=== PATIENT | female | born 1940 | race Caucasian/White ===

== ENCOUNTER 2022-05-23 18:16 | Inpatient (IN) | payer OTHER ==
--- OUTSIDE RECORDS SUMMARY | 2022-05-23 18:26 | XMS REPORT | Continuity of Care Document ---
:1940 Author Organization [facility] t Address [address] [place] [address] Care Team Providers Name Role Phone Melani Niño MD Primary Care Physician [phone] LUCÍA EARLY Attending Clinician Unavailable PAIGE WALKER Attending Clinician Unavailable Melani Niño MD Attending Clinician Cass Valverde Attending Clinician CASS HUGHES Attending Clinician Unavailable MELANI NIÑO Attending Clinician Unavailable Lucía Early MD Attending Clinician Doctor Unassigned, [place] Attending Clinician Unavailable Arielle Mosley MD Attending Clinician Pob, Adc Lab Main Attending Clinician Unavailable Vaccine, Ang Db Cbc Fam Attending Clinician Unavailable Yara Paez MD Attending Clinician Nurse, Santiago Vences Attending Clinician Unavailable Lab, Ang - Db Attending Clinician Unavailable YARA PAEZ Attending Clinician Unavailable Bahman Luna MD Attending Clinician BAHMAN LUNA Attending Clinician Unavailable BAHMAN LUNA Attending Clinician Unavailable Jorgito Banks DO Attending Clinician Mayra Lubin Attending Clinician Paige Walker MD Attending Clinician Only, Adc Test Attending Clinician Unavailable LUCÍA EARLY Admitting Clinician Unavailable PAIGE WALKER Admitting Clinician Unavailable Lucía Early MD Admitting Clinician ARIELLE MOSLEY Admitting Clinician Unavailable Paige Walker MD Admitting Clinician Payers Payer Name Policy Type Policy Number Effective Date Expiration Date Dana haney [facility] [id number] 2021 [facility] [facility] [place] 00:00:00 PPO BCBS [facility] [id number] 2018 00:00:00 [place] [id number] 2020 MEDICARE ADV 00:00:00 MEDICARE PART A \T\ [id number] B 00:00:00 Problems Condition Condition Condition Status Onset Resolution Last Treating Co mments Source Name Details Category Date Date Treatment Clinician Date No known No known Disease Unive rs active active ity of problems problems [facility] Allergies, Adverse Reactions, Alerts Allergy Allergy Status Severity Reaction(s) Onset Inactive Treating Comm ents Source Name Type Date Date Clinician PENICILL DRUG Active Rash 2017-0 Univers IN INGREDI 9-30 ity of 00:00: [place] [address] [place] [address] Penicill Propensi Active Rash 2016-0 Univer s in ty to 9-30 ity of adverse 00:00: [place] reaction [address] [place] [address] Social History Social Habit Start Date Stop Date Quantity Comments Source Exposure to 2022-05-01 2022-05-11 Not sure [facility] SARS-CoV-2 00:00:00 12:57:00 [facility] (event) [place] Alcohol intake 2022-05-11 2022-05-11 Ex-drinker [facility] 00:00:00 00:00:00 (finding) [facility] Tobacco use and 2022-01-13 2022-01-13 Smokeless tobacco Un iversity of exposure 00:00:00 00:00:00 non-user [facility] History of 2010-09-17 Cigarette Smoker Universi ty of tobacco use 00:00:00 [facility] Sex [birth year] Universit y of 00:00:00 00:00:00 [facility] Smoking Status Start Date Stop Date Source Ex-smoker 2022-01-13 00:00:00 2022-01-13 00:00:00 [facility] Medications Ordered Filled Start Stop Current Ordering Indication Dosage Frequency Signature Comments Components Source Medication Medication Date Date Medication? Clinician (SIG) Name Name gabapentin 2022-0 Yes [id number] TAKE 1 Univers 100 mg 1-17 [id number] CAPSULE BY ity o f capsule 00:00: MOUTH [place] [address] EVERY DAY Medical EVERY Branch NIGHT AT BEDTIME lisinopriL 2022-0 Yes [id number] 20mg Take 1 U nivers 20 mg 1-02 tablet by ity of tablet 00:00: mouth in [place] the morning. Branch lisinopriL 2022-0 Yes [id number] 20mg Take 1 U nivers 20 mg 1-02 tablet by ity of tablet 00:00: mouth in [place] the morning. Branch lisinopriL 2022-0 Yes [id number] 20mg Take 1 U nivers 20 mg 1-02 tablet by ity of tablet 00:00: mouth in [place] the morning. Branch lisinopriL 2022-0 Yes [id number] 20mg Take 1 U nivers 20 mg 1-02 tablet by ity of tablet 00:00: mouth in [place] the morning. Branch cefUROXime 2021-05 Yes [id number] 500mg Take 1 Univers 500 mg 2-21 tablet by ity of tablet 00:00: mouth in [place] the morning Branch and 1 tablet in the evening. cefUROXime 2021- Yes [id number] 500mg Take 1 Univers 500 mg 2-21 tablet by ity of tablet 00:00: mouth in [place] the morning Branch and 1 tablet in the evening. cefUROXime 2021- Yes [id number] 500mg Take 1 Univers 500 mg 2-21 tablet by ity of tablet 00:00: mouth in [place] the morning Branch and 1 tablet in the evening. cefUROXime 2021- Yes [id number] 500mg Take 1 Univers 500 mg 2-21 tablet by ity of tablet 00:00: mouth in [place] [address] the morning Branch and 1 tablet in the evening. cefUROXime 2021- Yes [id number] 500mg Take 1 Univers 500 mg 2-21 tablet by ity of tablet 00:00: mouth in [place] 00 the Medical morning Branch and 1 tablet in the evening. hydrALAZINE 2021- Yes 25mg Take 1 Univ ers 25 mg 2-19 tablet by ity of tablet 00:00: mouth in [place] 00 the Medical morning Branch and 1 tablet at noon and 1 tablet in the evening. gabapentin 2021-05 Yes [id number] TAKE 1 Univers 100 mg 2-19 [id number] CAPSULE BY ity o f capsule 00:00: MOUTH [place] EVERY DAY Medical EVERY Branch NIGHT AT BEDTIME furosemide 2021- Yes [id number] 20mg Take 1 Univers (LASIX) 20 2-19 tablet by ity of mg tablet 00:00: mouth in [facility] the Medical morning. Branch hydrALAZINE 2021-05 Yes 25mg Take 1 Univ ers 25 mg 2-19 tablet by ity of tablet 00:00: mouth in [place] the Medical morning Branch and 1 tablet at noon and 1 tablet in the evening. gabapentin 2021-05 Yes [id number] TAKE 1 Univers 100 mg 2-19 [id number] CAPSULE BY ity o f capsule 00:00: MOUTH [place] EVERY DAY Medical EVERY Branch NIGHT AT BEDTIME furosemide 2021- Yes [id number] 20mg Take 1 Univers (LASIX) 20 2-19 tablet by ity of mg tablet 00:00: mouth in [facility] the Medical morning. Branch hydrALAZINE 2021-05 Yes 25mg Take 1 Univ ers 25 mg 2-19 tablet by ity of tablet 00:00: mouth in [place] the Medical morning Branch and 1 tablet at noon and 1 tablet in the evening. gabapentin 2021- Yes [id number] TAKE 1 Univers 100 mg 2-19 [id number] CAPSULE BY ity o f capsule 00:00: MOUTH [place] 00 EVERY DAY Medical EVERY Branch NIGHT AT BEDTIME furosemide 2021- Yes [id number] 20mg Take 1 Univers (LASIX) 20 2-19 tablet by ity of mg tablet 00:00: mouth in [place] [address] the Medical morning. Branch hydrALAZINE 2021-05 Yes 25mg Take 1 Univ ers 25 mg 2-19 tablet by ity of tablet 00:00: mouth in [place] 00 the Medical morning Branch and 1 tablet at noon and 1 tablet in the evening. gabapentin 2021- Yes [id number] TAKE 1 Univers 100 mg 2-19 [id number] CAPSULE BY ity o f capsule 00:00: MOUTH [place] 00 EVERY DAY Medical EVERY Branch NIGHT AT BEDTIME furosemide 2021-05 Yes [id number] 20mg Take 1 Univers (LASIX) 20 2-19 tablet by ity of mg tablet 00:00: [place] the Medical morning. Branch hydrALAZINE 2021-05 Yes 25mg Take 1 Univ ers 25 mg 2-19 tablet by ity of tablet 00:00: mouth in [place] 00 the Medical morning Branch and 1 tablet at noon and 1 tablet in the evening. gabapentin 2021-05 Yes [id number] TAKE 1 Univers 100 mg 2-19 [id number] CAPSULE BY ity o f capsule 00:00: MOUTH [place] 00 EVERY DAY Medical EVERY Branch NIGHT AT BEDTIME furosemide 2021-05 Yes [id number] 20mg Take 1 Univers (LASIX) 20 2-19 tablet by ity of mg tablet 00:00: [place] 00 the Medical morning. Branch hydrALAZINE 2021-05 Yes 25mg Take 1 Univ ers 25 mg 2-19 tablet by ity of tablet 00:00: mouth in [place] 00 the Medical morning Branch and 1 tablet at noon and 1 tablet in the evening. furosemide 2021-05 Yes [id number] 20mg Take 1 Univers (LASIX) 20 2-19 tablet by ity of mg tablet 00:00: [place] the Medical morning. Branch gabapentin 2021-05- No [id number] TAKE 1 Univers 100 mg 2-19 - [id number] CAPSULE BY ity of capsule 00:00: 00:00 MOUTH [place] 00 :00 EVERY DAY Medical EVERY Branch NIGHT AT BEDTIME fluticasone 2021-05 Yes 2{spray Use 2 Un josé miguel 27.5 2-05 } Sprays in ity of mcg/actuati 14:37: each [place] on nasal 22 nostril Medical spray daily. Branch apixaban 5 2021-05 Yes 5mg Take 5 mg Un josé miguel mg tablet 2-05 by mouth 2 ity of 14:37: (two) [place] 22 times Medical daily. Branch Cholecalcif 2021-05 Yes 1{capsu Take 1 U nivers aramis, 2-05 le} capsule by ity of Vitamin D3, 14:37: mouth [place] 50 mcg 22 daily. Medical (2,000 Branch unit) capsule amiodarone 2021-05 Yes 2mg 2 mg Univers HCl 2-05 daily. ity of (AMIODARONE 14:37: [place] , BULK, 22 Medical [facility]) Branch cloNIDine 2021-05 Yes .1mg Take 0.1 Univ ers 0.1 mg 2-05 mg by ity of tablet 14:37: mouth in [place] 22 the Medical morning. Branch fluticasone 2021-05 Yes 2{spray Use 2 Un josé miguel 27.5 2-05 } Sprays in ity of mcg/actuati 14:37: each [place] on nasal 22 nostril Medical spray daily. Branch apixaban 5 2021-05 Yes 5mg Take 5 mg Un josé miguel mg tablet 2-05 by mouth 2 ity of 14:37: (two) [place] 22 times Medical daily. Branch Cholecalcif 2021-05 Yes 1{capsu Take 1 U nivers aramis, 2-05 le} capsule by ity of Vitamin D3, 14:37: mouth [place] 50 mcg 22 daily. Medical (2,000 Branch unit) capsule amiodarone 2021-05 Yes 2mg 2 mg Univers HCl 2-05 daily. ity of (AMIODARONE 14:37: Work4 , BULK, 22 Medical [facility]) Branch cloNIDine 2021-05 Yes .1mg Take 0.1 Univ ers 0.1 mg 2-05 mg by ity of tablet 14:37: mouth in [place] 22 the Medical morning. Branch fluticasone 2021-05 Yes 2{spray Use 2 Un josé miguel 27.5 2-05 } Sprays in ity of mcg/actuati 14:37: each [place] on nasal 22 nostril Medical spray daily. Branch apixaban 5 2021-05 Yes 5mg Take 5 mg Un josé miguel mg tablet 2-05 by mouth 2 ity of 14:37: (two) [place] 22 times Medical daily. Branch Cholecalcif 2021-05 Yes 1{capsu Take 1 U nivers aramis, 2-05 le} capsule by ity of Vitamin D3, 14:37: mouth [place] 50 mcg 22 daily. Medical (2,000 Branch unit) capsule amiodarone 2021-05 Yes 2mg 2 mg Univers HCl 2-05 daily. ity of (AMIODARONE 14:37: [place] , [employer], 22 Medical [facility]) Branch cloNIDine 2021-05 Yes .1mg Take 0.1 Univ ers 0.1 mg 2-05 mg by ity of tablet 14:37: mouth in [place] 22 the Medical morning. Branch fluticasone 2021-05 Yes 2{spray Use 2 Un josé miguel 27.5 2-05 } Sprays in ity of mcg/actuati 14:37: each [place] on nasal 22 nostril Medical spray daily. Branch apixaban 5 2021-05 Yes 5mg Take 5 mg Un josé miguel mg tablet 2-05 by mouth 2 ity of 14:37: (two) [place] 22 times Medical daily. Branch Cholecalcif 2021-05 Yes 1{capsu Take 1 U nivers aramis, 2-05 le} capsule by ity of Vitamin D3, 14:37: mouth [place] 50 mcg 22 daily. Medical (2,000 Branch unit) capsule amiodarone 2021-05 Yes 2mg 2 mg Univers HCl 2-05 daily. ity of (AMIODARONE 14:37: [place], 22 Medical [facility]) Branch cloNIDine 2021-05 Yes .1mg Take 0.1 Univ ers 0.1 mg 2-05 mg by ity of tablet 14:37: mouth in [place] 22 the Medical morning. Branch fluticasone 2021-05 Yes 2{spray Use 2 Un josé miguel 27.5 2-05 } Sprays in ity of mcg/actuati 14:37: each [place] on nasal 22 nostril Medical spray daily. Branch apixaban 5 2021-05 Yes 5mg Take 5 mg Un josé miguel mg tablet 2-05 by mouth 2 ity of 14:37: (two) [place] 22 times Medical daily. Branch Cholecalcif 2021-05 Yes 1{capsu Take 1 U nivers aramis, 2-05 le} capsule by ity of Vitamin D3, 14:37: mouth [place] 50 mcg 22 daily. Medical (2,000 Branch unit) capsule amiodarone 2021-05 Yes 2mg 2 mg Univers HCl 2-05 daily. ity of (AMIODARONE 14:37: [place] , BULK, 22 Medical [facility]) Branch cloNIDine 2021-05 Yes .1mg Take 0.1 Univ ers 0.1 mg 2-05 mg by ity of tablet 14:37: mouth in [place] 22 the Medical morning. Branch fluticasone 2021-05 Yes 2{spray Use 2 Un josé miguel 27.5 2-05 } Sprays in ity of mcg/actuati 14:37: each [place] on nasal 22 nostril Medical spray daily. Branch apixaban 5 2021-05 Yes 5mg Take 5 mg Un josé miguel mg tablet 2-05 by mouth 2 ity of 14:37: (two) [place] 22 times Medical daily. Branch Cholecalcif 2021-05 Yes 1{capsu Take 1 U nivers aramis, 2-05 le} capsule by ity of Vitamin D3, 14:37: mouth [place] 50 mcg 22 daily. Medical (2,000 Branch unit) capsule amiodarone 2021-05 Yes 2mg 2 mg Univers HCl 2-05 daily. ity of (AMIODARONE 14:37: Work4 , [employer], [address] [place] [address]) Branch cloNIDine 2021-05 Yes .1mg Take 0.1 Univ ers 0.1 mg 2-05 mg by ity of tablet 14:37: mouth in [place] 22 the Medical morning. Branch fluticasone 2021-05 Yes 2{spray Use 2 Un josé miguel 27.5 2-05 } Sprays in ity of mcg/actuati 14:37: each [place] on nasal 22 nostril Medical spray daily. Branch apixaban 5 2021-05 Yes 5mg Take 5 mg Un josé miguel mg tablet 2-05 by mouth 2 ity of 14:37: (two) [place] 22 times Medical daily. Branch Cholecalcif 2021-05 Yes 1{capsu Take 1 U nivers aramis, 2-05 le} capsule by ity of Vitamin D3, 14:37: mouth [place] 50 mcg 22 daily. Medical (2,000 Branch unit) capsule amiodarone 2021-05 Yes 2mg 2 mg Univers HCl 2-05 daily. ity of (AMIODARONE 14:37: Work4 , BULK, 22 Medical [facility]) Branch cloNIDine 2021-05 Yes .1mg Take 0.1 Univ ers 0.1 mg 2-05 mg by ity of tablet 14:37: mouth in [place] 22 the Medical morning. Branch fluticasone 2021-05 Yes 2{spray Use 2 Un josé miguel 27.5 2-05 } Sprays in ity of mcg/actuati 14:37: each [place] on nasal 22 nostril Medical spray daily. Branch apixaban 5 2021-05 Yes 5mg Take 5 mg Un josé miguel mg tablet 2-05 by mouth 2 ity of 14:37: (two) [place] 22 times Medical daily. Branch Cholecalcif 2021-05 Yes 1{capsu Take 1 U nivers aramis, 2-05 le} capsule by ity of Vitamin D3, 14:37: mouth [place] 50 mcg 22 daily. Medical (2,000 Branch unit) capsule amiodarone 2021-05 Yes 2mg 2 mg Univers HCl 2-05 daily. ity of (AMIODARONE 14:37: [place] , BULK, 22 Medical MIS) Branch cloNIDine 2021-05 Yes .1mg Take 0.1 Univ ers 0.1 mg 2-05 mg by ity of tablet 14:37: mouth in [place] 22 the Medical morning. Branch cefUROXime 2021-05 Yes [id number] 500mg Take 1 Univers 500 mg 2-05 tablet by ity of tablet 00:00: mouth in [place] 00 the Medical morning Branch and 1 tablet in the evening. cefUROXime 2021-05 Yes [id number] 500mg Take 1 Univers 500 mg 2-05 tablet by ity of tablet 00:00: mouth in [place] 00 the Medical morning Branch and 1 tablet in the evening. cefUROXime 2021-05 Yes [id number] 500mg Take 1 Univers 500 mg 2-05 tablet by ity of tablet 00:00: mouth in [place] 00 the Medical morning Branch and 1 tablet in the evening. cefUROXime 2021-05- No [id number] 500mg Take 1 Univers 500 mg 2-05 12-21 tablet by ity of tablet 00:00: 00:00 mouth in [place] 00 :00 the Medical morning Branch and 1 tablet in the evening. furosemide 2021-05 Yes [id number] 20mg Take 1 Univers (LASIX) 20 1-22 tablet by ity of mg tablet 00:00: mouth in [facility] 00 the Medical morning. Branch furosemide 2021-05 Yes [id number] 20mg Take 1 Univers (LASIX) 20 1-22 tablet by ity of mg tablet 00:00: mouth in [facility] [place] [facility] 00 the Medical morning. Branch furosemide 2021-05 Yes [id number] 20mg Take 1 Univers (LASIX) 20 1-22 tablet by ity of mg tablet 00:00: [place] the Medical morning. Branch furosemide 2021-05- No [id number] 20mg Take 1 Univers (LASIX) 20 1-22 12-19 tablet by ity of mg tablet 00:00: 00:00 mouth in [place] 00 :00 the Medical morning. Branch gabapentin 2021-05 Yes [id number] TAKE 1 Univers 100 mg 1-18 [id number] CAPSULE BY ity o f capsule 00:00: MOUTH [place] 00 EVERY DAY Medical EVERY Branch NIGHT AT BEDTIME gabapentin 2021-05 Yes [id number] TAKE 1 Univers 100 mg 1-18 [id number] CAPSULE BY ity o f capsule 00:00: MOUTH [place] 00 EVERY DAY Medical EVERY Branch NIGHT AT BEDTIME gabapentin 2021-05 Yes [id number] TAKE 1 Univers 100 mg 1-18 [id number] CAPSULE BY ity o f capsule 00:00: MOUTH [place] 00 EVERY DAY Medical EVERY Branch NIGHT AT BEDTIME gabapentin 2021-05 Yes [id number] TAKE 1 Univers 100 mg 1-18 [id number] CAPSULE BY ity o f capsule 00:00: MOUTH [place] 00 EVERY DAY Medical EVERY Branch NIGHT AT BEDTIME gabapentin 2021-05- No [id number] TAKE 1 Univers 100 mg 1-18 12-19 [id number] CAPSULE BY ity of capsule 00:00: 00:00 MOUTH [place] 00 :00 EVERY DAY Medical EVERY Branch NIGHT AT BEDTIME lactated 2021-05 Yes 1000mL at 50 Univer s ringers IV 1-10 mL/hr, ity of infusion 17:00: 1,000 mL, [place] 1,000 [place] 00 IV Medical Infusion, Branch CONTINUOUS , Starting on [place] 03/16/22 at 1100, Until Discontinu ed, Routine, PACU lactated 2021-05- No 1000mL at 50 Unive rs ringers IV 1-10 11-10 mL/hr, ity of infusion 17:00: 19:30 1,000 mL, [place] 1,000 mL 00 :43 IV Medical Infusion, Branch CONTINUOUS , Starting on [place] 03/16/22 at 1100, Until [place] 03/16/22 at 1330, Routine, PACU ondansetron 2021-05 Yes 4mg 4 mg, Slow Univers (ZOFRAN 1-10 IV Push, ity of (PF)) 16:52: PRN, 1 [place] injection 4 32 dose, Medical mg Starting Branch on [place] 03/16/22 at 1052, Until Discontinu ed, Routine, Nausea and Vomiting (N/V), PACU ondansetron 2021-05- No 4mg 4 mg, Slow Univers (ZOFRAN 05-16 IV Push, ity of (PF)) 16:52: 19:30 PRN, 1 [place] injection 4 32 :43 dose, Medical mg Starting Branch on [place] 03/16/22 at 1052, Until [place] 03/16/22 at 1330, Routine, Nausea and Vomiting (N/V), PACU neomycin-po 2021-05- No PRN, Unive rs lymyxin-dex 05-16 Starting ity of amethasone 16:51: 16[facility] [facility] 00 :27 03/16/22 Medic al 3.5 at 1051, Branch mg/g-10,000 Until [facility] unit/g-0.1 03/16/22 % at 1056, ophthalmic Routine, ointment Intra-op gentamicin 2021-05- No PRN, Univer s injection 05-16 Starting ity o f 16:50: 16:56 on Lisa [place] 00 :27 03/16/22 Medical at 1050, Branch Until [place] 03/16/22 at 1056, JUAN MIGUEL, Intra-op dexamethaso 2021-05- No PRN, Unive rs ne 05-16 Starting ity of (DECADRON 16:50: 16:56 on [facility] PHOSPHATE) 00 :27 03/16/22 Medic al injection at 1050, Branch Until [place] 03/16/22 at 1056, Routine, Intra-op EPINEPHrine 2021-05- No PRN, Unive rs (PF) 05-16 Starting ity of 1:1,000 (1 16:32: 16:56 on [facility] [place] mg/mL) 00 :27 03/16/22 Medical (ADRENALIN at 1032, Branc h (PF)) Until [place] injection 03/16/22 at 1056, Routine, Intra-op chondroitin 2021-05- No PRN, Unive rs sulf-sod 05-16 Starting ity of hyaluronate 16:32: 16:56 on [place] (DUOVISC 00 :27 03/16/22 Medical VISCO at 1032, Branch ELASTIC) Until [place] intraocular 03/16/22 injection at 1056, Routine, Intra-op balanced 2021-05- No PRN, Univers salt soln 05-16 Starting ity o f no.2 irrig. 16:32: 16:56 on [place] (BSS) 00 :27 03/16/22 Medical ophthalmic at 1032, Branc h solution Until [facility] 03/16/22 at 1056, Routine, Intra-op water for 2021-05- No PRN, Univers irrigation 05-16 Starting ity of irrigation 16:29: 16:[address] [facility] solution 00 :27 03/16/22 Medical at 1029, Branch Until [facility] 03/16/22 at 1056, Routine, Intra-op tetracaine 2021-05- No PRN, Univer s (PONTOCAINE 05-16 Starting ity of ) 0.5 % 16:27: 16:56 on [facility] ophthalmic 00 :27 03/16/22 Medic al drops at 1027, Branch Until [facility] 03/16/22 at 1056, Routine, Intra-op eye block 2021-05- No PRN, Univers syringe 11 05-16 Starting ity of mL 16:26: 16:56 on [facility] 00 :27 03/16/22 Medical at 1026, Branch Until [facility] 03/16/22 at 1056, Intra-op cyclopent 2021-05- No .5mL 0.5 mL, Univ ers 1%-tropic 05-16 Right Eye, ity of 1%-phenyl 15:15: 15:24 ONCE, 1 [place] 2.5%-ketor 00 :00 dose, On Medic al 0.5% [facility] (MYDRIATIC 03/16/22 #5) at 0915, ophthalmic Routine, solution DSU Pre-op syringe 0.5 mL lactated 2021-05- No 1000mL at 42 Unive rs ringers IV 1-10 11-10 mL/hr, ity of infusion 15:15: 15:24 1,000 mL, [place] 1,000 mL 00 :00 IV Medical Infusion, Branch ONCE, 1 dose, On [place] 03/16/22 at 0915, Routine, DSU Pre-op cyclopent 2021-05- No .5mL 0.5 mL, Univ ers 1%-tropic 1-10 11-10 Right Eye, ity of 1%-phenyl 15:15: 15:24 ONCE, 1 [place] 2.5%-ketor 00 :00 dose, On Medic al 0.5% [place] Branch (MYDRIATIC 03/16/22 #5) at 0915, ophthalmic Routine, solution DSU Pre-op syringe 0.5 mL lactated 2021-05- No 1000mL at 42 Unive rs ringers IV 1-10 11-10 mL/hr, ity of infusion 15:15: 15:24 1,000 mL, [place] 1,000 mL 00 :00 IV Medical Infusion, Branch ONCE, 1 dose, On [place] 03/16/22 at 0915, Routine, DSU Pre-op fluticasone 2021-05 Yes 2{spray Use 2 Un josé miguel 27.5 1-10 } Sprays in ity of mcg/actuati 11:30: each [place] on nasal 40 nostril Medical spray daily. Branch apixaban 5 2021-05 Yes 5mg Take 5 mg Un josé miguel mg tablet 1-10 by mouth 2 ity of 11:30: (two) [place] 40 times Medical daily. Branch Cholecalcif 2021-05 Yes 1{capsu Take 1 U nivers aramis, 1-10 le} capsule by ity of Vitamin D3, 11:30: mouth [place] 50 mcg 40 daily. Medical (2,000 Branch unit) capsule amiodarone 2021-05 Yes 2mg 2 mg Univers HCl 1-10 daily. ity of (AMIODARONE 11:30: [place] , BULK, 40 Medical MIS) Branch cloNIDine 2021-05 Yes .1mg Take 0.1 Univ ers 0.1 mg 1-10 mg by ity of tablet 11:30: mouth in [place] 40 the Medical morning. Branch fluticasone 2021-05 Yes 2{spray Use 2 Un josé miguel 27.5 1-10 } Sprays in ity of mcg/actuati 11:30: each [place] on nasal 40 nostril Medical spray daily. Branch apixaban 5 2021-05 Yes 5mg Take 5 mg Un josé miguel mg tablet 1-10 by mouth 2 ity of 11:30: (two) [place] 40 times Medical daily. Branch Cholecalcif 2021-05 Yes 1{capsu Take 1 U nivers aramis, 1-10 le} capsule by ity of Vitamin D3, 11:30: mouth [place] 50 mcg 40 daily. Medical (2,000 Branch unit) capsule amiodarone 2021-05 Yes 2mg 2 mg Univers HCl 1-10 daily. ity of (AMIODARONE 11:30: [place] , BULK, 40 Medical MIS) Branch cloNIDine 2021-05 Yes .1mg Take 0.1 Univ ers 0.1 mg 1-10 mg by ity of tablet 11:30: mouth in [place] 40 the Medical morning. Branch fluticasone 2021-05 Yes 2{spray Use 2 Un josé miguel 27.5 1-10 } Sprays in ity of mcg/actuati 11:30: each [place] on nasal 40 nostril Medical spray daily. Branch apixaban 5 2021-05 Yes 5mg Take 5 mg Un josé miguel mg tablet 1-10 by mouth 2 ity of 11:30: (two) [place] 40 times Medical daily. Branch Cholecalcif 2021-05 Yes 1{capsu Take 1 U nivers aramis, 1-10 le} capsule by ity of Vitamin D3, 11:30: mouth [place] 50 mcg 40 daily. Medical (2,000 Branch unit) capsule amiodarone 2021-05 Yes 2mg 2 mg Univers HCl 1-10 daily. ity of (AMIODARONE 11:30: [place] , BULK, 40 Medical MISC) Branch cloNIDine 2021-05 Yes .1mg Take 0.1 Univ ers 0.1 mg 1-10 mg by ity of tablet 11:30: mouth in [place] 40 the Medical morning. Branch fluticasone 2021-05 Yes 2{spray Use 2 Un josé miguel 27.5 1-10 } Sprays in ity of mcg/actuati 11:30: each [place] on nasal 40 nostril Medical spray daily. Branch apixaban 5 2021-05 Yes 5mg Take 5 mg Un josé miguel mg tablet 1-10 by mouth 2 ity of 11:30: (two) [place] 40 times Medical daily. Branch Cholecalcif 2021-05 Yes 1{capsu Take 1 U nivers [place], 1-10 le} capsule by ity of Vitamin D3, 11:30: mouth [place] 50 mcg 40 daily. Medical (2,000 Branch unit) capsule amiodarone 2021-05 Yes 2mg 2 mg Univers HCl 1-10 daily. ity of (AMIODARONE 11:30: [place] , BULK, 40 Medical MIS) Branch cloNIDine 2021-05 Yes .1mg Take 0.1 Univ ers 0.1 mg 1-10 mg by ity of tablet 11:30: mouth in [place] 40 the Medical morning. Branch fluticasone 2021-05 Yes 2{spray Use 2 Un josé miguel 27.5 1-07 } Sprays in ity of mcg/actuati 12:49: each [place] on nasal 36 nostril Medical spray daily. Branch apixaban 2021-05 Yes 5mg Take 5 mg Un josé miguel mg tablet 1-07 by mouth 2 ity of 12:49: (two) [place] 36 times Medical daily. Branch Cholecalcif 2021-05 Yes 1{capsu Take 1 U nivers aramis, 1-07 le} capsule by ity of Vitamin D3, 12:49: mouth [place] 50 mcg 36 daily. Medical (2,000 Branch unit) capsule amiodarone 2021-05 Yes 2mg 2 mg Univers HCl 1-07 daily. ity of (AMIODARONE 12:49: [place] , BULK, 36 Medical MIS) Branch cloNIDine 2021-05 Yes .1mg Take 0.1 Univ ers 0.1 mg 1-07 mg by ity of tablet 12:49: mouth in [place] 36 the Medical morning. Branch fluticasone 2021-05 Yes 2{spray Use 2 Un josé miguel 27.5 1-07 } Sprays in ity of mcg/actuati 12:49: each [place] on nasal 36 nostril Medical spray daily. Branch apixaban 5 2021-05 Yes 5mg Take 5 mg Un josé miguel mg tablet 1-07 by mouth 2 ity of 12:49: (two) [place] 36 times Medical daily. Branch Cholecalcif 2021-05 Yes 1{capsu Take 1 U nivers aramis, 1-07 le} capsule by ity of Vitamin D3, 12:49: mouth [place] 50 mcg 36 daily. Medical (2,000 Branch unit) capsule amiodarone 2021-05 Yes 2mg 2 mg Univers HCl 1-07 daily. ity of (AMIODARONE 12:49: [place] , BULK, 36 Medical MIS) Branch cloNIDine 2021-05 Yes .1mg Take 0.1 Univ ers 0.1 mg 1-07 mg by ity of tablet 12:49: mouth in [place] 36 the Medical morning. Branch amLODIPine 2021-05 Yes [id number] 5mg Take 1 U nivers 5 mg tablet 1-07 tablet by ity of 00:00: mouth in [place] 00 the Medical morning. Branch amLODIPine 2021-05 Yes [id number] 5mg Take 1 U nivers 5 mg tablet 1-07 tablet by ity of 00:00: mouth in [place] 00 the Medical morning. Branch amLODIPine 2021-05 Yes [id number] 5mg Take 1 U nivers 5 mg tablet 1-07 tablet by ity of 00:00: mouth in [place] 00 the Medical morning. Branch amLODIPine 2021-05 Yes [id number] 5mg Take 1 U nivers 5 mg tablet 1-07 tablet by ity of 00:00: mouth in [place] 00 the Medical morning. Branch amLODIPine 2021-05 Yes [id number] 5mg Take 1 U nivers 5 mg tablet 1-07 tablet by ity of 00:00: mouth in [place] 00 the Medical morning. Branch amLODIPine 2021-05 Yes [id number] 5mg Take 1 U nivers 5 mg tablet 1-07 tablet by ity of 00:00: mouth in [place] 00 the Medical morning. Branch amLODIPine 2021-05 Yes [id number] 5mg Take 1 U nivers 5 mg tablet 1-07 tablet by ity of 00:00: mouth in [place] 00 the Medical morning. Branch amLODIPine 2021-05 Yes [id number] 5mg Take 1 U nivers 5 mg tablet 1-07 tablet by ity of 00:00: mouth in [place] 00 the Medical morning. Branch amLODIPine 2021-05 Yes [id number] 5mg Take 1 U nivers 5 mg tablet 1-07 tablet by ity of 00:00: mouth in [place] the Medical morning. Branch amLODIPine 2021-05 Yes [id number] 5mg Take 1 U nivers 5 mg tablet 1-07 tablet by ity of 00:00: mouth in [place] the Medical morning. Branch amLODIPine 2021-05 Yes [id number] 5mg Take 1 U nivers 5 mg tablet 1-07 tablet by ity of 00:00: mouth in [place] the Medical morning. Branch amLODIPine 2021-05 Yes [id number] 5mg Take 1 U nivers 5 mg tablet 1-07 tablet by ity of 00:00: mouth in [place] the Medical morning. Branch amLODIPine 2021-05 Yes [id number] 5mg Take 1 U nivers 5 mg tablet 1-07 tablet by ity of 00:00: mouth in [place] the Medical morning. Branch amLODIPine 2021-05 Yes [id number] 5mg Take 1 U nivers 5 mg tablet 1-07 tablet by ity of 00:00: mouth in [place] the Medical morning. Branch amLODIPine 2021-05 Yes [id number] 5mg Take 1 U nivers 5 mg tablet 1-07 tablet by ity of 00:00: mouth in [place] the Medical morning. Branch gabapentin 2021-05 Yes [id number] TAKE 1 [facility] 100 mg 0-19 [id number] CAPSULE BY ity o f capsule 00:00: MOUTH [place] 00 EVERY DAY Medical EVERY Branch NIGHT AT BEDTIME gabapentin 2021-05 Yes [id number] TAKE 1 [facility] 100 mg 0-19 [id number] CAPSULE BY ity o f capsule 00:00: MOUTH [place] 00 EVERY DAY Medical EVERY Branch NIGHT AT BEDTIME gabapentin 2021-05 Yes [id number] TAKE 1 [facility] 100 mg 0-19 [id number] CAPSULE BY ity o f capsule 00:00: MOUTH [place] 00 EVERY DAY Medical EVERY Branch NIGHT AT BEDTIME gabapentin 2021-05 Yes [id number] TAKE 1 [facility] 100 mg 0-19 [id number] CAPSULE BY ity o f capsule 00:00: MOUTH [place] 00 EVERY DAY Medical EVERY Branch NIGHT AT BEDTIME gabapentin 2021- Yes [id number] TAKE 1 [facility] 100 mg 0-19 [id number] CAPSULE BY ity o f capsule 00:00: MOUTH [place] 00 EVERY DAY Medical EVERY Branch NIGHT AT BEDTIME gabapentin 2021- Yes [id number] TAKE 1 [facility] 100 mg 0-19 [id number] CAPSULE BY ity o f capsule 00:00: MOUTH [place] 00 EVERY DAY Medical EVERY Branch NIGHT AT BEDTIME gabapentin 2021-05- No [id number] TAKE 1 [facility] 100 mg 0-19 11-18 [id number] CAPSULE BY ity of capsule 00:00: 00:00 MOUTH [place] 00 :00 EVERY DAY Medical EVERY Branch NIGHT AT BEDTIME fluticasone 2021-05 Yes 2{spray Use 2 Un josé miguel 27.5 0-10 } Sprays in ity of mcg/actuati 13:03: each [place] on nasal 18 nostril Medical spray daily. Branch apixaban 5 2021-05 Yes 5mg Take 5 mg Un josé miguel mg tablet 0-10 by mouth 2 ity of 13:03: (two) [place] 18 times Medical daily. Branch Cholecalcif 2021-05 Yes 1{capsu Take 1 U nivers aramis, 0-10 le} capsule by ity of Vitamin D3, 13:03: mouth [place] 50 mcg 18 daily. Medical (2,000 Branch unit) capsule amiodarone 2021-05 Yes 2mg 2 mg [facility] HCl 0-10 daily. ity of (AMIODARONE 13:03: Work4 , [employer], Medical [facility]) Branch cloNIDine 2021-05 Yes .1mg Take 0.1 Univ ers 0.1 mg 0-10 mg by ity of tablet 13:03: mouth in [place] 18 the Medical morning Branch and 0.1 mg at noon and 0.1 mg in the evening. fluticasone 2021-05 Yes 2{spray Use 2 Un josé miguel 27.5 0-10 } Sprays in ity of mcg/actuati 13:03: each [place] on nasal 18 nostril Medical spray daily. Branch apixaban 5 2021-05 Yes 5mg Take 5 mg Un josé miguel mg tablet 0-10 by mouth 2 ity of 13:03: (two) [place] 18 times Medical daily. Branch Cholecalcif 2021-05 Yes 1{capsu Take 1 U nivers ar[place], 0-10 le} capsule by ity of Vitamin D3, 13:03: mouth [place] 50 mcg 18 daily. Medical (2,000 Branch unit) capsule amiodarone 2021-05 Yes 2mg 2 mg [facility] HCl 0-10 daily. ity of (AMIODARONE 13:03: [place] , BULK, 18 Medical MIS) Branch cloNIDine 2021-05 Yes .1mg Take 0.1 Univ ers 0.1 mg 0-10 mg by ity of tablet 13:03: mouth in [place] 18 the Medical morning Branch and 0.1 mg at noon and 0.1 mg in the evening. fluticasone 2021-05 Yes 2{spray Use 2 Un josé miguel 27.5 0-10 } Sprays in ity of mcg/actuati 13:03: each [place] on nasal 18 nostril Medical spray daily. Branch apixaban 5 2021-05 Yes 5mg Take 5 mg Un josé miguel mg tablet 0-10 by mouth 2 ity of 13:03: (two) [place] 18 times Medical daily. Branch Cholecalcif 2021-05 Yes 1{capsu Take 1 U nivers [place], 0-10 le} capsule by ity of Vitamin D3, 13:03: mouth [place] 50 mcg 18 daily. Medical (2,000 Branch unit) capsule amiodarone 2021-05 Yes 2mg 2 mg [facility] HCl 0-10 daily. ity of (AMIODARONE 13:03: [place] , BULK, [address] [place] [address]) Branch cloNIDine 2021-05 Yes .1mg Take 0.1 Univ ers 0.1 mg 0-10 mg by ity of tablet 13:03: mouth in [place] 18 the Medical morning Branch and 0.1 mg at noon and 0.1 mg in the evening. fluticasone 2021-05 Yes 2{spray Use 2 Un josé miguel 27.5 0-10 } Sprays in ity of mcg/actuati 13:03: each [place] on nasal 18 nostril Medical spray daily. Branch apixaban 5 2021-05 Yes 5mg Take 5 mg Un josé miguel mg tablet 0-10 by mouth 2 ity of 13:03: (two) [place] 18 times Medical daily. Branch Cholecalcif 2021-05 Yes 1{capsu Take 1 U nivers [place], 0-10 le} capsule by ity of Vitamin D3, 13:03: mouth [place] 50 mcg 18 daily. Medical (2,000 Branch unit) capsule amiodarone 2021-05 Yes 2mg 2 mg [facility] HCl 0-10 daily. ity of (AMIODARONE 13:03: [place] , BULK, [address] [place] [address]) Branch cloNIDine 2022-1 Yes .1mg Take 0.1 Univ ers 0.1 mg 0-10 mg by ity of tablet 13:03: mouth in [place] 18 the Medical morning Branch and 0.1 mg at noon and 0.1 mg in the evening. fluticasone 2021-05 Yes 2{spray Use 2 Un josé miguel 27.5 0-10 } Sprays in ity of mcg/actuati 13:03: each [place] on nasal 18 nostril Medical spray daily. Branch apixaban 5 2021-05 Yes 5mg Take 5 mg Un josé miguel mg tablet 0-10 by mouth 2 ity of 13:03: (two) [place] 18 times Medical daily. Branch Cholecalcif 2021-05 Yes 1{capsu Take 1 U nivers aramis, 0-10 le} capsule by ity of Vitamin D3, 13:03: mouth [place] 50 mcg 18 daily. Medical (2,000 Branch unit) capsule amiodarone 2021-05 Yes 2mg 2 mg [facility] HCl 0-10 daily. ity of (AMIODARONE 13:03: [place] , BULK, 18 Medical MISC) Branch cloNIDine 2021-05 Yes .1mg Take 0.1 Univ ers 0.1 mg 0-10 mg by ity of tablet 13:03: mouth in [place] 18 the Medical morning Branch and 0.1 mg at noon and 0.1 mg in the evening. clonidine 2021-05- No Take by Univ ers (CATAPRES) 0-10 10-10 mouth 3 ity o f 0.1 mg/mL 13:02: 00:00 (three[place] :00 times Medical suspension daily. Branch clonidine 2021-05- No Take by Univ ers (CATAPRES) 0-10 10-10 mouth 3 ity o f 0.1 mg/mL 13:02: 00:00 (three[place] oral [place] :00 times Medical suspension daily. Branch lisinopriL 2021-05 Yes [id number] 20mg Take 1 U nivers 20 mg 0-04 tablet by ity of tablet 00:00: mouth in [place] 00 the Medical morning. Branch lisinopriL 2021-05 Yes [id number] 20mg Take 1 U nivers 20 mg 0-04 tablet by ity of tablet 00:00: mouth in [place] 00 the Medical morning. Branch lisinopriL 2021-05 Yes [id number] 20mg Take 1 U nivers 20 mg 0-04 tablet by ity of tablet 00:00: mouth in [place] 00 the Medical morning. Branch lisinopriL 2021-05 Yes [id number] 20mg Take 1 U nivers 20 mg 0-04 tablet by ity of tablet 00:00: mouth in [place] 00 the Medical morning. Branch lisinopriL 2021-05 Yes [id number] 20mg Take 1 U nivers 20 mg 0-04 tablet by ity of tablet 00:00: mouth in [place] 00 the Medical morning. Branch lisinopriL 2021-05 Yes [id number] 20mg Take 1 U nivers 20 mg 0-04 tablet by ity of tablet 00:00: mouth in [place] the Medical morning. Branch lisinopriL 2021-05 Yes [id number] 20mg Take 1 U nivers 20 mg 0-04 tablet by ity of tablet 00:00: mouth in [place] the Medical morning. Branch lisinopriL 2021-05 Yes [id number] 20mg Take 1 U nivers 20 mg 0-04 tablet by ity of tablet 00:00: mouth in [place] the Medical morning. Branch lisinopriL 2021-05 Yes [id number] 20mg Take 1 U nivers 20 mg 0-04 tablet by ity of tablet 00:00: mouth in [place] the Medical morning. Branch lisinopriL 2021-05 Yes [id number] 20mg Take 1 U nivers 20 mg 0-04 tablet by ity of tablet 00:00: mouth in [place] the Medical morning. Branch lisinopriL 2021-05 Yes [id number] 20mg Take 1 U nivers 20 mg 0-04 tablet by ity of tablet 00:00: mouth in [place] the Medical morning. Branch lisinopriL 2021-05 Yes [id number] 20mg Take 1 U nivers 20 mg 0-04 tablet by ity of tablet 00:00: mouth in [place] 00 the Medical morning. Branch lisinopriL 2021-05 Yes [id number] 20mg Take 1 U nivers 20 mg 0-04 tablet by ity of tablet 00:00: mouth in [place] 00 the Medical morning. Branch lisinopriL 2021- Yes [id number] 20mg Take 1 U nivers 20 mg 0-04 tablet by ity of tablet 00:00: mouth in [place] 00 the Medical morning. Branch lisinopriL 2021-1 Yes [id number] 20mg Take 1 U nivers 20 mg 0-04 tablet by ity of tablet 00:00: mouth in [place] 00 the Medical morning. Branch lisinopriL 2021-1 Yes [id number] 20mg Take 1 U nivers 20 mg 0-04 tablet by ity of tablet 00:00: mouth in [place] 00 the Medical morning. Branch lisinopriL 2021-1 Yes [id number] 20mg Take 1 U nivers 20 mg 0-04 tablet by ity of tablet 00:00: mouth in [place] 00 the Medical morning. Branch lisinopriL 2021-1 3- No [id number] 20mg Take 1 Univers 20 mg 0-04 01-02 tablet by ity of tablet 00:00: 00:00 mouth in [place] 00 :00 the Medical morning. Branch KCL 10 mEq 2-0 Yes [id number] 10meq Take 1 Univers tablet 9-27 tablet by ity of 00:00: mouth in [place] the Medical morning. Branch KCL 10 mEq 2-0 Yes [id number] 10meq Take 1 Univers tablet 9-27 tablet by ity of 00:00: mouth in [place] the Medical morning. Branch KCL 10 mEq 2-0 Yes [id number] 10meq Take 1 [facility] tablet 9-27 tablet by ity of 00:00: mouth in [place] the Medical morning. Branch KCL 10 mEq 2-0 Yes [id number] 10meq Take 1 Univers tablet 9-27 tablet by ity of 00:00: mouth in [place] the Medical morning. Branch KCL 10 mEq 2-0 Yes [id number] 10meq Take 1 Univers tablet 9-27 tablet by ity of 00:00: mouth in [place] the Medical morning. Branch KCL 10 mEq 2-0 Yes [id number] 10meq Take 1 [facility] tablet 9-27 tablet by ity of 00:00: mouth in [place] the Medical morning. Branch KCL 10 mEq 2022-0 Yes [id number] 10meq Take 1 Univers tablet 9-27 tablet by ity of 00:00: mouth in [place] 00 the Medical morning. Branch KCL 10 mEq 2022-0 Yes [id number] 10meq Take 1 Univers tablet 9-27 tablet by ity of 00:00: mouth in [place] 00 the Medical morning. Branch KCL 10 mEq 2022-0 Yes [id number] 10meq Take 1 [facility] tablet 9-27 tablet by ity of 00:00: mouth in [place] the Medical morning. Branch KCL 10 mEq 2022-0 Yes [id number] 10meq Take 1 Univers tablet 9-27 tablet by ity of 00:00: mouth in [place] the Medical morning. Branch KCL 10 mEq 2022-0 Yes [id number] 10meq Take 1 Univers tablet 9-27 tablet by ity of 00:00: mouth in [place] the Medical morning. Branch KCL 10 mEq 2022-0 Yes [id number] 10meq Take 1 [facility] tablet 9-27 tablet by ity of 00:00: mouth in [place] the Medical morning. Branch KCL 10 mEq 2022-0 Yes [id number] 10meq Take 1 Univers tablet 9-27 tablet by ity of 00:00: mouth in [place] the Medical morning. Branch KCL 10 mEq 2022-0 Yes [id number] 10meq Take 1 Univers tablet 9-27 tablet by ity of 00:00: mouth in [place] the Medical morning. Branch KCL 10 mEq 2022-0 Yes [id number] 10meq Take 1 Univers tablet 9-27 tablet by ity of 00:00: mouth in [place] the Medical morning. Branch KCL 10 mEq 2022-0 Yes [id number] 10meq Take 1 [facility] tablet 9-27 tablet by ity of 00:00: mouth in [place] the Medical morning. Branch KCL 10 mEq 2022-0 Yes [id number] 10meq Take 1 Univers tablet 9-27 tablet by ity of 00:00: mouth in [place] the Medical morning. Branch KCL 10 mEq 2022-0 Yes [id number] 10meq Take 1 Univers tablet 9-27 tablet by ity of 00:00: mouth in [place] the Medical morning. Branch KCL 10 mEq 2022-0 Yes [id number] 10meq Take 1 Univers tablet 9-27 tablet by ity of 00:00: mouth in [place] the Medical morning. Branch KCL 10 mEq 2022-0 Yes [id number] 10meq Take 1 Univers tablet 9-27 tablet by ity of 00:00: mouth in [place] 00 the Medical morning. Branch KCL 10 mEq 2022-0 Yes [id number] 10meq Take 1 Univers tablet 9-27 tablet by ity of 00:00: mouth in [place] 00 the Medical morning. [place] KCL 10 mEq Yes [id number] 10meq Take 1 Univers tablet 9-27 tablet by ity of 00:00: mouth in [place] 00 the Medical morning. Branch neomycin-po 2021- No PRN, Unive rs lymyxin-dex 01-26 Starting ity of amethasone 14:32: 14:41 on [place] (MAXITROL) 00 :46 01/26/22 at Med ical 3.5 0932, Branch mg/g-10,000 Until Lisa unit/g-0.1 01/26/22 at % 0941, ophthalmic Routine, ointment Intra-op gentamicin 2021- No PRN, Univer s injection 01-26 Starting ity o f 14:30: 14:41 on Lisa [place] 00 :46 01/26/22 at Medical 0930, Branch Until Lisa 01/26/22 at 0941, JUAN MIGUEL, Intra-op dexamethaso 2021- No PRN, Unive rs ne 01-26 Starting ity of (DECADRON 14:30: 14:41 on Lisa [place] PHOSPHATE) 00 :46 01/26/22 at Med ical injection 0930, Branch Until [place] 01/26/22 at 0941, Routine, Intra-op chondroitin 2021- No PRN, Unive rs sulf-sod 01-26 Starting ity of hyaluronate 14:25: 14:41 on [place] as (DUOVISC 00 :46 01/26/22 at Medic al VISCO 0925, Branch ELASTIC) Until [place] intraocular 01/26/22 at injection 0941, Routine, Intra-op EPINEPHrine 2021- No PRN, Unive rs (PF) 01-26 Starting ity of 1:1,000 (1 14:24: 14:41 [place] mg/mL) 00 :46 01/26/22 at Medical (ADRENALIN 0924, Branch (PF)) Until [place] injection 01/26/22 at 0941, Routine, Intra-op balanced 2021- No PRN, Univers salt soln 01-26 Starting ity o f no.2 irrig. 14:24: 14:41 on [facility] Dars[place] as (BSS) 00 :46 01/26/22 at [facility] ophthalmic 0924, Branch solution Until [place] 01/26/22 at 0941, Routine, Intra-op water for 2021- No PRN, Univers irrigation 01-26 Starting ity of irrigation 14:17: 14:41 on [facility] [place] solution 00 :46 01/26/22 at Medic al 0917, Branch Until [place] 01/26/22 at 0941, Routine, Intra-op eye block 2021- No PRN, Univers syringe 11 01-26 Starting ity of mL 14:13: 14:41 on Lisa [place] 00 :46 01/26/22 at Medical 0913, Branch Until [place] 01/26/22 at 0941, Intra-op tetracaine 2021- No PRN, Univer s (PONTOCAINE 01-26 Starting ity of ) 0.5 % 14:13: 14:41 on Lisa [place] ophthalmic 00 :46 01/26/22 at Med ical drops 0913, Branch Until [place] 01/26/22 at 0941, Routine, Intra-op cyclopent 2021- No .5mL 0.5 mL, Univ ers 1%-tropic 01-26 Left Eye, ity of 1%-phenyl 12:45: 12:56 ONCE, 1 [place] 2.5%-ketor 00 :00 dose, On Medic al 0.5% [facility] (MYDRIATIC 01/26/22 at #5) 0745, ophthalmic Routine, solution DSU Pre-op syringe 0.5 mL lactated 2021- No 1000mL at 42 Unive rs ringers IV 01-26 mL/hr, ity of infusion 12:45: 12:55 1,000 mL, Darshan as 1,000 mL 00 :00 IV Medical Infusion, Branch ONCE, 1 dose, On [place] 01/26/22 at 0745, Routine, DSU Pre-op cyclopent 2021- No .5mL 0.5 mL, Univ ers 1%-tropic 01-26 Left Eye, ity of 1%-phenyl 12:45: 12:56 ONCE, 1 [place] 2.5%-ketor 00 :00 dose, On Medic al 0.5% [place] Branch (MYDRIATIC 01/26/22 at #5) 0745, ophthalmic Routine, solution DSU Pre-op syringe 0.5 mL lactated 2021- No 1000mL at 42 [facility] rs ringers IV 01-2622 mL/hr, ity of infusion 12:45: 12:55 1,000 mL, Darshan as 1,000 mL 00 :00 IV Medical Infusion, Branch ONCE, 1 dose, On [place] 01/26/22 at 0745, Routine, DSU Pre-op fluticasone 0 Yes 2{spray Use 2 Un josé miguel 27.5 01-26 } Sprays in ity of mcg/actuati 11:14: each [place] on nasal 02 nostril Medical spray daily. Branch apixaban 5 0 Yes 5mg Take 5 mg Un josé miguel mg tablet 01-26 by mouth 2 ity of 11:14: (two) [place] 02 times Medical daily. Branch Cholecalcif Yes 1{capsu Take 1 U nivers aramis, 01-26 le} capsule by ity of Vitamin D3, 11:14: mouth [place] 50 mcg 02 daily. Medical (2,000 Branch unit) capsule amiodarone Yes 2mg 2 mg Univers HCl 01-26 daily. ity of (AMIODARONE 11:14: [place] , BULK, 02 Medical MIS) Branch clonidine Yes Take by [facility] (CATAPRES) 01-26 mouth 3 ity of 0.1 mg/mL 11:14: (three) [place] oral 02 times Medical suspension daily. Branch fluticasone 0 Yes 2{spray Use 2 Un josé miguel 27.5 01-26 } Sprays in ity of mcg/actuati 11:14: each [place] on nasal 02 nostril Medical spray daily. Branch apixaban 5 0 Yes 5mg Take 5 mg Un josé miguel mg tablet 01-26 by mouth 2 ity of 11:14: (two) [place] 02 times Medical daily. Branch Cholecalcif 2022-0 Yes 1{capsu Take 1 U nivers ar[place], 9- le} capsule by ity of Vitamin D3, 11:14: mouth [place] 50 mcg 02 daily. Medical (2,000 Branch unit) capsule amiodarone 2021-0 Yes 2mg 2 mg Univers HCl 01-26 daily. ity of (AMIODARONE 11:14: [place] , BULK, 02 Medical MIS) Branch clonidine 0 Yes Take by Unive rs (CATAPRES) 01-26 mouth 3 ity of 0.1 mg/mL 11:14: (three) [place] oral 02 times Medical suspension daily. Branch fluticasone 2021-0 Yes 2{spray Use 2 Un josé miguel 27.5 01-26 } Sprays in ity of mcg/actuati 11:14: each [place] on nasal 02 nostril Medical spray daily. Branch apixaban 5 2021-0 Yes 5mg Take 5 mg Un josé miguel mg tablet 01-26 by mouth 2 ity of 11:14: (two) [place] 02 times Medical daily. Branch Cholecalcif 2021-0 Yes 1{capsu Take 1 U nivers aramis, - le} capsule by ity of Vitamin D3, 11:14: mouth [place] 50 mcg 02 daily. Medical (2,000 Branch unit) capsule amiodarone 2021-0 Yes 2mg 2 mg Univers HCl 01-26 daily. ity of (AMIODARONE 11:14: [place] , BULK, 02 Medical MIS) Branch clonidine 2021-0 Yes Take by [facility] rs (CATAPRES) 01-26 mouth 3 ity of 0.1 mg/mL 11:14: (three) [place] oral 02 times Medical suspension daily. Branch fluticasone 2021-0 Yes 2{spray Use 2 Un josé miguel 27.5 01-26 } Sprays in ity of mcg/actuati 11:14: each [place] on nasal 02 nostril Medical spray daily. Branch apixaban 5 2021-0 Yes 5mg Take 5 mg Un josé miguel mg tablet 01-26 by mouth 2 ity of 11:14: (two) [place] 02 times Medical daily. Branch Cholecalcif 2021-0 Yes 1{capsu Take 1 U nivers [place], 9-22 le} capsule by ity of Vitamin D3, 11:14: mouth [place] 50 mcg 02 daily. Medical (2,000 Branch unit) capsule amiodarone 2021-0 Yes 2mg 2 mg Univers HCl - daily. ity of (AMIODARONE 11:14: [place] , BULK, [facility]) Branch clonidine 0 Yes Take by [facility] rs (CATAPRES) 01-26 mouth 3 ity of 0.1 mg/mL 11:14: (three) [place] oral 02 times Medical suspension daily. Branch fluticasone 2021-0 Yes 2{spray Use 2 Un josé miguel 27.5 01-26 } Sprays in ity of mcg/actuati 11:14: each [place] on nasal 02 nostril Medical spray daily. Branch apixaban 5 2021-0 Yes 5mg Take 5 mg Un josé miguel mg tablet 01-26 by mouth 2 ity of 11:14: (two) [place] 02 times Medical daily. Branch Cholecalcif 2021-0 Yes 1{capsu Take 1 U nivers [place], 01-26 le} capsule by ity of Vitamin D3, 11:14: mouth [place] 50 mcg 02 daily. Medical (2,000 Branch unit) capsule amiodarone 2021-0 Yes 2mg 2 mg Univers HCl 01-26 daily. ity of (AMIODARONE 11:14: Work4 , [employer], [facility]) Branch clonidine Yes Take by [email or web address] rs (CATAPRES) 01-26 mouth 3 ity of 0.1 mg/mL 11:14: (three) [place] oral 02 times Medical suspension daily. Branch fluticasone 2021-0 Yes 2{spray Use 2 Un josé miguel 27.5 01-26 } Sprays in ity of mcg/actuati 11:14: each [place] on nasal 02 nostril Medical spray daily. Branch apixaban 5 2021-0 Yes 5mg Take 5 mg Un josé miguel mg tablet 01-26 by mouth 2 ity of 11:14: (two) [place] 02 times Medical daily. Branch Cholecalcif 2021-0 Yes 1{capsu Take 1 U nivers [place], - le} capsule by ity of Vitamin D3, 11:14: mouth [place] 50 mcg 02 daily. Medical (2,000 Branch unit) capsule amiodarone 2021-0 Yes 2mg 2 mg Univers HCl -22 daily. ity of (AMIODARONE 11:14: [place] , BULK, 02 Medical [facility]) Branch clonidine 2021-0 Yes Take by Unive rs (CATAPRES) 01-26 mouth 3 ity of 0.1 mg/mL 11:14: (three) [place] oral 02 times Medical suspension daily. Branch KCL 10 mEq 2021-0 Yes [id number] 10meq Take 1 Univers tablet - tablet by ity of 00:00: mouth in [place] 00 the Medical morning. Branch KCL 10 mEq 2021-0 2021- No [id number] 10meq Take 1 Univers tablet -26 01-27 tablet by ity of 00:00: 00:00 mouth in [place] 00 :00 the Medical morning. Branch hydrALAZINE 2021-0 Yes 25mg Take 1 Univ ers 25 mg 9-21 tablet by ity of tablet 00:00: mouth in [place] 00 the Medical morning Branch and 1 tablet at noon and 1 tablet in the evening. gabapentin 2021-0 Yes [id number] TAKE 1 Univers 100 mg 9-21 [id number] CAPSULE BY ity o f capsule 00:00: MOUTH [place] 00 EVERY DAY Medical EVERY Branch NIGHT AT BEDTIME hydrALAZINE 2021-0 Yes 25mg Take 1 Univ ers 25 mg 9-21 tablet by ity of tablet 00:00: mouth in [place] 00 the Medical morning Branch and 1 tablet at noon and 1 tablet in the evening. gabapentin 2021-0 Yes [id number] TAKE 1 [facility] 100 mg 9-21 [id number] CAPSULE BY ity o f capsule 00:00: MOUTH [place] 00 EVERY DAY Medical EVERY Branch NIGHT AT BEDTIME hydrALAZINE 2022-0 Yes 25mg Take 1 Univ ers 25 mg 9-21 tablet by ity of tablet 00:00: mouth in [place] 00 the Medical morning Branch and 1 tablet at noon and 1 tablet in the evening. gabapentin 2-0 Yes [id number] TAKE 1 Univers 100 mg 9-21 [id number] CAPSULE BY ity o f capsule 00:00: MOUTH [place] [address] EVERY DAY Medical EVERY Branch NIGHT AT BEDTIME hydrALAZINE 2022-0 Yes 25mg Take 1 Univ ers 25 mg 9-21 tablet by ity of tablet 00:00: mouth in [place] 00 the Medical morning Branch and 1 tablet at noon and 1 tablet in the evening. gabapentin 2022-0 Yes [id number] TAKE 1 [facility] 100 mg 9-21 [id number] CAPSULE BY ity o f capsule 00:00: MOUTH [place] 00 EVERY DAY Medical EVERY Branch NIGHT AT BEDTIME hydrALAZINE 2022-0 Yes 25mg Take 1 Univ ers 25 mg 9-21 tablet by ity of tablet 00:00: mouth in [place] 00 the Medical morning Branch and 1 tablet at noon and 1 tablet in the evening. gabapentin 2022-0 Yes [id number] TAKE 1 Univers 100 mg 9-21 [id number] CAPSULE BY ity o f capsule 00:00: MOUTH [place] 00 EVERY DAY Medical EVERY Branch NIGHT AT BEDTIME hydrALAZINE 2022-0 Yes 25mg Take 1 Univ ers 25 mg 9-21 tablet by ity of tablet 00:00: mouth in [place] 00 the Medical morning Branch and 1 tablet at noon and 1 tablet in the evening. gabapentin 2022-0 Yes [id number] TAKE 1 [facility] 100 mg 9-21 [id number] CAPSULE BY ity o f capsule 00:00: MOUTH [place] EVERY DAY Medical EVERY Branch NIGHT AT BEDTIME hydrALAZINE 2022-0 Yes 25mg Take 1 Univ ers 25 mg 9-21 tablet by ity of tablet 00:00: mouth in [place] 00 the Medical morning Branch and 1 tablet at noon and 1 tablet in the evening. gabapentin 2022-0 Yes [id number] TAKE 1 [facility] 100 mg 9-21 [id number] CAPSULE BY ity o f capsule 00:00: MOUTH [place] 00 EVERY DAY Medical EVERY Branch NIGHT AT BEDTIME hydrALAZINE 2022-0 Yes 25mg Take 1 Univ ers 25 mg 9-21 tablet by ity of tablet 00:00: mouth in [place] 00 the Medical morning Branch and 1 tablet at noon and 1 tablet in the evening. gabapentin 2022-0 Yes [id number] TAKE 1 [facility] 100 mg 9-21 [id number] CAPSULE BY ity o f capsule 00:00: MOUTH [place] 00 EVERY DAY Medical EVERY Branch NIGHT AT BEDTIME hydrALAZINE 2022-0 Yes 25mg Take 1 [facility] 25 mg 9-21 tablet by ity of tablet 00:00: mouth in [place] 00 the Medical morning Branch and 1 tablet at noon and 1 tablet in the evening. hydrALAZINE 2022-0 Yes 25mg Take 1 [facility] 25 mg 9-21 tablet by ity of tablet 00:00: mouth in [place] 00 the Medical morning Branch and 1 tablet at noon and 1 tablet in the evening. hydrALAZINE 2022-0 Yes 25mg Take 1 [facility] 25 mg 9-21 tablet by ity of tablet 00:00: mouth in [place] 00 the Medical morning Branch and 1 tablet at noon and 1 tablet in the evening. hydrALAZINE 2022-0 Yes 25mg Take 1 [facility] ers 25 mg 9-21 tablet by ity of tablet 00:00: mouth in [place] 00 the Medical morning Branch and 1 tablet at noon and 1 tablet in the evening. hydrALAZINE 2022-0 Yes 25mg Take 1 [facility] 25 mg 9-21 tablet by ity of tablet 00:00: mouth in [place] 00 the Medical morning Branch and 1 tablet at noon and 1 tablet in the evening. hydrALAZINE 2022-0 Yes 25mg Take 1 [facility] 25 mg 9-21 tablet by ity of tablet 00:00: mouth in [place] [address] the Medical morning Branch and 1 tablet at noon and 1 tablet in the evening. hydrALAZINE 2022-0 Yes 25mg Take 1 [facility] ers 25 mg 9-21 tablet by ity of tablet 00:00: mouth in [place] 00 the Medical morning Branch and 1 tablet at noon and 1 tablet in the evening. hydrALAZINE 2022-0 Yes 25mg Take 1 [facility] 25 mg 9-21 tablet by ity of tablet 00:00: mouth in [place] 00 the Medical morning Branch and 1 tablet at noon and 1 tablet in the evening. hydrALAZINE 2022-0 Yes 25mg Take 1 [facility] 25 mg 9-21 tablet by ity of tablet 00:00: mouth in [place] 00 the Medical morning Branch and 1 tablet at noon and 1 tablet in the evening. hydrALAZINE 2022-0 Yes 25mg Take 1 [facility] 25 mg 9-21 tablet by ity of tablet 00:00: mouth in [place] 00 the Medical morning Branch and 1 tablet at noon and 1 tablet in the evening. hydrALAZINE 2022-0 2022- No 25mg Take 1 [facility] vers 25 mg 9-21 12-19 tablet by ity of tablet 00:00: 00:00 mouth in [place] 00 :00 the Medical morning Branch and 1 tablet at noon and 1 tablet in the evening. gabapentin 2022-0 2022- No [id number] TAKE 1 [facility] 100 mg 9-21 10-18 [id number] CAPSULE BY ity of capsule 00:00: 00:00 MOUTH [place] 00 :00 EVERY DAY Medical EVERY Branch NIGHT AT BEDTIME fluticasone 2-0 Yes 2{spray Use 2 Un jos[facility] miguel 27.5 9-20 } Sprays in ity of mcg/actuati 08:43: each [place] on nasal 28 nostril Medical spray daily. Branch apixaban 5 2021-0 Yes 5mg Take 5 mg Un jos[facility] miguel mg tablet 9-20 by mouth 2 ity of 08:43: (two) [place] 28 times Medical daily. Branch Cholecalcif 2021-0 Yes 1{capsu Take 1 U nivers aramis, 9-20 le} capsule by ity of Vitamin D3, 08:43: mouth [place] 50 mcg 28 daily. Medical (2,000 Branch unit) capsule amiodarone 2021-0 Yes 2mg 2 mg [facility] HCl 9-20 daily. ity of (AMIODARONE 08:43: [place] , [employer], [address] [place] [address]) Branch fluticasone 2-0 Yes 2{spray Use 2 Un jos[facility] miguel 27.5 9-20 } Sprays in ity of mcg/actuati 08:43: each [place] on nasal 28 nostril Medical spray daily. Branch apixaban 5 2021-0 Yes 5mg Take 5 mg Un jos[facility] miguel mg tablet 9-20 by mouth 2 ity of 08:43: (two) [place] 28 times Medical daily. Branch Cholecalcif 2021-0 Yes 1{capsu Take 1 U nivers [place], 9-20 le} capsule by ity of Vitamin D3, 08:43: mouth [place] 50 mcg 28 daily. Medical (2,000 Branch unit) capsule amiodarone 2-0 Yes 2mg 2 mg [facility] HCl 9-20 daily. ity of (AMIODARONE 08:43: [place] , BULK, 28 Medical [facility]) Branch fluticasone 2-0 Yes 2{spray Use 2 Un jos[facility] miguel 27.5 9-20 } Sprays in ity of mcg/actuati 08:43: each [place] on nasal 28 nostril Medical spray daily. Branch apixaban 5 2-0 Yes 5mg Take 5 mg Un jos[facility] miguel mg tablet 9-20 by mouth 2 ity of 08:43: (two) [place] 28 times Medical daily. Branch Cholecalcif Yes 1{capsu Take 1 U nivers aramis, 9-20 le} capsule by ity of Vitamin D3, 08:43: mouth [place] 50 mcg 28 daily. Medical (2,000 Branch unit) capsule amiodarone Yes 2mg 2 mg [facility] HCl 9-20 daily. ity of (AMIODARONE 08:43: [place] , BULK, 28 Medical MIS) Branch clonidine Yes Take by [facility] (CATAPRES) 9-20 mouth 3 ity of 0.1 mg/mL 08:41: (three) [place] oral 37 times Medical suspension daily. Branch clonidine Yes Take by [facility] (CATAPRES) 9-20 mouth 3 ity of 0.1 mg/mL 08:41: (three) [place] oral 37 times Medical suspension daily. Branch levothyroxi Yes [id number] 50ug Take 1 [facility] ne 50 mcg 9-10 tablet by ity o f tablet 00:00: mouth [place] 00 every Medical morning. Branch levothyroxi Yes [id number] 50ug Take 1 [facility] ne 50 mcg 9-10 tablet by ity o f tablet 00:00: mouth [place] 00 every Medical morning. Branch levothyroxi Yes [id number] 50ug Take 1 [facility] ne 50 mcg 9-10 tablet by ity o f tablet 00:00: mouth [place] 00 every Medical morning. Branch levothyroxi Yes [id number] 50ug Take 1 [facility] ne 50 mcg 9-10 tablet by ity o f tablet 00:00: mouth [place] 00 every Medical morning. Branch levothyroxi Yes [id number] 50ug Take 1 [facility] ne 50 mcg 9-10 tablet by ity o f tablet 00:00: mouth [place] 00 every Medical morning. Branch levothyroxi Yes [id number] 50ug Take 1 [facility] ne 50 mcg 9-10 tablet by ity o f tablet 00:00: mouth [place] 00 every Medical morning. Branch levothyroxi Yes [id number] 50ug Take 1 [facility] ne 50 mcg 9-10 tablet by ity o f tablet 00:00: mouth [place] 00 every Medical morning. Branch levothyroxi 2022-0 Yes [id number] 50ug Take 1 [facility] ne 50 mcg 9-10 tablet by ity o f tablet 00:00: mouth [place] 00 every Medical morning. Branch levothyroxi 2021-0 Yes [id number] 50ug Take 1 [facility] ne 50 mcg 9-10 tablet by ity o f tablet 00:00: mouth [place] 00 every Medical morning. Branch levothyroxi 2021-0 Yes [id number] 50ug Take 1 [facility] ne 50 mcg 9-10 tablet by ity o f tablet 00:00: mouth [place] 00 every Medical morning. Branch levothyroxi 2021-0 Yes [id number] 50ug Take 1 [facility] ne 50 mcg 9-10 tablet by ity o f tablet 00:00: mouth [place] 00 every Medical morning. Branch levothyroxi 2021-0 Yes [id number] 50ug Take 1 [facility] ne 50 mcg 9-10 tablet by ity o f tablet 00:00: mouth [place] 00 every Medical morning. Branch levothyroxi 2021-0 Yes [id number] 50ug Take 1 [facility] ne 50 mcg 9-10 tablet by ity o f tablet 00:00: mouth [place] 00 every Medical morning. Branch levothyroxi 2021-0 Yes [id number] 50ug Take 1 [facility] ne 50 mcg 9-10 tablet by ity o f tablet 00:00: mouth [place] 00 every Medical morning. Branch levothyroxi 2021-0 Yes [id number] 50ug Take 1 [facility] ne 50 mcg 9-10 tablet by ity o f tablet 00:00: mouth [place] 00 every Medical morning. Branch levothyroxi 2021-0 Yes [id number] 50ug Take 1 [facility] ne 50 mcg 9-10 tablet by ity o f tablet 00:00: mouth [place] 00 every Medical morning. Branch levothyroxi 2021-0 Yes [id number] 50ug Take 1 [facility] ne 50 mcg 9-10 tablet by ity o f tablet 00:00: mouth [place] 00 every Medical morning. Branch levothyroxi 2021-0 Yes [id number] 50ug Take 1 [facility] ne 50 mcg 9-10 tablet by ity o f tablet 00:00: mouth [place] 00 every Medical morning. Branch levothyroxi 2021-0 Yes [id number] 50ug Take 1 [facility] ne 50 mcg 9-10 tablet by ity o f tablet 00:00: mouth [place] 00 every Medical morning. Branch levothyroxi 2021-0 Yes [id number] 50ug Take 1 [facility] ne 50 mcg 9-10 tablet by ity o f tablet 00:00: mouth [place] 00 every Medical morning. Branch levothyroxi 2021-0 Yes [id number] 50ug Take 1 [facility] ne 50 mcg 9-10 tablet by ity o f tablet 00:00: mouth [place] 00 every Medical morning. Branch levothyroxi 2021-0 Yes [id number] 50ug Take 1 [facility] ne 50 mcg 9-10 tablet by ity o f tablet 00:00: mouth [place] 00 every Medical morning. Branch levothyroxi 2021-0 Yes [id number] 50ug Take 1 [facility] ne 50 mcg 9-10 tablet by ity o f tablet 00:00: mouth [place] 00 every Medical morning. Branch levothyroxi 2021-0 Yes [id number] 50ug Take 1 [facility] ne 50 mcg 9-10 tablet by ity o f tablet 00:00: mouth [place] 00 every Medical morning. Branch levothyroxi 2021-0 Yes [id number] 50ug Take 1 [facility] ne 50 mcg 9-10 tablet by ity o f tablet 00:00: mouth [place] 00 every Medical morning. Branch levothyroxi 0 Yes [id number] 50ug Take 1 [facility] ne 50 mcg 9-10 tablet by ity o f tablet 00:00: mouth [place] 00 every Medical morning. Branch levothyroxi 2021-0 Yes [id number] 50ug Take 1 [facility] ne 50 mcg 9-10 tablet by ity o f tablet 00:00: mouth [place] 00 every Medical morning. Branch levothyroxi 2021-0 Yes [id number] 50ug Take 1 [facility] ne 50 mcg 9-10 tablet by ity o f tablet 00:00: mouth [place] 00 every Medical morning. Branch levothyroxi 2021-0 Yes [id number] 50ug Take 1 [facility] ne 50 mcg 9-10 tablet by ity o f tablet 00:00: mouth [place] 00 every Medical morning. Branch gabapentin 2021-0 Yes [id number] TAKE 1 [facility] 100 mg 8-02 [id number] CAPSULE BY ity o f capsule 00:00: MOUTH [place] 00 EVERY DAY Medical EVERY Branch NIGHT AT BEDTIME gabapentin 2021-0 Yes [id number] TAKE 1 [facility] 100 mg 8-02 [id number] CAPSULE BY ity o f capsule 00:00: MOUTH [place] 00 EVERY DAY Medical EVERY Branch NIGHT AT BEDTIME gabapentin Yes [id number] TAKE 1 [facility] 100 mg 12-06 [id number] CAPSULE BY ity o f capsule 00:00: MOUTH [place] 00 EVERY DAY Medical EVERY Branch NIGHT AT BEDTIME gabapentin 2021-0 2021- No [id number] TAKE 1 [facility] 100 mg 12-06 [id number] CAPSULE BY ity of capsule 00:00: 00:00 MOUTH [place] 00 :00 EVERY DAY Medical EVERY Branch NIGHT AT BEDTIME gabapentin 2021-2021- No [id number] TAKE 1 [facility] 100 mg 12-06 [id number] CAPSULE BY ity of capsule 00:00: 00:00 MOUTH [place] 00 :00 EVERY DAY Medical EVERY Branch NIGHT AT BEDTIME gabapentin 2021-2021- No [id number] TAKE 1 [facility] 100 mg 12-06 [id number] CAPSULE BY ity of capsule 00:00: 00:00 MOUTH [place] 00 :00 EVERY DAY Medical EVERY Branch NIGHT AT BEDTIME LEVOTHYROXI 2021-2021- No TAKE 1 Uni vers NE 50 mcg 7-18 09-10 TABLET BY ity of tablet 00:00: 00:00 MOUTH [place] 00 :00 EVERY Medical MORNING Branch LEVOTHYROXI 2021- No TAKE 1 Uni vers NE 50 mcg 7-18 09-10 TABLET BY ity of tablet 00:00: 00:00 MOUTH [place] 00 :00 EVERY Medical MORNING Branch LEVOTHYROXI 2021- No TAKE 1 Uni vers NE 50 mcg 7-18 09-10 TABLET BY ity of tablet 00:00: 00:00 MOUTH [place] 00 :00 EVERY Medical MORNING Branch LEVOTHYROXI 2021- No TAKE 1 Uni vers NE 50 mcg 7-18 09-10 TABLET BY ity of tablet 00:00: 00:00 MOUTH [place] 00 :00 EVERY Medical MORNING Branch amiodarone Yes 2mg 2 mg [facility] HCl 6-16 daily. ity of (AMIODARONE 10:15: [place] , BULK, 41 Medical MIS) Branch CLONIDINE 2021- No [id number] TAKE 1 U nivers 0.2 mg 6-16 - TABLET BY ity of tablet 00:00: 00:00 MOUTH [place] 00 :00 THREE Medical TIMES Branch DAILY CLONIDINE 2021-0 2021- No [id number] TAKE 1 U nivers 0.2 mg 6-16 - TABLET BY ity of tablet 00:00: 00:00 MOUTH [place] 00 :00 THREE Medical TIMES Branch DAILY CLONIDINE 2021-0 2021- No [id number] TAKE 1 U nivers 0.2 mg 6-16 01-13 TABLET BY ity of tablet 00:00: 00:00 MOUTH [place] 00 :00 THREE Medical TIMES Branch DAILY CLONIDINE 2021-0 2021- No [id number] TAKE 1 U nivers 0.2 mg 6-16 01-13 TABLET BY ity of tablet 00:00: 00:00 MOUTH [place] 00 :00 THREE Medical TIMES Branch DAILY furosemide 2021-0 Yes [id number] 20mg Take 1 Univers (LASIX) 20 5-24 tablet by ity of mg tablet 00:00: mouth [place] 00 daily. Medical Branch furosemide 2021-0 Yes [id number] 20mg Take 1 [facility] (LASIX) 20 5-24 tablet by ity of mg tablet 00:00: mouth [place] 00 daily. Medical Branch furosemide 2021-0 Yes [id number] 20mg Take 1 [facility] (LASIX) 20 5-24 tablet by ity of mg tablet 00:00: mouth [place] 00 daily. Medical Branch furosemide 2021-0 Yes [id number] 20mg Take 1 [facility] (LASIX) 20 5-24 tablet by ity of mg tablet 00:00: mouth [place] 00 daily. Medical Branch furosemide 2021-0 Yes [id number] 20mg Take 1 [facility] (LASIX) 20 5-24 tablet by ity of mg tablet 00:00: mouth [place] 00 daily. Medical Branch furosemide 2021-0 Yes [id number] 20mg Take 1 [facility] (LASIX) 20 5-24 tablet by ity of mg tablet 00:00: mouth [place] 00 daily. Medical Branch furosemide 2021-0 Yes [id number] 20mg Take 1 [facility] (LASIX) 20 5-24 tablet by ity of mg tablet 00:00: mouth [place] 00 daily. Medical Branch furosemide 2021-0 Yes [id number] 20mg Take 1 [facility] (LASIX) 20 5-24 tablet by ity of mg tablet 00:00: mouth [place] 00 daily. Medical Branch furosemide 2021-0 Yes [id number] 20mg Take 1 [facility] (LASIX) 20 5-24 tablet by ity of mg tablet 00:00: mouth [place] 00 daily. Medical Branch furosemide 0 Yes [id number] 20mg Take 1 [facility] (LASIX) 20 5-24 tablet by ity of mg tablet 00:00: mouth [place] 00 daily. Medical Branch furosemide 0 Yes [id number] 20mg Take 1 [facility] (LASIX) 20 5-24 tablet by ity of mg tablet 00:00: mouth [place] 00 daily. Medical Branch furosemide 0 Yes [id number] 20mg Take 1 [facility] (LASIX) 20 5-24 tablet by ity of mg tablet 00:00: mouth [place] 00 daily. Medical Branch furosemide 0 Yes [id number] 20mg Take 1 [facility] (LASIX) 20 5-24 tablet by ity of mg tablet 00:00: mouth [place] 00 daily. Medical Branch furosemide 0 Yes [id number] 20mg Take 1 [facility] (LASIX) 20 5-24 tablet by ity of mg tablet 00:00: mouth [place] 00 daily. Medical Branch furosemide 0 Yes [id number] 20mg Take 1 [facility] (LASIX) 20 5-24 tablet by ity of mg tablet 00:00: mouth [place] 00 daily. Medical Branch furosemide 0 Yes [id number] 20mg Take 1 [facility] (LASIX) 20 5-24 tablet by ity of mg tablet 00:00: mouth [place] 00 daily. Medical Branch furosemide 0 Yes [id number] 20mg Take 1 [facility] (LASIX) 20 5-24 tablet by ity of mg tablet 00:00: mouth [place] 00 daily. Medical Branch furosemide 0 Yes [id number] 20mg Take 1 [facility] (LASIX) 20 5-24 tablet by ity of mg tablet 00:00: mouth [place] 00 daily. Medical Branch furosemide 0 Yes [id number] 20mg Take 1 [facility] (LASIX) 20 5-24 tablet by ity of mg tablet 00:00: mouth [place] 00 daily. Medical Branch furosemide 0 Yes [id number] 20mg Take 1 [facility] (LASIX) 20 5-24 tablet by ity of mg tablet 00:00: mouth [place] 00 daily. Medical Branch furosemide 0 2021- No [id number] 20mg Take 1 [facility] (LASIX) 20 5-24 11-21 tablet by ity of mg tablet 00:00: 00:00 mouth [place] 00 :00 daily. Medical Branch LISINOPRIL 2021-0 Yes TAKE 1 [facility] 20 mg 3-30 TABLET BY ity of tablet 00:00: MOUTH [place] 00 EVERY DAY Medical Branch LISINOPRIL 2021-0 Yes TAKE 1 [facility] rs 20 mg 3-30 TABLET BY ity of tablet 00:00: MOUTH [place] 00 EVERY DAY Medical Branch LISINOPRIL 2021-0 Yes TAKE 1 Unive rs 20 mg 3-30 TABLET BY ity of tablet 00:00: MOUTH [place] 00 EVERY DAY Medical Branch LISINOPRIL 2021-0 Yes TAKE 1 [facility] rs 20 mg 3-30 TABLET BY ity of tablet 00:00: MOUTH [place] 00 EVERY DAY Medical Branch LISINOPRIL 2021-0 Yes TAKE 1 Unive rs 20 mg 3-30 TABLET BY ity of tablet 00:00: MOUTH [place] 00 EVERY DAY Medical Branch LISINOPRIL 2021-0 Yes TAKE 1 Unive rs 20 mg 3-30 TABLET BY ity of tablet 00:00: MOUTH [place] 00 EVERY DAY Medical Branch LISINOPRIL 2021-0 Yes TAKE 1 Unive rs 20 mg 3-30 TABLET BY ity of tablet 00:00: MOUTH [place] 00 EVERY DAY Medical Branch LISINOPRIL 2021-0 Yes TAKE 1 Unive rs 20 mg 3-30 TABLET BY ity of tablet 00:00: MOUTH [place] 00 EVERY DAY Medical Branch LISINOPRIL 2021-0 2- No TAKE 1 Univ ers 20 mg 3-30 10-04 TABLET BY ity of tablet 00:00: 00:00 MOUTH [place] 00 :00 EVERY DAY Medical Branch amLODIPine 2020-1 Yes [id number] 5mg Take 1 U nivers 5 mg tablet 1-22 tablet by ity of 00:00: mouth [place] 00 daily. Medical Branch KCL 10 mEq 2020- Yes [id number] 10meq Take 1 [facility] tablet 1-22 tablet by ity of 00:00: mouth [place] 00 daily. Medical Branch amLODIPine 2020- Yes [id number] 5mg Take 1 U nivers 5 mg tablet 1-22 tablet by ity of 00:00: mouth [place] 00 daily. Medical Branch KCL 10 mEq 2020- Yes [id number] 10meq Take 1 [facility] tablet 1-22 tablet by ity of 00:00: mouth [place] 00 daily. Medical Branch amLODIPine 2020-05 Yes [id number] 5mg Take 1 U nivers 5 mg tablet 1-22 tablet by ity of 00:00: mouth [place] 00 daily. Medical Branch KCL 10 mEq 2020-05 Yes [id number] 10meq Take 1 [facility] tablet 1-22 tablet by ity of 00:00: mouth [place] 00 daily. Medical Branch amLODIPine 2020-05 Yes [id number] 5mg Take 1 U nivers 5 mg tablet 1-22 tablet by ity of 00:00: mouth [place] 00 daily. Medical Branch KCL 10 mEq 2020-05 Yes [id number] 10meq Take 1 [facility] tablet 1-22 tablet by ity of 00:00: mouth [place] 00 daily. Medical Branch amLODIPine 2020-05 Yes [id number] 5mg Take 1 U nivers 5 mg tablet 1-22 tablet by ity of 00:00: mouth [place] 00 daily. Medical Branch KCL 10 mEq 2020-05 Yes [id number] 10meq Take 1 [facility] tablet 1-22 tablet by ity of 00:00: mouth [place] 00 daily. Medical Branch amLODIPine 2020-05 Yes [id number] 5mg Take 1 U nivers 5 mg tablet 1-22 tablet by ity of 00:00: mouth [place] 00 daily. Medical Branch amLODIPine 2020-05 Yes [id number] 5mg Take 1 U nivers 5 mg tablet 1-22 tablet by ity of 00:00: mouth [place] 00 daily. Medical Branch amLODIPine 2020-05 Yes [id number] 5mg Take 1 U nivers 5 mg tablet 1-22 tablet by ity of 00:00: mouth [place] 00 daily. Medical Branch amLODIPine 2020-05 Yes [id number] 5mg Take 1 U nivers 5 mg tablet 1-22 tablet by ity of 00:00: mouth [place] 00 daily. Medical Branch amLODIPine 2020-05 Yes [id number] 5mg Take 1 U nivers 5 mg tablet 1-22 tablet by ity of 00:00: mouth [place] 00 daily. Medical Branch amLODIPine 2020-05 Yes [id number] 5mg Take 1 U nivers 5 mg tablet 1-22 tablet by ity of 00:00: mouth [place] 00 daily. Medical Branch amLODIPine 2020-05 Yes [id number] 5mg Take 1 U nivers 5 mg tablet 1-22 tablet by ity of 00:00: mouth [place] 00 daily. Medical Branch amLODIPine 2020-05 Yes [id number] 5mg Take 1 U nivers 5 mg tablet 05-28 tablet by ity of 00:00: mouth [place] 00 daily. Medical Branch amLODIPine 2020-05 Yes [id number] 5mg Take 1 U nivers 5 mg tablet 05-28 tablet by ity of 00:00: mouth [place] 00 daily. Medical Branch amLODIPine 2020-05- No [id number] 5mg Take 1 [facility] 5 mg tablet 05-28- tablet by it y of 00:00: 00:00 mouth [place] 00 :00 daily. Medical Branch amLODIPine 2020-05- No [id number] 5mg Take 1 [facility] 5 mg tablet 05-28 tablet by it y of 00:00: 00:00 mouth [place] 00 :00 daily. Medical Branch amLODIPine 2020-05- No [id number] 5mg Take 1 [facility] 5 mg tablet 05-28 tablet by it y of 00:00: 00:00 mouth [place] 00 :00 daily. Medical Branch KCL 10 mEq 2020-05- No [id number] 10meq Take 1 [facility] tablet 05-28 tablet by ity of 00:00: 00:00 mouth [place] 00 :00 daily. Medical Branch KCL 10 mEq 2020-05- No [id number] 10meq Take 1 [facility] tablet 05-28- tablet by ity of 00:00: 00:00 mouth [place] 00 :00 daily. Medical Branch HYDRALAZINE Yes TAKE 1 Univ ers 25 mg 9-13 TABLET BY ity of tablet 00:00: MOUTH [place] 00 THREE Medical TIMES A Branch DAY HYDRALAZINE Yes TAKE 1 [facility] ers 25 mg 9-13 TABLET BY ity of tablet 00:00: MOUTH [place] 00 THREE Medical TIMES A Branch DAY HYDRALAZINE Yes TAKE 1 [facility] ers 25 mg 9-13 TABLET BY ity of tablet 00:00: MOUTH [place] 00 THREE Medical TIMES A Branch DAY HYDRALAZINE 2021- No TAKE 1 [facility] vers 25 mg 9-13 -21 TABLET BY ity of tablet 00:00: 00:00 MOUTH [place] 00 :00 THREE Medical TIMES A Branch DAY HYDRALAZINE 2021- No TAKE 1 [facility] vers 25 mg 01-17 TABLET BY ity of tablet 00:00: 00:00 MOUTH [place] 00 :00 THREE Medical TIMES A Branch DAY HYDRALAZINE 2021- No TAKE 1 [facility] vers 25 mg 01-17 TABLET BY ity of tablet 00:00: 00:00 MOUTH [place] 00 :00 THREE Medical TIMES A Branch DAY fluticasone Yes 2{spray Use 2 Un jos[facility] miguel 27.5 12-02 } Sprays in ity of mcg/actuati 10:34: each [place] on nasal 43 nostril Medical spray daily. Branch apixaban Yes 5mg Take 5 mg Univ ers (ELIQUIS) 5 12-02 by mouth 2 it y of mg tablet 10:34: (two) [place] 43 times Medical daily. Branch Cholecalcif Yes 1{capsu Take 1 U nivers aramis, 12-02 le} capsule by ity of Vitamin D3, 10:34: mouth [place] (VITAMIN 43 daily. Medical D3) 50 mcg [place] (2,000 unit) capsule latanoprost Yes INSTILL 1 U nivers 0.005 % 1-18 DROP INTO ity of ophthalmic 00:00: BOTH EYES [place] drops 00 AT BEDTIME [facility] latanoprost Yes INSTILL 1 U nivers 0.005 % 1-18 DROP INTO ity of ophthalmic 00:00: B[place]YES [place] drops [address] [facility] latanoprost Yes INSTILL 1 U nivers 0.005 % 1-18 DROP INTO ity of ophthalmic 00:00: [place] drops [address] [facility] latanoprost Yes INSTILL 1 U nivers 0.005 % 1-18 DROP INTO ity of ophthalmic 00:00: BOTH EYES [place] drops 00 AT BEDTIME [facility] latanoprost Yes INSTILL 1 U nivers 0.005 % 1-18 DROP INTO ity of ophthalmic 00:00: BOTH EYES [place] drops 00 AT [facility] latanoprost Yes INSTILL 1 U nivers 0.005 % 1-18 DROP INTO ity of ophthalmic 00:00: BOTH EYES [place] drops 00 AT [facility] latanoprost [id number] Yes INSTILL 1 U nivers 0.005 % 1-18 DROP INTO ity of ophthalmic 00:00: BOTH EYES [place] drops 00 AT [facility] latanoprost 2018-0 Yes INSTILL 1 U nivers 0.005 % 1-18 DROP INTO ity of ophthalmic 00:00: BOTH EYES [place] drops 00 AT [facility] latanoprost 2018-0 Yes INSTILL 1 U nivers 0.005 % 1-18 DROP INTO ity of ophthalmic 00:00: BOTH EYES [place] drops 00 AT [facility] latanoprost [id number] Yes INSTILL 1 U nivers 0.005 % 1-18 DROP INTO ity of ophthalmic 00:00: BOTH EYES [place] drops 00 AT [facility] latanoprost 0 Yes INSTILL 1 U nivers 0.005 % 1-18 DROP INTO ity of ophthalmic 00:00: BOTH EYES [place] drops 00 AT [facility] latanoprost 0 Yes INSTILL 1 U nivers 0.005 % 1-18 DROP INTO ity of ophthalmic 00:00: BOTH EYES [place] drops 00 AT [facility] latanoprost 0 Yes INSTILL 1 U nivers 0.005 % 1-18 DROP INTO ity of ophthalmic 00:00: BOTH EYES [place] drops 00 AT [facility] latanoprost 0 Yes INSTILL 1 U nivers 0.005 % 1-18 DROP INTO ity of ophthalmic 00:00: BOTH EYES [place] drops 00 AT [facility] latanoprost 2017-0 Yes INSTILL 1 U nivers 0.005 % 1-18 DROP INTO ity of ophthalmic 00:00: BOTH EYES [place] drops 00 AT [facility] latanoprost [id number] Yes INSTILL 1 U nivers 0.005 % 1-18 DROP INTO ity of ophthalmic 00:00: BOTH EYES [place] drops 00 AT [facility] latanoprost 2017-0 Yes INSTILL 1 U nivers 0.005 % 1-18 DROP INTO ity of ophthalmic 00:00: BOTH EYES [place] drops 00 AT [facility] latanoprost 2018-0 Yes INSTILL 1 U nivers 0.005 % 1-18 DROP INTO ity of ophthalmic 00:00: BOTH EYES [place] drops 00 AT [facility] latanoprost [id number] Yes INSTILL 1 U nivers 0.005 % 1-18 DROP INTO ity of ophthalmic 00:00: BOTH EYES [place] drops 00 AT [facility] latanoprost [address] Yes INSTILL 1 U nivers 0.005 % 1-18 DROP INTO ity of ophthalmic 00:00: BOTH EYES [place] drops 00 AT [facility] latanoprost 2018-0 Yes INSTILL 1 U nivers 0.005 % 1-18 DROP INTO ity of ophthalmic 00:00: BOTH EYES [place] drops 00 AT [facility] latanoprost [address] Yes INSTILL 1 U nivers 0.005 % 1-18 DROP INTO ity of ophthalmic 00:00: BOTH EYES [place] drops 00 AT [facility] latanoprost 0 Yes INSTILL 1 U nivers 0.005 % 1-18 DROP INTO ity of ophthalmic 00:00: BOTH EYES [place] drops 00 AT [facility] latanoprost 0 Yes INSTILL 1 U nivers 0.005 % 1-18 DROP INTO ity of ophthalmic 00:00: BOTH EYES [place] drops 00 AT [facility] latanoprost 0 Yes INSTILL 1 U nivers 0.005 % 1-18 DROP INTO ity of ophthalmic 00:00: BOTH EYES [place] drops 00 AT [facility] latanoprost 0 Yes INSTILL 1 U nivers 0.005 % 1-18 DROP INTO ity of ophthalmic 00:00: BOTH EYES [place] drops 00 AT [facility] latanoprost 0 Yes INSTILL 1 U nivers 0.005 % 1-18 DROP INTO ity of ophthalmic 00:00: BOTH EYES [place] drops 00 AT [facility] latanoprost [id number] Yes INSTILL 1 U nivers 0.005 % 1-18 DROP INTO ity of ophthalmic 00:00: BOTH EYES [place] drops 00 AT [facility] latanoprost [id number] Yes INSTILL 1 U nivers 0.005 % 1-18 DROP INTO ity of ophthalmic 00:00: BOTH EYES [place] drops 00 AT [facility] Immunizations Ordered Filled Immunization Date Status Comments [facility] e Immunization Name Name Influenza Virus 2022-02-13 Completed [facility] of Vaccine,quad 00:00:00 [place] [facility],preserve Free Branch 65+ SARS-COV-2 COVID-19 2022-02-13 Completed Unive rsity of VACCINE 18 YRS+, 00:00:00 [place] [facility] BIVALENT 0.5ML, IM, Branc h (MODERNA BOOSTER) Influenza Virus 2022-02-13 Completed [facility]ine,quad 00:00:00 [place] [facility] 65+ SARS-COV-2 COVID-19 2022-02-13 Completed [facility] of VACCINE 18 YRS+, 00:00:00 [place] [facility] BIVALENT 0.5ML, IM, Branc h (MODERNA BOOSTER) Influenza Virus 2022-02-13 Completed [facility] Vaccine,quad 00:00:00 [place] [facility] 65+ SARS-COV-2 COVID-19 2022-02-13 Completed [facility] of VACCINE 18 YRS+, 00:00:00 [place] [facility] BIVALENT 0.5ML, IM, Branc h (MODERNA BOOSTER) Influenza Virus 2022-02-13 Completed [facility] Vaccine,quad 00:00:00 [place] [facility] 65+ SARS-COV-2 COVID-19 2022-02-13 Completed [facility] of VACCINE 18 YRS+, 00:00:00 [place] [facility] BIVALENT 0.5ML, IM, Branc h (MODERNA BOOSTER) Influenza Virus 2022-02-13 Completed [facility] Vaccine,quad 00:00:00 [place] [facility] 65+ SARS-COV-2 COVID-19 2022-02-13 Completed [facility] of VACCINE 12 YRS+, 00:00:00 [place] [facility] BIVALENT 0.5ML, IM, Branc h (MODERNA BOOSTER) Influenza Virus 2022-02-13 Completed [facility] Vaccine,quad 00:00:00 [place] [facility] 65+ SARS-COV-2 COVID-19 2022-02-13 Completed [facility] of VACCINE 12 YRS+, 00:00:00 [place] [facility] BIVALENT 0.5ML, IM, Branc h (MODERNA BOOSTER) Influenza Virus 2022-02-13 Completed [facility] Vaccine,quad 00:00:00 [place] [facility] 65+ SARS-COV-2 COVID-19 2022-02-13 Completed [facility] of VACCINE 12 YRS+, 00:00:00 [place] [facility] BIVALENT 0.5ML, IM, Branc h (MODERNA BOOSTER) Influenza Virus 2022-02-13 Completed [facility] Vaccine,quad 00:00:00 [place] [facility] 65+ SARS-COV-2 COVID-19 2022-02-13 Completed [facility] of VACCINE 12 YRS+, 00:00:00 [place] [facility] BIVALENT 0.5ML, IM, Branc h (MODERNA BOOSTER) Influenza Virus 2022-02-13 Completed [facility] Vaccine,quad 00:00:00 [place] [facility] 65+ SARS-COV-2 COVID-19 2022-02-13 Completed [facility] of VACCINE 12 YRS+, 00:00:00 [place] [facility] BIVALENT 0.5ML, IM, Branc h (MODERNA BOOSTER) Influenza Virus 2022-02-13 Completed [facility] Vaccine,quad 00:00:00 [place] [facility] 65+ SARS-COV-2 COVID-19 2022-02-13 Completed [facility] of VACCINE 12 YRS+, 00:00:00 [place] [facility] BIVALENT 0.5ML, IM, Branc h (MODERNA BOOSTER) Influenza Virus 2022-02-13 Completed [facility] Vaccine,quad 00:00:00 [place] [facility] 65+ SARS-COV-2 COVID-19 2022-02-13 Completed [facility] of VACCINE 12 YRS+, 00:00:00 [place] [facility] BIVALENT 0.5ML, IM, Branc h (MODERNA BOOSTER) Influenza Virus 2022-02-13 Completed [facility] Vaccine,quad 00:00:00 [place] [facility] 65+ SARS-COV-2 COVID-19 2022-02-13 Completed [facility] of VACCINE 12 YRS+, 00:00:00 [place] [facility] BIVALENT 0.5ML, IM, Branc h (MODERNA BOOSTER) Influenza Virus 2022-02-13 Completed [facility] Vaccine,quad 00:00:00 [place] [facility] 65+ SARS-COV-2 COVID-19 2022-02-13 Completed [facility] of VACCINE 12 YRS+, 00:00:00 [place] [facility] BIVALENT 0.5ML, IM, Branc h (MODERNA BOOSTER) Influenza Virus 2022-02-13 Completed [facility] Vaccine,quad 00:00:00 [place] [facility] 65+ SARS-COV-2 COVID-19 2022-02-13 Completed [facility] of VACCINE 12 YRS+, 00:00:00 [place] [facility] BIVALENT 0.5ML, IM, Branc h (MODERNA BOOSTER) Influenza Virus 2022-02-13 Completed [facility] Vaccine,quad 00:00:00 [place] [facility] 65+ SARS-COV-2 COVID-19 2022-02-13 Completed [facility] of VACCINE 12 YRS+, 00:00:00 [place] [facility] BIVALENT 0.5ML, IM, Branc h (MODERNA BOOSTER) Influenza Virus 2022-02-13 Completed [facility] Vaccine,quad 00:00:00 [place] [facility] 65+ SARS-COV-2 COVID-19 2022-02-13 Completed [facility] of VACCINE 12 YRS+, 00:00:00 [place] [facility] BIVALENT 0.5ML, IM, Branc h (MODERNA BOOSTER) Influenza Virus 2022-02-13 Completed [facility] Vaccine,quad 00:00:00 [place] [facility] 65+ SARS-COV-2 COVID-19 2022-02-13 Completed [facility] of VACCINE 12 YRS+, 00:00:00 [place] [facility] BIVALENT 0.5ML, IM, Branc h (MODERNA BOOSTER) Influenza Virus 2022-02-13 Completed [facility] Vaccine,quad 00:00:00 [place] [facility] 65+ SARS-COV-2 COVID-19 2022-02-13 Completed [facility] of VACCINE 12 YRS+, 00:00:00 [place] [facility] BIVALENT 0.5ML, IM, Branc h (MODERNA BOOSTER) Influenza Virus 2022-02-13 Completed [facility] Vaccine,quad 00:00:00 [place] [facility] 65+ SARS-COV-2 COVID-19 2022-02-13 Completed [facility] of VACCINE 12 YRS+, 00:00:00 [place] [facility] BIVALENT 0.5ML, IM, Branc h (MODERNA BOOSTER) SARS-COV-2 COVID-19 2021-09-01 Completed [facility] of MODERNA 0.25ML 00:00:00 [place] [facility] BOOSTER VACCINE [facility] SARS-COV-2 COVID-19 2021-09-01 Completed [facility] of MODERNA 0.25ML 00:00:00 [place] [facility] BOOSTER VACCINE [facility] SARS-COV-2 COVID-19 2021-09-01 Completed [facility] of MODERNA 0.25ML 00:00:00 [place] [facility] BOOSTER VACCINE [facility] SARS-COV-2 COVID-19 2021-09-01 Completed [facility] of MODERNA 0.25ML 00:00:00 [place] [facility] BOOSTER VACCINE [facility] SARS-COV-2 COVID-19 2021-09-01 Completed [facility] of MODERNA 0.25ML 00:00:00 [place] [facility] BOOSTER VACCINE [facility] SARS-COV-2 COVID-19 2021-09-01 Completed [facility] of MODERNA 0.25ML 00:00:00 [place] [facility] BOOSTER VACCINE [facility] SARS-COV-2 COVID-19 2021-09-01 Completed [facility] of MODERNA 0.25ML 00:00:00 [place] [facility] BOOSTER VACCINE [facility] SARS-COV-2 COVID-19 2021-09-01 Completed [facility] of MODERNA 0.25ML 00:00:00 [place] [facility] BOOSTER VACCINE [facility] SARS-COV-2 COVID-19 2021-09-01 Completed [facility] of MODERNA 0.25ML 00:00:00 [place] [facility] BOOSTER VACCINE [facility] SARS-COV-2 COVID-19 2021-09-01 Completed [facility] of MODERNA 0.25ML 00:00:00 [place] [facility] BOOSTER VACCINE [facility] SARS-COV-2 COVID-19 2021-09-01 Completed [facility] of MODERNA 0.25ML 00:00:00 [place] [facility] BOOSTER VACCINE [facility] SARS-COV-2 COVID-19 2021-09-01 Completed [facility] of MODERNA 0.25ML 00:00:00 [place] [facility] BOOSTER VACCINE [facility] SARS-COV-2 COVID-19 2021-09-01 Completed [facility] of MODERNA 0.25ML 00:00:00 [place] [facility] BOOSTER VACCINE [facility] SARS-COV-2 COVID-19 2021-09-01 Completed [facility] of MODERNA 0.25ML 00:00:00 [place] [facility] BOOSTER VACCINE [facility] SARS-COV-2 COVID-19 2021-09-01 Completed [facility] of MODERNA 0.25ML 00:00:00 [place] [facility] BOOSTER VACCINE [facility] SARS-COV-2 COVID-19 2021-09-01 Completed [facility] of MODERNA 0.25ML 00:00:00 [place] [facility] BOOSTER VACCINE [facility] SARS-COV-2 COVID-19 2021-09-01 Completed [facility] of MODERNA 0.25ML 00:00:00 [place] [facility] BOOSTER VACCINE [facility] SARS-COV-2 COVID-19 2021-09-01 Completed [facility] of MODERNA 0.25ML 00:00:00 [place] [facility] BOOSTER VACCINE [facility] SARS-COV-2 COVID-19 2021-09-01 Completed [facility] of MODERNA 0.25ML 00:00:00 [place] [facility] BOOSTER VACCINE [facility] SARS-COV-2 COVID-19 2021-09-01 Completed [facility] of MODERNA 0.25ML 00:00:00 [place] [facility] BOOSTER VACCINE [facility] SARS-COV-2 COVID-19 2021-09-01 Completed [facility] of MODERNA 0.25ML 00:00:00 [place] [facility] BOOSTER VACCINE [facility] SARS-COV-2 COVID-19 2021-09-01 Completed [facility] of MODERNA 0.25ML 00:00:00 [place] [facility] BOOSTER VACCINE [facility] SARS-COV-2 COVID-19 2021-09-01 Completed [facility] of MODERNA 0.25ML 00:00:00 [place] [facility] BOOSTER VACCINE [facility] SARS-COV-2 COVID-19 2021-09-01 Completed [facility] of MODERNA 0.25ML 00:00:00 [place] [facility] BOOSTER VACCINE [facility] SARS-COV-2 COVID-19 2021-09-01 Completed [facility] of MODERNA 0.25ML 00:00:00 [place] [facility] BOOSTER VACCINE [facility] SARS-COV-2 COVID-19 2021-09-01 Completed [facility] of MODERNA 0.25ML 00:00:00 [place] [facility] BOOSTER VACCINE [facility] SARS-COV-2 COVID-19 2021-09-01 Completed [facility] of MODERNA 0.25ML 00:00:00 [place] [facility] BOOSTER VACCINE [facility] SARS-COV-2 COVID-19 2021-09-01 Completed [facility] of MODERNA 0.25ML 00:00:00 [place] [facility] BOOSTER VACCINE [facility] SARS-COV-2 COVID-19 2021-09-01 Completed [facility] of MODERNA 0.25ML 00:00:00 [place] [facility] BOOSTER VACCINE [facility] SARS-COV-2 COVID-19 2021-03-07 Completed [facility] of MODERNA 0.5ML 00:00:00 [place] [facility] VACCINE [facility] SARS-COV-2 COVID-19 2021-03-07 Completed [facility] of MODERNA 0.5ML 00:00:00 [place] [facility] VACCINE [facility] SARS-COV-2 COVID-19 2021-03-07 Completed [facility] of MODERNA 0.5ML 00:00:00 [place] [facility] VACCINE [facility] SARS-COV-2 COVID-19 2021-03-07 Completed [facility] of MODERNA 0.5ML 00:00:00 [place] [facility] VACCINE [facility] SARS-COV-2 COVID-19 2021-03-07 Completed [facility] of MODERNA 0.5ML 00:00:00 [place] [facility] VACCINE [facility] SARS-COV-2 COVID-19 2021-03-07 Completed [facility] of MODERNA 0.5ML 00:00:00 [place] [facility] VACCINE [facility] SARS-COV-2 COVID-19 2021-03-07 Completed [facility] of MODERNA 0.5ML 00:00:00 [place] [facility] VACCINE [facility] SARS-COV-2 COVID-19 2021-03-07 Completed [facility] of MODERNA 0.5ML 00:00:00 [place] [facility] VACCINE [facility] SARS-COV-2 COVID-19 2021-03-07 Completed [facility] of MODERNA 0.5ML 00:00:00 [place] [facility] VACCINE [facility] SARS-COV-2 COVID-19 2021-03-07 Completed [facility] of MODERNA 0.5ML 00:00:00 [place] [facility] VACCINE [facility] SARS-COV-2 COVID-19 2021-03-07 Completed [facility] of MODERNA 0.5ML 00:00:00 [place] [facility] BOOST[facility] VACCINE [facility] SARS-COV-2 COVID-19 2021-03-07 Completed [facility] of MODERNA 0.5ML 00:00:00 [place] [facility] BOOST[facility] VACCINE [facility] SARS-COV-2 COVID-19 2021-03-07 Completed [facility] of MODERNA 0.5ML 00:00:00 [place] [facility] VACCINE [facility] SARS-COV-2 COVID-19 2021-03-07 Completed [facility] of MODERNA 0.5ML 00:00:00 [place] [facility] BOOST[facility] VACCINE [facility] SARS-COV-2 COVID-19 2021-03-07 Completed [facility] of MODERNA 0.5ML 00:00:00 [place] [facility] BOOST[facility] VACCINE [facility] SARS-COV-2 COVID-19 2021-03-07 Completed [facility] of MODERNA 0.5ML 00:00:00 [place] [facility] BOOST[facility] VACCINE [facility] SARS-COV-2 COVID-19 2021-03-07 Completed [facility] of MODERNA 0.5ML 00:00:00 [place] [facility] VACCINE [facility] SARS-COV-2 COVID-19 2021-03-07 Completed [facility] of MODERNA 0.5ML 00:00:00 [place] [facility]ER VACCINE [facility] SARS-COV-2 COVID-19 2021-03-07 Completed [facility] of MODERNA 0.5ML 00:00:00 [place] [facility] VACCINE [facility] SARS-COV-2 COVID-19 2021-03-07 Completed [facility] of MODERNA 0.5ML 00:00:00 [place] [facility] VACCINE [facility] SARS-COV-2 COVID-19 2021-03-07 Completed [facility] of MODERNA 0.5ML 00:00:00 [place] [facility] VACCINE [facility] SARS-COV-2 COVID-19 2021-03-07 Completed [facility] of MODERNA 0.5ML 00:00:00 [place] [facility] VACCINE [facility] SARS-COV-2 COVID-19 2021-03-07 Completed [facility] of MODERNA 0.5ML 00:00:00 [place] [facility] VACCINE [facility] SARS-COV-2 COVID-19 2021-03-07 Completed [facility] of MODERNA 0.5ML 00:00:00 [place] [facility] VACCINE [facility] SARS-COV-2 COVID-19 2021-03-07 Completed [facility] of MODERNA 0.5ML 00:00:00 [place] [facility] VACCINE [facility] SARS-COV-2 COVID-19 2021-03-07 Completed [facility] of MODERNA 0.5ML 00:00:00 [place] [facility] VACCINE [facility] SARS-COV-2 COVID-19 2021-03-07 Completed [facility] of MODERNA 0.5ML 00:00:00 [place] [facility] VACCINE [facility] SARS-COV-2 COVID-19 2021-03-07 Completed [facility] rs[facility] of MODERNA 0.5ML 00:00:00 [place] [facility] VACCINE [facility] SARS-COV-2 COVID-19 2021-03-07 Completed [facility] of MODERNA 0.5ML 00:00:00 [place] [facility] VACCINE [facility] Influenza Virus 2021-02-21 Completed [facility] Vaccine,quad 00:00:00 [place] [facility] 65+ Influenza Virus 2021-02-21 Completed [facility] Vaccine,quad 00:00:00 [place] [facility] 65+ Influenza Virus 2021-02-21 Completed [facility] Vaccine,quad 00:00:00 [place] [facility] 65+ Influenza Virus 2021-02-21 Completed [facility] Vaccine,quad 00:00:00 [place] [facility] 65+ Influenza Virus 2021-02-21 Completed [facility] Vaccine,quad 00:00:00 [place] [facility] 65+ Influenza Virus 2021-02-21 Completed [facility] Vaccine,quad 00:00:00 [place] [facility] 65+ Influenza Virus 2021-02-21 Completed [facility] Vaccine,quad 00:00:00 [place] [facility] 65+ Influenza Virus 2021-02-21 Completed [facility] Vaccine,quad 00:00:00 [place] [facility] 65+ Influenza Virus 2021-02-21 Completed [facility] Vaccine,quad 00:00:00 [place] [facility] 65+ Influenza Virus 2021-02-21 Completed [facility] Vaccine,quad 00:00:00 [place] [facility] 65+ Influenza Virus 2021-02-21 Completed [facility] Vaccine,quad 00:00:00 [place] [facility] 65+ Influenza Virus 2021-02-21 Completed [facility] Vaccine,quad 00:00:00 [place] [facility] 65+ Influenza Virus 2021-02-21 Completed [facility] Vaccine,quad 00:00:00 [place] [facility] 65+ Influenza Virus 2021-02-21 Completed [facility] Vaccine,quad 00:00:00 [place] [facility] 65+ Influenza Virus 2021-02-21 Completed [facility] Vaccine,quad 00:00:00 [place] [facility] 65+ Influenza Virus 2021-02-21 Completed [facility] Vaccine,quad 00:00:00 [place] [facility] 65+ Influenza Virus 2021-02-21 Completed [facility] Vaccine,quad 00:00:00 [place] [facility] 65+ Influenza Virus 2021-02-21 Completed [facility] Vaccine,quad 00:00:00 [place] [facility] 65+ Influenza Virus 2021-02-21 Completed [facility] Vaccine,quad 00:00:00 [place] [facility] 65+ Influenza Virus 2021-02-21 Completed [facility] Vaccine,quad 00:00:00 [place] [facility] 65+ Influenza Virus 2021-02-21 Completed [facility] Vaccine,quad 00:00:00 [place] [facility] 65+ Influenza Virus 2021-02-21 Completed [facility] Vaccine,quad 00:00:00 [place] [facility] 65+ Influenza Virus 2021-02-21 Completed [facility] Vaccine,quad 00:00:00 [place] [facility] 65+ Influenza Virus 2021-02-21 Completed [facility] Vaccine,quad 00:00:00 [place] [facility] 65+ Influenza Virus 2021-02-21 Completed [facility] Vaccine,quad 00:00:00 [place] [facility] 65+ Influenza Virus 2021-02-21 Completed [facility] Vaccine,quad 00:00:00 [place] [facility] 65+ Influenza Virus 2021-02-21 Completed [facility] Vaccine,quad 00:00:00 [place] [facility] 65+ Influenza Virus 2021-02-21 Completed [facility] Vaccine,quad 00:00:00 [place] [facility] 65+ Influenza Virus 2021-02-21 Completed [facility] Vaccine,quad 00:00:00 [place] [facility] 65+ SARS-COV-2 COVID-19 2020-07-02 Completed [facility] rsity of MODERNA 12+ YRS 00:00:00 [place] [facility] VACCINE [facility] SARS-COV-2 COVID-19 2020-07-02 Completed [facility] rsity of MODERNA 12+ YRS 00:00:00 [place] [facility] VACCINE [facility] SARS-COV-2 COVID-19 2020-07-02 Completed [facility] rsity of MODERNA 12+ YRS 00:00:00 [place] [facility] VACCINE [facility] SARS-COV-2 COVID-19 2020-07-02 Completed [facility] rs[facility] of MODERNA 12+ YRS 00:00:00 [place] [facility] VACCINE [facility] SARS-COV-2 COVID-19 2020-07-02 Completed [facility] rs[facility] of MODERNA 12+ YRS 00:00:00 [place] [facility] VACCINE [facility] SARS-COV-2 COVID-19 2020-07-02 Completed [facility] rs[facility] of MODERNA 12+ YRS 00:00:00 [place] [facility] VACCINE [facility] SARS-COV-2 COVID-19 2020-07-02 Completed [facility] rs[facility] of MODERNA 12+ YRS 00:00:00 [place] [facility] VACCINE [facility] SARS-COV-2 COVID-19 2020-07-02 Completed [facility] rs[facility] of MODERNA 12+ YRS 00:00:00 [place] [facility] VACCINE [facility] SARS-COV-2 COVID-19 2020-07-02 Completed [facility] rs[facility] of MODERNA 12+ YRS 00:00:00 [place] [facility] VACCINE [facility] SARS-COV-2 COVID-19 2020-07-02 Completed [facility] rs[facility] of MODERNA 12+ YRS 00:00:00 [place] [facility] VACCINE [facility] SARS-COV-2 COVID-19 2020-07-02 Completed [facility] rs[facility] of MODERNA 12+ YRS 00:00:00 [place] [facility] VACCINE [facility] SARS-COV-2 COVID-19 2020-07-02 Completed [facility] rs[facility] of MODERNA 12+ YRS 00:00:00 [place] [facility] VACCINE [facility] SARS-COV-2 COVID-19 2020-07-02 Completed [facility] rs[facility] of MODERNA 12+ YRS 00:00:00 [place] [facility] VACCINE [facility] SARS-COV-2 COVID-19 2020-07-02 Completed [facility] rs[facility] of MODERNA 12+ YRS 00:00:00 [place] [facility] VACCINE [facility] SARS-COV-2 COVID-19 2020-07-02 Completed [facility] rs[facility] of MODERNA 12+ YRS 00:00:00 [place] [facility] VACCINE [facility] SARS-COV-2 COVID-19 2020-07-02 Completed [facility] rsity of MODERNA 12+ YRS 00:00:00 [place] [facility] VACCINE [facility] SARS-COV-2 COVID-19 2020-07-02 Completed [facility] rs[facility] of MODERNA 12+ YRS 00:00:00 [place] [facility] VACCINE [facility] SARS-COV-2 COVID-19 2020-07-02 Completed [facility] rsity of MODERNA 12+ YRS 00:00:00 [place] [facility] VACCINE [facility] SARS-COV-2 COVID-19 2020-07-02 Completed [facility] rs[facility] of MODERNA 12+ YRS 00:00:00 [place] [facility] VACCINE [facility] SARS-COV-2 COVID-19 2020-07-02 Completed [facility] rs[facility] of MODERNA 12+ YRS 00:00:00 [place] [facility] VACCINE [facility] SARS-COV-2 COVID-19 2020-07-02 Completed [facility] rs[facility] of MODERNA 12+ YRS 00:00:00 [place] [facility] VACCINE [facility] SARS-COV-2 COVID-19 2020-07-02 Completed [facility] rs[facility] of MODERNA 12+ YRS 00:00:00 [place] [facility] VACCINE [facility] SARS-COV-2 COVID-19 2020-07-02 Completed [facility] rs[facility] of MODERNA 12+ YRS 00:00:00 [place] [facility] VACCINE [facility] SARS-COV-2 COVID-19 2020-07-02 Completed [facility] rs[facility] of MODERNA 12+ YRS 00:00:00 [place] [facility] VACCINE [facility] SARS-COV-2 COVID-19 2020-07-02 Completed [facility] rs[facility] of MODERNA 12+ YRS 00:00:00 [place] [facility] VACCINE [facility] SARS-COV-2 COVID-19 2020-07-02 Completed [facility] rs[facility] of MODERNA 12+ YRS 00:00:00 [place] [facility] VACCINE [facility] SARS-COV-2 COVID-19 2020-07-02 Completed [facility] rsity of MODERNA 12+ YRS 00:00:00 [place] [facility] VACCINE [facility] SARS-COV-2 COVID-19 2020-07-02 Completed [facility] rsity of MODERNA 12+ YRS 00:00:00 [place] [facility] VACCINE [facility] SARS-COV-2 COVID-19 2020-07-02 Completed [facility] rs[facility] of MODERNA 12+ YRS 00:00:00 [place] [facility] VACCINE [facility] SARS-COV-2 COVID-19 2020-06-05 Completed [facility] rs[facility] of MODERNA 12+ YRS 00:00:00 [place] [facility] VACCINE [facility] SARS-COV-2 COVID-19 2020-06-05 Completed [facility] rs[facility] of MODERNA 12+ YRS 00:00:00 [place] [facility] VACCINE [facility] SARS-COV-2 COVID-19 2020-06-05 Completed [facility] rs[facility] of MODERNA 12+ YRS 00:00:00 [place] [facility] VACCINE [facility] SARS-COV-2 COVID-19 2020-06-05 Completed [facility] rs[facility] of MODERNA 12+ YRS 00:00:00 [place] [facility] VACCINE [facility] SARS-COV-2 COVID-19 2020-06-05 Completed [facility] rs[facility] of MODERNA 12+ YRS 00:00:00 [place] [facility] VACCINE [facility] SARS-COV-2 COVID-19 2020-06-05 Completed [facility] rs[facility] of MODERNA 12+ YRS 00:00:00 [place] [facility] VACCINE [facility] SARS-COV-2 COVID-19 2020-06-05 Completed [facility] rs[facility] of MODERNA 12+ YRS 00:00:00 [place] [facility] VACCINE [facility] SARS-COV-2 COVID-19 2020-06-05 Completed [facility] rs[facility] of MODERNA 12+ YRS 00:00:00 [place] [facility] VACCINE [facility] SARS-COV-2 COVID-19 2020-06-05 Completed [facility] rs[facility] of MODERNA 12+ YRS 00:00:00 [place] [facility] VACCINE [facility] SARS-COV-2 COVID-19 2020-06-05 Completed [facility] rs[facility] of MODERNA 12+ YRS 00:00:00 [place] [facility] VACCINE [facility] SARS-COV-2 COVID-19 2020-06-05 Completed [facility] rs[facility] of MODERNA 12+ YRS 00:00:00 [place] [facility] VACCINE [facility] SARS-COV-2 COVID-19 2020-06-05 Completed [facility] rs[facility] of MODERNA 12+ YRS 00:00:00 [place] [facility] VACCINE [facility] SARS-COV-2 COVID-19 2020-06-05 Completed [facility] rsity of MODERNA 12+ YRS 00:00:00 [place] [facility] VACCINE [facility] SARS-COV-2 COVID-19 2020-06-05 Completed [facility] rs[facility] of MODERNA 12+ YRS 00:00:00 [place] [facility] VACCINE [facility] SARS-COV-2 COVID-19 2020-06-05 Completed [facility] rs[facility] of MODERNA 12+ YRS 00:00:00 [place] [facility] VACCINE [facility] SARS-COV-2 COVID-19 2020-06-05 Completed [facility] rs[facility] of MODERNA 12+ YRS 00:00:00 [place] [facility] VACCINE [facility] SARS-COV-2 COVID-19 2020-06-05 Completed [facility] rs[facility] of MODERNA 12+ YRS 00:00:00 [place] [facility] VACCINE [facility] SARS-COV-2 COVID-19 2020-06-05 Completed [facility] rs[facility] of MODERNA 12+ YRS 00:00:00 [place] [facility] VACCINE [facility] SARS-COV-2 COVID-19 2020-06-05 Completed [facility] rs[facility] of MODERNA 12+ YRS 00:00:00 [place] [facility] VACCINE [facility] SARS-COV-2 COVID-19 2020-06-05 Completed [facility] rs[facility] of MODERNA 12+ YRS 00:00:00 [place] [facility] VACCINE [facility] SARS-COV-2 COVID-19 2020-06-05 Completed [facility] rs[facility] of MODERNA 12+ YRS 00:00:00 [place] [facility] VACCINE [facility] SARS-COV-2 COVID-19 2020-06-05 Completed [facility] rs[facility] of MODERNA 12+ YRS 00:00:00 [place] [facility] VACCINE [facility] SARS-COV-2 COVID-19 2020-06-05 Completed [facility] rs[facility] of MODERNA 12+ YRS 00:00:00 [place] [facility] VACCINE [facility] SARS-COV-2 COVID-19 2020-06-05 Completed [facility] rsity of MODERNA 12+ YRS 00:00:00 [place] [facility] VACCINE [facility] SARS-COV-2 COVID-19 2020-06-05 Completed [facility] rsity of MODERNA 12+ YRS 00:00:00 [place] [facility] VACCINE [facility] SARS-COV-2 COVID-19 2020-06-05 Completed [facility] rsity of MODERNA 12+ YRS 00:00:00 [place] [facility] VACCINE [facility] SARS-COV-2 COVID-19 2020-06-05 Completed [facility] rs[facility] of MODERNA 12+ YRS 00:00:00 [place] [facility] VACCINE [facility] SARS-COV-2 COVID-19 2020-06-05 Completed [facility] rs[facility] of MODERNA 12+ YRS 00:00:00 [place] [facility] VACCINE [facility] SARS-COV-2 COVID-19 2020-06-05 Completed [facility] rs[facility] of MODERNA 12+ YRS 00:00:00 [place] [facility] VACCINE [facility] Vital Signs Vital Name Observation Time Observation Value Comments Source Body height 2022-05-11 19:07:00 165.1 cm [facility] Body weight 2022-05-11 19:07:00 55.792 kg [facility] BMI 2022-05-11 19:07:00 20.47 kg/m2 [facility] Systolic blood 2022-04-10 20:33:00 135 mm[Hg] [facility] of pressure [facility] Diastolic blood 2022-04-10 20:33:00 69 mm[Hg] Unive rsity of pressure [facility] Heart rate 2022-04-10 20:33:00 65 /min [facility] Body temperature 2022-04-10 20:33:00 37.22 [facility] Body height 2022-04-10 20:33:00 165.1 cm [facility] Body weight 2022-04-10 20:33:00 55.792 kg [facility] BMI 2022-04-10 20:33:00 20.47 kg/m2 [facility] Oxygen saturation in 2022-04-10 20:33:00 97 /min [facility] [place] [facility] Systolic blood 2022-03-16 17:10:00 150 mm[Hg] [facility] Diastolic blood 2022-03-16 17:10:00 65 mm[Hg] [facility] Heart rate 2022-03-16 17:10:00 61 /min [facility] Respiratory rate 2022-03-16 17:10:00 12 /min [facility] Oxygen saturation in 2022-03-16 17:10:00 98 /min [facility] blood by [place] [facility] Body temperature 2022-03-16 16:55:00 36.5 [facility] Body height 2022-03-06 14:28:00 157.5 cm [facility] Body weight 2022-03-06 14:28:00 54.9 kg [facility] BMI 2022-03-06 14:28:00 22.13 kg/m2 [facility] Systolic blood 2022-03-16 17:00:00 155 mm[Hg] [facility] Diastolic blood 2022-03-16 17:00:00 56 mm[Hg] [facility] Heart rate 2022-03-16 17:00:00 61 /min [facility] Respiratory rate 2022-03-16 17:00:00 14 /min [facility] Oxygen saturation in 2022-03-16 17:00:00 98 /min [facility] Body temperature 2022-03-16 16:55:00 36.5 [facility] [place] Body height 2022-03-06 14:28:00 157.5 cm [facility] Body weight 2022-03-06 14:28:00 54.9 kg [facility] BMI 2022-03-06 14:28:00 22.13 kg/m2 [facility] Systolic blood 2022-02-13 18:00:00 146 mm[Hg] [facility] Diastolic blood 2022-02-13 18:00:00 74 mm[Hg] Unive rsity of pressure [facility] Heart rate 2022-02-13 17:59:00 62 /min [facility] [place] Body height 2022-02-13 17:59:00 157.5 cm [facility] [place] Body weight 2022-02-13 17:59:00 54.885 kg [facility] BMI 2022-02-13 17:59:00 22.13 kg/m2 [facility] Systolic blood 2022-01-26 14:54:00 170 mm[Hg] [facility] Diastolic blood 2022-01-26 14:54:00 77 mm[Hg] [facility]ive [facility] [place] Heart rate 2022-01-26 14:54:00 58 /min [facility] [place] Oxygen saturation in 2022-01-26 14:54:00 99 /min University Arterial blood by [facility] Pulse oximetry Branch Body temperature 2022-01-26 14:41:00 36.33 Vanesa [facility] Respiratory rate 2022-01-26 12:45:00 24 /min [facility] Body height 2022-01-13 12:58:00 165.1 cm [facility] Body weight 2022-01-13 12:58:00 55.8 kg [facility] BMI 2022-01-13 12:58:00 20.47 kg/m2 [facility] Systolic blood 2022-01-26 14:44:00 163 mm[Hg] Univer [facility]ity [facility] Diastolic blood 2022-01-26 14:44:00 74 mm[Hg] Unive rsity of pressure [facility] Heart rate 2022-01-26 14:44:00 59 /min Universi ty of [facility] Oxygen saturation in 2022-01-26 14:44:00 98 /min University of Arterial blood by [facility] Pulse oximetry Branch Body temperature 2022-01-26 14:41:00 36.33 Vanesa Univ ersity of [facility] Respiratory rate 2022-01-26 12:45:00 24 /min Univ ersity of [facility] Body height 2022-01-13 12:58:00 165.1 cm Universi ty of [facility] Body weight 2022-01-13 12:58:00 55.8 kg Universi ty of [facility] BMI 2022-01-13 12:58:00 20.47 kg/m2 [facility] Systolic blood 2022-01-13 15:33:00 120 mm[Hg] Univer sity of [facility] Diastolic blood 2022-01-13 15:33:00 58 mm[Hg] Unive rsity of [facility] Heart rate 2022-01-13 15:33:00 56 /min Universi ty of [facility] Body temperature 2022-01-13 15:33:00 36.61 Vanesa Univ ersity of [facility] Body height 2022-01-13 15:33:00 165.1 cm [facility] Body weight 2022-01-13 15:33:00 54.432 kg [facility] [place] BMI 2022-01-13 15:33:00 19.97 kg/m2 [facility] [place] Oxygen saturation in 2022-01-13 15:33:00 97 /min University of Arterial blood by [facility] Pulse oximetry Branch Procedures Procedure Date / Time Performing Source Performed Clinician PHACOEMULSIFICATION OF 2022-03-16 Lucía Early [facility] CATARACT WITH INTRAOCULAR 16:14:00 Al Pathak l Branch LENS IMPLANT ASSIGNMENT OF BENEFITS 2022-03-14 Doctor Unassigned, [facility] 17:58:40 [place] [facility] Branch FLU VACC([id number]),65+YR,0.5 2022-02-13 Veselka, Melani [facility] ML,IM,ADJUVANTED,QUAD(FLUAD) 18:14:06 [facility] Branch SARS-COV-2 COVID-19 VACCINE 2022-02-13 Melani Niño [facility] 18 YRS+, BIVALENT 0.5ML, IM 18:14:[address] [facility] (MODERNA BOOSTER) VACCINATIONS - CONSENTS, 2022-02-08 Doctor Unassigned, [facility] ELIGIBILITY, HISTORY 05:01:00 [place] [facility] PHACOEMULSIFICATION OF 2022-01-26 Lucía Early [facility] CATARACT WITH INTRAOCULAR 14:03:00 Al Pathak [facility] LENS IMPLANT US ABDOMEN LIMITED 2022-01-24 Dimitri [facility] 18:10:00 [facility] URINE CULTURE 2022-01-13 [facility] xas 18:37:00 [facility] POCT URINALYSIS 2022-01-13 [facility] xas 16:00:00 [facility] Plan of Care Planned Activity Planned Date Details Comments Source Encounters Start End Encounter Admission Attending Care Care Encounter Source Date/Time Date/Time Type Type Clinicians Facility Department ID 2022-01-03 Outpatient R SHARATH [facility] OPH [id number] Univers 15:32:37 LUCÍA [facility] 2021-03-04 Emergency [facility] [id number] Univers 21:12:32 [facility] 2021-03-04 Outpatient R LAURENCE [facility] JACINTA [id number] Univers 16:40:04 PAIGE Dominguez [facility] 2022-05-19 2022-05-19 [facility] 1.2.840.114 [id number] Univers 00:00:00 00:00:00 [facility] 350.1.13.10 it y of Daren [place]NE[place] 4.2.7.2.686 Darshan as KI?BLEA [phone] Ri ezequiel [address] MEDICAL OFFICE BUILDING 2022-05-11 2022-05-11 Office [facility] 1.2.840.114 [id number] Univers 13:15:00 13:30:00 Visit [place] HEALTH 350.1.13.10 it y of [place] 4.2.7.2.686 Darshan as KI?BLEA [id number] Ri ezequiel SPR[address] [place] MEDICAL OFFICE BUILDING 2022-05-11 2022-05-11 Outpatient Evonne HUGHES [facility] [id number] Univers 13:15:00 13:15:00 CASS carlson [facility] 2022-05-08 2022-05-08 Refill [facility] 1.2.840.114 [id number] Univers 00:00:00 00:00:00 [facility] 350.1.13.10 it y of [place] 4.2.7.2.686 Darsahn as IK?BLEA [id number] Ri ezequiel SPRINGER [address] [place] [address] [facility] 2022-04-26 2022-04-26 Patient [facility] 1.2.840.114 [id number] Univers 00:00:00 00:00:00 Secure Msg [facility] 350.1.13.10 ity of [place] 4.2.7.2.686 Darshan as KI?BLEA [id number] Ri ezequiel SPRINGER 0[address] [facility] [facility] 2022-04-24 2022-04-24 [facility] 1.2.840.114 [id number] Univers 00:00:00 00:00:00 [facility] 350.1.13.10 it y of [place] 4.2.7.2.686 Darshan as KI?BLEA [id number] Ri ezequiel SPRINGER [address] [place] [address] [facility] 2022-04-10 2022-04-10 Office [facility] 1.2.840.114 [id number] Univers 14:15:00 14:30:00 Visit [facility] 350.1.13.10 it y of [place] 4.2.7.2.686 Darshan as KI?BLEA [id number] Ri ezequiel SPRINGER [address] [place] [address] [facility] 2022-04-10 2022-04-10 Outpatient R RENAY [facility] [id number] Univers 14:15:00 14:15:00 MELANI carlson [facility] 2022-03-27 2022-03-27 [facility] 1.2.840.114 [id number] Univers 00:00:00 00:00:00 [facility] 350.1.13.10 it y of Daren [place] 4.2.7.2.686 Darshan as KI?BLEA [id number] [address] [facility] 2022-03-24 2022-03-24 [facility] 1.2.840.114 [id number] Univers 00:00:00 00:00:00 [facility] 350.1.13.10 it y of [place]aren [place] 4.2.7.2.686 Darshan as KI?BLEA [id number] [address] 2022-03-16 2022-03-16 Outpatient R [facility] OPH [id number] Univers 09:00:00 11:20:00 LUCÍA ity of [facility] 2022-03-16 2022-03-16 [facility] 1.2.840.114 [id number] Univers 09:00:00 11:20:00 Encounter Lucía DARNELL 350.1.13.10 ity of [place]ICAL [id number] [facility] [address] [place] 2022-03-16 2022-03-16 Surgery [facility] 1.2.840.114 [id number] Univers 10:23:00 11:00:00 Lucía DARNELL 350.1.13.10 i ty of [place].7.2.686 [place] SUR[place]ICAL [id number] [facility] 020 Branch 2022-03-14 2022-03-14 Orders Doctor MONTALVO 1.2.840.114 [id number] Univers 00:00:00 00:00:00 Only Unassigned, FRANNIE 350.1.13.10 ity of [place] [facility] 4.2.7.2.686 Darshan as [id number] [facility] 009 Branch 2022-03-13 2022-03-13 [facility] 1.2.840.114 [id number] Univers 00:00:00 00:00:00 [facility] 350.1.13.10 it y of [place] 4.2.7.2.686 Darshan as KI?BLEA [id number] [address] [facility] 2022-03-13 2022-03-13 Telephone [facility] 1.2.840.114 [id number] Univers 00:00:00 00:00:00 [facility] HEALTH 350.1.13.10 it y of [place] 4.2.7.2.686 Darshan as KI?BLEA [id number] [address] [facility] 2022-02-21 2022-02-21 Refill [facility] 1.2.840.114 [id number] [facility] 00:00:00 00:00:00 [facility] 350.1.13.10 it y of [place] 4.2.7.2.686 Darshan as KI?BLEA [id number] [address] 2022-02-20 2022-02-20 Outpatient R [facility] [id number] Univers 10:00:00 10:00:00 ity of [facility] 2022-02-20 2022-02-20 [facility] 1.2.840.114 [id number] Univers 00:00:00 00:00:00 [facility] 350.1.13.10 ity of [place] 4.2.7.2.686 Darshan as KI?BLEA [id number] [address] 2022-02-13 2022-02-13 Outpatient R [facility] [id number] [facility] 13:25:46 23:59:00 MELANI ity [facility] 2022-02-13 2022-02-13 Office [facility] 1.2.840.114 [id number] Univers 13:00:00 13:26:33 Visit [facility] 350.1.13.10 it y of [place] 4.2.7.2.686 Darshan as KI?BLEA [id number] [address] 2022-02-13 2022-02-13 Outpatient R [facility] [id number] Univers 13:00:00 13:00:00 MELANI ity [facility] 2022-02-08 2022-02-08 Orders Doctor SELVIN 1.2.840.114 [id number] Univers 00:00:00 00:00:00 Only Unassigned, FRANNIE 350.1.13.10 ity of [place] [facility] 4.2.7.2.686 Darshan as [id number] [address] 2022-02-07 2022-02-07 Refill [facility] 1.2.840.114 [id number] Univers 00:00:00 00:00:00 [facility] 350.1.13.10 it y of Daren [place] 4.2.7.2.686 Darshan as KI?BLEA [phone] [address] [facility] 2022-01-31 2022-01-31 [facility] 1.2.840.114 [id number] Univers 00:00:00 00:00:00 [facility] 350.1.13.10 it y of [place]aren [place] 4.2.7.2.686 Darshan as KI?BLEA [id number] [address] [facility] 2022-01-26 2022-01-26 Outpatient Evonne [facility]PH [id number] Univers 07:24:00 11:13:00 LUCÍA carlson [facility] 2022-01-26 2022-01-26 [facility] 1.2.840.114 [id number] Univers 07:24:00 11:13:00 Encounter Lucía DARNELL 350.1.13.10 ity of [place]ICAL [id number] [facility] [address] [place] 2022-01-26 2022-01-26 Surgery [facility] 1.2.840.114 [id number] Univers 09:08:00 09:47:00 Lucía DARNELL 350.1.13.10 i ty of [place] 4.2.7.2.686 [place] SUR[place]ICAL [id number] [facility] 020 [place] 2022-01-26 2022-01-26 [facility] 1.2.840.114 [id number] Univers 00:00:00 00:00:00 Melani HEALTH 350.1.13.10 it y of Daren [place] 4.2.7.2.686 Darshan as KI?BLEA [id number] [address] 2022-01-25 2022-01-25 [facility] 1.2.840.114 [id number] Univers 00:00:00 00:00:00 Melani HEALTH 350.1.13.10 it y of [place]aren [place] 4.2.7.2.686 Darshan as KI?BLEA [id number] [address] 2022-01-24 2022-01-24 [facility] [id number] Univers 12:38:26 23:59:00 [facility]-24 2022-01-24 [facility] 1.2.840.114 [id number] Univers 12:38:26 23:59:00 Encounter [facility] 350.1.13.10 ity [facility] 4.2.7.[address] [facility] [id number] [address] 2022-01-13 2022-01-13 Outpatient [facility] [id number] Univers 10:20:00 11:09:[address] [facility] [place] 2022-01-13 2022-01-13 Office [facility] 1.2.840.114 [id number] Univers 10:20:00 11:09:30 Visit [facility] 350.1.13.10 ity of [place] 4.2.7.2.686 Darshan as KI?BLEA [id number] [address] 2022-01-13 2022-01-13 [facility] [id number] Univers 10:20:00 11:09:[address] [facility] [place] 2022-01-13 2022-01-13 Outpatient [facility] [id number] Univers 10:20:00 11:09:30 ARIELLE carlson [facility] 2022-01-10 2022-01-10 Nursing Professor Elly, [facility] 1.2.8 40.114 [id number] Univers 11:45:00 12:00:00 Visit Lucía Early 350.1.1 3.10 ity of [place]2.7.2.686 [place] [id number] Ri dical NAL 353 [facility] 2022-01-10 2022-01-10 Outpatient [facility] [id number] Univers 11:45:00 11:45:00 LUCÍA carlson [facility] 2022-01-10 2022-01-10 Orders Doctor SELVIN 1.2.840.114 [id number] Univers 00:00:00 00:00:00 Only Unassigned, FRANNIE 350.1.13.10 ity of [place] [facility] 4.2.7.2.686 Darshan as [id number] [address] 2021-12-05 2021-12-05 [facility] 1.2.840.114 [id number] Univers 00:00:00 00:00:00 [facility] 350.1.13.10 it y of [place] 4.2.7.2.686 Darshan as KI?BLEA [phone] Ri dical KNEY 044 [facility] 2021-12-05 2021-12-05 [facility] 1.2.840.114 [id number] Univers 00:00:00 00:00:00 [facility] HEALTH 350.1.13.10 it y of [place] 4.2.7.2.686 Darshan as KI?BLEA [id number] Ri dical KNEY 044 [facility] 2021-12-05 2021-12-05 [facility] 1.2.840.114 [id number] Univers 00:00:00 00:00:00 [facility] HEALTH 350.1.13.10 it y of [place] 4.2.7.2.686 Darshan as KI?BLEA [phone] Ri dical KNEY 044 [facility] OFF[address] [facility] 2021-11-20 2021-11-20 [facility] 1.2.840.114 [id number] Univers 00:00:00 00:00:00 [facility] 350.1.13.10 it y of [place] 4.2.7.2.686 Darshan as KI?BLEA [id number] Ri ezequiel SPRINGER [address] [place] [address] [facility] 2021-10-20 2021-10-20 Office [facility] 1.2.840.114 [id number] Univers 10:15:00 10:30:00 Visit [facility] 350.1.13.10 it y of [place] 4.2.7.2.686 Darshan as KI?BLEA [id number] Ri duwv HUSEYIN[address] 2021-10-20 2021-10-20 [facility] [id number] Univers 10:15:00 10:27:05 [facility] 2021-10-20 2021-10-20 [facility] [id number] Univers 10:15:00 10:15:00 [facility] 2021-10-20 2021-10-20 [facility] 1.2.840.114 [id number] Univers 00:00:00 00:00:00 [facility] 350.1.13.10 it y of [place] 4.2.7.2.686 Darshan as KI?BLEA [id number] Ri ezequiel SPRINGER [address] [place] [address] [facility] 2021-09-26 2021-09-26 [facility] [id number] Univers 14:30:00 14:39:32 CASS [facility] 2021-09-26 2021-09-26 Office [facility] 1.2.840.114 [id number] Univers 14:30:00 14:39:32 Visit Cass [facility] 350.1.13.10 it y of [place] 4.2.7.2.686 Darshan as KI?BLEA [id number] Ri ezequiel SPRINGER 198 [facility] OFF[facility] 2021-09-26 2021-09-26 Outpatient Evonne HUGHES [facility] [id number] Univers 14:30:00 14:30:00 [facility] 2021-09-26 2021-09-26 [place] [facility] 1.2.840.114 [id number] Univers 00:00:00 00:00:00 [facility] 350.1.13.10 it y of [place] 4.2.7.2.686 Darshan as KI?BLEA [id number] Ri ezequiel SPRINGER [address] [place] [address] [facility] 2021-09-26 2021-09-26 [facility] 1.2.840.114 [id number] Univers 00:00:00 00:00:00 Melani HEALTH 350.1.13.10 it y of [place] 4.2.7.2.686 Darshan as KI?BLEA [phone] Ri ezequiel SPRINGER 044 [facility] 2021-09-25 2021-09-25 [facility] 1.2.840.114 [id number] Univers 00:00:00 00:00:00 Melani HEALTH 350.1.13.10 it y of [place] 4.2.7.2.686 Darshan as KI?BLEA [id number] Ri ezequiel SPRINGER 044 [facility] [facility] 2021-09-15 2021-09-15 Office [facility] 1.2.840.114 [id number] Univers 10:00:00 11:50:07 Visit [facility] 350.1.13.10 it y of [place] 4.2.7.2.686 Darshan as KI?BLEA [id number] Ri ezequiel SPRINGER 198 [facility] OFF[address] [facility] 2021-09-15 2021-09-15 Outpatient Evonne HUGHES [facility] [id number] Univers 10:00:00 11:50:07 CASS itfélix [facility] 2021-09-15 2021-09-15 Outpatient Evonne HUGHES [facility] [id number] Univers 10:00:00 10:00:00 CASS carlson [facility] 2021-09-15 2021-09-15 [facility] [id number] Univers 10:00:00 10:00:00 CASS [facility] 2021-09-12 2021-09-12 Orders Doctor SELVIN 1.2.840.114 [id number] Univers 00:00:00 00:00:00 Only Unassigned, FRANNIE 350.1.13.10 ity of [place] [facility] 4.2.7.2.686 Darshan as [id number] [address] 2021-09-08 2021-09-08 Outpatient [facility] [id number] Univers 09:45:00 10:24:47 CASS ity [facility] 2021-09-08 2021-09-08 Office [facility] 1.2.840.114 [id number] Univers 09:45:00 10:24:47 Visit [facility] 350.1.13.10 [facility] 4.2.7.2.686 Darshan as KI?BLEA [phone] Ri ezequiel SPRINGER [address] [place] [address] [facility] 2021-09-08 2021-09-08 Outpatient [facility] [id number] Univers 09:45:00 10:24:47 [facility] 2021-09-02 2021-09-02 Outpatient Evonne NIÑO [facility] [id number] Univers 08:00:00 08:00:00 [facility] 2021-09-01 2021-09-01 Outpatient Evonne HUGHES [facility] [id number] Univers 13:30:00 13:59:01 CASS ity [facility] 2021-09-01 2021-09-01 Office [facility] 1.2.840.114 [id number] Univers 13:30:00 13:59:01 Visit [facility] 350.1.13.10 it y of [place] 4.2.7.2.686 Darshan as KI?BLEA [phone] Ri ezequiel SPRINGER [address] [place] [address] [facility] 2021-09-01 2021-09-01 Outpatient [facility] [id number] Univers 13:30:00 13:30:00 [facility] [place] [facility] 2021-09-01 2021-09-01 Outpatient Evonne SAUL [facility] [id number] Univers 13:30:00 13:30:00 [facility] 2021-09-01 2021-09-01 Imm/Inj Vaccine, Ang Db Cbc [facility] 1. 2.840.114 [id number] Univers 10:50:00 11:00:00 Visit Saul [facility] 350.1.13.10 ity [facility] 4.2.7.2.686 Darshan as KI?BLEA [id number] Ri dusravani SPRINGER 0[address] [facility] [facility] 2021-09-01 2021-09-01 Outpatient Evonne SAUL [facility] [id number] Univers 10:50:00 10:50:00 [facility] 2021-08-25 2021-08-25 Office [facility] 1.2.840.114 [id number] Univers 13:00:00 13:26:29 Visit [facility] 350.1.13.10 it y of [place] 4.2.7.2.686 Darshan as KI?BLEA [id number] Ri ezequiel DE PAZQI 198 [facility] [facility] 2021-08-25 2021-08-25 Outpatient Evonne HUGHES [facility] [id number] Univers 13:00:00 13:26:29 [facility] 2021-08-25 2021-08-25 Outpatient Evonne HUGHES [facility] [id number] Univers 13:00:00 13:00:00 [facility] 2021-08-25 2021-08-25 Outpatient Evonne HUGHES [facility] [id number] Univers 13:00:00 13:00:00 [facility] 2021-08-25 2021-08-25 Filiberto Niño [facility] 1.2.840.114 [id number] Univers 00:00:00 00:00:00 [facility] 350.1.13.10 it y of [place] [facility] 4.2.7.2.686 Darshan as KI?BLEA [phone] Ri dical FERNANDA 044 [facility] 2021-08-18 2021-08-18 Office [facility] 1.2.840.114 [id number] Univers 10:30:00 10:57:08 Visit Cass S HEALTH 350.1.13.10 it y of [place] 4.2.7.2.686 Darshan as KI?BLEA [id number] Ri dusravani SPRINGER 198 [facility] [facility] 2021-08-18 2021-08-18 [facility] [id number] Univers 10:30:00 10:30:00 CASS ity of [facility] 2021-08-18 2021-08-18 Orders Doctor SELVIN 1.2.840.114 [id number] Univers 00:00:00 00:00:00 Only Unassigned, FRANNIE 350.1.13.10 ity of [place] [facility] 4.2.7.2.686 Darshan as [id number] [address] 2021-08-16 2021-08-16 Telephone [facility] 1.2.771.667 [id number] Univers 00:00:00 00:00:00 Cass S HEALTH 350.1.13.10 it y of [place] 4.2.7.2.686 Darshan as KI?BLEA [id number] Ri dusravani SPRINGER 198 [facility] OFF[address] [facility] 2021-08-03 2021-08-03 Refill [facility] 1.2.840.114 [id number] Univers 00:00:00 00:00:00 Melani HEALTH 350.1.13.10 it y of [place] 4.2.7.2.686 Darshan as KI?BLEA [id number] Ri dusravani SPRINGER 044 [facility] OFF[address] [facility] 2021-07-22 2021-07-22 Orders Doctor SELVIN 1.2.840.114 [id number] Univers 00:00:00 00:00:00 Only Unassigned, FRANNIE 350.1.13.10 ity of [place] [facility] 4.2.7.2.686 Darshan as [phone] [address] 2021-07-21 2021-07-21 Outpatient R RENAY [facility] [id number] Univers 10:15:00 10:37:49 MELANI ity [facility] 2021-07-21 2021-07-21 Outpatient Evonne NIÑO [facility] [id number] Univers 10:15:00 10:15:00 MELANI carlson [facility] 2021-07-21 2021-07-21 Outpatient Evonne NIÑO [facility] [id number] Univers 10:15:00 10:15:00 MELANI félix [facility] 2021-07-21 2021-07-21 Outpatient Evonne NIÑO [facility] [id number] Univers 10:15:00 10:15:00 MELANI félix [facility] 2021-07-19 2021-07-19 [facility] [id number] Univers 00:00:00 00:00:00 Yara L HEALTH 350.1.13.10 it y of [place] 4.2.7.2.686 Darshan as KI?BLEA [phone] Ri ezequiel SPRINGER [address] [place] [address] [facility] 2021-07-18 2021-07-18 [facility]phone [facility] [id number] Univers 00:00:00 00:00:00 Cass S HEALTH 350.1.13.10 it y of [place] 4.2.7.2.686 Darshan as KI?BLEA [phone] Ri ezequiel SPRINGER [address] [place] [address] [facility] 2021-07-12 2021-07-12 [facility] [id number] Univers 15:00:00 15:00:00 MELANI [facility] 2021-07-05 2021-07-05 [facility] [id number] Univers 00:00:00 00:00:00 Cass S HEALTH 350.1.13.10 it y of [place] 4.2.7.2.686 Darshan as KI?BLEA [phone] Ri ezequiel SPRINGER [address] [place] [address] [facility] 2021-07-05 2021-07-05 Telephone [facility] 1.2.530.783 [id number] Univers 00:00:00 00:00:00 Cass S HEALTH 350.1.13.10 it y of [place] 4.2.7.2.686 Darshan as KI?BLEA [phone] Me ezequiel SPRINGER [address] [facility] OFF[address] [facility] 2021-06-23 2021-06-23 Telephone Saul [facility] 1.2.454.423 [id number] Univers 00:00:00 00:00:00 [facility] 350.1.13.10 it y of [place] 4.2.7.2.686 Darshan as KI?BLEA [phone] Me ezequiel SPRINGER 198 [facility] OFF[address] [facility] 2021-06-22 2021-06-22 Orders Doctor SELVIN 1.2.840.114 [id number] Univers 00:00:00 00:00:00 Only Unassigned, FRANNIE 350.1.13.10 ity of [place] [facility] 4.2.7.2.686 Darshan as [phone] [facility] 009 [place] 2021-06-15 2021-06-15 Telephone Saul [facility] 1.2.770.432 [id number] Univers 00:00:00 00:00:00 [facility] 350.1.13.10 it y of [place] 4.2.7.2.686 Darshan as KI?BLEA [phone] Ri ezequiel SPRINGER 198 [facility] OFF[address] [facility] 2021-06-14 2021-06-14 Office [facility] 1.2.840.114 [id number] Univers 15:15:00 15:34:27 Visit [facility] 350.1.13.10 it y of [place] 4.2.7.2.686 Darshan as KI?BLEA [phone] Ri ezequiel SPRINGER 0[address] [facility] OFF[address] [facility] 2021-06-14 2021-06-14 Outpatient Evonne NIÑO [facility] [id number] Univers 15:15:00 15:15:00 MELANI carlson [facility] 2021-06-10 2021-06-10 Outpatient Evonne NIÑO [facility] [id number] Univers 08:00:00 08:00:00 MELANI carlson [facility] 2021-06-03 2021-06-03 Refill [facility] 1.2.840.114 [id number] Univers 00:00:00 00:00:00 Melani HEALTH 350.1.13.10 it y of [place] 4.2.7.2.686 Darshan as KI?BLEA [phone] [facility] 0[address] [place] [facility] 2021-05-27 2021-05-27 Orders Doctor SELVIN 1.2.840.114 [id number] Univers 00:00:00 00:00:00 Only Unassigned, FRANNIE 350.1.13.10 ity of [place] [facility] 4.2.7.2.686 Darshan as [phone] [address] 2021-05-24 2021-05-24 Filiberto Niño [facility] 1.2.840.114 [id number] Univers 00:00:00 00:00:00 Melani HEALTH 350.1.13.10 it y of [place] 4.2.7.2.686 Darshan as KI?BLEA [phone] [address] [facility] 2021-05-18 2021-05-18 [facility] [id number] Univers 15:30:00 16:33:54 [facility] 2021-05-18 2021-05-18 Office [facility] 1.2.840.114 [id number] Univers 15:30:00 16:33:54 Visit [facility] 350.1.13.10 it y of [place] 4.2.7.2.686 Darshan as KI?BLEA [phone] [facility] 198 [facility] [address] [facility] 2021-05-18 2021-05-18 [facility] [id number] Univers 15:30:00 16:33:54 CASS ity [facility] 2021-05-18 2021-05-18 [facility] [id number] Univers 15:30:00 16:33:54 CASS ity [facility] 2021-05-18 2021-05-18 Office [facility] 1.2.840.114 [id number] Univers 15:30:00 16:33:54 Visit [facility] 350.1.13.10 it y of [place] 4.2.7.2.686 Darshan as KI?BLEA [phone] Ri ezequiel SPRINGER [address] [facility] [facility] 2021-05-12 2021-05-12 [facility] 1.2.840.114 [id number] Univers 00:00:00 00:00:00 [facility] 350.1.13.10 it y of [place] 4.2.7.2.686 Darshan as KI?BLEA [phone] Ri ezequiel SPRINGER 0[address] [facility] OFF[address] [facility] 2021-05-10 2021-05-10 [facility] 1.2.840.114 [id number] Univers 00:00:00 00:00:00 [facility] 350.1.13.10 it y of [place] 4.2.7.2.686 Darshan as KI?BLEA [phone] Ri ezequiel SPRINGER [address] [place] [address] 2021-04-22 2021-04-22 Office [facility] 1.2.840.114 [id number] Univers 10:15:00 10:30:00 Visit [facility] 350.1.13.10 it y of [place] 4.2.7.2.686 Darshan as KI?BLEA [phone] Ri ezequiel SPRINGER [address] [place] [address] 2021-04-22 2021-04-22 Outpatient R RENAY [facility] [id number] Univers 10:15:00 10:15:00 [facility] 2021-04-22 2021-04-22 [facility] [id number] Univers 10:15:00 10:15:00 [facility] 2021-04-08 2021-04-08 [facility] 1.2.840.114 [id number] Univers 00:00:00 00:00:00 [facility] 350.1.13.10 it y of [place] 4.2.7.2.686 Darshan as KI?BLEA [phone] Ri ezequiel SPRINGER [address] [place] [address] [facility] 2021-03-28 2021-03-28 [facility] 1.2.840.114 [id number] Univers 00:00:00 00:00:00 [facility] 350.1.13.10 it y of [place] 4.2.7.2.686 Darshan as KI?BLEA [phone] [address] [facility] 2021-03-28 2021-03-28 [facility] 1.2.840.114 [id number] Univers 00:00:00 00:00:00 [facility] 350.1.13.10 it y of [place] 4.2.7.2.686 Darshan as KI?BLEA [phone] [address] [facility] 2021-03-24 2021-03-24 [facility] 1.2.840.114 [id number] Univers 00:00:00 00:00:00 [facility] 350.1.13.10 it y of [place] 4.2.7.2.686 Darshan as KI?BLEA [phone] [address] [facility] 2021-03-23 2021-03-23 Office [facility] 1.2.840.114 [id number] Univers 09:08:57 09:23:57 Visit [facility] 350.1.13.10 it y of [place] 4.2.7.2.686 Darshan as KI?BLEA [phone] [address] [facility] 2021-03-23 2021-03-23 Outpatient R RENAY [facility] [id number] Univers 09:15:00 09:15:00 MELANI félix [facility] 2021-03-01 2021-03-01 Outpatient R SAUL [facility] [id number] Univers 14:30:00 14:30:00 CASS carlson [facility] 2021-03-01 2021-03-01 [facility] 1.2.840.114 [id number] Univers 00:00:00 00:00:00 [facility] 350.1.13.10 it y of [place] 4.2.7.2.686 Darshan as Ki?Blea [phone] Me ezequiel springer 044 [facility] Office [facility] 2021-03-01 2021-03-01 Telephone [facility] 1.2.707.195 [id number] Univers 00:00:00 00:00:00 Cass S Health 350.1.13.10 it y of [place] 4.2.7.2.686 Darshan as Ki?Blea [phone] Me ezequiel springer 198 [facility] Office [facility] 2021-03-01 2021-03-01 Telephone [facility] 1.2.786.719 [id number] Univers 00:00:00 00:00:00 Cass S HEALTH 350.1.13.10 it y of [place] 4.2.7.2.686 Darshan as KI?BLEA [phone] Me ezequiel SPRINGER 198 [facility] [facility] 2021-02-25 2021-02-25 Telephone [facility] 1.2.840.114 [id number] Univers 00:00:00 00:00:00 Yara L HEALTH 350.1.13.10 it y of [place] 4.2.7.2.686 Darshan as KI?BLEA [phone] Me ezequiel SPRINGER [address] [facility] [facility] 2021-02-24 2021-02-24 Telephone [facility] 1.2.211.691 [id number] Univers 00:00:00 00:00:00 Cass S Health 350.1.13.10 it y of [place] 4.2.7.2.686 Darshan as Ki?Blea [phone] Me ezequiel springer 198 [facility] Office [facility] 2021-02-24 2021-02-24 Telephone Renay [facility] 1.2.840.114 [id number] Univers 00:00:00 00:00:00 Melani Health 350.1.13.10 it y of [place] 4.2.7.2.686 Darshan as Ki?Blea [phone] Me ezequiel springer 044 [facility] Office [facility] 2021-02-21 2021-02-21 Imm/Inj Nurse, Santiago Vences [facility] 1.2.840.114 [id number] Univers 09:36:53 09:56:53 Visit Melani Niño [facility] 350.1.13 .10 ity of [place] 4.2.7.2.686 Darshan as Ki?Blea [phone] Ri ezequiel springer 044 [facility] Office [facility] 2021-02-21 2021-02-21 Nursing Professor Lab, Ang - Db [facility] 1.2.840.1 14 [id number] Univers 08:50:46 09:05:46 Visit Melani Niño [facility] 350.1.13 .10 ity of [place] 4.2.7.2.686 Darshan as Ki?Blea [phone] Ri ezequiel springer 353 [facility] Office [facility] 2021-02-21 2021-02-21 Outpatient R RENAY [facility] [id number] Univers 09:00:00 09:00:00 MELANI [facility] 2021-02-21 2021-02-21 Telephone [facility] 1.2.451.235 [id number] Univers 00:00:00 00:00:00 Cass S Health 350.1.13.10 it y of [place] 4.2.7.2.686 Darshan as Ki?Blea [phone] Ri ezequiel springer 198 [facility] Office [facility] 2021-02-18 2021-02-18 Telephone Renay [facility] 1.2.840.114 [id number] Univers 00:00:00 00:00:00 Melani Health 350.1.13.10 it y of [place] 4.2.7.2.686 Darshan as Ki?Blea [phone] Ri ezequiel springer 044 [facility] Office [facility] 2021-02-17 2021-02-17 Telephone [facility] 1.2.840.114 [id number] Univers 00:00:00 00:00:00 Yara L Health 350.1.13.10 it y of [place] 4.2.7.2.686 Darshan as Ki?Blea [phone] Ri ezequiel springer 198 [place] Medical Office [facility] 2021-02-15 2021-02-15 Refill [facility] 1.2.840.114 [id number] Univers 00:00:00 00:00:00 Melani Health 350.1.13.10 it y of [place] 4.2.7.2.686 Darshan as Ki?Blea [phone] Ri ezequiel springer 044 [place] Medical Office [facility] 2021-02-15 2021-02-15 Telephone [facility] 1.2.840.114 [id number] Univers 00:00:00 00:00:00 Melani Health 350.1.13.10 it y of [place] 4.2.7.2.686 Darshan as Ki?Blea [phone] [address] Medical Office [facility] 2021-02-13 2021-02-13 Orders Doctor SELVIN 1.2.840.114 [id number] Univers 00:00:00 00:00:00 Only Unassigned, FRANNIE 350.1.13.10 ity of [place] [facility] 4.2.7.2.686 Darshan as [phone] [address] 2021-02-09 2021-02-09 Office [facility] 1.2.840.114 [id number] Univers 15:07:57 15:22:57 Visit Melani Mon 350.1.13.10 it y of [place] 4.2.7.2.686 Darshan as Ki?Blea [phone] Ri duwv huseyin[address] Office [facility] 2021-02-09 2021-02-09 Out[facility] [id number] Univers 15:15:00 15:15:00 MELANI ity [facility] 2021-02-09 2021-02-09 Telephone [facility] 1.2.840.114 [id number] Univers 00:00:00 00:00:00 Yara [facility] 350.1.13.10 it y of [place] 4.2.7.2.686 Darshan as Ki?Blea [phone] Ri ezequiel springer 198 [facility] Office [facility] 2021-02-09 2021-02-09 Telephone [facility] 1.2.840.114 [id number] Univers 00:00:00 00:00:00 Yara Avila HEALTH 350.1.13.10 it y of [place] 4.2.7.2.686 Darshan as KI?BLEA [phone] Me dical HUSEYINEY 198 [facility] [facility] 2021-02-04 2021-02-04 Outpatient R RENAY [facility] [id number] Univers 13:00:00 13:00:00 MELANI carlson [facility] 2021-02-01 2021-02-01 Nursing Professor Lab, Ang - [facility] 1.2.840.1 14 [id number] Univers 08:38:15 08:53:15 Visit Melani Niño alivia [facility] 350.1.13 .10 ity of [place] 4.2.7.2.686 Darshan as Ki?Blea [phone] Ri ezequiel springer 353 [facility] Office [facility] 2021-02-01 2021-02-01 Office [facility] 1.2.840.114 [id number] Univers 08:08:00 08:38:20 Visit Melani [facility] 350.1.13.10 it y of [place] 4.2.7.2.686 Darshan as Ki?Blea [phone] Ri ezequiel springer 044 [facility] Office [facility] 2021-02-01 2021-02-01 Outpatient R RENAY [facility] [id number] Univers 08:15:00 08:15:00 MELANI carlson [facility] 2021-01-27 2021-01-27 Telephone [facility] 1.2.840.114 [id number] Univers 00:00:00 00:00:00 Yara [employer] 350.1.13.10 it y of [place] 4.2.7.2.686 Darshan as Ki?Blea [phone] Ri dicsravani springer 198 [facility] Office [facility] 2021-01-26 2021-01-26 Outpatient R JEANNINE [facility] [id number] Univers 15:45:00 15:45:00 YARA carlson [facility] 2021-01-26 2021-01-26 Office [facility] 1.2.090.723 [id number] Univers 14:54:15 15:42:18 Visit Yara Avila [employer] 350.1.13.10 it y of [place] 4.2.7.2.686 Darshan as Ki?Blea [phone] Ri ezequiel springer 198 [place] [facility] 2021-01-17 2021-01-17 Outpatient R PAEZ [facility] [id number] Univers 15:30:00 15:30:00 [facility]-01-16 2021-01-16 [facility] 1.2.840.114 [id number] Univers 00:00:00 00:00:00 [facility] 350.1.13.10 it y of [place] 4.2.7.2.686 Darshan as Ki?Blea [phone] Ri ezequiel springer 044 [place] [facility] 2021-01-03 2021-01-03 [facility] 1.2.329.962 [id number] Univers 13:58:58 23:59:00 Encounter Bahman Darnell 350.1.13.10 ity [facility] [place].2.[place].2.[place] [phone] [address] 2021-01-03 2021-01-03 Outpatient BAHMAN CHINCHILLA [facility] [id number] Univers 00:00:00 00:00:00 BAHMAN LUNA [facility] 2020-12-20 2020-12-20 [facility] 1.2.840.114 [id number] Univers 00:00:00 00:00:00 [facility] 350.1.13.10 it y of [place] 4.2.7.2.686 Darshan as Professio [phone] Ri ezequiel olmedo 044 [place] [facility] 2020-12-13 2020-12-13 Office [facility] 1.2.840.114 [id number] Univers 10:01:24 10:58:16 Visit Bahman Darnell 350.1.13.10 ity [facility] 4.2.7.2.[place] Profess[place] [phone] [facility] 092 [facility] 2020-12-13 2020-12-13 Outpatient BAHMAN CHINCHILLA [facility] [id number] Univers 10:00:00 10:58:16 BAHMAN LUNA [facility] 2020-12-13 2020-12-13 Outpatient R BAHMAN LUNA [facility] [id number] Univers 10:00:00 10:00:00 BAHMAN LUNA félix [facility] 2020-12-02 2020-12-02 Office Renay [facility] 1.2.840.114 [id number] Univers 10:25:54 10:40:54 Visit [facility] 350.1.13.10 it y of [place] 4.2.7.2.686 Darshan as Professio [phone] Ri dical nal 044 [facility] 2020-12-02 2020-12-02 Outpatient R RENAY [facility] [id number] Univers 10:30:00 10:30:00 [facility] 2020-10-07 2020-10-07 Orders Doctor SELVIN 1.2.840.114 [id number] Univers 00:00:00 00:00:00 Only Unassigned, FRANNIE 350.1.13.10 ity of [place] [facility] 4.2.7.2.686 Darshan as [phone] [address] 2020-09-27 2020-09-28 Office [facility] 1.2.840.114 [id number] Univers 15:31:44 07:34:49 Visit [facility] 350.1.13.10 it y of Surgical 4.2.7.2.686 Darshan as Specialti [phone] Ri dical es 198 [facility] 2020-09-27 2020-09-27 Outpatient R SAUL [facility] [id number] Univers 15:45:00 15:45:00 CASS [facility] 2020-09-17 2020-09-17 Office Renay [facility] 1.2.840.114 [id number] Univers 14:53:48 15:36:45 Visit [facility] 350.1.13.10 it y of [place] 4.2.7.2.686 Darshan as Professio [phone] Ri dical nal 044 [facility] 2020-09-17 2020-09-17 Outpatient Evonne NIÑO [facility] [id number] Univers 15:00:00 15:00:00 MELANI félix [facility] 2020-09-17 2020-09-17 Outpatient Evonne NIÑO [facility] [id number] Univers 15:00:00 15:00:00 MELANI robyn [facility] 2020-09-17 2020-09-17 Orders Doctor SELVIN 1Sky2.840.114 [id number] Univers 00:00:00 00:00:00 Only Unassigned, FRANNIE 350.1.13.10 ity of [place] [facility] 4.2.7.2.686 Darshan as [phone] [address] 2020-09-08 2020-09-08 Outpatient Evonne NIÑO [facility] [id number] Univers 14:00:00 14:00:00 MELANI [facility] 2020-06-08 2020-06-08 Office Saul [facility] 1kSy2.840.114 [id number] Univers 09:26:30 09:41:30 Visit [facility] 350.1.13.10 it y of Surgical 4.2.7.2.686 Darshan as Specialti [phone] [facility] 198 [facility] 2020-06-08 2020-06-08 Outpatient [facility] [id number] Univers 09:30:00 09:30:00 [facility] 2020-06-02 2020-06-02 Orders Doctor SELVIN Menon2.840.114 [id number] Univers 00:00:00 00:00:00 Only Unassigned, FRANNIE 350.1.13.10 ity of [place] [facility] 4.2.7.2.686 Darshan as [phone] [address] 2020-05-24 2020-05-24 Orders Doctor SELVIN Menon2.840.114 [id number] Univers 00:00:00 00:00:00 Only Unassigned, FRANNIE 350.1.13.10 ity of [place] [facility] 4.2.7.2.686 Darshan as [phone] [address] 2020-05-14 2020-05-14 Patient [facility] 1.2.840.114 [id number] Univers 00:00:00 00:00:00 Outreach Jorgito [facility] 350.1.13.10 i ty of [facility] 4.2.7.2.[place] [phone] Ri dical 388 [place] 2020-04-16 2020-04-16 Out[facility] [id number] Univers 08:45:00 08:45:00 CASS carlson [facility] 2020-04-15 2020-04-15 [facility] [id number] Univers 10:12:41 23:59:00 YARA carlson [facility] 2020-04-15 2020-04-15 [facility] 1.2.840.114 [id number] Univers 10:12:41 23:59:00 Encounter Yara [facility] 350.1.13.10 ity of Surgical 4.2.7.2.686 Darshan as Specialti [phone] Ri dical es 809 [facility] 2020-04-15 2020-04-15 Office [facility] 1.2.840.114 [id number] Univers 10:07:47 10:22:47 Visit [facility] 350.1.13.10 it y of Surgical 4.2.7.2.686 Darshan as Specialti [phone] Ri dical es 198 [facility] 2020-02-09 2020-02-09 Emergency Mayra Hernandes [facility] 1.2.840. 114 [id number] Univers 19:33:00 22:31:00 Mayra Hernandes [place] 350.1.13.10 ity [place].2.[place] [phone] [facility] 084 [place] 2020-02-05 2020-02-05 [facility] [id number] Univers 10:30:00 10:30:00 YARA carlson [facility] 2020-02-05 2020-02-05 [facility] 1.2.206.218 [id number] Univers 10:03:27 10:23:59 Visit Yara [facility] 350.1.13.10 it y of Surgical 4.2.7.2.686 Darshan as Specialti [phone] Me dical es 198 [facility] 2020-01-29 2020-01-29 [facility] 1.2.840.114 [id number] Univers 07:38:00 10:40:00 Encounter Paige dominguez 350.1.13.10 [place].2.[place] [phone] [facility] 071 [place] 2020-01-28 2020-01-28 Laboratory Only, Adc Test [facility] 1.2.840. 114 [id number] Univers 13:08:02 13:23:02 Only Paige Walker 350.1.1 3.10 [place]y [place].2.[place] [phone] [facility] 353 [place] 2020-01-28 2020-01-28 Outpatient R [facility] [id number] Univers 13:15:00 13:15:00 PAIGE Dominguezy o f [facility] 2020-01-27 2020-01-27 Orders Doctor SELVIN 1.2.840.114 [id number] Univers 00:00:00 00:00:00 Only Unassigned, FRANNIE 350.1.13.10 ity of [place] [facility] 4.2.7.2.686 Darshan as [phone] [facility] 009 [place] 2019-10-23 2019-10-23 [facility] [id number] Univers 10:45:00 10:45:00 YARA ity of [facility] 2019-10-23 2019-10-23 Office [facility] 1.2.243.245 [id number] Univers 09:32:38 10:04:15 Visit Yara [facility] 350.1.13.10 it y of Surgical 4.2.7.2.686 Darshan as Specialti [phone] Ri dical es 198 [facility] 2019-05-30 2019-05-30 [facility] 1.2.840.114 [id number] Univers 10:31:00 23:59:00 Encounter Yara [facility] 350.1.13.10 ity of Surgical 4.2.7.2.686 Darshan as Specialti [phone] Me dical es 809 [facility] 2019-05-30 2019-05-30 Office MISA Paez 1.2.223.332 [id number] [facility] 09:45:54 10:49:03 Visit Yara Avila [facility] 350..13.10 it y of Surgical 4.2.7.2.686 Darshan as Specialti [phone] Me dical es 198 [facility] Results Test Description Test Time Test Comments Results Result Comments Source POCT URINALYSIS W SPECIFIC GRAVITY 2022-01-13 16:32:00 Test Item Value Reference Range Interpretation Comme nts POCT U SP GRAV (test code = 3255) 1.020 mg/dl 1.005-1.025 POCT PH U (test code = 3254) 5 mg/dl 5-8 POCT U LEUK EST (test code = 3263) negative Negative - Negative POCT U NIT (test code = 3262) negative Negative - Negative POCT U PROT (test code = 3259) trace Negative - Negative POCT U GLU (test code = 3256) normal Negative - Negative POCT U KETONE (test code = 3258) negative Negative - Negative POCT U UROBILI (test code = 3260) normal 0.2-1 POCT U BILI (test code = 3261) negative Negative - Negative POCT U BLD (test code = 3257) negative Negative - Negative POCT U COLOR (test code = 3266) dark yellow POCT U APPEAR (test code = 3267) clear [facility] URINALYSIS W SPECIFIC [id number] 16:32:00 Test Item Value Reference Range Interpretation Comments POCT U SP GRAV (test code = 1.020 mg/dl 1.005-1.025 3255) POCT PH U (test code = 3254) 5 mg/dl 5-8 POCT U LEUK EST (test code = negative Negative - Negative 3263) POCT U NIT (test code = 3262) negative Negative - Negative POCT U PROT (test code = trace Negative - Negative 3259) POCT U GLU (test code = 3256) normal Negative - Negative POCT U KETONE (test code = negative Negative - Negative 3258) POCT U UROBILI (test code = normal 0.2-1 3260) POCT U BILI (test code = negative Negative - Negative 326) POCT U BLD (test code = 3257) negative Negative - Negative POCT U COLOR (test code = dark yellow 3266) POCT U APPEAR (test code = clear 3267) [facility]
[2022-05-23] MEDS ORDERED: NA CHLORIDE 0.9% 500 ML ONE (20:18)
[2022-05-23 20:37] LABS: Absolute Lymphocytes (CBC) 1.2 K/uL (0.7-4.9); Hematocrit 38.7 % (36.0-45.0); Lymphocytes % 17.3 % (15.3-44.8); MCV 90.5 fL (80-100); MPV 9.5 fL (7.6-11.3); RBC Red Blood Cell Count 4.28 M/uL (3.86-4.86)
[2022-05-23 20:38] LABS: Protime INR 1.26
--- NOTE | 2022-05-23 20:39 | RAD REPORT ---
EXAM DESCRIPTION: RAD - Chest Single View - 05/23/2022 8:11 pm CLINICAL HISTORY: weakness, HTN COMPARISON: No comparisons FINDINGS: Lines: None. Lungs: No evidence of edema or pneumonia. Calcified nodule right mid lung. Pleural: No significant pleural effusions or pneumothorax. Cardiac: The heart size is within normal limits. Mediastinum: Within normal limits. Bones: No acute fractures. Other: None IMPRESSION: No acute cardiopulmonary disease.
[2022-05-23 20:55] LABS: Albumin 3.9 g/dL (3.4-5.0); Bilirubin Direct 0.1 mg/dL (0-0.2); Bilirubin Total 0.4 mg/dL (0.2-1.0); Magnesium 1.8 mg/dL (1.6-2.4); Potassium 3.5 mmol/L (3.5-5.1); Protein, Total 8.1 g/dL (6.4-8.2)
[2022-05-23 21:10] LABS: Troponin High Sensitivity 143.3 pg/mL (<58.9)
[2022-05-23 21:13] LABS: SARS-COV-2 RT PCR NEGATIVE (NEGATIVE)
--- NOTE | 2022-05-23 21:16 | RAD REPORT ---
EXAM DESCRIPTION: CT - Head Brain Wo Cont - 05/23/2022 9:05 pm CLINICAL HISTORY: headache COMPARISON: Head angio dated 05/23/2022 TECHNIQUE: All CT scans are performed using dose optimization technique as appropriate and may inclu de automated exposure control or mA/KV adjustment according to patient size. FINDINGS: No intracranial hemorrhage, hydrocephalus or extra-axial fluid collection.No areas of brai n edema or evidence of midline shift. Mild chronic small vessel ischemic changes. The paranasal sinuses and mastoids are clear. The calvarium is intact. IMPRESSION: No acute intracranial abnormality.
--- NOTE | 2022-05-23 21:20 | RAD REPORT ---
EXAM DESCRIPTION: CT - Neck Angio - 05/23/2022 9:07 pm CLINICAL HISTORY: neck pain, headache COMPARISON: No comparisons TECHNIQUE: CT angiography of the neck vessels was performed with MIPs. All CT scans are performed using dose optimization technique as appropriate and may include automated exposure control or mA/KV adjustment according to patient size. FINDINGS: A left aortic arch is identified with normal three vessel configuration of the great vesse ls. No significant flow abnormality is seen of the common carotid bilaterally. Calcified plaque is presen t at both carotid bulbs. No significant stenosis is identified involving the cervical segments of both internal carotid arteri es. Normal flow is seen within both vertebral arteries. Left dominant vertebral artery. . Emphysema in the lung apices. Heterogeneous thyroid.Mucous retention cyst left maxillary sinus IMPRESSION: No significant flow abnormality of the neck vessels is identified.
--- NOTE | 2022-05-23 21:21 | RAD REPORT ---
EXAM DESCRIPTION: CT - Head angio - 05/23/2022 9:07 pm CLINICAL HISTORY: headache, neck pain, HTN COMPARISON: No comparisons TECHNIQUE: CT angiography of the head was performed with MIPs. All CT scans are performed using dose optimization technique as appropriate and may include automated exposure control or mA/KV adjustment according to patient size. FINDINGS: Anterior circulation: Calcified plaque is present involving both of the cavernous carotid arteries. No aneurysm or large ve ssel occlusion. No hemodynamically significant stenosis. No arteriovenous malformation identified. Posterior circulation: No aneurysm or large vessel occlusion. No hemodynamically significant stenosis. No arteriovenous malf ormation identified. Left dominant vertebral artery. IMPRESSION: No significant flow abnormality is detected. No aneurysm identified.
--- NOTE | 2022-05-23 21:38 | ER ---
Nurse's Notes [facility] Name: Raya Haynes Age: 82 yrs Sex: Female : 1940 Arrival Date: 05/23/2022 Time: 18:20 Bed 13 Private MD: Diagnosis: Essential (primary) hypertension;Subsequent non-ST elevation (NSTEMI) myocardial infarction Presentation: 05/23 19:13 Chief complaint: Patient states: C/o high BP at home, "I think im in A-fib". ll3 Coronavirus screen: Vaccine status: Patient reports receiving the 2nd dose of the covid vaccine. Ebola Screen: No symptoms or risks identified at this time. Initial Sepsis Screen: Does the patient meet any 2 criteria? No. Patient's initial sepsis screen is negative. Does the patient have a suspected source of infection? No. Patient's initial sepsis screen is negative. Risk Assessment: Do you want to hurt yourself or someone else? Patient reports no desire to harm self or others. Onset of symptoms was May 23, 2022. 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 - Family history:: not pertinent. - Social history:: Smoking status: Patient denies any tobacco usage or history of. - Hospitalizations: : No recent hospitalization is reported. Screenin:24 [facility] ED Fall Risk Assessment (Adult) Score/Fall Risk Level 0 - 2 = Low Risk. Abuse as6 screen: Denies threats or abuse. Denies injuries from another. Nutritional screening: No deficits noted. Tuberculosis screening: No symptoms or risk factors identified. Assessment: 20:00 General: Appears in no apparent distress. Behavior is calm, cooperative, Reports as6 fatigue for. Pain: Denies pain. Neuro: Level of Consciousness is awake, alert, obeys commands, Oriented to person, place, time, situation, Reports weakness. Cardiovascular: Reports fatigue, lightheadedness, Capillary refill < 3 seconds Patient's skin is warm and dry. Respiratory: Respiratory effort is even, unlabored, Respiratory pattern is regular, symmetrical. Vital Signs: 19:13 BP 193 / 92; Pulse 93; Resp 18; Temp 98.4(O); Pulse Ox 98% on R/A; Weight 54.43 kg (R); ll3 Height 5 ft. 5 in. (165.10 cm) (R); Pain 4/10; 21:23 BP 151 / 69; Pulse 73; Resp 13 S; Pulse Ox 98% on R/A; as6 22:31 BP 139 / 73; Pulse 67; Resp 13 S; Pulse Ox 97% on R/A; as6 19:13 Body Mass Index 19.97 (54.43 kg, 165.10 cm) ll3 ED Course: 18:20 Patient arrived in ED. rg4 19:16 Triage completed. ll3 19:23 Samson Navarrete MD is Attending Physician. rn 19:53 Speedy Mason RN is Primary Nurse. as6 20:13 XRAY Chest (1 view) In Process Unspecified. EDMS 20:30 Inserted saline lock: 20 gauge in right antecubital area, using aseptic technique. as6 Blood collected. 20:33 COVID-19/FLU A+B Sent. as6 20:33 Troponin HS Sent. as6 20:33 PT-INR Sent. as6 20:33 NT PRO-BNP Sent. as6 20:33 Magnesium Sent. as6 20:33 LFT's Sent. as6 20:33 CBC with Diff Sent. as6 20:34 Basic Metabolic Panel Sent. as6 21:07 CT Head Brain wo Cont In Process Unspecified. EDMS 21:09 CT Head Angio In Process Unspecified. EDMS 21:[address] In Process Unspecified. EDMS 21:23 Arm band placed on. as6 21:23 Placed in gown. Bed in low position. Call light in reach. Side rails up X2. Adult w/ as6 patient. Client placed on continuous cardiac and pulse oximetry monitoring. NIBP monitoring applied. 21:37 Gil Dial MD is Hospitalizing Provider. rn 22:06 Notified ED physician of a critical lab result(s). DDImer of 630 Dr Navarrete notified. bb 23:14 No provider procedures requiring assistance completed. Patient admitted, IV remains in as6 place. Administered Medications: 20:20 Drug: NS 0.9% 500 ml Route: IV; Rate: bolus; Site: right antecubital; as6 23:13 Follow up: Response: No adverse reaction; IV Status: Completed infusion; IV Intake: as6 500ml 23:00 Drug: Aspirin 81 mg Route: PO; as6 23:13 Follow up: Response: No adverse reaction as6 Medication: 21:23 VIS not applicable for this client. as6 Intake: 23:13 IV: 500ml; Total: 500ml. as6 Outcome: 21:37 Decision to Hospitalize by Provider. rn 23:14 Admitted to Med/surg accompanied by nurse, via wheelchair, with chart, Report called to as6 Herb WARREN 23:14 Condition: stable 23:14 Instructed on the need for admit. 23:14 Patient left the ED. as6 Signatures: Dispatcher [employer] EDShanice Harvey, RN Samson Dominguez MD MD rn Garcia, Rubi rg4 Speedy Mason RN RN as6 Ezra Amador RN RN ll3
--- NOTE | 2022-05-23 21:38 | EDPHYS ---
Physician Documentation [facility] Name: Raya Haynes Age: 82 yrs Sex: Female : 1940 Arrival Date: 05/23/2022 Time: 18:20 Bed 13 Private MD: ED Physician Samson Navarrete HPI: 05/23 19:52 This 82 yrs old Female presents to ER via Wheelchair with complaints of High Blood rn Pressure. 19:52 The patient has elevated blood pressure and discovered this at home. Onset: The rn symptoms/episode began/occurred at an unknown time. Modifying factors: The symptoms are aggravated by nothing, The symptoms are alleviated by prescription meds. Associated signs and symptoms: Pertinent positives: headache, generalized weakness, Pertinent negatives: chest pain, visual changes, vomiting. Severity of symptoms: At its worst the blood pressure was moderate, in the emergency department the blood pressure is unchanged. The patient has experienced similar episodes in the past. The patient has not recently seen a physician. Pt reports high blood pressure at home, noticed today, has been having 2 days of headache, posterior, assoc with generalized weakness and fatigue. No fever. No chest pain. No abd pain. NO changes in medication. . 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 - Family history:: not pertinent. - Social history:: Smoking status: Patient denies any tobacco usage or history of. - Hospitalizations: : No recent hospitalization is reported. ROS: 19:52 Constitutional: Negative for fever, chills, and weight loss, Eyes: Negative for injury, rn pain, redness, and discharge, ENT: Negative for injury, pain, and discharge, Neck: Negative for injury, pain, and swelling, Cardiovascular: Negative for chest pain, palpitations, and edema, Respiratory: Negative for shortness of breath, cough, wheezing, and pleuritic chest pain, Abdomen/GI: Negative for abdominal pain, nausea, vomiting, diarrhea, and constipation, Back: Negative for injury and pain, MS/Extremity: Negative for injury and deformity, Skin: Negative for injury, rash, and discoloration, Neuro: Negative for numbness, tingling, and seizure Exam: 19:52 Constitutional: This is a well developed, well nourished patient who is awake, alert, rn and in no acute distress. Head/Face: Normocephalic, atraumatic. Eyes: Pupils equal round and reactive to light, extra-ocular motions intact. Lids and lashes normal. Conjunctiva and sclera are non-icteric and not injected. Cornea within normal limits. Periorbital areas with no swelling, redness, or edema. ENT: dry MM Cardiovascular: Regular rate and rhythm. No pulse deficits. Respiratory: No increased work of breathing, no retractions or nasal flaring. Abdomen/GI: Soft, non-tender Skin: Warm, dry MS/ Extremity: Pulses equal, no cyanosis. Neuro: Awake and alert, GCS 15, oriented to person, place, time, and situation. Cranial nerves II-XII grossly intact. Motor strength 5/5 in all extremities. Sensory grossly intact. 20:15 ECG was reviewed by the Attending Physician. rn Vital Signs: 19:13 BP 193 / 92; Pulse 93; Resp 18; Temp 98.4(O); Pulse Ox 98% on R/A; Weight 54.43 kg (R); ll3 Height 5 ft. 5 in. (165.10 cm) (R); Pain 4/10; 21:23 BP 151 / 69; Pulse 73; Resp 13 S; Pulse Ox 98% on R/A; as6 22:31 BP 139 / 73; Pulse 67; Resp 13 S; Pulse Ox 97% on R/A; as6 19:13 Body Mass Index 19.97 (54.43 kg, 165.10 cm) ll3 MDM: 19:23 Patient medically screened. rn 21:35 Differential diagnosis: hypertensive crisis, Malignant HTN, CVA, intracerebral rn hemorrhage, Afib, tachycardia, dehydration, electrolyte disorder, NSTEMI, aneurysm. Data reviewed: vital signs, nurses notes, lab test result(s), EKG, radiologic studies, CT scan, and as a result, I will admit patient. Management of patient was discussed with the following: Hospitalist: Discussed case and management with hospitalist.. Counseling: I had a detailed discussion with the patient and/or guardian regarding: the historical points, exam findings, and any diagnostic results supporting the discharge/admit diagnosis, lab results, radiology results, the need for further work-up and treatment in the hospital. Response to treatment: the patient's symptoms have mildly improved after treatment, and as a result, I will admit patient. 05/23 19:35 Order name: Basic Metabolic Panel; Complete Time: 21:25 05/23 21:25 Interpretation: Normal except: NA 132; CL 96. 05/23 19:35 Order name: CBC with Diff; Complete Time: 21:25 05/23 21:25 Interpretation: Within normal limits. 05/23 19:35 Order name: LFT's; Complete Time: 21:25 05/23 21:25 Interpretation: Abnormal. 05/23 19:35 Order name: Magnesium; Complete Time: 21:25 05/23 19:35 Order name: NT PRO-BNP; Complete Time: 21:25 05/23 21:25 Interpretation: Abnormal. 05/23 19:35 Order name: PT-INR; Complete Time: 21:25 05/23 19:35 Order name: Troponin HS; Complete Time: 21:25 05/23 21:25 Interpretation: Abnormal. 05/23 19:35 Order name: XRAY Chest (1 view); Complete Time: 21:25 05/23 21:25 Interpretation: No acute disease. 05/23 19:35 Order name: COVID-19/FLU A+B; Complete Time: 21:25 05/23 21:26 Interpretation: Within normal limits. 05/23 19:37 Order name: CT Head Brain wo Cont; Complete Time: 21:25 05/23 21:26 Interpretation: No acute disease. 05/23 19:37 Order name: CT Head Angio; Complete Time: 21:25 05/23 21:26 Interpretation: No acute disease. rn 05/23 19:37 Order name: Neck Angio CT; Complete Time: 21: rn 05/23 21:26 Interpretation: No acute disease. rn 05/23 21:09 Order name: CREATININE WHOLE BLOOD; Complete Time: 21:25 EDMS 05/23 21:35 Order name: D-Dimer; Complete Time: 22:21 rn 05/23 19:35 Order name: EKG; Complete Time: 19:36 rn 05/23 19:35 Order name: Cardiac monitoring; Complete Time: 20:33 rn 05/23 19:35 Order name: EKG - Nurse/Tech; Complete Time: 20:33 rn 05/23 19:35 Order name: IV Saline Lock; Complete Time: 20:33 rn 05/23 19:35 Order name: Labs collected and sent; Complete Time: 20:33 rn 05/23 19:35 Order name: O2 Per Protocol; Complete Time: 20:33 rn 05/23 19:35 Order name: O2 Sat Monitoring; Complete Time: 20:33 rn EC:15 Rate is 77 beats/min. Rhythm is regular. QRS [place] is Normal. [place] interval is normal. QRS rn interval is normal. QT interval is normal. No Q waves. T waves are Normal. No ST changes noted. Clinical impression: Normal ECG. Interpreted by me. Reviewed by me. Administered Medications: 20:20 Drug: NS 0.9% 500 ml Route: IV; Rate: bolus; Site: right antecubital; as6 23:13 Follow up: Response: No adverse reaction; IV Status: Completed infusion; IV Intake: as6 500ml 23:00 Drug: Aspirin 81 mg Route: PO; as6 23:13 Follow up: Response: No adverse reaction as6 Disposition Summary: 05/23/22 21:37 Hospitalization Ordered Hospitalization Status: Observation rn Provider: Gil Dial rn Location: Telemetry/MedSurg (observation) rn Condition: Stable rn Problem: new rn Symptoms: have improved rn Bed/Room Type: Standard rn Room Assignment: 220(05/23/22 22:58) mw2 Diagnosis - Essential (primary) hypertension rn - Subsequent non-ST elevation (NSTEMI) myocardial infarction rn Forms: - Medication Reconciliation Form rn - SBAR form rn Signatures: Dispatcher [employer] EDSamson Higgins MD MD rn Attema, Lee, GENERAL SURGERY PHYSICIAN ASSISTANT-C GENERAL SURGERY PHYSICIAN ASSISTANT-Cla1 Dacia Fuentes mw2 Speedy Mason, BRIANA RN as6 Ezra Amador RN RN ll3 Corrections: (The following items were deleted from the chart) 22:58 21:37 rn mw2
--- NOTE | 2022-05-23 22:47 | P.HP ---
Certification for Inpatient Patient admitted to: Inpatient With expected LOS: >2 Midnights Patient will require the following post-hospital care: None Practitioner: I am a practitioner with admitting privileges, knowledge of patient current condition, hospital course, and medical plan of care. Services: Services provided to patient in accordance with Admission requirements found in Title 42 Section 412.3 of the Code of Federal Regulations <Dileep Mota - Last Filed: 05/23/22 22:42> Patient History Date of Service: 05/23/22 Reason for admission: NSTEMI, hypertensive urgency History of Present Illness: 82-year-old female with history of atrial fibrillation on chronic anticoagulation, hypertension, hypothyroidism, amnesia presents to the emergency department for chest tightness, anxiety, hypertension. She reports that she began to feel anxious this afternoon and checked her blood pressure she noted it is very elevated above 200 systolic and one of the readings indicated that she was in A. fib which she does have a history of. She also reports intermittent chest pressure over the course of last few days. She is evaluated in the emergency department her labs were significant for elevated high-sensitivity troponin initially 143.3, BNP [address] head without contrast as well as CT head and neck angio were negative for acute findings, chest x-ray also unremarkable. EKG without STEMI criteria currently in sinus rhythm. ED provider wishes to admit for further evaluation and management of hypertensive urgencyresolved, NSTEMI, chest pain. Patient currently chest pain-free. Given aspirin in ED. - Past Medical/Surgical History -: Hypertension -: Hypothyroidism -: A. fib on chronic anticoagulation -: Amnesia -: Hysterectomy -: Cataracts Psychosocial/ Personal History: Patient lives at home, alone in an apartment. - Family History Father -: Heart disease, Cancer - Social History Smoking Status: Former smoker Alcohol use: No CD- Drugs: No Caffeine use: Yes Place of Residence: Home <Dileep Mota - Last Filed: 05/23/22 22:42> Date of Service: 05/24/22 <Gil Dial - Last Filed: 05/24/22 17:58> Review of Systems 10-point ROS is otherwise unremarkable Cardiovascular: Chest Pain, Palpitations <Dileep Mota - Last Filed: 05/23/22 22:42> Physical Examination - Physical Exam General: Alert, In no apparent distress, Oriented x3 HEENT: Atraumatic, PERRLA, Mucous membr. moist/pink, EOMI, Sclerae nonicteric Neck: Supple, 2+ carotid pulse no bruit, No LAD, Without JVD or thyroid abnormality Respiratory: Clear to auscultation bilaterally, Normal air movement Cardiovascular: Regular rate/rhythm, Normal S1 S2 Capillary refill: <2 Seconds Gastrointestinal: Normal bowel sounds, No tenderness Musculoskeletal: No tenderness Integumentary: No rashes Neurological: Normal speech, Normal strength at 5/5 x4 extr, Normal tone, Normal affect - Studies Laboratory Data (last 24 hrs) 05/23/22 20:25: PT 13.9 H, INR 1.26 05/23/22 20:25: WBC 7.10, Hgb 13.0, Hct 38.7, Plt Count 250 05/23/22 20:25: Sodium 132 L, Potassium 3.5, BUN 14, Creatinine 0.88, Glucose 123 H, Magnesium 1.8, Total Bilirubin 0.4, AST 115 H, ALT 99 H, Alkaline Phosphatase 121 H <Dileep Mota - Last Filed: 05/23/22 22:42> - Studies Laboratory Data (last 24 hrs) 05/23/22 20:25: PT 13.9 H, INR 1.26 05/23/22 20:25: WBC 7.10, Hgb 13.0, Hct 38.7, Plt Count 250 05/23/22 20:25: Sodium 132 L, Potassium 3.5, BUN 14, Creatinine 0.88, Glucose 123 H, Magnesium 1.8, Total Bilirubin 0.4, AST 115 H, ALT 99 H, Alkaline Phosphatase 121 H <Gil Dial - Last Filed: 05/24/22 17:58> Assessment and Plan - Plan Assessment: NSTEMI Atrial fibrillation on chronic anticoagulation therapy Hypertensive urgency Hypothyroidism Plan: NSTEMI: Trend troponins, monitor on telemetry, cardiology consult in place. Echocardiogram ordered. Continue Eliquis for now if there is significant rises in troponin we will switch to heparin drip. Patient chest pain-free at this time. Possibly related to demand ischemia secondary to uncontrolled hypertension versus possible A. fib RVR at home prior to arrival. Atrial fibrillation on chronic anticoagulation therapy: Continue home medications, monitor on telemetry. Currently in sinus rhythm. Hypertensive urgency: We will continue medications, blood pressure initially was in the 190s, she is not given any medications for her blood pressure in the ED and it has come down to around 140 systolic currently. Will monitor blood pressure closely, continue home meds as appropriate. Hypothyroidism: Continue thyroid medication, check thyroid panel in the morning. DVT PPX: Continue Eliquis Code status: Full Discharge Plan: Home Plan to discharge in: 48 Hours - Advance Directives Does patient have a Living Will: No Does patient have a Durable POA for Healthcare: No - Code Status/Comfort Care Code Status Assessed: Yes (Full code) Critical Care: No Time Spent Managing Pts Care (In Minutes): 55 <Dileep Mota - Last Filed: 05/23/22 22:42> Physician Review: Patient Assessed, Agree with Above Assessment and Plan <Gil Dial - Last Filed: 05/24/22 17:58>
[2022-05-23] MEDS ORDERED: ASPIRIN EC 81 MG TAB PO ONE (22:57)
[2022-05-23] MEDS ORDERED: ONDANSETRON 4 MG/2 ML VIAL IV PRN (23:17)
[2022-05-24 00:21] VITALS: BMI 20.5
[2022-05-24 04:41] LABS: Albumin 3.1 g/dL (3.4-5.0); Bilirubin Total 0.5 mg/dL (0.2-1.0); Potassium 3.3 mmol/L (3.5-5.1); Protein, Total 6.5 g/dL (6.4-8.2); Thyroid Stimulating Hormone 2.12 uIU/mL (0.358-3.740)
[2022-05-24 04:42] LABS: Absolute Lymphocytes (CBC) 1.5 K/uL (0.7-4.9); Hematocrit 34.4 % (36.0-45.0); Lymphocytes % 22.1 % (15.3-44.8); MCV 89.8 fL (80-100); MPV 9.7 fL (7.6-11.3); RBC Red Blood Cell Count 3.83 M/uL (3.86-4.86)
[2022-05-24 04:57] LABS: Troponin High Sensitivity 470.8 pg/mL (<58.9)
[2022-05-24] MEDS ORDERED: POTASSIUM CL SA 10 MEQ TAB PO ONE (09:00)
[2022-05-24] MEDS: ASPIRIN EC 81 MG TAB PO SCH (09:21)
[2022-05-24] MEDS: APIXABAN 5 MG TABLET PO SCH ×2 (09:21→21:34)
[2022-05-24 13:52] VITALS: O2SAT 97
[2022-05-24] MEDS ORDERED: ONDANSETRON 4 MG (ODT) TAB PO PRN (15:13)
[2022-05-24] MEDS ORDERED: HOME MED 1 EA UNK (Clonidine Hcl [Catapres*] 0.2 MG Tablet) PO SCH (18:00)
--- NOTE | 2022-05-24 18:04 | P.PN ---
Subjective Date of Service: 05/24/22 Chief Complaint: NSTEMI, hypertensive urgency No acute events overnight. She states that she continues to have mild bilateral axillary discomfort. Her blood pressure has been elevated. She states that, although she is mostly compliant with her home medications, she has missed doses from time to time. When asked about her clonidine, she endorses that she had missed a dose yesterday. Review of Systems 10-point ROS is otherwise unremarkable Cardiovascular: Other (axillary pain) Physical Examination - Vital Signs Temperature: 98.2 F Blood Pressure: 190/80 Pulse: 67 Respirations: 14 Pulse Ox (%): 96 - Physical Exam General: Alert, In no apparent distress, Oriented x3 HEENT: Atraumatic, Mucous membr. moist/pink, EOMI, Sclerae nonicteric Neck: JVD not distended Respiratory: Clear to auscultation bilaterally, Normal air movement Cardiovascular: No edema, Regular rate/rhythm, Normal S1 S2, No gallops, No rubs, No murmurs Gastrointestinal: Normal bowel sounds, Soft and benign, Non-distended, No tenderness, No rebound, No guarding Musculoskeletal: No clubbing Integumentary: No rashes Neurological: Normal speech, Cranial nerves 3-12 intact, Normal affect - Studies Laboratory Data (last 24 hrs) 05/23/22 20:25: PT 13.9 H, INR 1.26 05/23/22 20:25: WBC 7.10, Hgb 13.0, Hct 38.7, Plt Count 250 05/23/22 20:25: Sodium 132 L, Potassium 3.5, BUN 14, Creatinine 0.88, Glucose 123 H, Magnesium 1.8, Total Bilirubin 0.4, AST 115 H, ALT 99 H, Alkaline Phosphatase 121 H Assessment And Plan - Plan # Hypertensive Emergency # Suspect Type II Non-ST Segment Elevation Myocardial Infarction (Demand Ischemia) secondary to above - Blood pressure was 193/92 on presentation with evidence of end-organ damage (troponin) - Goal to reduce blood pressure by ~20 % in first 24 hours - Possible exacerbated by rebound hypertension from clonidine noncompliance - Cardiology consulted and spoke with Dr. Mckeon - recommendations appreciated - EKG = normal sinus rhythm without STEMI criteria - Serial troponin: 143.3 -> 407.1 -> 470.8 -> 308.4 - Ordered transthoracic echocardiogram - Preliminary read per Dr. Cassidy = normal LVEF (60-65%), normal wall motion, mild mitral vegetation, calcified aortic valve, no aortic stenosis, mild tricuspid regurgitation, left atrial large # Paroxysmal Atrial Fibrillation with Rapid Ventricular Response Her [id number] = 4 (HTN=1, Age>75=2, Sex=1). - EKG currently in normal sinus rhythm. Not on ratecontrol medication at home - Continue home apixaban # Hypothyroidism - Continue home levothyroxine Gil Dial M.D.
[2022-05-24] MEDS ORDERED: cloNIDine HCL 0.1 MG TAB PO SCH (18:11)
[2022-05-24] MEDS: HYDRALAZINE HCL 25 MG TABLET PO SCH (21:34)
[2022-05-24] MEDS ORDERED: MELATONIN 5 MG TABLET PO PRN (23:32)
[2022-05-25 03:19] LABS: Absolute Lymphocytes (CBC) 1.6 K/uL (0.7-4.9); Hematocrit 34.1 % (36.0-45.0); MPV 10.1 fL (7.6-11.3); RBC Red Blood Cell Count 3.83 M/uL (3.86-4.86)
[2022-05-25 03:39] LABS: Albumin 2.7 g/dL (3.4-5.0); Bilirubin Total 0.6 mg/dL (0.2-1.0); Potassium 3.9 mmol/L (3.5-5.1); Protein, Total 6.1 g/dL (6.4-8.2)
[2022-05-25] MEDS ORDERED: LEVOTHYROXINE SOD 0.05 MG TABLET PO SCH (06:30)
--- NOTE | 2022-05-25 06:56 | ECHO ---
HEIGHT: 5 ft 5 in WEIGHT: 123 lb 0 oz DATE OF STUDY: 05/24/[address]: Dileep Mota NP 2-DIMENSIONAL: YES M.MODE: YES DOPPLER: YES COLOR FLOW: YES TDS: NO PORTABLE: YES DEFINITY: NO BUBBLE STUDY: NO DIAGNOSIS: ATRIAL FIBRILLATION/ HYPERTENSION CARDIAC HISTORY: CATHERIZATION: SURGERY: PROSTHETIC VALVE: PACEMAKER: MEASUREMENTS (cm) DIASTOLIC (NORMALS) SYSTOLIC (NORMALS) IVSd 0.9 (0.6-1.2) LA Diam 3.6 (1.9-4.0) LVEF 78% LVIDd 4.2 (3.5-5.7) LVIDs 2.2 (2.0-3.5) %FS 46% LVPWd 1.0 (0.6-1.2) Ao Diam 2.5 (2.0-3.7) 2 DIMENSIONAL ASSESSMENT: RIGHT ATRIUM: NORMAL LEFT ATRIUM: ENLARGED RIGHT VENTRICLE: NORMAL LEFT VENTRICLE: NORMAL TRICUSPID VALVE: MILD TRICUSPID REGURGITATION MITRAL VALVE: MITRAL ANNULAR CALCIFICATION WITH MILD MITRAL REGURGITATION PULMONIC VALVE: NORMAL AORTIC VALVE: CALCIFIED AORTIC VALVE PERICARDIAL EFFUSION: NONE AORTIC ROOT: NORMAL LEFT VENTRICULAR WALL MOTION: NORMAL. DOPPLER/COLOR FLOW: SEE BELOW. COMMENTS: 1. NORMAL LEFT VENTRICULAR EJECTION FRACTION 60-65%. 2. NORMAL WALL MOTION 3. MITRAL ANNULAR CALCIFICATION WITH MILD MITRAL REGURGITATION 4. CALCIFIED AORTIC VALVE, NO AORTIC STENOSIS. 5. MILD TRICUSPID REGURGITATION 6. LEFT ATRIAL ENLARGEMENT TECHNOLOGIST: PATRICIA PÉREZ
[2022-05-25] MEDS: ASPIRIN EC 81 MG TAB PO SCH (08:06)
[2022-05-25] MEDS: APIXABAN 5 MG TABLET PO SCH (08:06)
[2022-05-25] MEDS: HYDRALAZINE HCL 25 MG TABLET PO SCH (08:06)
--- NOTE | 2022-05-25 08:14 | P.DS ---
Admission Date: 05/23/22 Discharge Date: 05/25/22 Disposition: ROUTINE DISCHARGE Discharge Condition: GOOD Reason for Admission: NSTEMI, hypertensive urgency Consultations: 1. Cardiology Hospital Course: DIAGNOSES: # Hypertensive Emergency # Suspect Type II Non-ST Segment Elevation Myocardial Infarction (Demand Ischemia) secondary to above # Paroxysmal Atrial Fibrillation # Hypothyroidism HOSPITAL COURSE: Ms. Raya Haynes is a pleasant 82-year-old female with a past medical history significant for hypertension, paroxysmal atrial fibrillation, and hypothyroidism who was admitted to the [facility] on 05/23/2022 for hypertension. She was admitted to the Medicine service. Upon further evaluation, she was found to have blood pressure readings as high as 193/92 with evidence of endorgan damage (type II NSTEMI). Her EKG revealed normal sinus rhythm without STEMI criteria. Her troponin trend was 143.3 -> 407.1 -> 470.8 -> 308.4. A transthoracic echocardiogram revealed, "1. normal left ventricular ejection fraction 60-65%. 2. normal wall motion 3. mitral annular calcification with mild mitral regurgitation 4. calcified aortic valve, no aortic stenosis. 5. mild tricuspid regurgitation 6. left atrial enlargement." Cardiology was consulted and she was evaluated by Dr. Mckeon. She was gradually restarted on her home m edications, with improvement of her blood pressure readings. Dr. Mckeon has cleared her for discharge home with outpatient follow-up. On 05/25/2022, she was seen on morning rounds and deemed medically stable for discharge. She was discharged with instructions to schedule follow-up appointments with her PCP (Dr. Gonzalez) and with her child care center administrator (Dr. Berkowitz). She was given the opportunity to ask questions and reported no further questions. Furthermore, all questions were answered to the best of my ability. A copy of this discharge summary will be sent to the above providers to facilitate continuity of care. Today, I personally spent 20 minutes on her case, of which greater than 50% of the time was spent in patient education, counseling, and coordination of care as described above. - Physical Exam General: Alert, In no apparent distress, Oriented x3 HEENT: Atraumatic, Mucous membr. moist/pink, Sclerae nonicteric Neck: JVD not distended Respiratory: Clear to auscultation bilaterally, Normal air movement Cardiovascular: No edema, Regular rate/rhythm, Normal S1 S2, No gallops, No rubs, No murmurs Gastrointestinal: Soft and benign, Non-distended, No tenderness, No rebound, No guarding Musculoskeletal: No clubbing Integumentary: No rashes Neurological: Normal speech, Normal affect Vital Signs/Physical Exam: Temp Pulse Resp BP Pulse Ox 97.6 F 60 18 128/65 97 05/25/22 04:00 05/25/22 04:00 05/25/22 04:00 05/25/22 04:00 05/25/22 04:00 Laboratory Data at Discharge: WBC 5.30 K/uL (4.3-10.9) 05/25/22 02:29 Hgb 11.5 g/dL (12.0-15.0) L 05/25/22 02:29 Hct 34.1 % (36.0-45.0) L 05/25/22 02:29 Plt Count 224 K/uL (152-406) 05/25/22 02:29 PT 13.9 SECONDS (9.5-12.5) H 05/23/22 20:25 INR 1.26 05/23/22 20:25 Sodium 133 mmol/L (136-145) L 05/25/22 02:29 Potassium 3.9 mmol/L (3.5-5.1) 05/25/22 02:29 BUN 12 mg/dL (7-18) 05/25/22 02:29 Creatinine 0.74 mg/dL (0.55-1.02) 05/25/22 02:29 Glucose 98 mg/dL (74-106) 05/25/22 02:29 Magnesium 1.8 mg/dL (1.6-2.4) 05/23/22 20:25 Total Bilirubin 0.6 mg/dL (0.2-1.0) 05/25/22 02:29 AST 60 U/L (15-37) H 05/25/22 02:29 ALT 74 U/L (13-56) H 05/25/22 02:29 Alkaline Phosphatase 92 U/L (45-117) 05/25/22 02:29 Triglycerides 73 mg/dL (<150) 05/24/22 03:16 Cholesterol 216 mg/dL (<200) H 05/24/22 03:16 HDL Cholesterol 63 mg/dL (40-60) H 05/24/22 03:16 Cholesterol/HDL Ratio 3.43 05/24/22 03:16 Home Medications: Amiodarone HCl [Cordarone*] 1 tab PO DAILY 05/23/22 Amlodipine [Norvasc*] 1 tab PO DAILY 05/23/22 Apixaban [Eliquis] 5 mg PO BID 05/23/22 Clonidine HCl [Catapres*] 1 tab PO DAILY 05/23/22 Fluticasone Furoate [Flonase Sensimist] 2 spray IH DAILY 05/23/22 Furosemide 20 mg PO DAILY 05/23/22 Gabapentin 100 mg PO BEDTIME 05/23/22 Hydralazine [Apresoline*] 25 mg PO TID 05/23/22 Latanoprost/Pf [Latanoprost 0.005% Eye Drop] 1 drops EACH EYE BEDTIME 05/23/22 Levothyroxine Sodium [Levothyroxine] 1 tab PO DAILY 05/23/22 Lisinopril [Zestril] 20 mg PO DAILY 05/23/22 Potassium Oral Tab [Klor-Con 10 mEq Tab*] 1 tab PO DAILY 05/23/22 Physician Discharge Instructions: 1. Please call and schedule a follow-up appointment with your PCP (Dr. Gonzalez) in 3-5 days 2. Please call and schedule a follow-up appointment with your [facility] Business [facility] (Dr. Berkowitz) in 5-7 days Diet: AHA Activity: Ad manuel Followup: YANETH BERKOWITZ [OUTSIDE PHYSICIAN] - (Call to schedule appointment.) Shlomo Gonzalez MD [Primary Care Provider] - (Call to schedule appointment.) Time spent managing pt's care (in minutes): 20
[2022-05-25] MEDS ORDERED: POTASSIUM CL SA 10 MEQ TAB PO ONE (09:00)
[2022-05-25] MEDS ORDERED: AMLODIPINE 5 MG TAB PO SCH (09:00)
[2022-05-25] MEDS ORDERED: FUROSEMIDE 20 MG TABLET PO SCH (09:00)
[2022-05-25] MEDS ORDERED: HOME MED 1 EA UNK (Levothyroxine Sodium [Levothyroxine] 50 MCG Capsule) PO SCH (09:00)
[2022-05-25] MEDS ORDERED: lisinopriL 20 MG TAB PO SCH (09:00)
[2022-05-25 09:21] VITALS: BP 144/66; TEMP 98.1
== END 2022-05-25 10:55 | disposition home or self-care (01) | DRG 282 ==
LOC: ER 18:16 → ERHOLD 22:14 → 2ND 23:01
PROVIDERS: ADMIT Internal Medicine; ATTEND Internal Medicine
DX: I16.0 Hypertensive urgency (principal); I21.A1 Myocardial infarction type 2; I48.0 Paroxysmal atrial fibrillation; E03.9 Hypothyroidism, unspecified; I07.1 Rheumatic tricuspid insufficiency; I34.0 Nonrheumatic mitral (valve) insufficiency; R41.3 Other amnesia; Z91.14 Patient's other noncompliance with medication regimen; Z20.822 Contact with and (suspected) exposure to COVID-19; Z87.891 Personal history of nicotine dependence; Z79.01 Long term (current) use of anticoagulants; Z79.899 Other long term (current) drug therapy; Z88.0 Allergy status to penicillin; Z90.710 Acquired absence of both cervix and uterus; Z80.9 Family history of malignant neoplasm, unspecified; Z82.49 Family history of ischemic heart disease and other diseases of the circulatory system
CPT/HCPCS: 0240U; 36415; 70450; 70496; 70498; 71045; 80048; 80053; 80061; 80076; 82565; 83735; 83880; 84132; 84439; 84443; 84484; 85025; 85379; 85610; 93306; 96360; 96361; 99285; J2405; J7040; Q0162; Q9967

== ENCOUNTER 2023-10-30 12:01 | Day surgery (SDC) | payer OTHER ==
[2023-10-26 11:53] LABS: Absolute Eosinophils 0.1 K/uL (0-0.5); Absolute Lymphocytes (CBC) 1.2 K/uL (0.7-4.9); Absolute Monocytes 0.5 K/uL (0.1-1.3); Absolute Neutrophil 2.6 K/uL (1.8-8.0); Basophils % 0.8 % (0-1.3); Eosinophils % 2.3 % (0-4.4); Hematocrit 36.6 % (36.0-45.0); Hemoglobin 11.9 g/dL (12.0-15.0); Lymphocytes % 26.3 % (15.3-44.8); MCH 29.6 pg (27.0-35.0); MCHC 32.5 g/dL (32.0-36.0); MCV 90.9 fL (80-100); MPV 9.9 fL (7.6-11.3); Monocytes % 11.9 % (3.3-12.3); Neutrophils % 58.7 % (41.7-73.7); Platelets 258 thou/uL (152-406); RBC Red Blood Cell Count 4.02 M/uL (3.86-4.86); Red Cell Distribution Width 13.8 % (12.1-15.2)
[2023-10-26 11:56] LABS: PT Prothrombin Time 20.3 SECONDS (9.4-12.5); PTT, Activated Partial Thromb 36.2 SECONDS (24.3-36.9); Protime INR 1.88
[2023-10-26 12:03] LABS: Anion Gap 7.5 mEq/L (5.0-15.0); Potassium 3.5 mEq/L (3.5-5.1)
--- NOTE | 2023-10-26 12:32 | RAD REPORT ---
EXAM DESCRIPTION: RAD - Chest Pa And Lat (2 Views) - 10/26/2023 12:24 pm CLINICAL HISTORY: PREOP. Hypertension COMPARISON: Chest Single View dated 05/23/2022 TECHNIQUE: PA and lateral views of the chest were obtained. FINDINGS: The lungs are clear. Peripheral 8 mm right lung granuloma is stable. Heart size is normal and central vasculature is within normal limits. No pleural effusion or pneumothorax seen. No acute b alisa finding noted. IMPRESSION: No acute cardiopulmonary process.
--- NOTE | 2023-10-28 13:32 | EKG ---
Test Date: 2023-10-26 Test Time: 11:18:56 Shank Sorter: MEASUREMENT RESULTS: Intervals: Rate: 82 [place]: QRSD: 100 QT: 424 QTc: 495 Burden: P: [place]: QRS: 85 T: 68 INTERPRETIVE STATEMENTS: Atrial flutter with variable AV block Prolonged QT Abnormal ECG No previous ECG available for comparison Electronically Signed On 10-28-23 13:28:02 CDT by Marquise Cassidy
[2023-10-30] MEDS ORDERED: NA CHLORIDE 0.9% 0 ML ONE (12:18)
[2023-10-30] MEDS ORDERED: LIDOCAINE 2% MPF 5 ML VIAL ONE (12:32)
[2023-10-30] MEDS ORDERED: propofoL 200 MG/20 ML VIAL IV ONE (12:32)
== END 2023-10-30 13:08 | disposition home or self-care (01) ==
LOC: CCL 12:01
PROVIDERS: ATTEND Internal Medicine
DX: I48.0 Paroxysmal atrial fibrillation (principal); Z53.09 Procedure and treatment not carried out because of other contraindication; I70.223 Atherosclerosis of native arteries of extremities with rest pain, bilateral legs; I65.21 Occlusion and stenosis of right carotid artery; I10 Essential (primary) hypertension; Z79.01 Long term (current) use of anticoagulants; Z79.899 Other long term (current) drug therapy; Z88.0 Allergy status to penicillin
CPT/HCPCS: 93005; 85025; 80048; 36415; 85610; 85730; 71046; J2001; J2704; J7040

== ENCOUNTER 2025-01-27 18:52 | Emergency (ER) | payer OTHER ==
--- NOTE | 2025-01-27 19:07 | RAD REPORT ---
EXAMINATION: Ct Stroke Brain Wo Cont CLINICAL INDICATION: Female, 84 years old.STROKE ALERT TECHNIQUE: Axial CT images from the skull base to the vertex without intravenous contrast. Coronal an d sagittal reformatted images were created from the data set. One or more of the following dose reduction techniques were used: Automated exposure control, adjustment of the mA and/or kV according to patient size, and/or iterative reconstruction. Unless otherwise specified, incidental findings do not require dedicated imaging follow-up. [id number]. COMPARISON: 05/23/22 FINDINGS: INTRACRANIAL: No acute intracranial hemorrhage. No acute large vascular territory infarct. No hydroce phalus. No mass effect or midline shift. Mild chronic small vessel ischemic changes.Mild cerebral atrophy. VASCULATURE: No visualized abnormalities in the arteries or dural venous sinuses. SCALP/SKULL: No calvarial fracture identified. No acute soft tissue abnormality. SINUSES: Maxillary sinus mucus retention cyst. No significant mastoid fluid. IMPRESSION: No acute intracranial abnormality. The findings were communicated to Dr. Taylor on 01/27/2025 7:04 PM.
--- OUTSIDE RECORDS SUMMARY | 2025-01-27 19:07 | XMS REPORT | Continuity of Care Document ---
Author Name Unknown Address [address] [facility] [address] [place] [address] [facility] [address] [facility] [address] [place] [address] Care Team Providers Care Marine Reporter Name Role Phone Renay HENRY, Melani Mercedes Primary Care Physician LUCÍA EARLY Attending Clinician CHANTALE Urrutia Attending Clinician SHAY Fowler Attending Clinician Unavailable JORDI GRIFFIN Attending Clinician Unavailable JORDI GRIFFIN Attending Clinician Unavailable MELANI NIÑO Attending Clinician BARB Plascencia Attending Clinician UnavailBARB Patrick Attending Clinician UnavailMelani Duncan MD Attending Clinician + [phone] Therapist, Ad[facility] Respiratory Attending Clinician Naresh Joseph MD Attending Clinician [phone] Lore Pappas MD Attending Clinician + Jordi Griffin MD Attending Clinician [phone] NARESH BAUER Attending Clinician Unavailable NARESH BAUER Attending Clinician Unavailable Coleen Spencer RN Attending Clinician [phone] JONSA CASTRO Attending Clinician Unavailable Rachel WARREN, Javier Ham Attending Clinician Unavail able Shubham HENRY, Fady Ashford Attending Clinician + Bruce HENRY, Shay Attending Clinician [phone] EDUIN PANDYA Attending Clinician Unavailable UNKNOWN, ATTENDING Attending Clinician Unavailab MAULIK Savage Attending Clinician Unavailabl vicente Pinzon NP, Maulik Attending Clinician [phone] Unknown, Attending Attending Clinician Unavailab YARA Velasquez Attending Clinician UnavailYARA Campuzano Attending Clinician UnavailYara Campuzano MD Attending Clinician [phone] Doctor Unassigned, [place] Attending Clinician U navailjonna Pob, [facility] Lab Main Attending Clinician Unavailabl e Lab, Ang - Db Attending Clinician Unavailable Melani Niño MD Attending Clinician + [phone] Bruce HENRY, Shay Attending Clinician [phone] Lab, Ang - Db Attending Clinician Unavailable Doctor Unassigned, [place] Attending Clinician U Arielle Orellana MD Attending Clinician [phone] Barry Hughes Attending Clinician [phone] Cass Valverde Attending Clinician [phone] CASS HUGHES Attending Clinician Unavailable Yara Paez MD Attending Clinician [phone] Lucía Early MD Attending Clinician + [phone] Pob, [facility] Lab Main Attending Clinician Unavailabl e Vaccine, Ang Db Cbc Fam Attending Clinician Unav ailable Nurse, Ang Db Attending Clinician Unavailable Bahman Martinez MD Attending Clinician [phone] BAHMAN MARTINEZ Attending Clinician Unavail able BAHMAN MARTINEZ Attending Clinician Unavail able Jorgito Banks DO Attending Clinician [phone] Mayra Lubin Attending Clinician [phone] Chantale Walker MD Attending Clinician + [phone] Only, Adc Test Attending Clinician Unavailable LUCÍA EARLY Admitting Clinician CHANTALE Urrutia Admitting Clinician MICHAEL Nguyen Admitting Clinician Unavailable PETAR RODRIGUEZ Admitting Clinician UnavailJORDI Keller Admitting Clinician Unavailable Jordi Griffin MD Admitting Clinician SHAY BARRERA Admitting Clinician Unavailable Lucía Early MD Admitting Clinician [phone] [address]ILES Admitting Clinician Unavailable Chantale Walker MD Admitting Clinician [phone] Payers Payer Name Policy Type Policy Number Effective Date Expirati on Date Source [facility] [id number] 2021 00:00:00 [employer] TRADITIONAL [id number] 2018 00:00:00 [employer] [place] MED[place] AD[place] [id number] 2020 00:00:00 Problems Condition Name Condition Details Condition Category Status Onset Date Resolution Date Last Treatment Date Treating Clinician Comments Source Cerebrovas cular accident (CVA), unspecifie d mechanism Cerebrovas cular accident (CVA), unspecifie d mechanism Disease Active 8-18 [facility] Difficulty with speech Difficulty with speech Disease Active 8-09 00:00: 00 [facility] Persistent atrial fibrillati on with RVR Persistent atrial fibrillati on with RVR Disease Active 1-15 00:00: 00 [facility] Paroxysmal atrial fibrillati on Paroxysmal atrial fibrillati on Disease Active 2023-05- 00:00: 00 [facility] Atypical atrial flutter Atypical atrial flutter Disease Active 2023-05 00:00: 00 [facility] Atrial fibrillati on, unspecifie d type Atrial fibrillati on, unspecifie d type Disease Active 11-06 00:00: 00 [facility] Primary hypertensi on Primary hypertensi on Disease Active 7- 00:00: 00 [facility] Hyperlipid emia, unspecifie d hyperlipid emia type Hyperlipid emia, unspecifie d hyperlipid emia type Disease Active 11-06 00:00: 00 [facility] Leg edema Leg edema Disease Active 11-06 00:00: 00 [facility] No known active problems No known active problems Disease [facility] Allergies, Adverse Reactions, Alerts Allergy Name Allergy Type Status Severity Reaction(s) Onset Date Inactive Date Treating Clinician Comments Source PENICILL IN DRUG INGREDI Active Rash 02-03 00:00: 00 [facility] Penicill in Propensi ty to adverse reaction s Active Rash 02-03 00:00: 00 [facility] Social History Social Habit Start Date Stop Date Quantity Comments Source Gender identity [facility] Sexual orientation [facility] ASSERTION Not [facility] Alcoholic beverage intake 2024-12-23 00:00:00 2024-12-23 00:00:00 Ex-drinker (finding) [facility] History of Social function 2024-12-13 00:00:00 2024-12-13 00:00:00 [facility] Tobacco use and exposure 2023-11-21 00:00:00 2023-11-21 00:00:00 Smokeless tobacco non-user [facility] Alcohol intake 2023-08-07 00:00:00 2023-08-07 00:00:00 Ex-drinker (finding) [facility] Exposure to SARS-CoV-2 (event) 2022-08-12 00:00:00 2022-08-22 09:56:00 Not sure [facility] History of tobacco use 2010-09-17 00:00:00 Cigarette Smoker [facility] Sex assigned at 1940 00:00:00 1940 00:00:00 [facility] Smoking Status Start Date Stop Date Source Ex-smoker 2023-11-21 00:00:00 2023-11-21 00:00:00 [facility] Medications Ordered Medication Name Filled Medication Name Start Date Stop Date Current Medication? Ordering Clinician Indication Dosage Frequency Signature (SIG) Comments Components Source gabapentin ER 300 mg tablet, extended release 24 hr 9-17 00:00: 00 Yes [id number] 300mg Take 1 tablet by mouth at bedtime. [facility] furosemide (LASIX) tablet 20 mg furosemide (LASIX) tablet 20 mg 12-24 14:00: 00 12-25 00:41 :57 Yes 20mg 20 mg, Oral, QAM, First dose (after last modificati on) on Sun12/24/24 at 0900, Until Discontinu ed, Routine [facility] aspirin EC tablet 81 mg aspirin EC tablet 81 mg 12-24 14:00: 00 12-25 00:41 :57 Yes 81mg 81 mg, Oral, DAILY, First dose on Sun12/24/24 at 0900, Until Discontinu ed, Routine [facility] levothyroxi ne (SYNTHROID) tablet 50 mcg levothyroxi ne (SYNTHROID) tablet 50 mcg 12-24 11:00: 00 12-25 00:41 :57 Yes 50ug 50 mcg, Oral, QAM-0600, First dose on Sun12/24/24 at 0600, Until Discontinu ed, Routine [facility] rosuvastati n (CRESTOR) tablet 20 mg rosuvastati n (CRESTOR) tablet 20 mg 12-24 02:00: 00 12-25 00:41 :57 Yes 20mg 20 mg, Oral, QHS, First dose on Sun12/23/24 at 2100, Until Discontinu ed, Routine [facility] gabapentin (NEURONTIN) capsule 100 mg gabapentin (NEURONTIN) capsule 100 mg 12-24 02:00: 00 12-25 00:41 :57 Yes 100mg 100 mg, Oral, QHS, First dose on Sun12/23/24 at 2100, Until Discontinu ed, Routine [facility] latanoprost (XALATAN) 0.005 % ophthalmic drops 1 drop latanoprost (XALATAN) 0.005 % ophthalmic drops 1 drop 12-24 02:00: 00 12-25 00:41 :57 Yes 1[drp] 1 drop, Both Eyes, QHS, First dose on Sun12/23/24 at 2100, Until Discontinu ed, Routine [facility] metoprolol tartrate (LOPRESSOR) tablet 50 mg metoprolol tartrate (LOPRESSOR) tablet 50 mg 12-24 01:00: 00 12-25 00:41 :57 Yes 50mg 50 mg, Oral, BID, First dose on Sun12/23/24 at 2000, Until Discontinu ed, Routine [facility] apixaban (ELIQUIS) tablet 2.5 mg apixaban (ELIQUIS) tablet 2.5 mg 12-23 16:30: 00 12-25 00:41 :57 Yes 2.5mg 2.5 mg, Oral, BID, First dose (after last modificati on) on Sun12/23/24 at 1130, Until Discontinu ed, Routine, Indication s: Non-Valvul ar Atrial Fibrillati on [facility] lisinopriL (PRINIVIL,Z ESTRIL) tablet 20 mg lisinopriL (PRINIVIL,Z ESTRIL) tablet 20 mg 12-23 14:00: 00 12-25 00:41 :57 Yes 20mg 20 mg, Oral, DAILY, First dose on Sun12/23/24 at 0900, Until Discontinu ed, Routine [facility] KCL (KLOR-CON M10) tablet 10 mEq KCL (KLOR-CON M10) tablet 10 mEq 12-23 14:00: 00 12-25 00:41 :57 Yes 10meq 10 mEq, Oral, DAILY, First dose on Sun12/23/24 at 0900, Until Discontinu ed, Routine [facility] furosemide (LASIX) tablet 40 mg furosemide (LASIX) tablet 40 mg 12-23 14:00: 00 12-23 16:58 :36 Yes 40mg 40 mg, Oral, QAM, First dose on Sun12/23/24 at 0900, Until Discontinu ed, Routine [facility] albuterol (VENTOLIN) inhaler 2 puff 12-23 13:21: 25 12-25 00:41 :57 No 2{puff} [facility] gabapentin (NEURONTIN) capsule 100 mg gabapentin (NEURONTIN) capsule 100 mg 12-23 07:30: 00 12-23 07:58 :00 Yes 100mg 100 mg, Oral, ONCE, 1 dose, On Sun12/23/24 at 0230, [facility] labetaloL (NORMODYNE) 5 mg/mL injection 10 mg 12-23 06:11: 34 12-25 00:41 :57 No 10mg 10 mg, Slow IV Push, Q4HPRN, Starting on Sun12/23/24 at 0111, Until Sun12/24/24 at 1941, Routine, For SBP > 180, DBP > 100. Hold for HR < 60 [facility] labetaloL (NORMODYNE) 5 mg/mL injection 20 mg 12-23 05:15: 00 12-23 05:12 :00 No 20mg 20 mg, Slow IV Push, ONCE, 1 dose, On Sun12/23/24 at 0015, [facility] hydralAZINE (APRESOLINE ) injection 10 mg hydralAZINE (APRESOLINE ) injection 10 mg 12-23 05:03: 51 12-25 00:41 :57 Yes 10mg 10 mg, Slow IV Push, Q4HPRN, Starting on Sun12/23/24 at 0003, Until Sun12/24/24 at 1941, Routine, DBP=>100; SBP=>180 [facility] aspirin tablet 325 mg 12-23 05:00: 00 12-23 06:21 :00 No 325mg 325 mg, Oral, ONCE, 1 dose, On Sun12/23/24 at 0000, STAT [facility] traMADoL (ULTRAM) tablet 50 mg traMADoL (ULTRAM) tablet 50 mg 12-23 04:57: 22 12-25 00:41 :57 Yes 50mg 50 mg, Oral, Q8HPRN, Starting on Sun12/22/24 at 2357, Until Sun12/24/24 at 1941, Routine, Pain (scale 4-6) [facility] acetaminoph en (TYLENOL) tablet 650 mg acetaminoph en (TYLENOL) tablet 650 mg 12-23 04:57: 21 12-25 00:41 :57 Yes 650mg 650 mg, Oral, Q6HPRN, Starting on Sun12/22/24 at 2357, Until Sun12/24/24 at 194, Routine, Pain (scale 1-3) [facility] iopamidol (ISOVUE 370-500 mL) injection 80 mL 12-23 03:30: 00 12-23 03:30 :00 No [id number] 80mL 80 mL, Intravenou s, ONCE, 1 dose, On Sun12/22/24 at 2230, Routine [facility] aspirin 81 mg tablet 12-22 14:39: 56 Yes 81mg Take 1 tablet by mouth in the morning. [facility] rosuvastati n (CRESTOR) 20 mg tablet 12-17 00:00: 00 Yes [id number] 20mg Take 1 tablet by mouth at bedtime. [facility] polyethylen e glycol 3350 17 gram powder 12-16 00:00: 00 12-22 00:00 :00 No [id number] 17g Take 1 Packet by mouth in the morning. [facility] sennosides 8.6 mg tablet 12-16 00:00: 00 12-22 00:00 :00 No [id number] 8.6mg Take 1 tablet by mouth in the morning. [facility] metoprolol tartrate (LOPRESSOR) tablet 50 mg metoprolol tartrate (LOPRESSOR) tablet 50 mg 12-15 13:00: 00 Yes 50mg 50 mg, Oral, BID, First dose on Sun12/15/24 at 0800, Until Discontinu ed, Routine [facility] metoprolol tartrate (LOPRESSOR) tablet 25 mg metoprolol tartrate (LOPRESSOR) tablet 25 mg 12-15 05:00: 00 12-15 06:42 :00 Yes 25mg 25 mg, Oral, Q6H, 1 dose, First dose (after last modificati on) on Sun12/15/24 at 0000, Routine [facility] metoprolol tartrate 50 mg tablet 12-15 00:00: 00 Yes [id number] 50mg Take 1 tablet by mouth in the morning and 1 tablet in the evening. [facility] iopamidol (ISOVUE 370-500 mL) injection 80 mL 12-14 15:00: 00 12-14 14:52 :00 No [id number] 80mL 80 mL, Intravenou s, ONCE, 1 dose, On Sun12/14/24 at 1000, Routine [facility] metoprolol tartrate (LOPRESSOR) tablet 25 mg metoprolol tartrate (LOPRESSOR) tablet 25 mg 12-13 23:00: 00 12-15 01:06 :07 Yes 25mg 25 mg, Oral, Q6H, First dose on Sun12/13/24 at 1800, Until Discontinu ed, Routine [facility] perflutren protein-A microsphr (OPTISON) injection 3 mL 12-13 20:30: 00 12-13 20:30 :00 No [id number] 3mL 3 mL, IV Push, ONCE, 1 dose, On 12/13/24 at 1530, Routine [facility] polyethylen e glycol 3350 powder 17 g polyethylen e glycol 3350 powder 17 g 12-13 14:00: 00 Yes 17g 17 g, Oral, DAILY, First dose on Sun12/13/24 at 0900, Until Discontinu ed, Routine [facility] sennosides (SENOKOT) tablet 8.6 mg sennosides (SENOKOT) tablet 8.6 mg 12-13 14:00: 00 Yes 8.6mg 8.6 mg, Oral, DAILY, First dose on 12/13/25 at 0900, Until Discontinu ed, Routine [facility] lisinopriL (PRINIVIL,Z ESTRIL) tablet 20 mg lisinopriL (PRINIVIL,Z ESTRIL) tablet 20 mg 12-13 14:00: 00 12-15 23:09 :02 Yes 20mg 20 mg, Oral, DAILY, First dose on [facility] 12/13/24 at 0900, Until Discontinu ed, Routine [facility] metoprolol succinate XL (TOPROL XL) tablet 50 mg metoprolol succinate XL (TOPROL XL) tablet 50 mg 12-13 14:00: 00 12-13 22:43 :11 Yes 50mg 50 mg, Oral, DAILY, First dose on [facility] 12/13/24 at 0900, Until Discontinu ed, Routine [facility] apixaban (ELIQUIS) tablet 2.5 mg apixaban (ELIQUIS) tablet 2.5 mg 12-13 13:00: 00 12-15 23:09 :02 Yes [id number] 2.5mg 2.5 mg, Oral, BID, First dose on [facility] 12/13/24 at 0800, Until Discontinu ed, Routine, Indication s: Non-Valvul ar Atrial Fibrillati on [facility] gabapentin (NEURONTIN) capsule 300 mg gabapentin (NEURONTIN) capsule 300 mg 12-13 13:00: 00 12-15 23:09 :02 Yes 300mg 300 mg, Oral, TID, First dose on [facility] 12/13/24 at 0800, Until Discontinu ed [facility] levothyroxi ne (SYNTHROID) tablet 50 mcg levothyroxi ne (SYNTHROID) tablet 50 mcg 12-13 11:00: 00 12-15 23:09 :02 Yes 50ug 50 mcg, Oral, QAM-0600, First dose on [facility] 12/13/24 at 0600, Until Discontinu ed, Routine [facility] albuterol (VENTOLIN) inhaler 2 Puff albuterol (VENTOLIN) inhaler 2 Puff 12-13 10:28: 14 12-15 23:09 :02 Yes 2{puff} [facility] acetaminoph en (TYLENOL) tablet 650 mg acetaminoph en (TYLENOL) tablet 650 mg 12-13 07:39: 51 12-15 23:09 :02 Yes 650mg 650 mg, Oral, Q6HPRN, Starting on 12/13/24 at 0239, Until 12/15/24 at 1809, Routine, Pain (scale 1-3) [facility] ondansetron (ZOFRAN (PF)) injection 4 mg 12-13 02:45: 00 12-13 02:50 :00 No 4mg 4 mg, Slow IV Push, ONCE, 1 dose, On Sun12/12/24 at 2145, Administer over 2-5 Minutes, 2 mL [facility] hydralAZINE (APRESOLINE ) injection 10 mg 12-13 00:15: 00 12-13 00:17 :00 No 10mg 10 mg, Slow IV Push, ONCE, 1 dose, On Sun12/12/24 at 1915, [facility] aspirin chewable tablet 324 mg 12-13 00:15: 00 12-12 23:38 :00 No 324mg 324 mg, Oral, ONCE, 1 dose, On Sun12/12/24 at 1915, Routine [facility] acetaminoph en (TYLENOL) tablet 650 mg 12-12 22:15: 00 12-12 22:14 :00 No 650mg 650 mg, Oral, ONCE, 1 dose, On Sun12/12/24 at 1715, [facility] iopamidol (ISOVUE 370-500 mL) injection 100 mL 12-12 21:15: 00 12-12 21:08 :00 No [id number] 100mL 100 mL, Intravenou s, ONCE, 1 dose, On Sun12/12/24 at 1615, Routine [facility] magnesium sulfate in water 2 gram/50 mL (4 %) infusion 2 g 12-12 20:45: 00 12-12 22:35 :00 No 2g 2 g, Intravenou s, ONCE, 1 dose, On Sun12/12/24 at 1545, 50 mL [facility] albuterol sulfate HFA 90 mcg/actuati on aerosol inhaler 12-01 00:00: 00 Yes [id number] 2{puff} Inhale 2 Puffs every 6 hours as needed for Wheezing or Shortness of Breath. [facility] albuterol sulfate HFA 90 mcg/actuati on aerosol inhaler 11-19 10:18: 24 12-01 00:00 :00 No 2{puff} Inhale 2 Puffs every 6 hours as needed for Wheezing or Shortness of Breath. [facility] Cholecalcif aramis, Vitamin D3, 25 mcg (1,000 unit) capsule 11-19 10:18: 23 Yes 1000U Take 1 capsule by mouth in the morning. [facility] lisinopriL 20 mg tablet 11-04 00:00: 00 Yes [id number] 20mg Take 1 tablet by mouth in the morning. [facility] metoprolol succinate XL 50 mg 24 hr tablet 10-29 00:00: 00 12-15 00:00 :00 No [id number] 50mg Take 1 tablet by mouth in the morning. [facility] FLUTICASONE PROPIONATE 50 mcg/actuati on nasal spray 10-17 00:00: 00 Yes [id number] SHAKE LIQUID AND USE 2 SPRAYS IN EACH NOSTRIL IN THE MORNING [facility] FUROSEMIDE 40 mg tablet 10-16 00:00: 00 Yes [id number] 40mg TAKE 1 TABLET BY MOUTH EVERY MORNING [facility] mupirocin 2 % ointment 09-03 00:00: 00 09-11 04:59 :00 No [id number] Apply to area(s) every 12 hours for 7 days. [facility] lisinopriL 20 mg tablet 08-22 00:00: 00 11-04 00:00 :00 No [id number] 20mg Take 1 tablet by mouth in the morning and 1 tablet in the evening. [facility] triamcinolo ne acetonide (KENALOG) injection 40 mg 08-05 12:45: 00 07-22 12:44 :00 No [id number] 40mg 40 mg, Intra-raphael cular, ONCE, 1 dose, On Sun08/05/24 at 0745, Routine [facility] furosemide 40 mg tablet 3-14 00:00: 00 10-16 00:00 :00 No [id number] 40mg Take 1 tablet by mouth every morning. [facility] GABAPENTIN 100 mg capsule 06-23 00:00: 00 01-21 00:00 :00 No [id number] TAKE 1 CAPSULE BY MOUTH EVERY NIGHT AT BEDTIME [facility] metoprolol succinate XL 50 mg 24 hr tablet 06-10 00:00: 00 Yes [id number] 50mg Take 1 tablet by mouth in the morning. [facility] metoprolol succinate XL 50 mg 24 hr tablet - 00:00: 00 06-10 00:00 :00 No [id number] 25mg Take 0.5 tablets by mouth in the morning. [facility] lidocaine 1% (PF) (XYLOCAINE) injection 06-03 14:25: 57 06-03 15:18 :44 No ONCE INTRA PROCEDURE, Starting on Sun06/03/24 at 0825, Until Sun06/03/24 at 0918, Routine, CV Intraproce dure [facility] gabapentin ER 300 mg tablet, extended release 24 hr 05-21 10:08: 08 01-21 00:00 :00 No 300mg Take 1 tablet by mouth at bedtime. [facility] omeprazole 20 mg capsule -15 10:07: 04 12-15 00:00 :00 No 20mg Take 1 capsule by mouth in the morning. [facility] metoprolol succinate XL 25 mg 24 hr tablet -15 00:00: 00 06-04 00:00 :00 No [id number] 25mg Take 1 tablet by mouth in the morning. [facility] traMADoL 50 mg tablet 05-19 00:00: 00 Yes [id number] 50mg Take 1 tablet by mouth every 6 (six) hours as needed (pain). Indication s: acute pain [facility] LISINOPRIL 20 mg tablet 2023-05 00:00: 00 08-22 17:54 :14 No [id number] 20mg TAKE 1 TABLET BY MOUTH IN THE MORNING [facility] FUROSEMIDE 40 mg tablet 2023-05 00:00: 00 Yes [id number] 40mg TAKE 1 TABLET BY MOUTH IN THE MORNING [facility] FLUTICASONE PROPIONATE 50 mcg/actuati on nasal spray 2023-05 00:00: 00 10-17 00:00 :00 No [id number] SHAKE LIQUID AND USE 2 SPRAYS IN EACH NOSTRIL IN THE MORNING [facility] mupirocin 2 % ointment 2023-0516 00:00: 00 05-19 00:00 :00 No [id number] Apply to area(s) every 12 (twelve) hours. [facility] AMLODIPINE 5 mg tablet 2023-05 00:00: 00 05-19 00:00 :00 No [id number] 5mg TAKE 1 TABLET BY MOUTH IN THE MORNING [facility] traMADoL 50 mg tablet 2023-05 14:18: 50 05-19 00:00 :00 No 50mg Take 1 tablet by mouth every 6 (six) hours as needed. [facility] amiodarone 200 mg tablet 2023-05 00:00: 00 05-19 00:00 :00 No [id number] 200mg Take 1 tablet by mouth in the morning for 90 days. [facility] apixaban 5 mg tablet 2023-05 0-10 00:00: 00 Yes [id number] 2.5mg Take 0.5 tablets by mouth in the morning and 0.5 tablets in the evening. [facility] LEVOTHYROXI NE 50 mcg tablet 02-03 00:00: 00 Yes [id number] 50ug TAKE 1 TABLET BY MOUTH EVERY MORNING [facility] HYDRALAZINE 25 mg tablet 02-03 00:00: 00 05-21 00:00 :00 No [id number] TAKE 1 TABLET BY MOUTH IN THE MORNING AND AT NOON AND IN THE EVENING [facility] furosemide 40 mg tablet 01-28 00:00: 00 04-29 05:59 :00 No [id number] 40mg Take 1 tablet by mouth in the morning for 90 days. [facility] KCL 10 mEq tablet 01-02 00:00: 00 Yes [id number] 10meq TAKE 1 TABLET BY MOUTH IN THE MORNING [facility] GABAPENTIN 100 mg capsule 01-02 00:00: 00 05-21 00:00 :00 No [id number] TAKE 1 CAPSULE BY MOUTH EVERY NIGHT AT BEDTIME [facility] hydrALAZINE 25 mg tablet 11-18 00:00: 00 02-03 00:00 :00 No [id number] TAKE 1 TABLET BY MOUTH IN THE MORNING AND AT NOON AND IN THE EVENING [facility] lisinopriL 20 mg tablet 11-04 00:00: 00 Yes [id number] 20mg Take 1 tablet by mouth in the morning. [facility] gabapentin 100 mg capsule 5-20 00:00: 00 Yes [id number] TAKE 1 CAPSULE BY MOUTH EVERY NIGHT AT BEDTIME. [facility] FUROSEMIDE 20 mg tablet 5-07 00:00: 00 01-28 00:00 :00 No [id number] 20mg TAKE 1 TABLET BY MOUTH IN THE MORNING [facility] azithromyci n 500 mg tablet 4-02 00:00: 00 12-03 00:00 :00 No [id number] 500mg Take 1 tablet by mouth in the morning. [facility] HYDRALAZINE 25 mg tablet 3 00:00: 00 Yes [id number] TAKE 1 TABLET BY MOUTH IN THE MORNING AND AT NOON AND IN THE EVENING [facility] gabapentin 100 mg capsule 07-29 00:00: 00 03-26 00:00 :00 No [id number] 100mg Take 1 capsule by mouth at bedtime. [facility] fluticasone propionate 50 mcg/actuati on nasal spray 07-22 00:00: 00 Yes [id number] 2{spray } Use 2 Sprays in each nostril in the morning. [facility] AMLODIPINE 5 mg tablet 05-28 00:00: 00 02-13 00:00 :00 No [id number] 5mg TAKE 1 TABLET BY MOUTH IN THE MORNING [facility] LISINOPRIL 20 mg tablet 2022-05 00:00: 00 Yes [id number] 20mg TAKE 1 TABLET BY MOUTH IN THE MORNING [facility] HYDRALAZINE 25 mg tablet 2022-05 00:00: 00 Yes TAKE 1 TABLET BY MOUTH IN THE MORNING AND AT NOON AND IN THE EVENING [facility] montelukast 10 mg tablet 2022-05 00:00: 00 12-03 00:00 :00 No [id number] 10mg Take 1 tablet by mouth in the morning. [facility] GABAPENTIN 100 mg capsule 2022-05 00:00: 00 Yes [id number] TAKE 1 CAPSULE BY MOUTH EVERY NIGHT AT BEDTIME [facility] FUROSEMIDE 20 mg tablet 2022-05 00:00: 00 09-10 00:00 :00 No [id number] 20mg TAKE 1 TABLET BY MOUTH IN THE MORNING [facility] budesonide- formoteroL (SYMBICORT) 160-4.5 mcg/actuati on inhaler 2022-05- 00:00: 00 04-11 00:00 :00 No [id number] 2{puff} Inhale 2 Puffs in the morning and 2 Puffs in the evening. [facility] levothyroxi ne 50 mcg tablet 2022-05 0-12 00:00: 00 02-03 00:00 :00 No [id number] 50ug Take 1 tablet by mouth every morning. [facility] HYDRALAZINE 25 mg tablet 01-25 00:00: 00 04-26 00:00 :00 No TAKE 1 TABLET BY MOUTH IN THE MORNING AND AT NOON AND IN THE EVENING [facility] fluticasone 27.5 mcg/actuati on nasal spray 12-12 14:06: 42 12-12 00:00 :00 No 2{spray } Use 2 Sprays in each nostril daily. [facility] fluticasone propionate 50 mcg/actuati on nasal spray 12-12 00:00: 00 07-22 00:00 :00 No [id number] 2{spray } Use 2 Sprays in each nostril in the morning. [facility] azithromyci n 500 mg tablet 12-12 00:00: 00 03-12 00:00 :00 No [id number] 500mg Take 1 tablet by mouth in the morning. [facility] KCL 10 mEq tablet 11-27 00:00: 00 Yes [id number] 10meq Take 1 tablet by mouth in the morning. [facility] GABAPENTIN 100 mg capsule 11-27 00:00: 00 03-27 00:00 :00 No [id number] TAKE 1 CAPSULE BY MOUTH EVERY NIGHT AT BEDTIME [facility] LISINOPRIL 20 mg tablet 10-31 00:00: 00 04-26 00:00 :00 No [id number] 20mg TAKE 1 TABLET BY MOUTH IN THE MORNING [facility] HYDRALAZINE 25 mg tablet 10-31 00:00: 00 01-25 00:00 :00 No TAKE 1 TABLET BY MOUTH IN THE MORNING AND AT NOON AND IN THE EVENING [facility] cloNIDine 0.1 mg tablet 18 10:23: 08-22 00:00 :00 No .1mg Take 0.1 mg by mouth in the morning. [facility] gabapentin 100 mg capsule 2022-0 4-11 00:00: 00 11-27 00:00 :00 No [id number] TAKE 1 CAPSULE BY MOUTH EVERY NIGHT AT BEDTIME. [facility] hydrALAZINE 25 mg tablet 2022-0 3-21 00:00: 00 10-31 00:00 :00 No 25mg Take 1 tablet by mouth in the morning and 1 tablet at noon and 1 tablet in the evening. [facility] gabapentin 100 mg capsule 2022-0 3-13 00:00: 00 08-15 00:00 :00 No [id number] TAKE 1 CAPSULE BY MOUTH EVERY DAY EVERY NIGHT AT BEDTIME [facility] hyaluronate (SYNVISC) injection 16 mg 2022-0 2-22 21:30: 00 06-28 20:36 :00 No [id number] 16mg [facility] hyaluronate (SYNVISC) injection 16 mg 2022-0 2-15 20:30: 00 06-21 20:29 :00 No [id number] 9100 16mg [facility] gabapentin 100 mg capsule 2022-0 2-14 00:00: 00 07-17 00:00 :00 No [id number] TAKE 1 CAPSULE BY MOUTH EVERY DAY EVERY NIGHT AT BEDTIME [facility] hyaluronate (SYNVISC) injection 16 mg 2022-0 2-08 21:30: 00 06-14 20:37 :00 No [id number] 9100 16mg [facility] amLODIPine 5 mg tablet 2022-0 2-08 00:00: 00 05-28 00:00 :00 No [id number] 5mg Take 1 tablet by mouth in the morning. [facility] gabapentin 100 mg capsule 2022-0 1-17 00:00: 00 06-19 00:00 :00 No [id number] TAKE 1 CAPSULE BY MOUTH EVERY DAY EVERY NIGHT AT BEDTIME [facility] lisinopriL 20 mg tablet 05-08 00:00: 00 10-31 00:00 :00 No [id number] 20mg Take 1 tablet by mouth in the morning. [facility] cefUROXime 500 mg tablet 2021-05 00:00: 00 08-22 00:00 :00 No [id number] 500mg Take 1 tablet by mouth in the morning and 1 tablet in the evening. [facility] furosemide (LASIX) 20 mg tablet 2021-05 00:00: 00 03-27 00:00 :00 No [id number] 20mg Take 1 tablet by mouth in the morning. [facility] hydrALAZINE 25 mg tablet 2021-05 00:00: 00 07-24 00:00 :00 No 25mg Take 1 tablet by mouth in the morning and 1 tablet at noon and 1 tablet in the evening. [facility] gabapentin 100 mg capsule 2021-05 00:00: 00 05-19 00:00 :00 No [id number] TAKE 1 CAPSULE BY MOUTH EVERY DAY EVERY NIGHT AT BEDTIME [facility] fluticasone 27.5 mcg/actuati on nasal spray 2021-05 14:37: 22 Yes 2{spray } Use 2 Sprays in each nostril daily. [facility] Cholecalcif aramis, Vitamin D3, 50 mcg (2,000 unit) capsule 2021-05 14:37: 22 Yes 1{capsu le} Take 1 capsule by mouth daily. [facility] amiodarone HCl (AMIODARONE , BULK, MISC) 2021-05 14:37: 22 Yes 2mg 2 mg daily. [facility] cloNIDine 0.1 mg tablet 2021-05 14:37: 22 Yes .1mg Take 0.1 mg by mouth in the morning. [facility] Cholecalcif aramis, Vitamin D3, 50 mcg (2,000 unit) capsule 2021-05 14:37: 22 Yes 2000U Take 1 capsule by mouth in the morning. [facility] polysorbate 80/glycerin (REFRESH DRY EYE THERAPY OPHTHALMIC) 2021-05 14:37: 22 12-22 00:00 :[address] in each eye daily. [facility] apixaban 5 mg tablet 2021-05 14:37: 22 02-13 00:00 :00 No 5mg Take 5 mg by mouth 2 (two) times daily. [facility] cefUROXime 500 mg tablet 2021-05 00:00: 00 04-26 00:00 :00 No [id number] 500mg Take 1 tablet by mouth in the morning and 1 tablet in the evening. [facility] furosemide (LASIX) 20 mg tablet 2021-05 00:00: 00 04-24 00:00 :00 No [id number] 20mg Take 1 tablet by mouth in the morning. [facility] gabapentin 100 mg capsule 2021-05 00:00: 00 04-24 00:00 :00 No [id number] TAKE 1 CAPSULE BY MOUTH EVERY DAY EVERY NIGHT AT BEDTIME [facility] lactated ringers IV infusion 1,000 mL 2021-05 17:00: 00 Yes 1000mL at 50 mL/hr, 1,000 mL, IV Infusion, CONTINUOUS , Starting on Sun03/16/22 at 1100, Until Discontinu ed, Routine, PACU [facility] ondansetron (ZOFRAN (PF)) injection 4 mg 2021-05 16:52: 32 Yes 4mg 4 mg, Slow IV Push, PRN, 1 dose, Starting on Sun03/16/22 at 1052, Until Discontinu ed, Routine, Nausea and Vomiting (N/V), PACU [facility] neomycin-po lymyxin-dex amethasone (MAXITROL) 3.5 mg/g-10,000 unit/g-0.1 % ophthalmic ointment 2021-05 16:51: 00 03-16 16:56 :27 No PRN, Starting on Sun03/16/22 at 1051, Until Lisa 03/16/22 at 1056, Routine, [facility] gentamicin injection 2021-05 16:50: 00 03-16 16:56 :27 No PRN, Starting on Lisa 03/16/22 at 1050, Until Lisa 03/16/22 at 1056, JUAN MIGUEL, [facility]op [facility] dexamethaso ne (DECADRON PHOSPHATE) injection 2021-05 16:50: 00 03-16 16:56 :27 No PRN, Starting on Lisa 03/16/22 at 1050, Until Lisa 03/16/22 at 1056, Routine, [facility]op [facility] EPINEPHrine (PF) 1:1,000 (1 mg/mL) (ADRENALIN (PF)) injection 2021-05 16:32: 00 03-16 16:56 :27 No PRN, Starting on Lisa 03/16/22 at 1032, Until Lisa 03/16/22 at 1056, Routine, [facility]op [facility] chondroitin sulf-sod hyaluronate (DUOVISC VISCO ELASTIC) intraocular injection 2021-05 16:32: 00 03-16 16:56 :27 No PRN, Starting on Lisa 03/16/22 at 1032, Until Lisa 03/16/22 at 1056, Routine, Intra-op [facility] balanced salt soln no.2 irrig. (BSS) ophthalmic solution 2021-05 16:32: 00 03-16 16:56 :27 No PRN, Starting on Lisa 03/16/22 at 1032, Until Lisa 03/16/22 at 1056, Routine, Intra-op [facility] water for irrigation irrigation solution 2021-05 16:29: 00 03-16 16:56 :27 No PRN, Starting on Lisa 03/16/22 at 1029, Until Lisa 03/16/22 at 1056, Routine, Intra[facility]op [facility] tetracaine (PONTOCAINE ) 0.5 % ophthalmic drops 2021-05 16:27: 00 03-16 16:56 :27 No PRN, Starting on Sun03/16/22 at 1027, Until Sun03/16/22 at 1056, Routine, [facility] eye block syringe 11 mL 2021-05 16:26: 00 03-16 16:56 :27 No PRN, Starting on Sun03/16/22 at 1026, Until Sun03/16/22 at 1056, Intra-op [facility] cyclopent 1%-tropic 1%-phenyl 2.5%-ketor 0.5% (MYDRIATIC #5) ophthalmic solution syringe 0.5 mL 2021-05 15:15: 00 03-16 15:24 :00 No .5mL 0.5 mL, Right Eye, ONCE, 1 dose, On Sun03/16/22 at 0915, Routine, [facility]SU Pre-op [facility] lactated ringers IV infusion 1,000 mL 2021-05 15:15: 00 03-16 15:24 :00 No 1000mL at 42 mL/hr, 1,000 mL, IV Infusion, ONCE, 1 dose, On Sun03/16/22 at 0915, Routine, [facility] Pre-op [facility] fluticasone 27.5 mcg/actuati on nasal spray 2021-05 11:30: 40 Yes 2{spray } Use 2 Sprays in each nostril daily. [facility] apixaban 5 mg tablet 2021-05 11:30: 40 Yes 5mg Take 5 mg by mouth 2 (two) times daily. [facility] Cholecalcif aramis, Vitamin D3, 50 mcg (2,000 unit) capsule 2021-05 11:30: 40 Yes 1{capsu le} Take 1 capsule by mouth daily. [facility] amiodarone HCl (AMIODARONE , BULK, MISC) 2021-05 11:30: 40 Yes 2mg 2 mg daily. [facility] cloNIDine 0.1 mg tablet 2021-05 11:30: 40 Yes .1mg Take 0.1 mg by mouth in the morning. [facility] fluticasone 27.5 mcg/actuati on nasal spray 2021-05 12:49: 36 Yes 2{spray } Use 2 Sprays in each nostril daily. [facility] apixaban 5 mg tablet 2021-05 12:49: 36 Yes 5mg Take 5 mg by mouth 2 (two) times daily. [facility] Cholecalcif aramis, Vitamin D3, 50 mcg (2,000 unit) capsule 2021-05 12:49: 36 Yes 1{capsu le} Take 1 capsule by mouth daily. [facility] amiodarone HCl (AMIODARONE , BULK, MISC) 2021-05 12:49: 36 Yes 2mg 2 mg daily. [facility] cloNIDine 0.1 mg tablet 2021-05 12:49: 36 Yes .1mg Take 0.1 mg by mouth in the morning. [facility] amLODIPine 5 mg tablet 2021-05 00:00: 00 06-13 00:00 :00 No [id number] 5mg Take 1 tablet by mouth in the morning. [facility] gabapentin 100 mg capsule 2021-05 00:00: 00 03-24 00:00 :00 No [id number] TAKE 1 CAPSULE BY MOUTH EVERY DAY EVERY NIGHT AT BEDTIME [facility] fluticasone 27.5 mcg/actuati on nasal spray 2021-05 13:03: 18 Yes 2{spray } Use 2 Sprays in each nostril daily. [facility] apixaban 5 mg tablet 2021-05 13:03: 18 Yes 5mg Take 5 mg by mouth 2 (two) times daily. [facility] Cholecalcif aramis, Vitamin D3, 50 mcg (2,000 unit) capsule 2021-05 13:03: 18 Yes 1{capsu le} Take 1 capsule by mouth daily. [facility] amiodarone HCl (AMIODARONE , BULK, MISC) 2021-05 13:03: 18 Yes 2mg 2 mg daily. [facility] cloNIDine 0.1 mg tablet 2021-05 13:03: 18 Yes .1mg Take 0.1 mg by mouth in the morning and 0.1 mg at noon and 0.1 mg in the evening. [facility] clonidine (CATAPRES) 0.1 mg/mL oral suspension 2021-05 13:02: 29 02-13 00:00 :00 No Take by mouth 3 (three) times daily. [facility] lisinopriL 20 mg tablet 2021-05 00:00: 00 05-08 00:00 :00 No [id number] 20mg Take 1 tablet by mouth in the morning. [facility] KCL 10 mEq tablet 01-31 00:00: 00 11-27 00:00 :00 No [id number] 10meq Take 1 tablet by mouth in the morning. [facility] neomycin-po lymyxin-dex amethasone (MAXITROL) 3.5 mg/g-10,000 unit/g-0.1 % ophthalmic ointment 01-26 14:32: 00 01-26 14:41 :46 No PRN, Starting on Lisa 01/26/22 at 0932, Until Lisa 01/26/22 at 0941, Routine, Intra-op [facility] gentamicin injection 01-26 14:30: 00 01-26 14:41 :46 No PRN, Starting on Lisa 01/26/22 at 0930, Until Lisa 01/26/22 at 0941, JUAN MIGUEL, Intra-op [facility] dexamethaso ne (DECADRON PHOSPHATE) injection 01-26 14:30: 00 01-26 14:41 :46 No PRN, Starting on Lisa 01/26/22 at 0930, Until Lisa 01/26/22 at 0941, Routine, Intra-op [facility] chondroitin sulf-sod hyaluronate (DUOVISC VISCO ELASTIC) intraocular injection 01-26 14:25: 00 01-26 14:41 :46 No PRN, Starting on Lisa 01/26/22 at 0925, Until Lisa 01/26/22 at 09, Routine, Intra-op [facility] EPINEPHrine (PF) 1:1,000 (1 mg/mL) (ADRENALIN (PF)) injection 01-26 14:24: 00 01-26 14:41 :46 No PRN, Starting on Lisa 01/26/22 at 0924, Until Lisa 01/26/22 at 09, Routine, [facility] balanced salt soln no.2 irrig. (BSS) ophthalmic solution 01-26 14:24: 00 01-26 14:41 :46 No PRN, Starting on Lisa 01/26/22 at 0924, Until Lisa 01/26/22 at 09, Routine, Intra-[facility] water for irrigation irrigation solution 01-26 14:17: 00 01-26 14:41 :46 No PRN, Starting on Lisa 01/26/22 at 0917, Until Lisa 01/26/22 at 0941, Routine, Intra-op [facility] eye block syringe 11 mL 01-26 14:13: 00 01-26 14:41 :46 No PRN, Starting on Lisa 01/26/22 at 0913, Until Lisa 01/26/22 at 0941, Intra-op [facility] tetracaine (PONTOCAINE ) 0.5 % ophthalmic drops 01-26 14:13: 00 01-26 14:41 :46 No PRN, Starting on Lisa 01/26/22 at 0913, Until Lisa 01/26/22 at 09, Routine, Intra-op [facility] cyclopent 1%-tropic 1%-phenyl 2.5%-ketor 0.5% (MYDRIATIC #5) ophthalmic solution syringe 0.5 mL 01-26 12:45: 00 01-26 12:56 :00 No .5mL 0.5 mL, Left Eye, ONCE, 1 dose, On [facility] 01/26/22 at 0745, Routine, [facility] Pre-op [facility] lactated ringers IV infusion 1,000 mL 01-26 12:45: 00 01-26 12:55 :00 No 1000mL at 42 mL/hr, 1,000 mL, IV Infusion, ONCE, 1 dose, On Lisa 01/26/22 at 0745, Routine, [facility] Pre-op [facility] fluticasone 27.5 mcg/actuati on nasal spray 01-26 11:14: 02 Yes 2{spray } Use 2 Sprays in each nostril daily. [facility] apixaban 5 mg tablet 01-26 11:14: 02 Yes 5mg Take 5 mg by mouth 2 (two) times daily. [facility] Cholecalcif aramis, Vitamin D3, 50 mcg (2,000 unit) capsule 01-26 11:14: 02 Yes 1{capsu le} Take 1 capsule by mouth daily. [facility] amiodarone HCl (AMIODARONE , BULK, MISC) 01-26 11:14: 02 Yes 2mg 2 mg daily. [facility] clonidine (CATAPRES) 0.1 mg/mL oral suspension 01-26 11:14: 02 Yes Take by mouth 3 (three) times daily. [facility] KCL 10 mEq tablet 01-26 00:00: 00 Yes [id number] 10meq Take 1 tablet by mouth in the morning. [facility] hydrALAZINE 25 mg tablet 01-25 00:00: 00 04-24 00:00 :00 No 25mg Take 1 tablet by mouth in the morning and 1 tablet at noon and 1 tablet in the evening. [facility] gabapentin 100 mg capsule 01-25 00:00: 00 02-21 00:00 :00 No [id number] TAKE 1 CAPSULE BY MOUTH EVERY DAY EVERY NIGHT AT BEDTIME [facility] fluticasone 27.5 mcg/actuati on nasal spray 01-24 08:43: 28 Yes 2{spray } Use 2 Sprays in each nostril daily. [facility] apixaban 5 mg tablet 01-24 08:43: 28 Yes 5mg Take 5 mg by mouth 2 (two) times daily. [facility] Cholecalcif aramis, Vitamin D3, 50 mcg (2,000 unit) capsule 01-24 08:43: 28 Yes 1{capsu le} Take 1 capsule by mouth daily. [facility] amiodarone HCl (AMIODARONE , BULK, MISC) 01-24 08:43: 28 Yes 2mg 2 mg daily. [facility] clonidine (CATAPRES) 0.1 mg/mL oral suspension 01-24 08:41: 37 Yes Take by mouth 3 (three) times daily. [facility] levothyroxi ne 50 mcg tablet 01-14 00:00: 00 02-15 00:00 :00 No [id number] 50ug Take 1 tablet by mouth every morning. [facility] gabapentin 100 mg capsule 12-06 00:00: 00 01-25 00:00 :00 No [id number] TAKE 1 CAPSULE BY MOUTH EVERY DAY EVERY NIGHT AT BEDTIME [facility] LEVOTHYROXI NE 50 mcg tablet 18 00:00: 00 01-14 00:00 :00 No TAKE 1 TABLET BY MOUTH EVERY MORNING [facility] amiodarone HCl (AMIODARONE , BULK, MISC) 10-20 10:15: 41 Yes 2mg 2 mg daily. [facility] CLONIDINE 0.2 mg tablet 16 00:00: 00 01-13 00:00 :00 No [id number] TAKE 1 TABLET BY MOUTH THREE TIMES DAILY [facility] furosemide (LASIX) 20 mg tablet 5-24 00:00: 00 03-27 00:00 :00 No [id number] 20mg Take 1 tablet by mouth daily. [facility] LISINOPRIL 20 mg tablet 3-30 00:00: 00 02-07 00:00 :00 No TAKE 1 TABLET BY MOUTH EVERY DAY [facility] amLODIPine 5 mg tablet 2020-05 00:00: 00 03-13 00:00 :00 No [id number] 5mg Take 1 tablet by mouth daily. [facility] KCL 10 mEq tablet 2020-05 00:00: 00 01-26 00:00 :00 No [id number] 10meq Take 1 tablet by mouth daily. [facility] HYDRALAZINE 25 mg tablet 9-13 00:00: 00 01-25 00:00 :00 No TAKE 1 TABLET BY MOUTH THREE TIMES A DAY [facility] fluticasone 27.5 mcg/actuati on nasal spray 12-02 10:34: 43 Yes 2{spray } Use 2 Sprays in each nostril daily. [facility] apixaban 5 mg tablet 12-02 10:34: 43 Yes 5mg Take 5 mg by mouth 2 (two) times daily. [facility] Cholecalcif aramis, Vitamin D3, 50 mcg (2,000 unit) capsule 12-02 10:34: 43 Yes 1{capsu le} Take 1 capsule by mouth daily. [facility] latanoprost 0.005 % ophthalmic drops 05-24 00:00: 00 Yes INSTILL 1 DROP INTO BOTH EYES AT BEDTIME [facility] Immunizations Ordered Immunization Name Filled Immunization Name Date Status Comments Source Influenza, adjuvanted, trivalent, PF (FLUAD) 2025-01-21 00:00:00 Completed Pneumococcal 20 Conjugate, PCV20 (Prevnar 20) 2024-04-21 00:00:00 Completed SARS-COV-2 COVID-19 MODERNA 12+ YRS VACCINE 2024-01-24 00:00:00 Completed Influenza, High-Dose, Trivalent, PF (FLUZONE) 2024-01-24 00:00:00 Completed SARS-COV-2 COVID-19 MODERNA 12+ YRS VACCINE 2024-01-24 00:00:00 Completed Influenza, High-Dose, Trivalent, PF (FLUZONE) 2024-01-24 00:00:00 Completed SARS-COV-2 COVID-19 MODERNA 12+ YRS VACCINE 2024-01-24 00:00:00 Completed Influenza, High-Dose, Trivalent, PF (FLUZONE) 2024-01-24 00:00:00 Completed SARS-COV-2 COVID-19 MODERNA 12+ YRS VACCINE 2024-01-24 00:00:00 Completed Influenza, High-Dose, Trivalent, PF (FLUZONE) 2024-01-24 00:00:00 Completed SARS-COV-2 COVID-19 MODERNA 12+ YRS VACCINE 2024-01-24 00:00:00 Completed Influenza, High-Dose, Trivalent, PF (FLUZONE) 2024-01-24 00:00:00 Completed SARS-COV-2 COVID-19 MODERNA 12+ YRS VACCINE 2024-01-24 00:00:00 Completed Influenza, High-Dose, Trivalent, PF (FLUZONE) 2024-01-24 00:00:00 Completed Influenza Virus Vaccine,quad Im,preserve Free 65+ (FLUAD) 2023-03-12 00:00:00 Completed Influenza Virus Vaccine,quad Im,preserve Free 65+ (FLUAD) 2023-03-12 00:00:00 Completed Influenza Virus Vaccine,quad Im,preserve Free 65+ (FLUAD) 2023-03-12 00:00:00 Completed Influenza Virus Vaccine,quad Im,preserve Free 65+ (FLUAD) 2023-03-12 00:00:00 Completed Influenza Virus Vaccine,quad Im,preserve Free 65+ (FLUAD) 2023-03-12 00:00:00 Completed Influenza Virus Vaccine,quad Im,preserve Free 65+ (FLUAD) 2023-03-12 00:00:00 Completed Influenza Virus Vaccine,quad Im,preserve Free 65+ 2022-02-13 00:00:00 Completed [facility] SARS-COV-2 COVID-19 VACCINE 18 YRS+, BIVALENT 0.5ML, IM, (MODERNA BOOSTER) 2022-02-13 00:00:00 Completed [facility] Influenza Virus Vaccine,quad Im,preserve Free 65+ 2022-02-13 00:00:00 Completed [facility] SARS-COV-2 COVID-19 VACCINE 18 YRS+, BIVALENT 0.5ML, IM, (MODERNA BOOSTER) 2022-02-13 00:00:00 Completed [facility] Influenza Virus Vaccine,quad Im,preserve Free 65+ 2022-02-13 00:00:00 Completed [facility] SARS-COV-2 COVID-19 VACCINE 18 YRS+, BIVALENT 0.5ML, IM, (MODERNA BOOSTER) 2022-02-13 00:00:00 Completed [facility] Influenza Virus Vaccine,quad Im,preserve Free 65+ 2022-02-13 00:00:00 Completed [facility] SARS-COV-2 COVID-19 VACCINE 12 YRS+, BIVALENT 0.5ML, IM, (MODERNA BOOSTER) 2022-02-13 00:00:00 Completed [facility] Influenza Virus Vaccine,quad Im,preserve Free 65+ 2022-02-13 00:00:00 Completed [facility] SARS-COV-2 COVID-19 VACCINE 12 YRS+, BIVALENT 0.5ML, IM, (MODERNA BOOSTER) 2022-02-13 00:00:00 Completed [facility] Influenza Virus Vaccine,quad Im,preserve Free 65+ 2022-02-13 00:00:00 Completed [facility] SARS-COV-2 COVID-19 VACCINE 12 YRS+, BIVALENT 0.5ML, IM, (MODERNA BOOSTER) 2022-02-13 00:00:00 Completed [facility] Influenza Virus Vaccine,quad Im,preserve Free 65+ 2022-02-13 00:00:00 Completed [facility] SARS-COV-2 COVID-19 VACCINE 12 YRS+, BIVALENT 0.5ML, IM, (MODERNA BOOSTER) 2022-02-13 00:00:00 Completed [facility] Influenza Virus Vaccine,quad Im,preserve Free 65+ 2022-02-13 00:00:00 Completed [facility] SARS-COV-2 COVID-19 VACCINE 12 YRS+, BIVALENT 0.5ML, IM, (MODERNA BOOSTER) 2022-02-13 00:00:00 Completed [facility] Influenza Virus Vaccine,quad Im,preserve Free 65+ 2022-02-13 00:00:00 Completed [facility] SARS-COV-2 COVID-19 VACCINE 12 YRS+, BIVALENT 0.5ML, IM, (MODERNA BOOSTER) 2022-02-13 00:00:00 Completed [facility] Influenza Virus Vaccine,quad Im,preserve Free 65+ 2022-02-13 00:00:00 Completed [facility] SARS-COV-2 COVID-19 VACCINE 12 YRS+, BIVALENT 0.5ML, IM, (MODERNA BOOSTER) 2022-02-13 00:00:00 Completed [facility] Influenza Virus Vaccine,quad Im,preserve Free 65+ 2022-02-13 00:00:00 Completed [facility] SARS-COV-2 COVID-19 VACCINE 12 YRS+, BIVALENT 0.5ML, IM, (MODERNA BOOSTER) 2022-02-13 00:00:00 Completed [facility] Influenza Virus Vaccine,quad Im,preserve Free 65+ 2022-02-13 00:00:00 Completed [facility] SARS-COV-2 COVID-19 VACCINE 12 YRS+, BIVALENT 0.5ML, IM, (MODERNA BOOSTER) 2022-02-13 00:00:00 Completed [facility] Influenza Virus Vaccine,quad Im,preserve Free 65+ 2022-02-13 00:00:00 Completed [facility] SARS-COV-2 COVID-19 VACCINE 12 YRS+, BIVALENT 0.5ML, IM, (MODERNA BOOSTER) 2022-02-13 00:00:00 Completed [facility] Influenza Virus Vaccine,quad Im,preserve Free 65+ 2022-02-13 00:00:00 Completed [facility] SARS-COV-2 COVID-19 VACCINE 12 YRS+, BIVALENT 0.5ML, IM, (MODERNA BOOSTER) 2022-02-13 00:00:00 Completed [facility] Influenza Virus Vaccine,quad Im,preserve Free 65+ 2022-02-13 00:00:00 Completed [facility] SARS-COV-2 COVID-19 VACCINE 12 YRS+, BIVALENT 0.5ML, IM, (MODERNA BOOSTER) 2022-02-13 00:00:00 Completed [facility] Influenza Virus Vaccine,quad Im,preserve Free 65+ 2022-02-13 00:00:00 Completed [facility] SARS-COV-2 COVID-19 VACCINE 12 YRS+, BIVALENT 0.5ML, IM, (MODERNA BOOSTER) 2022-02-13 00:00:00 Completed [facility] Influenza Virus Vaccine,quad Im,preserve Free 65+ 2022-02-13 00:00:00 Completed [facility] SARS-COV-2 COVID-19 VACCINE 12 YRS+, BIVALENT 0.5ML, IM, (MODERNA BOOSTER) 2022-02-13 00:00:00 Completed [facility] Influenza Virus Vaccine,quad Im,preserve Free 65+ 2022-02-13 00:00:00 Completed [facility] SARS-COV-2 COVID-19 VACCINE 12 YRS+, BIVALENT 0.5ML, IM, (MODERNA BOOSTER) 2022-02-13 00:00:00 Completed [facility] Influenza Virus Vaccine,quad Im,preserve Free 65+ 2022-02-13 00:00:00 Completed [facility] SARS-COV-2 COVID-19 VACCINE 12 YRS+, BIVALENT 0.5ML, IM, (MODERNA BOOSTER) 2022-02-13 00:00:00 Completed [facility] Influenza Virus Vaccine,quad Im,preserve Free 65+ 2022-02-13 00:00:00 Completed [facility] SARS-COV-2 COVID-19 VACCINE 12 YRS+, BIVALENT 0.5ML, IM, (MODERNA BOOSTER) 2022-02-13 00:00:00 Completed [facility] Influenza Virus Vaccine,quad Im,preserve Free 65+ 2022-02-13 00:00:00 Completed [facility] SARS-COV-2 COVID-19 VACCINE 12 YRS+, BIVALENT 0.5ML, IM, (MODERNA BOOSTER) 2022-02-13 00:00:00 Completed [facility] Influenza Virus Vaccine,quad Im,preserve Free 65+ 2022-02-13 00:00:00 Completed [facility] SARS-COV-2 COVID-19 VACCINE 12 YRS+, BIVALENT 0.5ML, IM, (MODERNA BOOSTER) 2022-02-13 00:00:00 Completed [facility] Influenza Virus Vaccine,quad Im,preserve Free 65+ 2022-02-13 00:00:00 Completed [facility] SARS-COV-2 COVID-19 VACCINE 12 YRS+, BIVALENT 0.5ML, IM, (MODERNA BOOSTER) 2022-02-13 00:00:00 Completed [facility] Influenza Virus Vaccine,quad Im,preserve Free 65+ 2022-02-13 00:00:00 Completed [facility] SARS-COV-2 COVID-19 VACCINE 12 YRS+, BIVALENT 0.5ML, IM, (MODERNA BOOSTER) 2022-02-13 00:00:00 Completed [facility] Influenza Virus Vaccine,quad Im,preserve Free 65+ 2022-02-13 00:00:00 Completed [facility] SARS-COV-2 COVID-19 VACCINE 12 YRS+, BIVALENT 0.5ML, IM, (MODERNA BOOSTER) 2022-02-13 00:00:00 Completed [facility] Influenza Virus Vaccine,quad Im,preserve Free 65+ 2022-02-13 00:00:00 Completed [facility] SARS-COV-2 COVID-19 VACCINE 12 YRS+, BIVALENT 0.5ML, IM, (MODERNA BOOSTER) 2022-02-13 00:00:00 Completed [facility] Influenza Virus Vaccine,quad Im,preserve Free 65+ 2022-02-13 00:00:00 Completed [facility] SARS-COV-2 COVID-19 VACCINE 12 YRS+, BIVALENT 0.5ML, IM, (MODERNA BOOSTER) 2022-02-13 00:00:00 Completed [facility] Influenza Virus Vaccine,quad Im,preserve Free 65+ 2022-02-13 00:00:00 Completed [facility] SARS-COV-2 COVID-19 VACCINE 12 YRS+, BIVALENT 0.5ML, IM, (MODERNA BOOSTER) 2022-02-13 00:00:00 Completed [facility] Influenza Virus Vaccine,quad Im,preserve Free 65+ 2022-02-13 00:00:00 Completed [facility] SARS-COV-2 COVID-19 VACCINE 12 YRS+, BIVALENT 0.5ML, IM, (MODERNA BOOSTER) 2022-02-13 00:00:00 Completed [facility] Influenza Virus Vaccine,quad Im,preserve Free 65+ 2022-02-13 00:00:00 Completed [facility] SARS-COV-2 COVID-19 VACCINE 12 YRS+, BIVALENT 0.5ML, IM, (MODERNA BOOSTER) 2022-02-13 00:00:00 Completed [facility] Influenza Virus Vaccine,quad Im,preserve Free 65+ 2022-02-13 00:00:00 Completed [facility] SARS-COV-2 COVID-19 VACCINE 12 YRS+, BIVALENT 0.5ML, IM, (MODERNA BOOSTER) 2022-02-13 00:00:00 Completed [facility] Influenza Virus Vaccine,quad Im,preserve Free 65+ 2022-02-13 00:00:00 Completed [facility] SARS-COV-2 COVID-19 VACCINE 12 YRS+, BIVALENT 0.5ML, IM, (MODERNA) 2022-02-13 00:00:00 Completed [facility] Influenza Virus Vaccine,quad Im,preserve Free 65+ 2022-02-13 00:00:00 Completed [facility] SARS-COV-2 COVID-19 VACCINE 12 YRS+, BIVALENT 0.5ML, IM, (MODERNA-BLUE TOP) 2022-02-13 00:00:00 Completed [facility] Influenza Virus Vaccine,quad Im,preserve Free 65+ 2022-02-13 00:00:00 Completed [facility] SARS-COV-2 COVID-19 VACCINE 12 YRS+, BIVALENT 0.5ML, IM, (MODERNA-BLUE TOP) 2022-02-13 00:00:00 Completed [facility] Influenza Virus Vaccine,quad Im,preserve Free 65+ 2022-02-13 00:00:00 Completed [facility] SARS-COV-2 COVID-19 VACCINE 12 YRS+, BIVALENT 0.5ML, IM, (MODERNA-BLUE TOP) 2022-02-13 00:00:00 Completed [facility] Influenza Virus Vaccine,quad Im,preserve Free 65+ 2022-02-13 00:00:00 Completed [facility] SARS-COV-2 COVID-19 VACCINE 12 YRS+, BIVALENT 0.5ML, IM, (MODERNA-BLUE TOP) 2022-02-13 00:00:00 Completed [facility] Influenza Virus Vaccine,quad Im,preserve Free 65+ 2022-02-13 00:00:00 Completed [facility] SARS-COV-2 COVID-19 VACCINE 12 YRS+, BIVALENT 0.5ML, IM, (MODERNA-BLUE TOP) 2022-02-13 00:00:00 Completed [facility] Influenza Virus Vaccine,quad Im,preserve Free 65+ 2022-02-13 00:00:00 Completed [facility] SARS-COV-2 COVID-19 VACCINE 12 YRS+, BIVALENT 0.5ML, IM, (MODERNA-BLUE TOP) 2022-02-13 00:00:00 Completed [facility] Influenza Virus Vaccine,quad Im,preserve Free 65+ 2022-02-13 00:00:00 Completed [facility] SARS-COV-2 COVID-19 VACCINE 12 YRS+, BIVALENT 0.5ML, IM, (MODERNA-BLUE TOP) 2022-02-13 00:00:00 Completed [facility] Influenza Virus Vaccine,quad Im,preserve Free 65+ 2022-02-13 00:00:00 Completed [facility] SARS-COV-2 COVID-19 VACCINE 12 YRS+, BIVALENT 0.5ML, IM, (MODERNA-BLUE TOP) 2022-02-13 00:00:00 Completed [facility] Influenza Virus Vaccine,quad Im,preserve Free 65+ (FLUAD) 2022-02-13 00:00:00 Completed [facility] SARS-COV-2 COVID-19 VACCINE 12 YRS+, BIVALENT 0.5ML, IM, (MODERNA-BLUE TOP) 2022-02-13 00:00:00 Completed [facility] Influenza Virus Vaccine,quad Im,preserve Free 65+ (FLUAD) 2022-02-13 00:00:00 Completed [facility] SARS-COV-2 COVID-19 VACCINE 12 YRS+, BIVALENT 0.5ML, IM, (MODERNA-BLUE TOP) 2022-02-13 00:00:00 Completed [facility] Influenza Virus Vaccine,quad Im,preserve Free 65+ (FLUAD) 2022-02-13 00:00:00 Completed [facility] SARS-COV-2 COVID-19 VACCINE 12 YRS+, BIVALENT 0.5ML, IM, (MODERNA-BLUE TOP) 2022-02-13 00:00:00 Completed [facility] Influenza Virus Vaccine,quad Im,preserve Free 65+ (FLUAD) 2022-02-13 00:00:00 Completed [facility] SARS-COV-2 COVID-19 VACCINE 12 YRS+, BIVALENT 0.5ML, IM, (MODERNA-BLUE TOP) 2022-02-13 00:00:00 Completed [facility] Influenza Virus Vaccine,quad Im,preserve Free 65+ (FLUAD) 2022-02-13 00:00:00 Completed [facility] SARS-COV-2 COVID-19 VACCINE 12 YRS+, BIVALENT 0.5ML, IM, (MODERNA-BLUE TOP) 2022-02-13 00:00:00 Completed Influenza Virus Vaccine,quad Im,preserve Free 65+ (FLUAD) 2022-02-13 00:00:00 Completed SARS-COV-2 COVID-19 VACCINE 12 YRS+, BIVALENT 0.5ML, IM, (MODERNA-BLUE TOP) 2022-02-13 00:00:00 Completed Influenza Virus Vaccine,quad Im,preserve Free 65+ (FLUAD) 2022-02-13 00:00:00 Completed [facility] SARS-COV-2 COVID-19 VACCINE 12 YRS+, BIVALENT 0.5ML, IM, (MODERNA-BLUE TOP) 2022-02-13 00:00:00 Completed Influenza Virus Vaccine,quad Im,preserve Free 65+ (FLUAD) 2022-02-13 00:00:00 Completed [facility] SARS-COV-2 COVID-19 VACCINE 12 YRS+, BIVALENT 0.5ML, IM, (MODERNA-BLUE TOP) 2022-02-13 00:00:00 Completed Influenza Virus Vaccine,quad Im,preserve Free 65+ (FLUAD) 2022-02-13 00:00:00 Completed [facility] SARS-COV-2 COVID-19 VACCINE 12 YRS+, BIVALENT 0.5ML, IM, (MODERNA-BLUE TOP) 2022-02-13 00:00:00 Completed Influenza Virus Vaccine,quad Im,preserve Free 65+ (FLUAD) 2022-02-13 00:00:00 Completed [facility] SARS-COV-2 COVID-19 VACCINE 12 YRS+, BIVALENT 0.5ML, IM, (MODERNA-BLUE TOP) 2022-02-13 00:00:00 Completed SARS-COV-2 COVID-19 MODERNA 0.25ML BOOSTER VACCINE 2021-09-01 00:00:00 Completed [facility] SARS-COV-2 COVID-19 MODERNA 0.25ML BOOSTER VACCINE 2021-09-01 00:00:00 Completed [facility] SARS-COV-2 COVID-19 MODERNA 0.25ML BOOSTER VACCINE 2021-09-01 00:00:00 Completed [facility] SARS-COV-2 COVID-19 MODERNA 0.25ML BOOSTER VACCINE 2021-09-01 00:00:00 Completed [facility] SARS-COV-2 COVID-19 MODERNA 0.25ML BOOSTER VACCINE 2021-09-01 00:00:00 Completed [facility] SARS-COV-2 COVID-19 MODERNA 0.25ML BOOSTER VACCINE 2021-09-01 00:00:00 Completed [facility] SARS-COV-2 COVID-19 MODERNA 0.25ML BOOSTER VACCINE 2021-09-01 00:00:00 Completed [facility] SARS-COV-2 COVID-19 MODERNA 0.25ML BOOSTER VACCINE 2021-09-01 00:00:00 Completed [facility] SARS-COV-2 COVID-19 MODERNA 0.25ML BOOSTER VACCINE 2021-09-01 00:00:00 Completed [facility] SARS-COV-2 COVID-19 MODERNA 0.25ML BOOSTER VACCINE 2021-09-01 00:00:00 Completed [facility] SARS-COV-2 COVID-19 MODERNA 0.25ML BOOSTER VACCINE 2021-09-01 00:00:00 Completed [facility] SARS-COV-2 COVID-19 MODERNA 0.25ML BOOSTER VACCINE 2021-09-01 00:00:00 Completed [facility] SARS-COV-2 COVID-19 MODERNA 0.25ML BOOSTER VACCINE 2021-09-01 00:00:00 Completed [facility] SARS-COV-2 COVID-19 MODERNA 0.25ML BOOSTER VACCINE 2021-09-01 00:00:00 Completed [facility] SARS-COV-2 COVID-19 MODERNA 0.25ML BOOSTER VACCINE 2021-09-01 00:00:00 Completed [facility] SARS-COV-2 COVID-19 MODERNA 0.25ML BOOSTER VACCINE 2021-09-01 00:00:00 Completed [facility] SARS-COV-2 COVID-19 MODERNA 0.25ML BOOSTER VACCINE 2021-09-01 00:00:00 Completed [facility] SARS-COV-2 COVID-19 MODERNA 0.25ML BOOSTER VACCINE 2021-09-01 00:00:00 Completed [facility] SARS-COV-2 COVID-19 MODERNA 0.25ML BOOSTER VACCINE 2021-09-01 00:00:00 Completed [facility] SARS-COV-2 COVID-19 MODERNA 0.25ML BOOSTER VACCINE 2021-09-01 00:00:00 Completed [facility] SARS-COV-2 COVID-19 MODERNA 0.25ML BOOSTER VACCINE 2021-09-01 00:00:00 Completed [facility] SARS-COV-2 COVID-19 MODERNA 0.25ML BOOSTER VACCINE 2021-09-01 00:00:00 Completed [facility] SARS-COV-2 COVID-19 MODERNA 0.25ML BOOSTER VACCINE 2021-09-01 00:00:00 Completed [facility] SARS-COV-2 COVID-19 MODERNA 0.25ML BOOSTER VACCINE 2021-09-01 00:00:00 Completed [facility] SARS-COV-2 COVID-19 MODERNA 0.25ML BOOSTER VACCINE 2021-09-01 00:00:00 Completed [facility] SARS-COV-2 COVID-19 MODERNA 0.25ML BOOSTER VACCINE 2021-09-01 00:00:00 Completed [facility] SARS-COV-2 COVID-19 MODERNA 0.25ML BOOSTER VACCINE 2021-09-01 00:00:00 Completed [facility] SARS-COV-2 COVID-19 MODERNA 0.25ML BOOSTER VACCINE 2021-09-01 00:00:00 Completed [facility] SARS-COV-2 COVID-19 MODERNA 0.25ML BOOSTER VACCINE 2021-09-01 00:00:00 Completed [facility] SARS-COV-2 COVID-19 MODERNA 0.25ML BOOSTER VACCINE 2021-09-01 00:00:00 Completed [facility] SARS-COV-2 COVID-19 MODERNA 0.25ML BOOSTER VACCINE 2021-09-01 00:00:00 Completed [facility] SARS-COV-2 COVID-19 MODERNA 0.25ML BOOSTER VACCINE 2021-09-01 00:00:00 Completed [facility] SARS-COV-2 COVID-19 MODERNA 0.25ML BOOSTER VACCINE 2021-09-01 00:00:00 Completed [facility] SARS-COV-2 COVID-19 MODERNA 0.25ML BOOSTER VACCINE 2021-09-01 00:00:00 Completed [facility] SARS-COV-2 COVID-19 MODERNA 0.25ML BOOSTER VACCINE 2021-09-01 00:00:00 Completed [facility] SARS-COV-2 COVID-19 MODERNA 0.25ML BOOSTER VACCINE 2021-09-01 00:00:00 Completed [facility] SARS-COV-2 COVID-19 MODERNA 0.25ML BOOSTER VACCINE 2021-09-01 00:00:00 Completed [facility] SARS-COV-2 COVID-19 MODERNA 0.25ML BOOSTER VACCINE 2021-09-01 00:00:00 Completed [facility] SARS-COV-2 COVID-19 MODERNA 0.25ML BOOSTER VACCINE 2021-09-01 00:00:00 Completed [facility] SARS-COV-2 COVID-19 MODERNA 0.25ML BOOSTER VACCINE 2021-09-01 00:00:00 Completed [facility] SARS-COV-2 COVID-19 MODERNA 0.25ML BOOSTER VACCINE 2021-09-01 00:00:00 Completed [facility] SARS-COV-2 COVID-19 MODERNA 0.25ML BOOSTER VACCINE 2021-09-01 00:00:00 Completed [facility] SARS-COV-2 COVID-19 MODERNA 0.25ML BOOSTER VACCINE 2021-09-01 00:00:00 Completed [facility] SARS-COV-2 COVID-19 MODERNA 0.25ML BOOSTER VACCINE 2021-09-01 00:00:00 Completed [facility] SARS-COV-2 COVID-19 MODERNA 0.25ML BOOSTER VACCINE 2021-09-01 00:00:00 Completed [facility] SARS-COV-2 COVID-19 MODERNA 0.25ML BOOSTER VACCINE 2021-09-01 00:00:00 Completed [facility] SARS-COV-2 COVID-19 MODERNA 0.25ML BOOSTER VACCINE 2021-09-01 00:00:00 Completed [facility] SARS-COV-2 COVID-19 MODERNA 0.25ML BOOSTER VACCINE 2021-09-01 00:00:00 Completed [facility] SARS-COV-2 COVID-19 MODERNA 0.25ML BOOSTER VACCINE 2021-09-01 00:00:00 Completed [facility] SARS-COV-2 COVID-19 MODERNA 0.25ML BOOSTER VACCINE 2021-09-01 00:00:00 Completed [facility] SARS-COV-2 COVID-19 MODERNA 0.25ML BOOSTER VACCINE 2021-09-01 00:00:00 Completed [facility] SARS-COV-2 COVID-19 MODERNA 0.25ML BOOSTER VACCINE 2021-09-01 00:00:00 Completed [facility] SARS-COV-2 COVID-19 MODERNA 0.25ML BOOSTER VACCINE 2021-09-01 00:00:00 Completed [facility] SARS-COV-2 COVID-19 MODERNA 0.25ML BOOSTER VACCINE 2021-09-01 00:00:00 Completed SARS-COV-2 COVID-19 MODERNA 0.25ML BOOSTER VACCINE 2021-09-01 00:00:00 Completed SARS-COV-2 COVID-19 MODERNA 0.25ML BOOSTER VACCINE 2021-09-01 00:00:00 Completed SARS-COV-2 COVID-19 MODERNA 0.25ML BOOSTER VACCINE 2021-09-01 00:00:00 Completed SARS-COV-2 COVID-19 MODERNA 0.25ML BOOSTER VACCINE 2021-09-01 00:00:00 Completed SARS-COV-2 COVID-19 MODERNA 0.25ML BOOSTER VACCINE 2021-09-01 00:00:00 Completed SARS-COV-2 COVID-19 MODERNA 0.5ML BOOSTER VACCINE 2021-03-07 00:00:00 Completed [facility] SARS-COV-2 COVID-19 MODERNA 0.5ML BOOSTER VACCINE 2021-03-07 00:00:00 Completed [facility] SARS-COV-2 COVID-19 MODERNA 0.5ML BOOSTER VACCINE 2021-03-07 00:00:00 Completed [facility] SARS-COV-2 COVID-19 MODERNA 0.5ML BOOSTER VACCINE 2021-03-07 00:00:00 Completed [facility] SARS-COV-2 COVID-19 MODERNA 0.5ML BOOSTER VACCINE 2021-03-07 00:00:00 Completed [facility] SARS-COV-2 COVID-19 MODERNA 0.5ML BOOSTER VACCINE 2021-03-07 00:00:00 Completed [facility] SARS-COV-2 COVID-19 MODERNA 0.5ML BOOSTER VACCINE 2021-03-07 00:00:00 Completed [facility] SARS-COV-2 COVID-19 MODERNA 0.5ML BOOSTER VACCINE 2021-03-07 00:00:00 Completed [facility] SARS-COV-2 COVID-19 MODERNA 0.5ML BOOSTER VACCINE 2021-03-07 00:00:00 Completed [facility] SARS-COV-2 COVID-19 MODERNA 0.5ML BOOSTER VACCINE 2021-03-07 00:00:00 Completed [facility] SARS-COV-2 COVID-19 MODERNA 0.5ML BOOSTER VACCINE 2021-03-07 00:00:00 Completed [facility] SARS-COV-2 COVID-19 MODERNA 0.5ML BOOSTER VACCINE 2021-03-07 00:00:00 Completed [facility] SARS-COV-2 COVID-19 MODERNA 0.5ML BOOSTER VACCINE 2021-03-07 00:00:00 Completed [facility] SARS-COV-2 COVID-19 MODERNA 0.5ML BOOSTER VACCINE 2021-03-07 00:00:00 Completed [facility] SARS-COV-2 COVID-19 MODERNA 0.5ML BOOSTER VACCINE 2021-03-07 00:00:00 Completed [facility] SARS-COV-2 COVID-19 MODERNA 0.5ML BOOSTER VACCINE 2021-03-07 00:00:00 Completed [facility] SARS-COV-2 COVID-19 MODERNA 0.5ML BOOSTER VACCINE 2021-03-07 00:00:00 Completed [facility] SARS-COV-2 COVID-19 MODERNA 0.5ML BOOSTER VACCINE 2021-03-07 00:00:00 Completed [facility] SARS-COV-2 COVID-19 MODERNA 0.5ML BOOSTER VACCINE 2021-03-07 00:00:00 Completed [facility] SARS-COV-2 COVID-19 MODERNA 0.5ML BOOSTER VACCINE 2021-03-07 00:00:00 Completed [facility] SARS-COV-2 COVID-19 MODERNA 0.5ML BOOSTER VACCINE 2021-03-07 00:00:00 Completed [facility] SARS-COV-2 COVID-19 MODERNA 0.5ML BOOSTER VACCINE 2021-03-07 00:00:00 Completed [facility] SARS-COV-2 COVID-19 MODERNA 0.5ML BOOSTER VACCINE 2021-03-07 00:00:00 Completed [facility] SARS-COV-2 COVID-19 MODERNA 0.5ML BOOSTER VACCINE 2021-03-07 00:00:00 Completed [facility] SARS-COV-2 COVID-19 MODERNA 0.5ML BOOSTER VACCINE 2021-03-07 00:00:00 Completed [facility] SARS-COV-2 COVID-19 MODERNA 0.5ML BOOSTER VACCINE 2021-03-07 00:00:00 Completed [facility] SARS-COV-2 COVID-19 MODERNA 0.5ML BOOSTER VACCINE 2021-03-07 00:00:00 Completed [facility] SARS-COV-2 COVID-19 MODERNA 0.5ML BOOSTER VACCINE 2021-03-07 00:00:00 Completed [facility] SARS-COV-2 COVID-19 MODERNA 0.5ML BOOSTER VACCINE 2021-03-07 00:00:00 Completed [facility] SARS-COV-2 COVID-19 MODERNA 0.5ML BOOSTER VACCINE 2021-03-07 00:00:00 Completed [facility] SARS-COV-2 COVID-19 MODERNA 0.5ML BOOSTER VACCINE 2021-03-07 00:00:00 Completed [facility] SARS-COV-2 COVID-19 MODERNA 0.5ML BOOSTER VACCINE 2021-03-07 00:00:00 Completed [facility] SARS-COV-2 COVID-19 MODERNA 0.5ML BOOSTER VACCINE 2021-03-07 00:00:00 Completed [facility] SARS-COV-2 COVID-19 MODERNA 0.5ML BOOSTER VACCINE 2021-03-07 00:00:00 Completed [facility] SARS-COV-2 COVID-19 MODERNA 0.5ML BOOSTER VACCINE 2021-03-07 00:00:00 Completed [facility] SARS-COV-2 COVID-19 MODERNA 0.5ML BOOSTER VACCINE 2021-03-07 00:00:00 Completed [facility] SARS-COV-2 COVID-19 MODERNA 0.5ML BOOSTER VACCINE 2021-03-07 00:00:00 Completed [facility] SARS-COV-2 COVID-19 MODERNA 0.5ML BOOSTER VACCINE 2021-03-07 00:00:00 Completed [facility] SARS-COV-2 COVID-19 MODERNA 0.5ML BOOSTER VACCINE 2021-03-07 00:00:00 Completed [facility] SARS-COV-2 COVID-19 MODERNA 0.5ML BOOSTER VACCINE 2021-03-07 00:00:00 Completed [facility] SARS-COV-2 COVID-19 MODERNA 0.5ML BOOSTER VACCINE 2021-03-07 00:00:00 Completed [facility] SARS-COV-2 COVID-19 MODERNA 0.5ML BOOSTER VACCINE 2021-03-07 00:00:00 Completed [facility] SARS-COV-2 COVID-19 MODERNA 0.5ML BOOSTER VACCINE 2021-03-07 00:00:00 Completed [facility] SARS-COV-2 COVID-19 MODERNA 0.5ML BOOSTER VACCINE 2021-03-07 00:00:00 Completed [facility] SARS-COV-2 COVID-19 MODERNA 0.5ML BOOSTER VACCINE 2021-03-07 00:00:00 Completed [facility] SARS-COV-2 COVID-19 MODERNA 0.5ML BOOSTER VACCINE 2021-03-07 00:00:00 Completed [facility] SARS-COV-2 COVID-19 MODERNA 0.5ML BOOSTER VACCINE 2021-03-07 00:00:00 Completed [facility] SARS-COV-2 COVID-19 MODERNA 0.5ML BOOSTER VACCINE 2021-03-07 00:00:00 Completed [facility] SARS-COV-2 COVID-19 MODERNA 0.5ML BOOSTER VACCINE 2021-03-07 00:00:00 Completed [facility] SARS-COV-2 COVID-19 MODERNA 0.5ML BOOSTER VACCINE 2021-03-07 00:00:00 Completed [facility] SARS-COV-2 COVID-19 MODERNA 0.5ML BOOSTER VACCINE 2021-03-07 00:00:00 Completed [facility] SARS-COV-2 COVID-19 MODERNA 0.5ML BOOSTER VACCINE 2021-03-07 00:00:00 Completed [facility] SARS-COV-2 COVID-19 MODERNA 0.5ML BOOSTER VACCINE 2021-03-07 00:00:00 Completed [facility] SARS-COV-2 COVID-19 MODERNA 0.5ML BOOSTER VACCINE 2021-03-07 00:00:00 Completed SARS-COV-2 COVID-19 MODERNA 0.5ML BOOSTER VACCINE 2021-03-07 00:00:00 Completed SARS-COV-2 COVID-19 MODERNA 0.5ML BOOSTER VACCINE 2021-03-07 00:00:00 Completed SARS-COV-2 COVID-19 MODERNA 0.5ML BOOSTER VACCINE 2021-03-07 00:00:00 Completed SARS-COV-2 COVID-19 MODERNA 0.5ML BOOSTER VACCINE 2021-03-07 00:00:00 Completed SARS-COV-2 COVID-19 MODERNA 0.5ML BOOSTER VACCINE 2021-03-07 00:00:00 Completed Influenza Virus Vaccine,quad Im,preserve Free 65+ 2021-02-21 00:00:00 Completed [facility] Influenza Virus Vaccine,quad Im,preserve Free 65+ 2021-02-21 00:00:00 Completed [facility] Influenza Virus Vaccine,quad Im,preserve Free 65+ 2021-02-21 00:00:00 Completed [facility] Influenza Virus Vaccine,quad Im,preserve Free 65+ 2021-02-21 00:00:00 Completed [facility] Influenza Virus Vaccine,quad Im,preserve Free 65+ 2021-02-21 00:00:00 Completed [facility] Influenza Virus Vaccine,quad Im,preserve Free 65+ 2021-02-21 00:00:00 Completed [facility] Influenza Virus Vaccine,quad Im,preserve Free 652021-02-21 00:00:00 Completed [facility] Influenza Virus Vaccine,quad Im,preserve Free 65+ 2021-02-21 00:00:00 Completed [facility] Influenza Virus Vaccine,quad Im,preserve Free 65+ 2021-02-21 00:00:00 Completed [facility] Influenza Virus Vaccine,quad Im,preserve Free 65+ 2021-02-21 00:00:00 Completed [facility] Influenza Virus Vaccine,quad Im,preserve Free [id number] 00:00:00 Completed [facility] Influenza Virus Vaccine,quad Im,preserve Free 65+ 2021-02-21 00:00:00 Completed [facility] Influenza Virus Vaccine,quad Im,preserve Free 65+ 2021-02-21 00:00:00 Completed [facility] Influenza Virus Vaccine,quad Im,preserve Free 65+ 2021-02-21 00:00:00 Completed [facility] Influenza Virus Vaccine,quad Im,preserve Free 65+ 2021-02-21 00:00:00 Completed [facility] Influenza Virus Vaccine,quad Im,preserve Free [id number] 00:00:00 Completed [facility] Influenza Virus Vaccine,quad Im,preserve Free 65+ 2021-02-21 00:00:00 Completed [facility] Influenza Virus Vaccine,quad Im,preserve Free 65+ 2021-02-21 00:00:00 Completed [facility] Influenza Virus Vaccine,quad Im,preserve Free 65+ 2021-02-21 00:00:00 Completed [facility] Influenza Virus Vaccine,quad Im,preserve Free 65+ 2021-02-21 00:00:00 Completed [facility] Influenza Virus Vaccine,quad Im,preserve Free 65+ 2021-02-21 00:00:00 Completed [facility] Influenza Virus Vaccine,quad Im,preserve Free 65+ 2021-02-21 00:00:00 Completed [facility] Influenza Virus Vaccine,quad Im,preserve Free 65+ 2021-02-21 00:00:00 Completed [facility] Influenza Virus Vaccine,quad Im,preserve Free 65+ 2021-02-21 00:00:00 Completed [facility] Influenza Virus Vaccine,quad Im,preserve Free [id number] 00:00:00 Completed [facility] Influenza Virus Vaccine,quad Im,preserve Free 65+ 2021-02-21 00:00:00 Completed [facility] Influenza Virus Vaccine,quad Im,preserve Free [id number] 00:00:00 Completed [facility] Influenza Virus Vaccine,quad Im,preserve Free 65+ 2021-02-21 00:00:00 Completed [facility] Influenza Virus Vaccine,quad Im,preserve Free 65+ 2021-02-21 00:00:00 Completed [facility] Influenza Virus Vaccine,quad Im,preserve Free 65+ 2021-02-21 00:00:00 Completed [facility] Influenza Virus Vaccine,quad Im,preserve Free 65+ 2021-02-21 00:00:00 Completed [facility] Influenza Virus Vaccine,quad Im,preserve Free 65+ 2021-02-21 00:00:00 Completed [facility] Influenza Virus Vaccine,quad Im,preserve Free 65+ 2021-02-21 00:00:00 Completed [facility] Influenza Virus Vaccine,quad Im,preserve Free 65+ 2021-02-21 00:00:00 Completed [facility] Influenza Virus Vaccine,quad Im,preserve Free 65+ 2021-02-21 00:00:00 Completed [facility] Influenza Virus Vaccine,quad Im,preserve Free 65+ 2021-02-21 00:00:00 Completed [facility] Influenza Virus Vaccine,quad Im,preserve Free 65+ 2021-02-21 00:00:00 Completed [facility] Influenza Virus Vaccine,quad Im,preserve Free 65+ 2021-02-21 00:00:00 Completed [facility] Influenza Virus Vaccine,quad Im,preserve Free 65+ 2021-02-21 00:00:00 Completed [facility] Influenza Virus Vaccine,quad Im,preserve Free 65+ 2021-02-21 00:00:00 Completed [facility] Influenza Virus Vaccine,quad Im,preserve Free 65+ 2021-02-21 00:00:00 Completed [facility] Influenza Virus Vaccine,quad Im,preserve Free 65+ 2021-02-21 00:00:00 Completed [facility] Influenza Virus Vaccine,quad Im,preserve Free 65+ 2021-02-21 00:00:00 Completed [facility] Influenza Virus Vaccine,quad Im,preserve Free 65+ 2021-02-21 00:00:00 Completed [facility] Influenza Virus Vaccine,quad Im,preserve Free 65+ 2021-02-21 00:00:00 Completed [facility] Influenza Virus Vaccine,quad Im,preserve Free 65+ 2021-02-21 00:00:00 Completed [facility] Influenza Virus Vaccine,quad Im,preserve Free 65+ 2021-02-21 00:00:00 Completed [facility] Influenza Virus Vaccine,quad Im,preserve Free 65+ 2021-02-21 00:00:00 Completed [facility] Influenza Virus Vaccine,quad Im,preserve Free 65+ 2021-02-21 00:00:00 Completed [facility] Influenza Virus Vaccine,quad Im,preserve Free 65+ (FLUAD) 2021-02-21 00:00:00 Completed [facility] Influenza Virus Vaccine,quad Im,preserve Free 65+ (FLUAD) 2021-02-21 00:00:00 Completed [facility] Influenza Virus Vaccine,quad Im,preserve Free 65+ (FLUAD) 2021-02-21 00:00:00 Completed [facility] Influenza Virus Vaccine,quad Im,preserve Free 65+ (FLUAD) 2021-02-21 00:00:00 Completed [facility] Influenza Virus Vaccine,quad Im,preserve Free 65+ (FLUAD) 2021-02-21 00:00:00 Completed [facility] Influenza Virus Vaccine,quad Im,preserve Free 65+ (FLUAD) 2021-02-21 00:00:00 Completed [facility] Influenza Virus Vaccine,quad Im,preserve Free 65+ (FLUAD) 2021-02-21 00:00:00 Completed [facility] Influenza Virus Vaccine,quad Im,preserve Free 65+ (FLUAD) 2021-02-21 00:00:00 Completed [facility] Influenza Virus Vaccine,quad Im,preserve Free 65+ (FLUAD) 2021-02-21 00:00:00 Completed [facility] Influenza Virus Vaccine,quad Im,preserve Free 65+ (FLUAD) 2021-02-21 00:00:00 Completed [facility] SARS-COV-2 COVID-19 MODERNA 12+ YRS VACCINE 2020-07-02 00:00:00 Completed [facility] SARS-COV-2 COVID-19 MODERNA 12+ YRS VACCINE 2020-07-02 00:00:00 Completed [facility] SARS-COV-2 COVID-19 MODERNA 12+ YRS VACCINE 2020-07-02 00:00:00 Completed [facility] SARS-COV-2 COVID-19 MODERNA 12+ YRS VACCINE 2020-07-02 00:00:00 Completed [facility] SARS-COV-2 COVID-19 MODERNA 12+ YRS VACCINE 2020-07-02 00:00:00 Completed [facility] SARS-COV-2 COVID-19 MODERNA 12+ YRS VACCINE 2020-07-02 00:00:00 Completed [facility] SARS-COV-2 COVID-19 MODERNA 12+ YRS VACCINE 2020-07-02 00:00:00 Completed [facility] SARS-COV-2 COVID-19 MODERNA 12+ YRS VACCINE 2020-07-02 00:00:00 Completed [facility] SARS-COV-2 COVID-19 MODERNA 12+ YRS VACCINE 2020-07-02 00:00:00 Completed [facility] SARS-COV-2 COVID-19 MODERNA 12+ YRS VACCINE 2020-07-02 00:00:00 Completed [facility] SARS-COV-2 COVID-19 MODERNA 12+ YRS VACCINE 2020-07-02 00:00:00 Completed [facility] SARS-COV-2 COVID-19 MODERNA 12+ YRS VACCINE 2020-07-02 00:00:00 Completed [facility] SARS-COV-2 COVID-19 MODERNA 12+ YRS VACCINE 2020-07-02 00:00:00 Completed [facility] SARS-COV-2 COVID-19 MODERNA 12+ YRS VACCINE 2020-07-02 00:00:00 Completed [facility] SARS-COV-2 COVID-19 MODERNA 12+ YRS VACCINE 2020-07-02 00:00:00 Completed [facility] SARS-COV-2 COVID-19 MODERNA 12+ YRS VACCINE 2020-07-02 00:00:00 Completed [facility] SARS-COV-2 COVID-19 MODERNA 12+ YRS VACCINE 2020-07-02 00:00:00 Completed [facility] SARS-COV-2 COVID-19 MODERNA 12+ YRS VACCINE 2020-07-02 00:00:00 Completed [facility] SARS-COV-2 COVID-19 MODERNA 12+ YRS VACCINE 2020-07-02 00:00:00 Completed [facility] SARS-COV-2 COVID-19 MODERNA 12+ YRS VACCINE 2020-07-02 00:00:00 Completed [facility] SARS-COV-2 COVID-19 MODERNA 12+ YRS VACCINE 2020-07-02 00:00:00 Completed [facility] SARS-COV-2 COVID-19 MODERNA 12+ YRS VACCINE 2020-07-02 00:00:00 Completed [facility] SARS-COV-2 COVID-19 MODERNA 12+ YRS VACCINE 2020-07-02 00:00:00 Completed [facility] SARS-COV-2 COVID-19 MODERNA 12+ YRS VACCINE 2020-07-02 00:00:00 Completed [facility] SARS-COV-2 COVID-19 MODERNA 12+ YRS VACCINE 2020-07-02 00:00:00 Completed [facility] SARS-COV-2 COVID-19 MODERNA 12+ YRS VACCINE 2020-07-02 00:00:00 Completed [facility] SARS-COV-2 COVID-19 MODERNA 12+ YRS VACCINE 2020-07-02 00:00:00 Completed [facility] SARS-COV-2 COVID-19 MODERNA 12+ YRS VACCINE 2020-07-02 00:00:00 Completed [facility] SARS-COV-2 COVID-19 MODERNA 12+ YRS VACCINE 2020-07-02 00:00:00 Completed [facility] SARS-COV-2 COVID-19 MODERNA 12+ YRS VACCINE 2020-07-02 00:00:00 Completed [facility] SARS-COV-2 COVID-19 MODERNA 12+ YRS VACCINE 2020-07-02 00:00:00 Completed [facility] SARS-COV-2 COVID-19 MODERNA 12+ YRS VACCINE 2020-07-02 00:00:00 Completed [facility] SARS-COV-2 COVID-19 MODERNA 12+ YRS VACCINE 2020-07-02 00:00:00 Completed [facility] SARS-COV-2 COVID-19 MODERNA 12+ YRS VACCINE 2020-07-02 00:00:00 Completed [facility] SARS-COV-2 COVID-19 MODERNA 12+ YRS VACCINE 2020-07-02 00:00:00 Completed [facility] SARS-COV-2 COVID-19 MODERNA 12+ YRS VACCINE 2020-07-02 00:00:00 Completed [facility] SARS-COV-2 COVID-19 MODERNA 12+ YRS VACCINE 2020-07-02 00:00:00 Completed [facility] SARS-COV-2 COVID-19 MODERNA 12+ YRS VACCINE 2020-07-02 00:00:00 Completed [facility] SARS-COV-2 COVID-19 MODERNA 12+ YRS VACCINE 2020-07-02 00:00:00 Completed [facility] SARS-COV-2 COVID-19 MODERNA 12+ YRS VACCINE 2020-07-02 00:00:00 Completed [facility] SARS-COV-2 COVID-19 MODERNA 12+ YRS VACCINE 2020-07-02 00:00:00 Completed [facility] SARS-COV-2 COVID-19 MODERNA 12+ YRS VACCINE 2020-07-02 00:00:00 Completed [facility] SARS-COV-2 COVID-19 MODERNA 12+ YRS VACCINE 2020-07-02 00:00:00 Completed [facility] SARS-COV-2 COVID-19 MODERNA 12+ YRS VACCINE 2020-07-02 00:00:00 Completed [facility] SARS-COV-2 COVID-19 MODERNA 12+ YRS VACCINE 2020-07-02 00:00:00 Completed [facility] SARS-COV-2 COVID-19 MODERNA 12+ YRS VACCINE 2020-07-02 00:00:00 Completed [facility] SARS-COV-2 COVID-19 MODERNA 12+ YRS VACCINE 2020-07-02 00:00:00 Completed [facility] SARS-COV-2 COVID-19 MODERNA 12+ YRS VACCINE 2020-07-02 00:00:00 Completed [facility] SARS-COV-2 COVID-19 MODERNA 12+ YRS VACCINE 2020-07-02 00:00:00 Completed [facility] SARS-COV-2 COVID-19 MODERNA 12+ YRS VACCINE 2020-07-02 00:00:00 Completed [facility] SARS-COV-2 COVID-19 MODERNA 12+ YRS VACCINE 2020-07-02 00:00:00 Completed [facility] SARS-COV-2 COVID-19 MODERNA 12+ YRS VACCINE 2020-07-02 00:00:00 Completed [facility] SARS-COV-2 COVID-19 MODERNA 12+ YRS VACCINE 2020-07-02 00:00:00 Completed [facility] SARS-COV-2 COVID-19 MODERNA 12+ YRS VACCINE 2020-07-02 00:00:00 Completed SARS-COV-2 COVID-19 MODERNA 12+ YRS VACCINE 2020-07-02 00:00:00 Completed SARS-COV-2 COVID-19 MODERNA 12+ YRS VACCINE 2020-07-02 00:00:00 Completed SARS-COV-2 COVID-19 MODERNA 12+ YRS VACCINE 2020-07-02 00:00:00 Completed SARS-COV-2 COVID-19 MODERNA 12+ YRS VACCINE 2020-07-02 00:00:00 Completed SARS-COV-2 COVID-19 MODERNA 12+ YRS VACCINE 2020-07-02 00:00:00 Completed SARS-COV-2 COVID-19 MODERNA 12+ YRS VACCINE 2020-06-05 00:00:00 Completed [facility] SARS-COV-2 COVID-19 MODERNA 12+ YRS VACCINE 2020-06-05 00:00:00 Completed [facility] SARS-COV-2 COVID-19 MODERNA 12+ YRS VACCINE 2020-06-05 00:00:00 Completed [facility] SARS-COV-2 COVID-19 MODERNA 12+ YRS VACCINE 2020-06-05 00:00:00 Completed [facility] SARS-COV-2 COVID-19 MODERNA 12+ YRS VACCINE 2020-06-05 00:00:00 Completed [facility] SARS-COV-2 COVID-19 MODERNA 12+ YRS VACCINE 2020-06-05 00:00:00 Completed [facility] SARS-COV-2 COVID-19 MODERNA 12+ YRS VACCINE 2020-06-05 00:00:00 Completed [facility] SARS-COV-2 COVID-19 MODERNA 12+ YRS VACCINE 2020-06-05 00:00:00 Completed [facility] SARS-COV-2 COVID-19 MODERNA 12+ YRS VACCINE 2020-06-05 00:00:00 Completed [facility] SARS-COV-2 COVID-19 MODERNA 12+ YRS VACCINE 2020-06-05 00:00:00 Completed [facility] SARS-COV-2 COVID-19 MODERNA 12+ YRS VACCINE 2020-06-05 00:00:00 Completed [facility] SARS-COV-2 COVID-19 MODERNA 12+ YRS VACCINE 2020-06-05 00:00:00 Completed [facility] SARS-COV-2 COVID-19 MODERNA 12+ YRS VACCINE 2020-06-05 00:00:00 Completed [facility] SARS-COV-2 COVID-19 MODERNA 12+ YRS VACCINE 2020-06-05 00:00:00 Completed [facility] SARS-COV-2 COVID-19 MODERNA 12+ YRS VACCINE 2020-06-05 00:00:00 Completed [facility] SARS-COV-2 COVID-19 MODERNA 12+ YRS VACCINE 2020-06-05 00:00:00 Completed [facility] SARS-COV-2 COVID-19 MODERNA 12+ YRS VACCINE 2020-06-05 00:00:00 Completed [facility] SARS-COV-2 COVID-19 MODERNA 12+ YRS VACCINE 2020-06-05 00:00:00 Completed [facility] SARS-COV-2 COVID-19 MODERNA 12+ YRS VACCINE 2020-06-05 00:00:00 Completed [facility] SARS-COV-2 COVID-19 MODERNA 12+ YRS VACCINE 2020-06-05 00:00:00 Completed [facility] SARS-COV-2 COVID-19 MODERNA 12+ YRS VACCINE 2020-06-05 00:00:00 Completed [facility] SARS-COV-2 COVID-19 MODERNA 12+ YRS VACCINE 2020-06-05 00:00:00 Completed [facility] SARS-COV-2 COVID-19 MODERNA 12+ YRS VACCINE 2020-06-05 00:00:00 Completed [facility] SARS-COV-2 COVID-19 MODERNA 12+ YRS VACCINE 2020-06-05 00:00:00 Completed [facility] SARS-COV-2 COVID-19 MODERNA 12+ YRS VACCINE 2020-06-05 00:00:00 Completed [facility] SARS-COV-2 COVID-19 MODERNA 12+ YRS VACCINE 2020-06-05 00:00:00 Completed [facility] SARS-COV-2 COVID-19 MODERNA 12+ YRS VACCINE 2020-06-05 00:00:00 Completed [facility] SARS-COV-2 COVID-19 MODERNA 12+ YRS VACCINE 2020-06-05 00:00:00 Completed [facility] SARS-COV-2 COVID-19 MODERNA 12+ YRS VACCINE 2020-06-05 00:00:00 Completed [facility] SARS-COV-2 COVID-19 MODERNA 12+ YRS VACCINE 2020-06-05 00:00:00 Completed [facility] SARS-COV-2 COVID-19 MODERNA 12+ YRS VACCINE 2020-06-05 00:00:00 Completed [facility] SARS-COV-2 COVID-19 MODERNA 12+ YRS VACCINE 2020-06-05 00:00:00 Completed [facility] SARS-COV-2 COVID-19 MODERNA 12+ YRS VACCINE 2020-06-05 00:00:00 Completed [facility] SARS-COV-2 COVID-19 MODERNA 12+ YRS VACCINE 2020-06-05 00:00:00 Completed [facility] SARS-COV-2 COVID-19 MODERNA 12+ YRS VACCINE 2020-06-05 00:00:00 Completed [facility] SARS-COV-2 COVID-19 MODERNA 12+ YRS VACCINE 2020-06-05 00:00:00 Completed [facility] SARS-COV-2 COVID-19 MODERNA 12+ YRS VACCINE 2020-06-05 00:00:00 Completed [facility] SARS-COV-2 COVID-19 MODERNA 12+ YRS VACCINE 2020-06-05 00:00:00 Completed [facility] SARS-COV-2 COVID-19 MODERNA 12+ YRS VACCINE 2020-06-05 00:00:00 Completed [facility] SARS-COV-2 COVID-19 MODERNA 12+ YRS VACCINE 2020-06-05 00:00:00 Completed [facility] SARS-COV-2 COVID-19 MODERNA 12+ YRS VACCINE 2020-06-05 00:00:00 Completed [facility] SARS-COV-2 COVID-19 MODERNA 12+ YRS VACCINE 2020-06-05 00:00:00 Completed [facility] SARS-COV-2 COVID-19 MODERNA 12+ YRS VACCINE 2020-06-05 00:00:00 Completed [facility] SARS-COV-2 COVID-19 MODERNA 12+ YRS VACCINE 2020-06-05 00:00:00 Completed [facility] SARS-COV-2 COVID-19 MODERNA 12+ YRS VACCINE 2020-06-05 00:00:00 Completed [facility] SARS-COV-2 COVID-19 MODERNA 12+ YRS VACCINE 2020-06-05 00:00:00 Completed [facility] SARS-COV-2 COVID-19 MODERNA 12+ YRS VACCINE 2020-06-05 00:00:00 Completed [facility] SARS-COV-2 COVID-19 MODERNA 12+ YRS VACCINE 2020-06-05 00:00:00 Completed [facility] SARS-COV-2 COVID-19 MODERNA 12+ YRS VACCINE 2020-06-05 00:00:00 Completed [facility] SARS-COV-2 COVID-19 MODERNA 12+ YRS VACCINE 2020-06-05 00:00:00 Completed [facility] SARS-COV-2 COVID-19 MODERNA 12+ YRS VACCINE 2020-06-05 00:00:00 Completed [facility] SARS-COV-2 COVID-19 MODERNA 12+ YRS VACCINE 2020-06-05 00:00:00 Completed [facility] SARS-COV-2 COVID-19 MODERNA 12+ YRS VACCINE 2020-06-05 00:00:00 Completed [facility] SARS-COV-2 COVID-19 MODERNA 12+ YRS VACCINE 2020-06-05 00:00:00 Completed [facility] SARS-COV-2 COVID-19 MODERNA 12+ YRS VACCINE 2020-06-05 00:00:00 Completed [facility] SARS-COV-2 COVID-19 MODERNA 12+ YRS VACCINE 2020-06-05 00:00:00 Completed [facility] SARS-COV-2 COVID-19 MODERNA 12+ YRS VACCINE 2020-06-05 00:00:00 Completed [facility] SARS-COV-2 COVID-19 MODERNA 12+ YRS VACCINE 2020-06-05 00:00:00 Completed [facility] SARS-COV-2 COVID-19 MODERNA 12+ YRS VACCINE 2020-06-05 00:00:00 Completed [facility] Influenza Virus Vaccine,quad Im,preserve Free 65+ (FLUAD) Unknown Completed [facility] SARS-COV-2 COVID-19 MODERNA 12+ YRS VACCINE Unknown Completed [facility] SARS-COV-2 COVID-19 MODERNA 0.5ML BOOSTER VACCINE Unknown Completed [facility] SARS-COV-2 COVID-19 VACCINE 12 YRS+, BIVALENT 0.5ML, IM, (MODERNA-BLUE TOP) Unknown Completed [facility] Influenza Virus Vaccine,quad Im,preserve Free 65+ (FLUAD) Unknown Completed [facility] SARS-COV-2 COVID-19 MODERNA 12+ YRS VACCINE Unknown Completed [facility] SARS-COV-2 COVID-19 MODERNA 0.5ML BOOSTER VACCINE Unknown Completed [facility] Influenza Virus Vaccine,quad Im,preserve Free 65+ (FLUAD) Unknown Completed [facility] SARS-COV-2 COVID-19 MODERNA 12+ YRS VACCINE Unknown Completed [facility] SARS-COV-2 COVID-19 MODERNA 0.5ML BOOSTER VACCINE Unknown Completed [facility] Influenza Virus Vaccine,quad Im,preserve Free 65+ (FLUAD) Unknown Completed [facility] SARS-COV-2 COVID-19 MODERNA 12+ YRS VACCINE Unknown Completed [facility] SARS-COV-2 COVID-19 MODERNA 0.5ML BOOSTER VACCINE Unknown Completed [facility] Influenza Virus Vaccine,quad Im,preserve Free 65+ (FLUAD) Unknown Completed [facility] SARS-COV-2 COVID-19 MODERNA 12+ YRS VACCINE Unknown Completed [facility] SARS-COV-2 COVID-19 MODERNA 0.5ML BOOSTER VACCINE Unknown Completed [facility] SARS-COV-2 COVID-19 VACCINE 12 YRS+, BIVALENT 0.5ML, IM, (MODERNA-BLUE TOP) Unknown Completed [facility] Influenza Virus Vaccine,quad Im,preserve Free 65+ (FLUAD) Unknown Completed [facility] SARS-COV-2 COVID-19 MODERNA 12+ YRS VACCINE Unknown Completed [facility] SARS-COV-2 COVID-19 MODERNA 0.5ML BOOSTER VACCINE Unknown Completed [facility] SARS-COV-2 COVID-19 VACCINE 12 YRS+, BIVALENT 0.5ML, IM, (MODERNA-BLUE TOP) Unknown Completed [facility] Influenza Virus Vaccine,quad Im,preserve Free 65+ (FLUAD) Unknown Completed [facility] SARS-COV-2 COVID-19 MODERNA 12+ YRS VACCINE Unknown Completed [facility] SARS-COV-2 COVID-19 MODERNA 0.5ML BOOSTER VACCINE Unknown Completed [facility] SARS-COV-2 COVID-19 VACCINE 12 YRS+, BIVALENT 0.5ML, IM, (MODERNA-BLUE TOP) Unknown Completed [facility] Influenza Virus Vaccine,quad Im,preserve Free 65+ (FLUAD) Unknown Completed [facility] SARS-COV-2 COVID-19 MODERNA 12+ YRS VACCINE Unknown Completed [facility] SARS-COV-2 COVID-19 MODERNA 0.5ML BOOSTER VACCINE Unknown Completed [facility] SARS-COV-2 COVID-19 VACCINE 12 YRS+, BIVALENT 0.5ML, IM, (MODERNA-BLUE TOP) Unknown Completed [facility] Influenza Virus Vaccine,quad Im,preserve Free 65+ (FLUAD) Unknown Completed [facility] SARS-COV-2 COVID-19 MODERNA 12+ YRS VACCINE Unknown Completed [facility] SARS-COV-2 COVID-19 MODERNA 0.5ML BOOSTER VACCINE Unknown Completed [facility] SARS-COV-2 COVID-19 VACCINE 12 YRS+, BIVALENT 0.5ML, IM, (MODERNA-BLUE TOP) Unknown Completed [facility] Influenza Virus Vaccine,quad Im,preserve Free 65+ (FLUAD) Unknown Completed [facility] SARS-COV-2 COVID-19 MODERNA 12+ YRS VACCINE Unknown Completed [facility] SARS-COV-2 COVID-19 MODERNA 0.5ML BOOSTER VACCINE Unknown Completed [facility] SARS-COV-2 COVID-19 VACCINE 12 YRS+, BIVALENT 0.5ML, IM, (MODERNA-BLUE TOP) Unknown Completed [facility] Influenza Virus Vaccine,quad Im,preserve Free 65+ (FLUAD) Unknown Completed [facility] SARS-COV-2 COVID-19 MODERNA 12+ YRS VACCINE Unknown Completed [facility] SARS-COV-2 COVID-19 MODERNA 0.5ML BOOSTER VACCINE Unknown Completed [facility] SARS-COV-2 COVID-19 VACCINE 12 YRS+, BIVALENT 0.5ML, IM, (MODERNA-BLUE TOP) Unknown Completed [facility] Influenza Virus Vaccine,quad Im,preserve Free 65+ (FLUAD) Unknown Completed [facility] SARS-COV-2 COVID-19 MODERNA 12+ YRS VACCINE Unknown Completed [facility] SARS-COV-2 COVID-19 MODERNA 0.5ML BOOSTER VACCINE Unknown Completed [facility] SARS-COV-2 COVID-19 VACCINE 12 YRS+, BIVALENT 0.5ML, IM, (MODERNA-BLUE TOP) Unknown Completed [facility] Influenza Virus Vaccine,quad Im,preserve Free 65+ (FLUAD) Unknown Completed [facility] SARS-COV-2 COVID-19 MODERNA 12+ YRS VACCINE Unknown Completed [facility] SARS-COV-2 COVID-19 MODERNA 0.5ML BOOSTER VACCINE Unknown Completed [facility] SARS-COV-2 COVID-19 VACCINE 12 YRS+, BIVALENT 0.5ML, IM, (MODERNA-BLUE TOP) Unknown Completed [facility] Influenza Virus Vaccine,quad Im,preserve Free 65+ (FLUAD) Unknown Completed [facility] SARS-COV-2 COVID-19 MODERNA 12+ YRS VACCINE Unknown Completed [place] [facility] SARS-COV-2 COVID-19 MODERNA 0.5ML BOOSTER VACCINE Unknown Completed [facility] SARS-COV-2 COVID-19 VACCINE 12 YRS+, BIVALENT 0.5ML, IM, (MODERNA-BLUE TOP) Unknown Completed [facility] SARS-COV-2 COVID-19 MODERNA 0.5ML BOOSTER VACCINE Unknown Completed [facility] SARS-COV-2 COVID-19 VACCINE 12 YRS+, BIVALENT 0.5ML, IM, (MODERNA-BLUE TOP) Unknown Completed [facility] Influenza Virus Vaccine,quad Im,preserve Free 65+ (FLUAD) Unknown Completed [facility] SARS-COV-2 COVID-19 MODERNA 12+ YRS VACCINE Unknown Completed [facility] SARS-COV-2 COVID-19 MODERNA 0.5ML BOOSTER VACCINE Unknown Completed [facility] SARS-COV-2 COVID-19 VACCINE 12 YRS+, BIVALENT 0.5ML, IM, (MODERNA-BLUE TOP) Unknown Completed [facility] Influenza Virus Vaccine,quad Im,preserve Free 65+ (FLUAD) Unknown Completed [facility] SARS-COV-2 COVID-19 MODERNA 12+ YRS VACCINE Unknown Completed [facility] Influenza Virus Vaccine,quad Im,preserve Free 65+ (FLUAD) Unknown Completed [facility] SARS-COV-2 COVID-19 MODERNA 12+ YRS VACCINE Unknown Completed [facility] SARS-COV-2 COVID-19 MODERNA 0.5ML BOOSTER VACCINE Unknown Completed [facility] SARS-COV-2 COVID-19 VACCINE 12 YRS+, BIVALENT 0.5ML, IM, (MODERNA-BLUE TOP) Unknown Completed [facility] Influenza Virus Vaccine,quad Im,preserve Free 65+ (FLUAD) Unknown Completed [facility] SARS-COV-2 COVID-19 MODERNA 12+ YRS VACCINE Unknown Completed [facility] SARS-COV-2 COVID-19 MODERNA 0.5ML BOOSTER VACCINE Unknown Completed [facility] SARS-COV-2 COVID-19 VACCINE 12 YRS+, BIVALENT 0.5ML, IM, (MODERNA-BLUE TOP) Unknown Completed [facility] SARS-COV-2 COVID-19 MODERNA 0.5ML BOOSTER VACCINE Unknown Completed [facility] SARS-COV-2 COVID-19 VACCINE 12 YRS+, BIVALENT 0.5ML, IM, (MODERNA-BLUE TOP) Unknown Completed [facility] Influenza Virus Vaccine,quad Im,preserve Free 65+ (FLUAD) Unknown Completed [facility] SARS-COV-2 COVID-19 MODERNA 12+ YRS VACCINE Unknown Completed [facility] Influenza Virus Vaccine,quad Im,preserve Free 65+ (FLUAD) Unknown Completed [facility] SARS-COV-2 COVID-19 MODERNA 12+ YRS VACCINE Unknown Completed [facility] SARS-COV-2 COVID-19 MODERNA 0.5ML BOOSTER VACCINE Unknown Completed [facility] SARS-COV-2 COVID-19 VACCINE 12 YRS+, BIVALENT 0.5ML, IM, (MODERNA-BLUE TOP) Unknown Completed [facility] Influenza Virus Vaccine,quad Im,preserve Free 65+ (FLUAD) Unknown Completed [facility] SARS-COV-2 COVID-19 MODERNA 12+ YRS VACCINE Unknown Completed [facility] SARS-COV-2 COVID-19 MODERNA 0.5ML BOOSTER VACCINE Unknown Completed [facility] SARS-COV-2 COVID-19 VACCINE 12 YRS+, BIVALENT 0.5ML, IM, (MODERNA-BLUE TOP) Unknown Completed [facility] Influenza Virus Vaccine,quad Im,preserve Free 65+ (FLUAD) Unknown Completed [facility] SARS-COV-2 COVID-19 MODERNA 12+ YRS VACCINE Unknown Completed [facility] SARS-COV-2 COVID-19 MODERNA 0.5ML BOOSTER VACCINE Unknown Completed [facility] SARS-COV-2 COVID-19 VACCINE 12 YRS+, BIVALENT 0.5ML, IM, (MODERNA-BLUE TOP) Unknown Completed [facility] Influenza Virus Vaccine,quad Im,preserve Free 65+ (FLUAD) Unknown Completed [facility] SARS-COV-2 COVID-19 MODERNA 12+ YRS VACCINE Unknown Completed [facility] SARS-COV-2 COVID-19 MODERNA 0.5ML BOOSTER VACCINE Unknown Completed [facility] SARS-COV-2 COVID-19 VACCINE 12 YRS+, BIVALENT 0.5ML, IM, (MODERNA-BLUE TOP) Unknown Completed [facility] Influenza Virus Vaccine,quad Im,preserve Free 65+ (FLUAD) Unknown Completed [facility] SARS-COV-2 COVID-19 MODERNA 12+ YRS VACCINE Unknown Completed [facility] SARS-COV-2 COVID-19 MODERNA 0.5ML BOOSTER VACCINE Unknown Completed [facility] SARS-COV-2 COVID-19 VACCINE 12 YRS+, BIVALENT 0.5ML, IM, (MODERNA-BLUE TOP) Unknown Completed [facility] Influenza Virus Vaccine,quad Im,preserve Free 65+ (FLUAD) Unknown Completed [facility] SARS-COV-2 COVID-19 MODERNA 12+ YRS VACCINE Unknown Completed [facility] SARS-COV-2 COVID-19 MODERNA 0.5ML BOOSTER VACCINE Unknown Completed [facility] SARS-COV-2 COVID-19 VACCINE 12 YRS+, BIVALENT 0.5ML, IM, (MODERNA-BLUE TOP) Unknown Completed [facility] Influenza Virus Vaccine,quad Im,preserve Free 65+ (FLUAD) Unknown Completed [facility] SARS-COV-2 COVID-19 MODERNA 12+ YRS VACCINE Unknown Completed [facility] SARS-COV-2 COVID-19 MODERNA 0.5ML BOOSTER VACCINE Unknown Completed [facility] SARS-COV-2 COVID-19 VACCINE 12 YRS+, BIVALENT 0.5ML, IM, (MODERNA-BLUE TOP) Unknown Completed [facility] Influenza Virus Vaccine,quad Im,preserve Free 65+ (FLUAD) Unknown Completed [facility] SARS-COV-2 COVID-19 MODERNA 12+ YRS VACCINE Unknown Completed [facility] SARS-COV-2 COVID-19 MODERNA 0.5ML BOOSTER VACCINE Unknown Completed [facility] SARS-COV-2 COVID-19 VACCINE 12 YRS+, BIVALENT 0.5ML, IM, (MODERNA-BLUE TOP) Unknown Completed [facility] Influenza Virus Vaccine,quad Im,preserve Free 65+ (FLUAD) Unknown Completed [facility] SARS-COV-2 COVID-19 MODERNA 12+ YRS VACCINE Unknown Completed [facility] SARS-COV-2 COVID-19 MODERNA 0.5ML BOOSTER VACCINE Unknown Completed [facility] SARS-COV-2 COVID-19 VACCINE 12 YRS+, BIVALENT 0.5ML, IM, (MODERNA-BLUE TOP) Unknown Completed [facility] Influenza, High-Dose, Trivalent, PF (FLUZONE) Unknown Completed [facility] Influenza Virus Vaccine,quad Im,preserve Free 65+ (FLUAD) Unknown Completed [facility] SARS-COV-2 COVID-19 MODERNA 12+ YRS VACCINE Unknown Completed [facility] SARS-COV-2 COVID-19 MODERNA 0.5ML BOOSTER VACCINE Unknown Completed [facility] SARS-COV-2 COVID-19 VACCINE 12 YRS+, BIVALENT 0.5ML, IM, (MODERNA-BLUE TOP) Unknown Completed [facility] Influenza, High-Dose, Trivalent, PF (FLUZONE) Unknown Completed [facility] Vital Signs Vital Name Observation Time Observation Value Comments S medina Systolic blood pressure 2025-01-21 16:34:00 162 mm[Hg] [facility] Diastolic blood pressure 2025-01-21 16:34:00 82 mm[Hg] [facility] Heart rate 2025-01-21 16:31:00 73 /min [facility] Body temperature 2025-01-21 16:31:00 36.39 Vanesa [facility] Body weight 2025-01-21 16:31:00 53.978 kg [facility] BMI 2025-01-21 16:31:00 19.80 kg/m2 [facility] Systolic blood pressure 2024-12-24 20:13:00 119 mm[Hg] [facility] Diastolic blood pressure 2024-12-24 20:13:00 71 mm[Hg] [facility] Heart rate 2024-12-24 20:13:00 81 /min [facility] Body temperature 2024-12-24 20:13:00 36.56 Vanesa [facility] Respiratory rate 2024-12-24 20:13:00 20 /min [facility] Oxygen saturation in Arterial blood by Pulse oximetry 2024-12-24 20:13:00 100 /min [facility] Body height 2024-12-23 10:14:00 165.1 cm [facility] Body weight 2024-12-23 10:14:00 51.5 kg [facility] BMI 2024-12-23 10:14:00 18.89 kg/m2 [facility] Systolic blood pressure 2024-12-22 19:31:00 162 mm[Hg] [facility] Diastolic blood pressure 2024-12-22 19:31:00 88 mm[Hg] [facility] Heart rate 2024-12-22 19:30:00 89 /min [facility] Body temperature 2024-12-22 19:30:00 36.61 Vanesa [facility] Body weight 2024-12-22 19:30:00 53.524 kg [facility] BMI 2024-12-22 19:30:00 19.64 kg/m2 [facility] Systolic blood pressure 2024-12-17 15:32:00 124 mm[Hg] [facility] Diastolic blood pressure 2024-12-17 15:32:00 78 mm[Hg] [facility] Heart rate 2024-12-17 15:32:00 69 /min [facility] Body temperature 2024-12-17 15:31:00 36.83 Vanesa [facility] Respiratory rate 2024-12-17 15:31:00 18 /min [facility] Body height 2024-12-17 15:31:00 165.1 cm [facility] Body weight 2024-12-17 15:31:00 54.432 kg [facility] BMI 2024-12-17 15:31:00 19.97 kg/m2 [facility] Oxygen saturation in Arterial blood by Pulse oximetry 2024-12-17 15:31:00 97 /min [facility] Systolic blood pressure 2024-12-15 20:23:00 127 mm[Hg] [facility] Diastolic blood pressure 2024-12-15 20:23:00 66 mm[Hg] [facility] Heart rate 2024-12-15 20:23:00 73 /min [facility] Body temperature 2024-12-15 20:23:00 36.61 Vanesa [facility] Respiratory rate 2024-12-15 20:23:00 18 /min [facility] Oxygen saturation in Arterial blood by Pulse oximetry 2024-12-15 20:23:00 97 /min [facility] Body weight 2024-12-14 09:00:00 55.475 kg [facility] BMI 2024-12-14 09:00:00 20.35 kg/m2 [facility] Body height 2024-12-12 19:01:00 165.1 cm [facility] Systolic blood pressure 2024-11-19 15:21:00 133 mm[Hg] [facility] Diastolic blood pressure 2024-11-19 15:21:00 82 mm[Hg] [facility] Heart rate 2024-11-19 15:21:00 76 /min [facility] Oxygen saturation in Arterial blood by Pulse oximetry 2024-11-19 15:21:00 96 /min [facility] Respiratory rate 2024-11-19 15:20:00 14 /min [facility] Body height 2024-11-19 15:20:00 165.1 cm [facility] Body weight 2024-11-19 15:20:00 54.658 kg [facility] BMI 2024-11-19 15:20:00 20.05 kg/m2 [facility] Systolic blood pressure 2024-10-20 16:08:00 147 mm[Hg] [facility] Diastolic blood pressure 2024-10-20 16:08:00 80 mm[Hg] [facility] Heart rate 2024-10-20 16:08:00 80 /min [facility] Body temperature 2024-10-20 16:08:00 36.83 Vanesa [facility] Body weight 2024-10-20 16:08:00 53.071 kg [facility] BMI 2024-10-20 16:08:00 19.47 kg/m2 [facility] Systolic blood pressure 2024-10-18 18:27:00 150 mm[Hg] [facility] Diastolic blood pressure 2024-10-18 18:27:00 94 mm[Hg] [facility] Heart rate 2024-10-18 18:25:00 78 /min [facility] Body temperature 2024-10-18 18:25:00 36.17 Vanesa [facility] Respiratory rate 2024-10-18 18:25:00 19 /min [facility] Body height 2024-10-18 18:25:00 165.1 cm [facility] Body weight 2024-10-18 18:25:00 53.434 kg [facility] BMI 2024-10-18 18:25:00 19.60 kg/m2 [facility] Oxygen saturation in Arterial blood by Pulse oximetry 2024-10-18 18:25:00 97 /min [facility] Systolic blood pressure 2024-10-15 15:01:00 129 mm[Hg] [facility] Diastolic blood pressure 2024-10-15 15:01:00 83 mm[Hg] [facility] Heart rate 2024-10-15 15:01:00 75 /min [facility] Oxygen saturation in Arterial blood by Pulse oximetry 2024-10-15 15:01:00 97 /min [facility] Body temperature 2024-10-15 14:59:00 37 Vanesa [facility] Respiratory rate 2024-10-15 14:59:00 18 /min [facility] Body height 2024-10-15 14:59:00 165.1 cm [facility] Body weight 2024-10-15 14:59:00 53.524 kg [facility] BMI 2024-10-15 14:59:00 19.64 kg/m2 [facility] Systolic blood pressure 2024-09-03 21:13:00 132 mm[Hg] [facility] Diastolic blood pressure 2024-09-03 21:13:00 85 mm[Hg] [facility] Heart rate 2024-09-03 21:05:00 84 /min [facility] Body temperature 2024-09-03 21:05:00 36.83 Vanesa [facility] Respiratory rate 2024-09-03 21:05:00 18 /min [facility] Body height 2024-09-03 21:05:00 165.1 cm [facility] Body weight 2024-09-03 21:05:00 52.663 kg [facility] BMI 2024-09-03 21:05:00 19.32 kg/m2 [facility] Oxygen saturation in Arterial blood by Pulse oximetry 2024-09-03 21:05:00 97 /min [facility] Systolic blood pressure 2024-07-22 16:15:00 152 mm[Hg] pt reports that she took HBP med today [facility] Diastolic blood pressure 2024-07-22 16:15:00 81 mm[Hg] pt reports that she took HBP med today [facility] Heart rate 2024-07-22 16:14:00 68 /min [facility] Body temperature 2024-07-22 16:14:00 36.56 Vanesa [facility] Body height 2024-07-22 16:14:00 165.1 cm [facility] Body weight 2024-07-22 16:14:00 52.527 kg [facility] BMI 2024-07-22 16:14:00 19.27 kg/m2 [facility] Oxygen saturation in Arterial blood by Pulse oximetry 2024-07-22 16:14:00 99 /min [facility] Systolic blood pressure 2024-06-11 16:13:00 118 mm[Hg] [facility] Diastolic blood pressure 2024-06-11 16:13:00 72 mm[Hg] [facility] Heart rate 2024-06-11 16:13:00 81 /min [facility] Body temperature 2024-06-11 16:13:00 36.33 Vanesa [facility] Respiratory rate 2024-06-11 16:13:00 16 /min [facility] Body height 2024-06-11 16:13:00 165.1 cm [facility] Oxygen saturation in Arterial blood by Pulse oximetry 2024-06-11 16:13:00 98 /min [facility] Body weight 2024-06-11 16:04:00 51.438 kg [facility] BMI 2024-06-11 16:04:00 18.87 kg/m2 [facility] Systolic blood pressure 2024-06-04 19:41:00 150 mm[Hg] [facility] Diastolic blood pressure 2024-06-04 19:41:00 80 mm[Hg] [facility] Heart rate 2024-06-04 19:41:00 87 /min [facility] Oxygen saturation in Arterial blood by Pulse oximetry 2024-06-04 19:41:00 99 /min [facility] Body temperature 2024-06-04 19:34:00 36.39 Vanesa [facility] Respiratory rate 2024-06-04 19:34:00 18 /min [facility] Body height 2024-06-04 19:34:00 160 cm [facility] Body weight 2024-06-04 19:34:00 50.803 kg [facility] BMI 2024-06-04 19:34:00 19.84 kg/m2 [facility] Systolic blood pressure 2024-06-03 20:30:00 137 mm[Hg] [facility] Diastolic blood pressure 2024-06-03 20:30:00 87 mm[Hg] [facility] Heart rate 2024-06-03 20:30:00 86 /min [facility] Respiratory rate 2024-06-03 20:30:00 14 /min [facility] Oxygen saturation in Arterial blood by Pulse oximetry 2024-06-03 20:30:00 97 /min [facility] Body height 2024-06-03 13:31:00 165.1 cm [facility] Body weight 2024-06-03 13:31:00 52.617 kg [facility] BMI 2024-06-03 13:31:00 19.30 kg/m2 [facility] Systolic blood pressure 2024-06-03 13:31:00 169 mm[Hg] [facility] Diastolic blood pressure 2024-06-03 13:31:00 65 mm[Hg] [facility] Heart rate 2024-06-03 13:31:00 89 /min [facility] Respiratory rate 2024-06-03 13:31:00 20 /min [facility] Body height 2024-06-03 13:31:00 165.1 cm [facility] Body weight 2024-06-03 13:31:00 52.617 kg [facility] BMI 2024-06-03 13:31:00 19.30 kg/m2 [facility] Oxygen saturation in Arterial blood by Pulse oximetry 2024-06-03 13:31:00 98 /min [facility] Systolic blood pressure 2024-05-21 16:10:00 112 mm[Hg] [facility] Diastolic blood pressure 2024-05-21 16:10:00 72 mm[Hg] [facility] Heart rate 2024-05-21 16:10:00 100 /min [facility] Oxygen saturation in Arterial blood by Pulse oximetry 2024-05-21 16:10:00 99 /min [facility] Respiratory rate 2024-05-21 16:04:00 18 /min [facility] Body height 2024-05-21 16:04:00 165.1 cm [facility] Body weight 2024-05-21 16:04:00 52.799 kg [facility] BMI 2024-05-21 16:04:00 19.37 kg/m2 [facility] Systolic blood pressure 2024-05-19 21:35:00 101 mm[Hg] [facility] Diastolic blood pressure 2024-05-19 21:35:00 61 mm[Hg] [facility] Heart rate 2024-05-19 21:35:00 114 /min [facility] Body temperature 2024-05-19 21:35:00 36.61 Vanesa [facility] Body weight 2024-05-19 21:35:00 52.617 kg [facility] BMI 2024-05-19 21:35:00 19.30 kg/m2 [facility] Systolic blood pressure 2024-04-21 16:56:00 113 mm[Hg] [facility] Diastolic blood pressure 2024-04-21 16:56:00 77 mm[Hg] [facility] Heart rate 2024-04-21 16:56:00 85 /min [facility] Body temperature 2024-04-21 16:56:00 36.61 Vanesa [facility] Body weight 2024-04-21 16:56:00 52.617 kg [facility] BMI 2024-04-21 16:56:00 19.30 kg/m2 [facility] Systolic blood pressure 2024-03-26 20:20:00 137 mm[Hg] [facility] Diastolic blood pressure 2024-03-26 20:20:00 86 mm[Hg] [facility] Heart rate 2024-03-26 20:20:00 124 /min [facility] Oxygen saturation in Arterial blood by Pulse oximetry 2024-03-26 20:20:00 98 /min [facility] Body temperature 2024-03-26 20:13:00 37.44 Vanesa [facility] Respiratory rate 2024-03-26 20:13:00 20 /min [facility] Body height 2024-03-26 20:13:00 165.1 cm [facility] Body weight 2024-03-26 20:13:00 52.164 kg [facility] BMI 2024-03-26 20:13:00 19.14 kg/m2 [facility] Systolic blood pressure 2024-03-14 16:18:00 127 mm[Hg] [facility] Diastolic blood pressure 2024-03-14 16:18:00 68 mm[Hg] [facility] Body height 2024-03-14 16:18:00 165.1 cm [facility] Body weight 2024-03-14 16:18:00 51.846 kg [facility] BMI 2024-03-14 16:18:00 19.02 kg/m2 [facility] Systolic blood pressure 2024-02-14 15:55:00 138 mm[Hg] [facility] Diastolic blood pressure 2024-02-14 15:55:00 68 mm[Hg] [facility] Heart rate 2024-02-14 15:55:00 76 /min [facility] Respiratory rate 2024-02-14 15:55:00 14 /min [facility] Body height 2024-02-14 15:55:00 165.1 cm [facility] Body weight 2024-02-14 15:55:00 52.753 kg [facility] BMI 2024-02-14 15:55:00 19.35 kg/m2 [facility] Oxygen saturation in Arterial blood by Pulse oximetry 2024-02-14 15:55:00 97 /min [facility] Systolic blood pressure 2024-02-13 18:48:00 122 mm[Hg] [facility] Diastolic blood pressure 2024-02-13 18:48:00 64 mm[Hg] [facility] Heart rate 2024-02-13 18:48:00 75 /min [facility] Body temperature 2024-02-13 18:48:00 36.72 Vanesa [facility] Body height 2024-02-13 18:48:00 165.1 cm [facility] Body weight 2024-02-13 18:48:00 53.524 kg [facility] BMI 2024-02-13 18:48:00 19.64 kg/m2 [facility] Systolic blood pressure 2024-01-29 19:48:00 130 mm[Hg] [facility] Diastolic blood pressure 2024-01-29 19:48:00 74 mm[Hg] [facility] Heart rate 2024-01-29 19:48:00 69 /min [facility] Body temperature 2024-01-29 19:48:00 36.83 Vanesa [facility] Body weight 2024-01-29 19:48:00 53.524 kg [facility] BMI 2024-01-29 19:48:00 19.64 kg/m2 [facility] Systolic blood pressure 2023-12-04 20:34:00 127 mm[Hg] [facility] Diastolic blood pressure 2023-12-04 20:34:00 64 mm[Hg] [facility] Heart rate 2023-12-04 20:34:00 66 /min [facility] Body temperature 2023-12-04 20:34:00 36.78 Vanesa [facility] Body height 2023-12-04 20:34:00 165.1 cm [facility] Body weight 2023-12-04 20:34:00 55.339 kg [facility] BMI 2023-12-04 20:34:00 20.30 kg/m2 [facility] Systolic blood pressure 2023-11-21 15:36:00 134 mm[Hg] [facility] Diastolic blood pressure 2023-11-21 15:36:00 74 mm[Hg] [facility] Heart rate 2023-11-21 15:36:00 71 /min [facility] Respiratory rate 2023-11-21 15:36:00 16 /min [facility] Body height 2023-11-21 15:36:00 165.1 cm [facility] Body weight 2023-11-21 15:36:00 55.339 kg [facility] BMI 2023-11-21 15:36:00 20.30 kg/m2 [facility] Oxygen saturation in Arterial blood by Pulse oximetry 2023-11-21 15:36:00 99 /min [facility] Systolic blood pressure 2023-11-07 15:44:00 138 mm[Hg] [facility] Diastolic blood pressure 2023-11-07 15:44:00 68 mm[Hg] [facility] Heart rate 2023-11-07 15:44:00 82 /min [facility] Body temperature 2023-11-07 15:44:00 36.72 Vanesa [facility] Respiratory rate 2023-11-07 15:44:00 16 /min [facility] Body height 2023-11-07 15:44:00 165.1 cm [facility] Body weight 2023-11-07 15:44:00 55.112 kg [facility] BMI 2023-11-07 15:44:00 20.22 kg/m2 [facility] Oxygen saturation in Arterial blood by Pulse oximetry 2023-11-07 15:44:00 98 /min [facility] Systolic blood pressure 2023-08-07 19:07:00 127 mm[Hg] [facility] Diastolic blood pressure 2023-08-07 19:07:00 62 mm[Hg] [facility] Heart rate 2023-08-07 19:07:00 71 /min [facility] Body temperature 2023-08-07 19:07:00 36.83 Vanesa [facility] Body height 2023-08-07 19:07:00 165.1 cm [facility] Body weight 2023-08-07 19:07:00 56.246 kg [facility] BMI 2023-08-07 19:07:00 20.63 kg/m2 [facility] Oxygen saturation in Arterial blood by Pulse oximetry 2023-08-07 19:07:00 97 /min [facility] Systolic blood pressure 2023-05-15 16:48:00 137 mm[Hg] [facility] Diastolic blood pressure 2023-05-15 16:48:00 68 mm[Hg] [facility] Heart rate 2023-05-15 16:48:00 71 /min [facility] Body height 2023-05-15 16:48:00 165.1 cm [facility] Body weight 2023-05-15 16:48:00 56.7 kg [facility] BMI 2023-05-15 16:48:00 20.80 kg/m2 [facility] Systolic blood pressure 2023-04-11 19:42:00 167 mm[Hg] [facility] Diastolic blood pressure 2023-04-11 19:42:00 66 mm[Hg] [facility] Heart rate 2023-04-11 19:36:00 76 /min [facility] Body temperature 2023-04-11 19:36:00 36.78 Vanesa [facility] Body height 2023-04-11 19:36:00 165.1 cm [facility] Body weight 2023-04-11 19:36:00 56.246 kg [facility] BMI 2023-04-11 19:36:00 20.63 kg/m2 [facility] Oxygen saturation in Arterial blood by Pulse oximetry 2023-04-11 19:36:00 97 /min [facility] Systolic blood pressure 2023-03-12 19:26:00 133 mm[Hg] [facility] Diastolic blood pressure 2023-03-12 19:26:00 58 mm[Hg] [facility] Heart rate 2023-03-12 19:26:00 69 /min [facility] Body temperature 2023-03-12 19:26:00 36.5 Vanesa [facility] Body height 2023-03-12 19:26:00 165.1 cm [facility] Body weight 2023-03-12 19:26:00 56.246 kg [facility] BMI 2023-03-12 19:26:00 20.63 kg/m2 [facility] Body height 2023-01-11 18:12:00 165.1 cm [facility] Body weight 2023-01-11 18:12:00 56.7 kg [facility] BMI 2023-01-11 18:12:00 20.80 kg/m2 [facility] Systolic blood pressure 2022-12-12 19:03:00 128 mm[Hg] [facility] Diastolic blood pressure 2022-12-12 19:03:00 69 mm[Hg] [facility] Heart rate 2022-12-12 19:03:00 79 /min [facility] Body temperature 2022-12-12 19:03:00 37.17 Vanesa [facility] Body weight 2022-12-12 19:03:00 56.7 kg [facility] BMI 2022-12-12 19:03:00 20.80 kg/m2 [facility] Systolic blood pressure 2022-08-22 15:21:00 134 mm[Hg] [facility] Diastolic blood pressure 2022-08-22 15:21:00 72 mm[Hg] [facility] Heart rate 2022-08-22 15:20:00 69 /min [facility] Body height 2022-08-22 15:20:00 165.1 cm [facility] Body weight 2022-08-22 15:20:00 55.203 kg [facility] BMI 2022-08-22 15:20:00 20.25 kg/m2 [facility] Oxygen saturation in Arterial blood by Pulse oximetry 2022-08-22 15:20:00 100 /min [facility] Body height 2022-06-28 20:33:00 165.1 cm [facility] Body weight 2022-06-28 20:33:00 55.792 kg [facility] BMI 2022-06-28 20:33:00 20.47 kg/m2 [facility] Body height 2022-06-21 20:28:00 165.1 cm [facility] Body weight 2022-06-21 20:28:00 55.792 kg [facility] BMI 2022-06-21 20:28:00 20.47 kg/m2 [facility] Body height 2022-06-14 20:34:00 165.1 cm [facility] Body weight 2022-06-14 20:34:00 55.792 kg [facility] BMI 2022-06-14 20:34:00 20.47 kg/m2 [facility] Body height 2022-05-11 19:07:00 165.1 cm [facility] Body weight 2022-05-11 19:07:00 55.792 kg [facility] BMI 2022-05-11 19:07:00 20.47 kg/m2 [facility] Systolic blood pressure 2022-04-10 20:33:00 135 mm[Hg] [facility] Diastolic blood pressure 2022-04-10 20:33:00 69 mm[Hg] [facility] Heart rate 2022-04-10 20:33:00 65 /min [facility] Body temperature 2022-04-10 20:33:00 37.22 Vanesa [facility] Body height 2022-04-10 20:33:00 165.1 cm [facility] Body weight 2022-04-10 20:33:00 55.792 kg [facility] BMI 2022-04-10 20:33:00 20.47 kg/m2 [facility] Oxygen saturation in Arterial blood by Pulse oximetry 2022-04-10 20:33:00 97 /min [facility] Systolic blood pressure 2022-03-16 17:10:00 150 mm[Hg] [facility] Diastolic blood pressure 2022-03-16 17:10:00 65 mm[Hg] [facility] Heart rate 2022-03-16 17:10:00 61 /min [facility] Respiratory rate 2022-03-16 17:10:00 12 /min [facility] Oxygen saturation in Arterial blood by Pulse oximetry 2022-03-16 17:10:00 98 /min [facility] Body temperature 2022-03-16 16:55:00 36.5 Vanesa [facility] Body height 2022-03-06 14:28:00 157.5 cm [facility] Body weight 2022-03-06 14:28:00 54.9 kg [facility] BMI 2022-03-06 14:28:00 22.13 kg/m2 [facility] Systolic blood pressure 2022-03-16 17:00:00 155 mm[Hg] [facility] Diastolic blood pressure 2022-03-16 17:00:00 56 mm[Hg] [facility] Heart rate 2022-03-16 17:00:00 61 /min [facility] Respiratory rate 2022-03-16 17:00:00 14 /min [facility] Oxygen saturation in Arterial blood by Pulse oximetry 2022-03-16 17:00:00 98 /min [facility] Body temperature 2022-03-16 16:55:00 36.5 Vanesa [facility] Body height 2022-03-06 14:28:00 157.5 cm [facility] Body weight 2022-03-06 14:28:00 54.9 kg [facility] BMI 2022-03-06 14:28:00 22.13 kg/m2 [facility] Systolic blood pressure 2022-02-13 18:00:00 146 mm[Hg] [facility] Diastolic blood pressure 2022-02-13 18:00:00 74 mm[Hg] [facility] Heart rate 2022-02-13 17:59:00 62 /min [facility] Body height 2022-02-13 17:59:00 157.5 cm [facility] Body weight 2022-02-13 17:59:00 54.885 kg [facility] BMI 2022-02-13 17:59:00 22.13 kg/m2 [facility] Systolic blood pressure 2022-01-26 14:54:00 170 mm[Hg] [facility] Diastolic blood pressure 2022-01-26 14:54:00 77 mm[Hg] [facility] Heart rate 2022-01-26 14:54:00 58 /min [facility] Oxygen saturation in Arterial blood by Pulse oximetry 2022-01-26 14:54:00 99 /min [facility] Body temperature 2022-01-26 14:41:00 36.33 Vanesa [facility] Respiratory rate 2022-01-26 12:45:00 24 /min [facility] Body height 2022-01-13 12:58:00 165.1 cm [facility] Body weight 2022-01-13 12:58:00 55.8 kg [facility] BMI 2022-01-13 12:58:00 20.47 kg/m2 [facility] Systolic blood pressure 2022-01-26 14:44:00 163 mm[Hg] [facility] Diastolic blood pressure 2022-01-26 14:44:00 74 mm[Hg] [facility] Heart rate 2022-01-26 14:44:00 59 /min [facility] Oxygen saturation in Arterial blood by Pulse oximetry 2022-01-26 14:44:00 98 /min [facility] Body temperature 2022-01-26 14:41:00 36.33 Vanesa [facility] Respiratory rate 2022-01-26 12:45:00 24 /min [facility] Body height 2022-01-13 12:58:00 165.1 cm [facility] Body weight 2022-01-13 12:58:00 55.8 kg [facility] BMI 2022-01-13 12:58:00 20.47 kg/m2 [facility] Systolic blood pressure 2022-01-13 15:33:00 120 mm[Hg] [facility] Diastolic blood pressure 2022-01-13 15:33:00 58 mm[Hg] [facility] Heart rate 2022-01-13 15:33:00 56 /min [facility] Body temperature 2022-01-13 15:33:00 36.61 Vanesa [facility] Body height 2022-01-13 15:33:00 165.1 cm [facility] Body weight 2022-01-13 15:33:00 54.432 kg [facility] BMI 2022-01-13 15:33:00 19.97 kg/m2 [facility] Oxygen saturation in Arterial blood by Pulse oximetry 2022-01-13 15:33:00 97 /min [facility] Procedures Procedure Date / Time Performed Performing Clinician Source FLU VACC([id number]),65+YR,0.5 ML,IM,ADJUVANTED,TIV(FLUAD) 2025-01-21 16:42:42 Melani Niño [facility] BASIC METABOLIC PANEL (NA, K, CL, CO2, GLUCOSE, BUN, CREATININE, CA) 2024-12-24 07:28:00 Jonas Castro [facility] CBC WITHOUT DIFF 2024-12-24 07:28:00 Jonas Castro [facility] URINALYSIS 2024-12-23 03:51:00 Elziabeth Enrique [facility] HB ECG ROUTINE & RHYTHM STRIP 2024-12-23 02:55:18 Elizabeth Enrique [facility] POCT GLUCOSE (AUTOMATED) 2024-12-23 02:54:00 Elizabeth Enrique [facility] CT STROKE ANGIOGRAM HEAD 2024-12-23 02:43:20 Elizabeth Enrique [facility] CT STROKE ANGIOGRAM NECK 2024-12-23 02:43:20 Elizabeth Enrique [facility] TROPONIN I 2024-12-23 02:42:00 Elizabeth Enrique [facility] BASIC METABOLIC PANEL (NA, K, CL, CO2, GLUCOSE, BUN, CREATININE, CA) 2024-12-23 02:42:00 Elizabeth Enrique [facility] CBC WITHOUT DIFF 2024-12-23 02:42:00 Elizabeth Enrique [facility] PROTHROMBIN TIME / INR 2024-12-23 02:42:00 Elizabeth Enrique [facility] ACTIVATED PARTIAL THRMPLAS ANGELICA 2024-12-23 02:42:00 Elizabeth Enrique [facility] CT STROKE HEAD WO CONTRAST 2024-12-23 02:28:00 Elizabeth Enrique [facility] PHOSPHORUS 2024-12-15 18:28:00 Leon Ruggiero [facility] MAGNESIUM 2024-12-15 18:28:00 Leon Ruggiero [facility] BASIC METABOLIC PANEL (NA, K, CL, CO2, GLUCOSE, BUN, CREATININE, CA) 2024-12-15 18:28:00 Leon Ruggiero [facility] CBC WITH DIFF 2024-12-15 10:41:00 Leon Ruggiero [facility] PHOSPHORUS 2024-12-14 07:28:00 Jagruti Germain [facility] MAGNESIUM 2024-12-14 07:28:00 Jagruti Germain [facility] TROPONIN I 2024-12-14 07:28:00 Mayra Silverman [facility] BASIC METABOLIC PANEL (NA, K, CL, CO2, GLUCOSE, BUN, CREATININE, CA) 2024-12-14 07:28:00 Jagruti Germain [facility] LIPID PANEL ([id number])(TOTAL CHOLESTEROL, TRIGLYCERIDES, HDL) 2024-12-14 07:28:00 Audrey White Ifrah [facility] CBC WITH DIFF 2024-12-14 07:28:00 Jagruti Germain [facility] TROPONIN I 2024-12-14 01:18:00 Mayra Silverman [facility] FERRITIN SERUM 2024-12-13 21:01:00 Leon Ruggiero [facility] TROPONIN I 2024-12-13 21:01:00 Mayra Silverman [facility] FREE T4 2024-12-13 21:01:00 Brittni Camejo [facility] THYROID STIMULATING HORMONE 2024-12-13 21:01:00 Brittni Camejo [facility] IRON PANEL 2024-12-13 21:01:00 Leon Ruggiero [facility] FREE T3 2024-12-13 21:01:00 Mikel CamejoAntonio [facility] TRANSTHORACIC ECHO (TTE) COMPLETE W/ CONTRAST 2024-12-13 20:20:28 Mayra Silverman [facility] GLYCOSYLATED HEMOGLOBIN (A1C) 2024-12-13 10:18:00 Jagruti Gemrain [facility] POCT GLUCOSE (AUTOMATED) 2024-12-13 01:11:00 Louise Lopez [facility] HB ECG ROUTINE & RHYTHM STRIP 2024-12-13 01:04:13 Jagruti Germain [facility] CT ANGIOGRAM HEAD 2024-12-12 21:22:00 Louise Lopez [facility] CT ANGIOGRAM NECK 2024-12-12 21:22:00 Louise Lopez [facility] CT HEAD WO CONTRAST 2024-12-12 21:21:00 Louise Lopez [facility] XR CHEST 1 VW 2024-12-12 19:30:50 Louise Lopez [facility] MAGNESIUM 2024-12-12 19:13:00 Louise Lopez [facility] TROPONIN I 2024-12-12 19:13:00 Louise Lopez [facility] COMP. METABOLIC PANEL ([id number]) 2024-12-12 19:13:00 Louise Lopez [facility] CBC WITH DIFF 2024-12-12 19:13:00 Louise Lopez [facility] PROTHROMBIN TIME / INR 2024-12-12 19:13:00 Louise Lopez [facility] ACTIVATED PARTIAL THRMPLAS ANGELICA 2024-12-12 19:13:00 Louise Lopez [facility] URINALYSIS 2024-12-12 19:13:00 Louise Lopez [facility] N-TERMINAL PRO-BNP 2024-12-12 19:13:00 Louise Lopez [facility] HB ECG ROUTINE & RHYTHM STRIP 2024-12-12 18:56:49 Louise Lopez [facility] CATH PROCEDURE LOG 2024-06-03 15:19:24 Kash Vaughan [facility] CATH PROCEDURE LOG 2024-06-03 15:19:24 Kash Vaughan [facility] CARDIAC CATHETERIZATION 2024-06-03 14:58:18 Kash Vaughan [facility] CARDIAC CATHETERIZATION 2024-06-03 14:58:18 Kash Vaughan [facility] TRANSESOPHAGEAL ECHO (RANDOLPH) COMPLETE W/ DOPPLER AND COLOR 2024-06-03 14:19:00 Kash Vaughan [facility] HB ABO GROUPING 2024-06-03 12:55:00 Fiorella Flores [facility] HB ABO GROUPING 2024-06-03 12:55:00 Fiorella Flores [facility] PROTHROMBIN TIME / INR 2024-06-03 12:52:00 Kash Vaughan [facility] PROTHROMBIN TIME / INR 2024-06-03 12:52:00 Kash Vaughan [facility] MAGNESIUM 2024-05-29 17:40:00 Kash Vaughan [facility] BASIC METABOLIC PANEL (NA, K, CL, CO2, GLUCOSE, BUN, CREATININE, CA) 2024-05-29 17:40:00 Kash Vaughan [facility] CBC WITH DIFF 2024-05-29 17:40:00 Kash Vaughan [facility] PROTHROMBIN TIME / INR 2024-05-29 17:40:00 Kash Vaughan [facility] HB ABO GROUPING 2024-05-29 17:40:00 Kash Vaughan [facility] VENOUS REFLUX DUPLEX BILATERAL - BY VASCULAR LAB 2024-05-29 17:29:00 Shay Barrera [facility] XR ANKLE 3+ VW RIGHT 2024-05-19 22:10:45 [facility] CONJUGATE (PREVNAR 20) VACCINE 2024-04-21 17:05:10 Melani Niño [facility] HB ECG ROUTINE & RHYTHM STRIP 2024-03-26 20:26:46 Kash Vaughan [facility] TRANSTHORACIC ECHO (TTE) COMPLETE 2024-02-28 16:34:18 Shay Barrera [facility] XR CHEST 2 VW 2024-02-14 17:09:27 Shay Barrera [facility] POCT SARS-COV-2 ANTIGEN (BINAX NOW) 2023-12-04 00:00:00 Melani Niño [facility] REFERRAL- REQUEST/RESPONSE 2023-04-06 06:01:00 Doctor Unassigned, [place] [facility] FLU VACC(),65+YR,0.5 ML,IM,ADJUVANTED,QUAD(FLUAD) 2023-03-12 19:50:27 Melani Niño [facility] REFERRAL- REQUEST/RESPONSE 2023-03-09 05:01:00 Doctor Unassigned, [place] [facility] EXTERNAL PROVIDER RECORDS 2023-02-13 05:01:00 Doctor Unassigned, [place] [facility] XR KNEE 3 VW BILATERAL 2023-01-11 18:31:08 Cass Hughes [facility] PATIENT FINANCIAL POLICY 2022-08-22 14:58:08 Doctor Unassigned, [place] [facility] EXTERNAL PROVIDER RECORDS 2022-06-08 06:01:00 Doctor Unassigned, [place] [facility] PHACOEMULSIFICATION OF CATARACT WITH INTRAOCULAR LENS IMPLANT 2022-03-16 16:14:00 Lucía Early [facility] ASSIGNMENT OF BENEFITS 2022-03-14 17:58:40 Doctor Unassigned, [place] [facility] FLU VACC(),65+YR,0.5 ML,IM,ADJUVANTED,QUAD(FLUAD) 2022-02-13 18:14:06 Melani Niño [facility] SARS-COV-2 COVID-19 VACCINE 18 YRS+, BIVALENT 0.5ML, IM (MODERNA BOOSTER) 2022-02-13 18:14:06 Melani Niño [facility] VACCINATIONS - CONSENTS, ELIGIBILITY, HISTORY 2022-02-08 05:01:00 Doctor Unassigned, [place] [facility] PHACOEMULSIFICATION OF CATARACT WITH INTRAOCULAR LENS IMPLANT 2022-01-26 14:03:00 Lucía Early [facility] US ABDOMEN LIMITED 2022-01-24 18:10:00 Arielle Aviles [facility] URINE CULTURE 2022-01-13 18:37:00 Traci [facility] POCT URINALYSIS 2022-01-13 16:00:00 Traci [facility] Encounters Start Date/Time End Date/Time Encounter Type Admission Type Attending [facility] Facility Care Department Encounter ID Source 2022-01-03 15:32:37 Outpatient R LUCÍA EARLY [facility] [id number] [facility] 2021-03-04 21:12:32 Emergency [facility] [id number] [facility] 2021-03-04 16:40:04 Outpatient R CHANTALE ROMANO [facility] JACINTA [id number] [facility] 2025-02-11 10:30:00 2025-02-11 10:30:00 Outpatient R JORDI GRIFFIN HAIDER [facility] [id number] [facility] 2024-12-19 00:00:00 2025-01-24 18:32:50 Patient Secure Msg [place], Melani [facility] [id number] [facility] 2025-01-23 09:30:00 2025-01-23 10:30:00 Fixture Maker Visit R Sima, Angela Respiratory Naresh Bauer [facility] [id number] [facility] 2025-01-21 11:20:00 2025-01-21 12:39:54 Office Visit R Melani Niño [facility] 1.2840.114 350.1.13.10 4.2.7.2.686 [id number] 044 [id number] [facility] 2025-01-20 00:00:00 2025-01-21 10:02:59 Patient Secure Melani Hwang [facility] BU[facility] 1.2840.114 350.1.13.10 4.2.7.2.686 [id number] 044 [id number] [facility] 2025-01-15 00:00:00 2025-01-16 10:22:42 Telephone Melani Niño [facility] BUILD[facility] 1.2840.114 350.1.13.10 4.2.7.2.686 [id number] 044 [id number] [facility] 2025-01-13 00:00:00 2025-01-13 11:28:26 Letter (Out) [facility] ([facility] 1.2.840.114 350.1.13.10 4.2.7.2.686 [id number] 019 [id number] [facility] 2024-12-29 00:00:00 2025-01-05 14:56:35 Telephone Lore Pappas [facility] 1.0.114 350.1.13.10 4.2.7.2.686 [id number] 067 [id number] [facility] 2024-12-29 00:00:00 2024-12-30 15:47:44 Patient Secure Msg Kash Vaughan [facility] 1.0.114 350.1.13.10 4.2.7.2.686 [id number] 059 [id number] [facility] 2024-12-26 00:00:00 2024-12-26 00:00:00 Outpatient NARESH WEEKS CECIL [facility] [id number] [facility] 2024-12-25 00:00:00 2024-12-25 09:03:43 Transition of Care Coleen Spencer Maria [facility] [place] [place] 1.0.114 350.1.13.10 4.2.7.2.686 [id number] [facility] 2024-12-22 21:24:00 2024-12-24 19:35:00 Hospital Encounter X JONAS CASTRO [facility] [id number] [facility] 2024-12-22 14:30:00 2024-12-22 15:26:32 Office Visit MELANI DIALLO [facility] 1..114 350.1.13.10 4.2.7.2.686 [id number] 044 [id number] [facility] 2024-12-17 10:30:00 2024-12-17 11:07:12 Office Visit JORDI GARCIA [facility] 1..114 350.1.13.10 4.2.7.2.686 [id number] 059 [id number] [facility] 2024-12-16 00:00:00 2024-12-16 14:32:59 Transition of Care Javier Ramos Michele A [facility] 1.2840.114 350.1.13.10 4.2.7.2.686 [id number] [facility] 2024-12-12 13:50:00 2024-12-15 17:50:00 Hospital Encounter X DENEEN, NARESH DENEEN, NARESH [facility] [id number] [facility] 2024-12-12 00:00:00 2024-12-12 19:21:59 Telephone ShubhamFady [facility] ([facility]) 1.20.114 350.1.13.10 4.2.7.2.686 [id number] [id number] [facility] 2024-11-05 00:00:00 2024-12-06 18:35:43 [facility] 1.284.114 350.1.13.10 4.2.7.2.686 [id number] 059 [id number] [facility] 2024-12-01 00:00:00 2024-12-01 16:57:23 Patient Secure g Melani Niño [facility] 1.284.114 350.1.13.10 4.2.7.2.686 [id number] 044 [id number] [facility] 2024-11-19 10:00:00 2024-11-19 10:34:41 Office [facility] 1.2840.114 350.1.13.10 4.2.7.2.686 [id number] 059 [id number] [facility] 2024-11-04 00:00:00 2024-11-05 10:18:13 Patient [facility] 1.2.840.114 350.1.13.10 4.2.7.2.686 [id number] 059 [id number] [facility] 2024-11-04 00:00:00 2024-11-04 13:49:02 Melani Murray [facility] 1.284.114 350.1.13.10 4.2.7.2.686 [id number] 044 [id number] [facility] 2024-10-20 11:15:00 2024-10-20 11:30:00 Office Visit Melani Diallo [facility] MEDICAL OFFICE BUILDING 1.84.114 350.1.13.10 4.2.7.2.686 [id number] 044 [id number] [facility] 2024-10-18 13:00:00 2024-10-18 13:36:12 Nurse Visit EDUIN SARAH [facility] 1.284.114 350.1.13.10 4.2.7.2.686 [id number] [facility] 2024-10-18 13:00:00 2024-10-18 13:00:00 Outpatient Evonne CONTRERAS, ATTENDING [facility] [id number] [facility] 2024-10-17 00:00:00 2024-10-17 07:50:35 Filiberto Niño [facility] MED[facility] OFFICE BUILDING 1.2.840.114 350.1.13.10 4.2.7.2.686 [id number] 044 [id number] [facility] 2024-10-16 00:00:00 2024-10-16 13:11:55 Patient Secure [facility] 1.840114 350.1.13.10 4.2.7.2.686 [id number] 059 [id number] [facility] 2024-10-16 00:00:00 2024-10-16 11:49:15 Filiberto Hairmoniquekarli [facility] 1.84114 350.1.13.10 4.2.7.2.686 [id number] 044 [id number] [facility] 2024-10-15 10:00:00 2024-10-15 10:20:54 Office Visit JORDI GARCIA HAIDER [facility] 1.114 350.1.13.10 4.2.7.2.686 [id number] 059 [id number] [facility] 2024-09-03 16:00:00 2024-09-03 16:32:24 Outpatient R MAULIK PINZON [facility] [id number] [facility] 2024-09-03 16:00:00 2024-09-03 16:32:24 Urgent Care Maulik Pinzon, Attending [facility] 1.114 350.1.13.10 4.2.7.2.686 [id number] [facility] 2024-08-22 00:00:00 2024-08-22 12:54:16 Filiberto Niño [facility] 1.84114 350.1.13.10 4.2.7.2.686 [id number] 044 [id number] [facility] 2024-07-22 11:00:00 2024-07-22 11:46:03 Outpatient R YARA PAEZ CRAIG [facility] [id number] [facility] 2024-07-22 11:00:00 2024-07-22 11:46:03 Office Visit Yara Paez [facility] 1.84.114 350.1.13.10 4.2.7.2.686 [id number] [facility] 2024-05-30 00:00:00 2024-07-05 18:19:12 Patient Secure Msg [facility] 1.84.114 350.1.13.10 4.2.7.2.686 [id number] 059 [id number] [facility] 2024-05-27 00:00:00 2024-06-28 18:17:06 Patient Secure Msg Doctor Unassigned, [place] Doctor Unassigned, [place] [facility] ([facility]) 1.114 350.1.13.10 4.2.7.2.686 [id number] 037 [id number] [facility] 2024-06-23 00:00:00 2024-06-23 11:24:50 Melani Murray [facility] 1.84.114 350.1.13.10 4.2.7.2.686 [id number] 044 [id number] [facility] 2024-06-11 10:00:00 2024-06-11 10:32:28 Outpatient R JORDI GRIFFIN JORDI [facility] [id number] [facility] 2024-06-11 10:00:00 2024-06-11 10:32:28 Office Visit Kash Vaughan Jordi [facility] 1.2114 350.1.13.10 4.2.7.2.686 [id number] 059 [id number] [facility] 2024-06-06 00:00:00 2024-06-10 10:13:00 Patient Secure Msg Jordi Griffin [facility] 1.2.840.114 350.1.13.10 4.2.7.2.686 [id number] 059 [id number] [facility] 2024-06-04 13:30:00 2024-06-04 14:31:33 Outpatient R JORDI GRIFFIN HAIDER [facility] [id number] [facility] 2024-06-04 13:30:00 2024-06-04 14:31:33 Office Visit Jordi Griffin [facility] 1.2.840.114 350.1.13.10 4.2.7.2.686 [id number] 059 [id number] [facility] 2024-06-03 07:00:40 2024-06-03 23:59:00 Outpatient R JORDI GRIFFIN [facility] [id number] [facility] 2024-06-03 07:00:40 2024-06-03 23:59:00 Hospital Encounter Jordi Grfifin [facility] ([facility]) 1.2.840.114 350.1.13.10 4.2.7.2.686 [id number] 842 [id number] [facility] 2024-06-03 06:27:00 2024-06-03 14:45:00 Hospital Encounter Jordi Griffin [facility] ([facility]DR[facility]) 1.2.840.114 350.1.13.10 4.2.7.2.686 [id number] 840 [id number] [facility] 2024-06-03 07:10:00 2024-06-03 09:10:00 Surgery Jordi Griffin [facility] ([facility]) 1.2.840.114 350.1.13.10 4.2.7.2.686 [id number] [id number] [facility] 2024-05-29 09:58:32 2024-05-29 23:59:00 Outpatient R SHAY BARRERA [facility] [id number] [facility] 2024-05-29 09:58:32 2024-05-29 23:59:00 Hospital Encounter Shay Barrera [facility] 1.2.840.114 350.1.13.10 4.2.7.2.686 [id number] [facility] 2024-05-29 00:00:00 2024-05-29 13:22:25 [facility]phone [facility] 1.2.840.114 350.1.13.10 4.2.7.2.686 [id number] 059 [id number] [facility] 2024-05-29 10:15:00 2024-05-29 10:30:00 Fixture Maker Visit Pob, Adc Lab Main Ian Barrerayuliya Poaniket, Adc Lab Main [facility] NAL BUILDING 1.2.840.114 350.1.13.10 4.2.7.2.686 [id number] [facility] 2024-05-28 00:00:00 2024-05-29 08:22:01 [facility]phone [facility] 1.2.840.114 350.1.13.10 4.2.7.2.686 [id number] 059 [id number] [facility] 2024-05-21 00:00:00 2024-05-21 14:36:16 Telephone [facility] 1.2.840.114 350.1.13.10 4.2.7.2.686 [id number] 044 [id number] [facility] 2024-05-21 10:00:00 2024-05-21 10:20:00 Office Visit Bruce [facility] BUILDING 1.2.840.114 350.1.13.10 4.2.7.2.686 [id number] 059 [id number] [facility] 2024-05-21 10:00:00 2024-05-21 10:00:00 Outpatient R JORDI GRIFFIN HAIDER [facility] [id number] [facility] 2024-05-21 10:00:00 2024-05-21 10:00:00 [facility] [id number] 2024-05-19 15:55:34 2024-05-19 23:59:00 Hospital Encounter Renay [facility]ILD[facility] 1.2.840.114 350.1.13.10 4.2.7.2.686 [id number] 809 [id number] [facility] 2024-05-19 15:45:00 2024-05-19 16:00:00 Office Visit Renay [facility] 1.2840.114 350.1.13.10 4.2.7.2.686 [id number] 044 [id number] [facility] 2024-05-19 15:45:00 2024-05-19 15:56:17 Outpatient R RENAY [facility] [id number] [facility] 2024-05-15 00:00:00 2024-05-19 08:25:34 Patient [facility] 1.2.840.114 350.1.13.10 4.2.7.2.686 [id number] 059 [id number] [facility] 2024-03-31 00:00:00 2024-05-03 18:18:03 Patient Secure Msg Barrera [facility] NAL BUILDING 1.2.840.114 350.1.13.10 4.2.7.2.686 [id number] 059 [id number] [facility] 2024-04-21 11:00:00 2024-04-21 11:18:49 Outpatient R MELANI NIÑO [facility] [id number] [facility] 2024-04-21 11:00:00 2024-04-21 11:18:49 Office Visit Melani Niño [facility] BUILDING 1.2.840.114 350.1.13.10 4.2.7.2.686 [id number] 044 [id number] [facility] 2024-04-17 00:00:00 2024-04-17 13:48:28 Refill Renay [facility] MED[facility] OFF[facility] BUILDING 1.2.840.114 350.1.13.10 4.2.7.2.686 [id number] 044 [id number] [facility] 2024-04-14 00:00:00 2024-04-15 09:59:51 Patient Secure Msg Shay Barrera [facility] 1.2.840.114 350.1.13.10 4.2.7.2.686 [id number] 059 [id number] [facility] 2024-04-09 00:00:00 2024-04-09 11:07:44 Telephone Kash Vaughan Jordi [facility] ([facility]) 1.284.114 350.1.13.10 4.2.7.2.686 [id number] 840 [id number] [facility] 2024-03-31 00:00:00 2024-04-01 15:47:08 Patient Secure Msg Jordi Griffin [facility] 1.2840.114 350.1.13.10 4.2.7.2.686 [id number] 059 [id number] [facility] 2024-03-26 14:30:00 2024-03-26 15:26:55 Outpatient R JORDI GRIFFIN HAID[facility] [id number] [facility] 2024-03-26 14:30:00 2024-03-26 15:26:55 Office Visit Jordi Griffin [facility] 1.84.114 350.1.13.10 4.2.7.2.686 [id number] 059 [id number] [facility] 2024-03-24 00:00:00 2024-03-25 16:31:45 Patient Secure Msg Barrera [facility] BUILDING 1.84.114 350.1.13.10 4.2.7.2.686 [id number] 059 [id number] [facility] 2024-03-25 14:30:00 2024-03-25 14:30:00 [facility] [id number] [facility] 2024-03-25 14:30:00 2024-03-25 14:30:00 Outpatient [facility] [id number] [facility] 2024-02-14 00:00:00 2024-03-22 18:25:45 Patient Secure Msg Bruce [facility] BUILDING 1.840.114 350.1.13.10 4.2.7.2.686 [id number] 059 [id number] [facility] 2024-03-14 10:18:38 2024-03-14 23:59:00 Outpatient R YARA PAEZ [facility] [id number] [facility] 2024-03-14 10:18:38 2024-03-14 23:59:00 Hospital Encounter R YARA PAEZ [facility] BUILD[facility] 1..840.114 350.1.13.10 4.2.7.2.686 [id number] 809 [id number] [facility] 2024-03-14 10:30:00 2024-03-14 10:50:06 Office Visit [facility] 1.2.840.114 350.1.13.10 4.2.7.2.686 [id number] [facility] 2024-03-13 00:00:00 2024-03-13 13:42:27 Letter (Out) [facility] ([facility]) 1.2.840.114 350.1.13.10 4.2.7.2.686 [id number] 019 [id number] [facility] 2024-02-29 00:00:00 2024-02-29 16:17:55 Telephone Bruce [facility] BUILDING 1.2.840.114 350.1.13.10 4.2.7.2.686 [id number] 059 [id number] [facility] 2024-02-28 10:47:32 2024-02-28 23:59:00 Outpatient [facility] [id number] [facility] 2024-02-28 10:47:32 2024-02-28 23:59:00 Hospital Encounter Bruce [facility] BUILDING 1.2.840.114 350.1.13.10 4.2.7.2.686 [id number] [id number] [facility] 2024-02-20 00:00:00 2024-02-20 15:51:32 Telephone Bruce [facility] BUILDING 1.2.840.114 350.1.13.10 4.2.7.2.686 [id number] 059 [id number] [facility] 2024-01-15 00:00:00 2024-02-16 18:20:31 Patient Secure Msg Veselka, Melani [facility] 1..840.114 350.1.13.10 4.2.7.2.686 [id number] 044 [id number] [facility] 2024-02-14 11:30:00 2024-02-14 23:59:00 Outpatient [facility] [id number] [facility] 2024-02-14 11:30:00 2024-02-14 23:59:00 Hospital Encounter Bruce [facility] 1.2840.114 350.1.13.10 4.2.7.2.686 [id number] [id number] [facility] 2024-02-14 11:00:00 2024-02-14 11:12:13 [facility] 1..840.114 350.1.13.10 4.2.7.2.686 [id number] 059 [id number] [facility] 2024-02-13 13:45:00 2024-02-13 14:00:00 Office Visit Melani Niño [facility] 1.2.840.114 350.1.13.10 4.2.7.2.686 [id number] 044 [id number] [facility] 2024-02-13 13:45:00 2024-02-13 13:45:00 Outpatient R MELANI NIÑO [facility] [id number] [facility] 2024-02-12 00:00:00 2024-02-13 08:39:59 Patient Secure g Melani Niño [facility] 1.2.840.114 350.1.13.10 4.2.7.2.686 [id number] 044 [id number] [facility] 2024-02-02 00:00:00 2024-02-05 09:39:57 Refill [facility]ño [facility] 1.2.840.114 350.1.13.10 4.2.7.2.686 [id number] 044 [id number] [facility] 2024-02-04 00:00:00 2024-02-04 16:58:02 Telephone Melani Niño [facility] 1.2.840.114 350.1.13.10 4.2.7.2.686 [id number] 044 [id number] [facility] 2024-02-04 00:00:00 2024-02-04 16:07:11 Telephone Melani Niño alivia [facility] K[facility] BUILD[facility] 1.2840.114 350.1.13.10 4.2.7.2.686 [id number] 044 [id number] [facility] 2024-02-04 00:00:00 2024-02-04 16:05:37 Telephone Melani Niño [facility] 1.2840.114 350.1.13.10 4.2.7.2.686 [id number] 044 [id number] [facility] 2024-02-04 00:00:00 2024-02-04 09:23:20 Filiberto Melani Niño [facility] 1.2.840.114 350.1.13.10 4.2.7.2.686 [id number] 044 [id number] [facility] 2024-01-29 16:00:00 2024-01-29 16:00:00 Fixture Maker Visit Lab, Santiago - Ru RenayMelani Lab, Ang - Db [facility] 1.2.840.114 350.1.13.10 4.2.7.2.686 [id number] [facility] 2024-01-29 15:15:00 2024-01-29 15:48:36 Outpatient R MELANI NIÑO [facility] [id number] [facility] 2024-01-29 15:15:00 2024-01-29 15:48:36 Office Visit Melani Niño [facility] MED[facility] BUILDING 1.2.840.114 350.1.13.10 4.2.7.2.686 [id number] 044 [id number] [facility] 2024-01-23 15:15:00 2024-01-23 15:15:00 Outpatient Evonne MELANI NIÑO [facility] [id number] [facility] 2023-12-04 15:45:00 2023-12-04 16:00:00 Office Visit Melani Niño [facility] MED[facility] BUILDING 1.2.840.114 350.1.13.10 4.2.7.2.686 [id number] 044 [id number] [facility] 2023-12-04 15:45:00 2023-12-04 15:45:00 Outpatient R MELANI NIÑO [facility] [id number] [facility] 2023-10-22 00:00:00 2023-11-24 18:20:07 Patient Secure Msg Melani Niño [facility] BUILDING 1.2.840.114 350.1.13.10 4.2.7.2.686 [id number] 044 [id number] [facility] 2023-11-21 10:30:00 2023-11-21 11:01:02 Outpatient R JORDI GRIFFIN JORDI [facility] [id number] [facility] 2023-11-21 10:30:00 2023-11-21 11:01:02 Office Visit Jordi Griffin [facility] 1.2840.114 350.1.13.10 4.2.7.2.686 [id number] 059 [id number] [facility] 2023-11-13 13:00:00 2023-11-13 13:00:00 Outpatient MELANI DIALLO [facility] [id number] [facility] 2023-11-07 10:20:00 2023-11-07 10:40:00 [facility] 1.2.840.114 350.1.13.10 4.2.7.2.686 [id number] 059 [id number] [facility] 2023-11-07 10:20:00 2023-11-07 10:20:00 [facility] [id number] [facility] 2023-09-24 00:00:00 2023-09-24 11:17:20 [facility] BU[facility] 1.2.840.114 350.1.13.10 4.2.7.2.686 [id number] 044 [id number] [facility] 2023-09-07 00:00:00 2023-09-11 06:54:13 [facility] BUILDING 1.2.840.114 350.1.13.10 4.2.7.2.686 [id number] 044 [id number] [facility] 2023-09-10 00:00:00 2023-09-10 09:36:39 Fliiberto Niño Melani [facility]I?[facility] MED[facility] OFFICE BUILDING 1.2.840.114 350.1.13.10 4.2.7.2.686 [id number] 044 [id number] [facility] 2023-09-07 00:00:00 2023-09-07 00:00:00 Refill Melani Niño [facility] 1.840.114 350.1.13.10 4.2.7.2.686 [id number] [id number] [facility] 2023-08-07 14:00:00 2023-08-07 14:15:00 Office Visit Melani Niño [facility] 1.84.114 350.1.13.10 4.2.7.2.686 [id number] [id number] [facility] 2023-08-07 14:00:00 2023-08-07 14:00:00 Outpatient MELANI DIALLO [facility] [id number] [facility] 2023-07-23 00:00:00 2023-07-23 00:00:00 [facility] 1.84.114 350.1.13.10 4.2.7.2.686 [id number] [id number] [facility] 2023-05-26 00:00:00 2023-05-26 00:00:00 Bhargavill Renay [facility] 1.84.114 350.1.13.10 4.2.7.2.686 [id number] [id number] [facility] 2023-05-15 11:45:00 2023-05-15 11:45:00 Outpatient MELANI DIALLO [facility] [id number] [facility] 2023-05-15 11:45:00 2023-05-15 11:45:00 Fixture Maker Visit Lab, Santiago Vences Renay [facility] 1.84.114 350.1.13.10 4.2.7.2.686 [id number] [facility] 2023-05-15 10:45:00 2023-05-15 11:15:00 Office Visit Melani Niño [facility] 1.84.114 350.1.13.10 4.2.7.2.686 [id number] [id number] [facility] 2023-05-14 14:15:00 2023-05-14 14:15:00 Outpatient Evonne LAXMIMONIQUEKARLI MELANI [facility] [id number] [facility] 2023-05-07 00:00:00 2023-05-07 00:00:00 Refill Renay [facility] 1.84.114 350.1.13.10 4.2.7.2.686 [id number] [id number] [facility] 2023-04-26 00:00:00 2023-04-26 00:00:00 [facility] 1.84.114 350.1.13.10 4.2.7.2.686 [id number] [facility] 2023-04-11 13:45:00 2023-04-11 13:54:23 Outpatient R MALIAKARLIMELANI [facility] [id number] [facility] 2023-04-11 13:45:00 2023-04-11 13:54:23 [facility] 1.84.114 350.1.13.10 4.2.7.2.686 [id number] [id number] [facility] 2023-04-06 00:00:00 2023-04-06 00:00:00 Orders Only Doctor Unassigned, [place] [facility] 1.114 350.1.13.10 4.2.7.2.686 [id number] [facility] 2023-03-27 00:00:00 2023-03-27 00:00:00 [facility] 1.840.114 350.1.13.10 4.2.7.2.686 [id number] [id number] [facility] 2023-03-12 13:30:00 2023-03-12 13:58:17 Outpatient R RENAY [facility] [id number] [facility] 2023-03-12 13:30:00 2023-03-12 13:58:17 Office Visit MaliakarliMelani [facility] 1.840.114 350.1.13.10 4.2.7.2.686 [id number] 044 [id number] [facility] 2023-03-09 00:00:00 2023-03-09 00:00:00 Orders Only Doctor Unassigned, [place] [facility] 1.84.114 350.1.13.10 4.2.7.2.686 [id number] [facility] 2023-02-15 00:00:00 2023-02-15 00:00:00 RefArielle Lipscomb [facility] 1.84.114 350.1.13.10 4.2.7.2.686 [id number] [id number] [facility] 2023-02-13 00:00:00 2023-02-13 00:00:00 Telephone [facility] Hughes [facility] [facility] 1.84.114 350.1.13.10 4.2.7.2.686 [id number] 198 [id number] [facility] 2023-02-13 00:00:00 2023-02-13 00:00:00 Orders Only Doctor Unassigned, [place] [facility] 1.2.114 350.1.13.10 4.2.7.2.686 [id number] [id number] [facility] 2023-01-25 00:00:00 2023-01-25 00:00:00 RefMelani Asher [facility] 1.2.114 350.1.13.10 4.2.7.2.686 [id number] 044 [id number] [facility] 2023-01-22 00:00:00 2023-01-22 00:00:00 Telephone Saul [facility] 1.114 350.1.13.10 4.2.7.2.686 [id number] 198 [id number] [facility] 2023-01-11 13:20:00 2023-01-11 23:59:00 Outpatient R [facility] [id number] [facility] 2023-01-11 13:20:00 2023-01-11 23:59:00 Hospital Encounter Saul [facility] 1.114 350.1.13.10 4.2.7.2.686 [id number] [id number] [facility] 2023-01-11 13:30:00 2023-01-11 13:45:00 Office Visit Saul [facility] 1.84.114 350.1.13.10 4.2.7.2.686 [id number] 198 [id number] [facility] 2023-01-11 00:00:00 2023-01-11 00:00:00 Telephone Hughes [facility] 1.2.840.114 350.1.13.10 4.2.7.2.686 [id number] 198 [id number] [facility] 2022-12-19 00:00:00 2022-12-19 00:00:00 Patient Secure Melani Hwang [facility] 1.2840.114 350.1.13.10 4.2.7.2.686 [id number] 044 [id number] [facility] 2022-12-12 14:00:00 2022-12-12 14:17:12 Outpatient R MELANI NIÑO [facility] [id number] [facility] 2022-12-12 14:00:00 2022-12-12 14:15:00 Office Visit Renay [facility] 1.84.114 350.1.13.10 4.2.7.2.686 [id number] 044 [id number] [facility] 2022-11-27 00:00:00 2022-11-27 00:00:00 Patient Secure Msg Niño [facility] 1.84.114 350.1.13.10 4.2.7.2.686 [id number] 044 [id number] [facility] 2022-11-27 00:00:00 2022-11-27 00:00:00 Refill Renay [facility] 1.840.114 350.1.13.10 4.2.7.2.686 [id number] 044 [id number] [facility] 2022-11-26 00:00:00 2022-11-26 00:00:00 Refill Renay [facility] 1.840.114 350.1.13.10 4.2.7.2.686 [id number] 044 [id number] [facility] 2022-11-24 00:00:00 2022-11-24 00:00:00 Refill Melani Niño [facility] 1..840.114 350.1.13.10 4.2.7.2.686 [id number] 044 [id number] [facility] 2022-10-31 00:00:00 2022-10-31 00:00:00 Refill Renay [facility] 1.840.114 350.1.13.10 4.2.7.2.686 [id number] 044 [id number] [facility] 2022-10-04 00:00:00 2022-10-04 00:00:00 [facility] 1.84.114 350.1.13.10 4.2.7.2.686 [id number] 044 [id number] [facility] 2022-08-22 10:15:00 2022-08-22 10:36:44 Outpatient R [facility] [id number] [facility] 2022-08-22 10:15:00 2022-08-22 10:30:00 Office Visit Renay [facility] 1.840.114 350.1.13.10 4.2.7.2.686 [id number] 044 [id number] [facility] 2022-08-22 00:00:00 2022-08-22 00:00:00 Orders Only Doctor Unassigned, [place] [facility] 1.284.114 350.1.13.10 4.2.7.2.686 [id number] [id number] [facility] 2022-08-15 00:00:00 2022-08-15 00:00:00 RefMelani Asher [facility] 1..840.114 350.1.13.10 4.2.7.2.686 [id number] 044 [id number] [facility] 2022-08-02 00:00:00 2022-08-02 00:00:00 Melani Murray [facility] 1.840.114 350.1.13.10 4.2.7.2.686 [id number] 044 [id number] [facility] 2022-07-24 00:00:00 2022-07-24 00:00:00 Filiberto Niño [facility] 1..840.114 350.1.13.10 4.2.7.2.686 [id number] 044 [id number] [facility] 2022-07-17 00:00:00 2022-07-17 00:00:00 Filiberto Niño [facility] 1..840.114 350.1.13.10 4.2.7.2.686 [id number] 044 [id number] [facility] 2022-06-28 14:45:00 2022-06-28 15:18:18 Outpatient CASS PRATHER [facility] [id number] [facility] 2022-06-28 14:45:00 2022-06-28 15:18:18 [facility] 1..840.114 350.1.13.10 4.2.7.2.686 [id number] [facility] 2022-06-21 14:45:00 2022-06-21 14:52:38 Outpatient CASS PRATHER [facility] [id number] [facility] 2022-06-21 14:45:00 2022-06-21 14:52:38 [facility] 1.84.114 350.1.13.10 4.2.7.2.686 [id number] 198 [id number] [facility] 2022-06-19 00:00:00 2022-06-19 00:00:00 [facility] 1.84.114 350.1.13.10 4.2.7.2.686 [id number] 044 [id number] [facility] 2022-06-14 14:45:00 2022-06-14 15:18:28 Outpatient R [facility] [id number] [facility] 2022-06-14 14:45:00 2022-06-14 15:00:00 Office Visit Saul [facility] 1.84.114 350.1.13.10 4.2.7.2.686 [id number] 198 [id number] [facility] 2022-06-13 00:00:00 2022-06-13 00:00:00 Filiberto Renay [facility] 1.84.114 350.1.13.10 4.2.7.2.686 [id number] 044 [id number] [facility] 2022-06-12 14:15:00 2022-06-12 14:15:00 Outpatient R [facility] [id number] [facility] 2022-06-08 00:00:00 2022-06-08 00:00:00 Orders Only Doctor Unassigned, [place] [facility] 1..114 350.1.13.10 4.2.7.2.686 [id number] [id number] [facility] 2022-06-06 00:00:00 2022-06-06 00:00:00 Telephone Cass Hughes [facility] K[facility]O [facility] 1.2.840.114 350.1.13.10 4.2.7.2.686 [id number] [facility] 2022-06-05 00:00:00 2022-06-05 00:00:00 Telephone Yara Paez [facility] K[facility] 1.2840.114 350.1.13.10 4.2.7.2.686 [id number] 198 [id number] [facility] 2022-05-26 00:00:00 2022-05-26 00:00:00 Telephone Melani Niño [facility] K[facility] 1.2840.114 350.1.13.10 4.2.7.2.686 [id number] 044 [id number] [facility] 2022-05-24 00:00:00 2022-05-24 00:00:00 Telephone Melani Niño [facility] 1.2840.114 350.1.13.10 4.2.7.2.686 [id number] 044 [id number] [facility] 2022-05-19 00:00:00 2022-05-19 00:00:00 Refill Melani Niño [facility] 1.2.840.114 350.1.13.10 4.2.7.2.686 [id number] 044 [id number] [facility] 2022-05-11 13:15:00 2022-05-11 13:30:00 [facility] 1.2840.114 350.1.13.10 4.2.7.2.686 [id number] [facility] 2022-05-11 13:15:00 2022-05-11 13:15:00 Outpatient CASS PRATHER [facility] [id number] [facility] 2022-05-08 00:00:00 2022-05-08 00:00:00 Refill Laxmimoniquekarli [facility] 1.2.840.114 350.1.13.10 4.2.7.2.686 [id number] 044 [id number] [facility] 2022-04-26 00:00:00 2022-04-26 00:00:00 Patient Secure Msg Niño [facility] 1.2.840.114 350.1.13.10 4.2.7.2.686 [id number] 044 [id number] [facility] 2022-04-24 00:00:00 2022-04-24 00:00:00 Bhargavjil Renay [facility] 1.2.840.114 350.1.13.10 4.2.7.2.686 [id number] 044 [id number] [facility] 2022-04-10 14:15:00 2022-04-10 14:30:00 Office Visit Melani Niño [facility] 1.2.840.114 350.1.13.10 4.2.7.2.686 [id number] 044 [id number] [facility] 2022-04-10 14:15:00 2022-04-10 14:15:00 Outpatient MELANI DIALLO [facility] [id number] [facility] 2022-03-27 00:00:00 2022-03-27 00:00:00 Bhargavjil Renay [facility] 1.840.114 350.1.13.10 4.2.7.2.686 [id number] 044 [id number] [facility] 2022-03-24 00:00:00 2022-03-24 00:00:00 Melani Murray [facility] 1.840.114 350.1.13.10 4.2.7.2.686 [id number] 044 [id number] [facility] 2022-03-16 09:00:00 2022-03-16 11:20:00 Outpatient R LUCÍA [facility] [id number] [facility] 2022-03-16 09:00:00 2022-03-16 11:20:00 Hospital Encounter Lucía Early [facility] [place] 1.0.114 350.1.13.10 4.2.7.2.686 [id number] 071 [id number] [facility] 2022-03-16 10:23:00 2022-03-16 11:00:00 Surgery Lucía Early [facility] [place] 1.0.114 350.1.13.10 4.2.7.2.686 [id number] [facility] 2022-03-14 00:00:00 2022-03-14 00:00:00 Orders Only Doctor Unassigned, [place] [facility] 1.2840.114 350.1.13.10 4.2.7.2.686 [id number] [id number] [facility] 2022-03-13 00:00:00 2022-03-13 00:00:00 Melani Murray [facility]O [facility] 1.840.114 350.1.13.10 4.2.7.2.686 [id number] 044 [id number] [facility] 2022-03-13 00:00:00 2022-03-13 00:00:00 [facility] 1.2.840.114 350.1.13.10 4.2.7.2.686 [id number] 044 [id number] [facility] 2022-02-21 00:00:00 2022-02-21 00:00:00 Refill Melani Niño [facility] 1.2.840.114 350.1.13.10 4.2.7.2.686 [id number] 044 [id number] [facility] 2022-02-20 10:00:00 2022-02-20 10:00:00 Outpatient R [facility] [id number] [facility] 2022-02-20 00:00:00 2022-02-20 00:00:00 Refjil CruzfélixArielle [facility] 1.2.840.114 350.1.13.10 4.2.7.2.686 [id number] 044 [id number] [facility] 2022-02-13 13:25:46 2022-02-13 23:59:00 Outpatient R MELANI NIÑO [facility] [id number] [facility] 2022-02-13 13:00:00 2022-02-13 13:26:33 Office Visit Melani Niño [facility] 1.2.840.114 350.1.13.10 4.2.7.2.686 [id number] 044 [id number] [facility] 2022-02-13 13:00:00 2022-02-13 13:00:00 Outpatient R MELANI NIÑO [facility] [id number] [facility] 2022-02-08 00:00:00 2022-02-08 00:00:00 Orders Only Doctor Unassigned, [place] [facility] 1.2840.114 350.1.13.10 4.2.7.2.686 [id number] [facility] 2022-02-07 00:00:00 2022-02-07 00:00:00 Refill Renay [facility] 1.2840.114 350.1.13.10 4.2.7.2.686 [id number] 044 [id number] [facility] 2022-02-03 00:00:00 2022-02-03 00:00:00 Patient Secure Msg Doctor Unassigned, [place] [facility] 1.2840.114 350.1.13.10 4.2.7.2.686 [id number] 019 [id number] [facility] 2022-01-31 00:00:00 2022-01-31 00:00:00 Telephone Renay [facility] 1.2840.114 350.1.13.10 4.2.7.2.686 [id number] 044 [id number] [facility] 2022-01-26 07:24:00 2022-01-26 11:13:00 Outpatient R LUCÍA [facility] [id number] [facility] 2022-01-26 07:24:00 2022-01-26 11:13:00 Hospital Encounter Lucía Early [facility] 1.2840.114 350.1.13.10 4.2.7.2.686 [id number] [facility] 2022-01-26 09:08:00 2022-01-26 09:47:00 Surgery Lucía Early [facility] 1.2840.114 350.1.13.10 4.2.7.2.686 [id number] [facility] 2022-01-26 00:00:00 2022-01-26 00:00:00 Filiberto Niño [facility] 1.2.840.114 350.1.13.10 4.2.7.2.686 [id number] 044 [id number] [facility] 2022-01-25 00:00:00 2022-01-25 00:00:00 Filiberto Niño [facility] 1.2.840.114 350.1.13.10 4.2.7.2.686 [id number] 044 [id number] [facility] 2022-01-24 12:38:26 2022-01-24 23:59:00 Outpatient R T[facility]CI [facility] [id number] [facility] 2022-01-24 12:38:26 2022-01-24 23:59:00 Hospital Encounter Traci [facility] 1.2.840.114 350.1.13.10 4.2.7.2.686 [id number] [facility] 2022-01-13 10:20:00 2022-01-13 11:09:30 Outpatient R [facility] [id number] [facility] 2022-01-13 10:20:00 2022-01-13 11:09:30 Office Visit Traci [facility] 1.2.840.114 350.1.13.10 4.2.7.2.686 [id number] 044 [id number] [facility] 2022-01-13 10:20:00 2022-01-13 11:09:30 Outpatient R TRACI [facility] [id number] [facility] 2022-01-13 10:20:00 2022-01-13 11:09:30 Outpatient R KLEY, [facility] [id number] [facility] 2022-01-10 11:45:00 2022-01-10 12:00:00 Fixture Maker Visit Elly, Angela Lab Lucía [facility] 1..840.114 350.1.13.10 4.2.7.2.686 [id number] [facility] 2022-01-10 11:45:00 2022-01-10 11:45:00 Outpatient R LUCÍA EARLY [facility] [id number] [facility] 2022-01-10 00:00:00 2022-01-10 00:00:00 Orders Only Doctor Unassigned, [place] [facility] 1.840.114 350.1.13.10 4.2.7.2.686 [id number] [id number] [facility] 2021-12-05 00:00:00 2021-12-05 00:00:00 Refill Renay [facility] 1.840.114 350.1.13.10 4.2.7.2.686 [id number] 044 [id number] [facility] 2021-12-05 00:00:00 2021-12-05 00:00:00 Jannette Niño [facility] 1..840.114 350.1.13.10 4.2.7.2.686 [id number] 044 [id number] [facility] 2021-12-05 00:00:00 2021-12-05 00:00:00 Filiberto Niño [facility] 1..840.114 350.1.13.10 4.2.7.2.686 [id number] 044 [id number] [facility] 2021-11-20 00:00:00 2021-11-20 00:00:00 Refill Melani Niño [facility] 1.2.840.114 350.1.13.10 4.2.7.2.686 [id number] 044 [id number] [facility] 2021-10-20 10:15:00 2021-10-20 10:30:00 Office Visit Melani Niño [facility] 1.2.840.114 350.1.13.10 4.2.7.2.686 [id number] 044 [id number] [facility] 2021-10-20 10:15:00 2021-10-20 10:27:05 Outpatient MELANI DIALLO [facility] [id number] [facility] 2021-10-20 10:15:00 2021-10-20 10:15:00 Outpatient MELANI DIALLO [facility] [id number] [facility] 2021-10-20 00:00:00 2021-10-20 00:00:00 [facility] 1.2.840.114 350.1.13.10 4.2.7.2.686 [id number] 044 [id number] [facility] 2021-09-26 14:30:00 2021-09-26 14:39:32 Outpatient R CASS HUGHES [facility] [id number] [facility] 2021-09-26 14:30:00 2021-09-26 14:39:32 [facility] 1.2.840.114 350.1.13.10 4.2.7.2.686 [id number] [facility] 2021-09-26 14:30:00 2021-09-26 14:30:00 Outpatient CASS PRATHER [facility] [id number] [facility] 2021-09-26 00:00:00 2021-09-26 00:00:00 Telephone Melani Niño [facility] 1.2.840.114 350.1.13.10 4.2.7.2.686 [id number] 044 [id number] [facility] 2021-09-26 00:00:00 2021-09-26 00:00:00 Refill Melani Niño [facility] 1.2.840.114 350.1.13.10 4.2.7.2.686 [id number] 044 [id number] [facility] 2021-09-25 00:00:00 2021-09-25 00:00:00 Refill Melani Niño [facility] 1.2.840.114 350.1.13.10 4.2.7.2.686 [id number] 044 [id number] [facility] 2021-09-15 10:00:00 2021-09-15 11:50:07 Office [facility] 1.2.840.114 350.1.13.10 4.2.7.2.686 [id number] [facility] 2021-09-15 10:00:00 2021-09-15 11:50:07 Outpatient CASS PRATHER [facility] [id number] [facility] 2021-09-15 10:00:00 2021-09-15 10:00:00 Outpatient CASS PRATHER [facility] [id number] [facility] 2021-09-15 10:00:00 2021-09-15 10:00:00 Outpatient CASS PRATHER [facility] [id number] [facility] 2021-09-12 00:00:00 2021-09-12 00:00:00 Orders Only Doctor Unassigned, [place] [facility] 1.2.840.114 350.1.13.10 4.2.7.2.686 [id number] [facility] 2021-09-08 09:45:00 2021-09-08 10:24:47 Outpatient R CASS HUGHES [facility] [id number] [facility] 2021-09-08 09:45:00 2021-09-08 10:24:47 Office Visit Saul [facility] 1.2.840.114 350.1.13.10 4.2.7.2.686 [id number] [facility] 2021-09-08 09:45:00 2021-09-08 10:24:47 Outpatient R SAUL CASS [facility] [id number] [facility] 2021-09-02 08:00:00 2021-09-02 08:00:00 Outpatient MELANI DIALLO [facility] [id number] [facility] 2021-09-01 13:30:00 2021-09-01 13:59:01 Outpatient CASS PRATHER [facility] [id number] [facility] 2021-09-01 13:30:00 2021-09-01 13:59:01 Office Visit Saul [facility] 1.2.840.114 350.1.13.10 4.2.7.2.686 [id number] [facility] 2021-09-01 13:30:00 2021-09-01 13:30:00 Outpatient R CASS HUGHES [facility] [id number] [facility] 2021-09-01 13:30:00 2021-09-01 13:30:00 Outpatient R CASS HUGHES [facility] [id number] [facility] 2021-09-01 10:50:00 2021-09-01 11:00:00 Imm/Inj Visit Vaccine, Ang Db Cbc Fam Saul [facility] 1.84114 350.1.13.10 4.2.7.2.686 [id number] 044 [id number] [facility] 2021-09-01 10:50:00 2021-09-01 10:50:00 [facility] [id number] [facility] 2021-08-25 13:00:00 2021-08-25 13:26:29 Office Visit [place] [facility] 1.84.114 350.1.13.10 4.2.7.2.686 [id number] [facility] 2021-08-25 13:00:00 2021-08-25 13:26:29 [facility] [id number] [facility] 2021-08-25 13:00:00 2021-08-25 13:00:00 Outpatient Evonne HUGHES [facility] [id number] [facility] 2021-08-25 13:00:00 2021-08-25 13:00:00 Outpatient Evonne HUGHES [facility] [id number] [facility] 2021-08-25 00:00:00 2021-08-25 00:00:00 Melani Murray [facility] 1.84.114 350.1.13.10 4.2.7.2.686 [id number] [facility] 2021-08-18 10:30:00 2021-08-18 10:57:08 Office Visit Saul [facility] 1.84.114 350.1.13.10 4.2.7.2.686 [id number] [facility] 2021-08-18 10:30:00 2021-08-18 10:30:00 Outpatient R [facility] [id number] [facility] 2021-08-18 00:00:00 2021-08-18 00:00:00 Orders Only Doctor Unassigned, [place] [facility] 1.2840.114 350.1.13.10 4.2.7.2.686 [id number] [facility] 2021-08-16 00:00:00 2021-08-16 00:00:00 Cass Nelson [facility] 1.2.840.114 350.1.13.10 4.2.7.2.686 [id number] [facility] 2021-08-03 00:00:00 2021-08-03 00:00:00 Melani Murray [facility] 1..840.114 350.1.13.10 4.2.7.2.686 [id number] [facility] 2021-07-22 00:00:00 2021-07-22 00:00:00 Orders Only Doctor Unassigned, [place] [facility] 1.2840.114 350.1.13.10 4.2.7.2.686 [id number] [facility] 2021-07-21 10:15:00 2021-07-21 10:37:49 Outpatient MELANI DIALLO [facility] [id number] [facility] 2021-07-21 10:15:00 2021-07-21 10:15:00 Outpatient MELANI DIALLO [facility] [id number] [facility] 2021-07-21 10:15:00 2021-07-21 10:15:00 Outpatient MELANI DIALLO [facility] [id number] [facility] 2021-07-21 10:15:00 2021-07-21 10:15:00 Outpatient MELANI DIALLO [facility] [id number] [facility] 2021-07-19 00:00:00 2021-07-19 00:00:00 [facility] 1.84.114 350.1.13.10 4.2.7.2.686 [id number] [facility] 2021-07-18 00:00:00 2021-07-18 00:00:00 [facility] 1.84.114 350.1.13.10 4.2.7.2.686 [id number] [facility] 2021-07-12 15:00:00 2021-07-12 15:00:00 Outpatient MELANI DIALLO [facility] [id number] [facility] 2021-07-05 00:00:00 2021-07-05 00:00:00 Telephone [facility] 1.84.114 350.1.13.10 4.2.7.2.686 [id number] [facility] 2021-07-05 00:00:00 2021-07-05 00:00:00 Telephone [facility] 1.84.114 350.1.13.10 4.2.7.2.686 [id number] [facility] 2021-06-23 00:00:00 2021-06-23 00:00:00 Telephone [facility] 1.84.114 350.1.13.10 4.2.7.2.686 [id number] [facility] 2021-06-22 00:00:00 2021-06-22 00:00:00 Orders Only Doctor Unassigned, [place] [facility] 1..114 350.1.13.10 4.2.7.2.686 [id number] [id number] [facility] 2021-06-15 00:00:00 2021-06-15 00:00:00 Telephone Cass Hughes [facility] KI?[facility] 1.84.114 350.1.13.10 4.2.7.2.686 [id number] [facility] 2021-06-14 15:15:00 2021-06-14 15:34:27 Office Visit Melani Niño [facility] KI?ROSJitendra [facility] 1.84.114 350.1.13.10 4.2.7.2.686 [id number] 044 [id number] [facility] 2021-06-14 15:15:00 2021-06-14 15:15:00 Outpatient MELANI DIALLO [facility] [id number] [facility] 2021-06-10 08:00:00 2021-06-10 08:00:00 Outpatient MELANI DIALLO [facility] [id number] [facility] 2021-06-09 00:00:00 2021-06-09 00:00:00 Patient Secure Msg Melani Niño [facility] KI?ROSJitendra [facility] 1.840.114 350.1.13.10 4.2.7.2.686 [id number] 044 [id number] [facility] 2021-06-03 00:00:00 2021-06-03 00:00:00 Refill Melani Niño [facility] 1.840.114 350.1.13.10 4.2.7.2.686 [id number] [facility] 2021-05-27 00:00:00 2021-05-27 00:00:00 Orders Only Doctor Unassigned, [place] [facility] 1.2.840.114 350.1.13.10 4.2.7.2.686 [id number] [facility] 2021-05-24 00:00:00 2021-05-24 00:00:00 Refill Melani Niño [facility] 1.840.114 350.1.13.10 4.2.7.2.686 [id number] 044 [id number] [facility] 2021-05-18 15:30:00 2021-05-18 16:33:54 Outpatient [facility] [id number] [facility] 2021-05-18 15:30:00 2021-05-18 16:33:54 Office Visit [facility] 1.840.114 350.1.13.10 4.2.7.2.686 [id number] [facility] 2021-05-18 15:30:00 2021-05-18 16:33:54 Outpatient R [facility] [id number] [facility] 2021-05-18 15:30:00 2021-05-18 16:33:54 Outpatient R [facility] [id number] [facility] 2021-05-18 15:30:00 2021-05-18 16:33:54 Office Visit [place] [facility]O FONT[facility]Z [facility] 1.2.840.114 350.1.13.10 4.2.7.2.686 [id number] [facility] 2021-05-12 00:00:00 2021-05-12 00:00:00 Refill Melani Niño [facility] KI?[facility] MICHAEL [facility] 1.84.114 350.1.13.10 4.2.7.2.686 [id number] 044 [id number] [facility] 2021-05-10 00:00:00 2021-05-10 00:00:00 Refill Melani Niño [facility] K[facility] FONT[facility] 1.84.114 350.1.13.10 4.2.7.2.686 [id number] 044 [id number] [facility] 2021-04-26 00:00:00 2021-04-26 00:00:00 Patient Secure Msg Doctor Unassigned, [place] [facility] 1.84.114 350.1.13.10 4.2.7.2.686 [id number] [facility] 2021-04-22 10:15:00 2021-04-22 10:30:00 Office Visit Melani Niño [facility] 1.84.114 350.1.13.10 4.2.7.2.686 [id number] [facility] 2021-04-22 10:15:00 2021-04-22 10:15:00 Outpatient R MELANI NIÑO [facility] [id number] [facility] 2021-04-22 10:15:00 2021-04-22 10:15:00 Outpatient R MELANI NIÑO [facility] [id number] [facility] 2021-04-08 00:00:00 2021-04-08 00:00:00 Refill Melani Niño [facility] 1.84.114 350.1.13.10 4.2.7.2.686 [id number] [id number] [facility] 2021-03-28 00:00:00 2021-03-28 00:00:00 Refill Melani Niño [facility] 1.2.840.114 350.1.13.10 4.2.7.2.686 [id number] [id number] [facility] 2021-03-28 00:00:00 2021-03-28 00:00:00 Refill Melani Niño [facility] 1.2.840.114 350.1.13.10 4.2.7.2.686 [id number] [facility] 2021-03-24 00:00:00 2021-03-24 00:00:00 Refill Melani Niño [facility] 1..840.114 350.1.13.10 4.2.7.2.686 [id number] 044 [id number] [facility] 2021-03-23 09:08:57 2021-03-23 09:23:57 [facility] 1.2.840.114 350.1.13.10 4.2.7.2.686 [id number] 044 [id number] [facility] 2021-03-23 09:15:00 2021-03-23 09:15:00 Outpatient R MELANI NIÑO [facility] [id number] [facility] 2021-03-01 14:30:00 2021-03-01 14:30:00 Outpatient CASS PRATHER [facility] [id number] [facility] 2021-03-01 00:00:00 2021-03-01 00:00:00 Refill Melani Niño [facility] Medical [facility] Building 1.2.840.114 350.1.13.10 4.2.7.2.686 [id number] [facility] 2021-03-01 00:00:00 2021-03-01 00:00:00 Telephone [facility]elo michael Medical Office Building 1.2.840.114 350.1.13.10 4.2.7.2.686 [id number] [facility] 2021-03-01 00:00:00 2021-03-01 00:00:00 Telephone Cass Hughes [facility] KI?[facility] FONTANEZ [facility] 1.2.840.114 350.1.13.10 4.2.7.2.686 [id number] [facility] 2021-02-25 00:00:00 2021-02-25 00:00:00 Telephone PaezYara Austin [facility] KI?[facility] 1.2.840.114 350.1.13.10 4.2.7.2.686 [id number] [facility] 2021-02-24 00:00:00 2021-02-24 00:00:00 Telephone [facility] fontane[facility] Medical Office Building 1..840.114 350.1.13.10 4.2.7.2.686 [id number] [facility] 2021-02-24 00:00:00 2021-02-24 00:00:00 Telephone Melani Niño alivia [facility] Ki?Canelo star Medical Office Building 1.2.840.114 350.1.13.10 4.2.7.2.686 [id number] 044 [id number] [facility] 2021-02-21 09:36:53 2021-02-21 09:56:53 Imm/Inj Visit Nurse, Melani Luna [facility] Ki?[facility] Medical Office Building 1.84.114 350.1.13.10 4.2.7.2.686 [id number] [facility] 2021-02-21 08:50:46 2021-02-21 09:05:46 Fixture Maker Visit Lab, Melani Navarro [facility] Ki?[facility] Medical Office Building 1.84114 350.1.13.10 4.2.7.2.686 [id number] [facility] 2021-02-21 09:00:00 2021-02-21 09:00:00 Outpatient MELANI DIALLO [facility] [id number] [facility] 2021-02-21 00:00:00 2021-02-21 00:00:00 Telephone Cass Hughes [facility] Ki?[facility] Medical Office Building 1.84.114 350.1.13.10 4.2.7.2.686 [id number] [facility] 2021-02-18 00:00:00 2021-02-18 00:00:00 Telephone Melani Niño [facility] Ki?[facility] Medical Office Building 1.84.114 350.1.13.10 4.2.7.2.686 [id number] [facility] 2021-02-17 00:00:00 2021-02-17 00:00:00 Telephone Yara Paez [facility] Ki?[facility] Medical Office Building 1.84.114 350.1.13.10 4.2.7.2.686 [id number] [facility] 2021-02-15 00:00:00 2021-02-15 00:00:00 Refill Melani Niño [facility] Ki?[facility] Medical Office Building 1.840.114 350.1.13.10 4.2.7.2.686 [id number] [facility] 2021-02-15 00:00:00 2021-02-15 00:00:00 Telephone Melani Niño [facility] Ki?Canelo michael Medical Office Building 1.840.114 350.1.13.10 4.2.7.2.686 [id number] [id number] [facility] 2021-02-13 00:00:00 2021-02-13 00:00:00 Orders Only Doctor Unassigned, [place] [facility] 1..114 350.1.13.10 4.2.7.2.686 [id number] [facility] 2021-02-09 15:07:57 2021-02-09 15:22:57 Office Visit Melani Niño [facility] Medical Office Building 1.84.114 350.1.13.10 4.2.7.2.686 [id number] [facility] 2021-02-09 15:15:00 2021-02-09 15:15:00 Outpatient R MELANI NIÑO [facility] [id number] [facility] 2021-02-09 00:00:00 2021-02-09 00:00:00 [facility] Medical Office Building 1.84.114 350.1.13.10 4.2.7.2.686 [id number] [facility] 2021-02-09 00:00:00 2021-02-09 00:00:00 Telephone [facility] 1.84.114 350.1.13.10 4.2.7.2.686 [id number] [facility] 2021-02-04 13:00:00 2021-02-04 13:00:00 Outpatient MELANI DIALLO [facility] [id number] [facility] 2021-02-01 08:38:15 2021-02-01 08:53:15 Fixture Maker Visit Lab, Santiago Vences Melani Niño [facility] Medical Office Building 1..840.114 350.1.13.10 4.2.7.2.686 [id number] [facility] 2021-02-01 08:08:00 2021-02-01 08:38:20 Office Visit Melani Niño [facility] Medical Office Building 1..840.114 350.1.13.10 4.2.7.2.686 [id number] [facility] 2021-02-01 08:15:00 2021-02-01 08:15:00 Outpatient MELANI DIALLO [facility] [id number] [facility] 2021-01-27 00:00:00 2021-01-27 00:00:00 Telephone Yara Paez [facility] Medical Office Building 1..840.114 350.1.13.10 4.2.7.2.686 [id number] [facility] 2021-01-26 15:45:00 2021-01-26 15:45:00 Outpatient R CASTILLO PAEZIG [facility] [id number] [facility] 2021-01-26 14:54:15 2021-01-26 15:42:18 Office Visit Yara Paez [facility] Medical Office Building 1..840.114 350.1.13.10 4.2.7.2.686 [id number] [facility] 2021-01-17 15:30:00 2021-01-17 15:30:00 Outpatient YARA SCALES [facility] [id number] [facility] 2021-01-16 00:00:00 2021-01-16 00:00:00 Filiberto Hairmadyson [facility] Ki?Canelo michael Medical Office Building 1.2.840.114 350.1.13.10 4.2.7.2.686 [id number] [id number] [facility] 2021-01-03 13:58:58 2021-01-03 23:59:00 Hospital Encounter Cheryl [facility] 1.2.840.114 350.1.13.10 4.2.7.2.686 [id number] [facility] 2021-01-03 00:00:00 2021-01-03 00:00:00 Outpatient BAHMAN CHINCHILLA HOW[facility] [id number] [facility] 2020-12-20 00:00:00 2020-12-20 00:00:00 Filiberto Hairmoniquekarli [facility] Office Building One 1.2.840.114 350.1.13.10 4.2.7.2.686 [id number] [facility] 2020-12-13 10:01:24 2020-12-13 10:58:16 Office Visit Bahman Martinez [facility] 1.2.840.114 350.1.13.10 4.2.7.2.686 [id number] [facility] 2020-12-13 10:00:00 2020-12-13 10:58:16 Outpatient BAHMAN CHINCHILLA HOWARD [facility] [id number] [facility] 2020-12-13 10:00:00 2020-12-13 10:00:00 Outpatient BAHMAN CHINCHILLA HOWARD [facility] [id number] [facility] 2020-12-02 10:25:54 2020-12-02 10:40:54 Office Visit Maliakarli Melani [facility] Office Building One 1.2.840.114 350.1.13.10 4.2.7.2.686 [id number] [facility] 2020-12-02 10:30:00 2020-12-02 10:30:00 Outpatient MELANI DIALLO [facility] [id number] [facility] 2020-10-07 00:00:00 2020-10-07 00:00:00 Orders Only Doctor Unassigned, [place] [facility] 1..840.114 350.1.13.10 4.2.7.2.686 [id number] [facility] 2020-09-27 15:31:44 2020-09-28 07:34:49 Office Visit [facility] 1.2.840.114 350.1.13.10 4.2.7.2.686 [id number] [facility] 2020-09-27 15:45:00 2020-09-27 15:45:00 Outpatient CASS PRATHER [facility] [id number] [facility] 2020-09-17 14:53:48 2020-09-17 15:36:45 Office Visit Melani Niño [facility] Office Building One 1.2.840.114 350.1.13.10 4.2.7.2.686 [id number] [facility] 2020-09-17 15:00:00 2020-09-17 15:00:00 Outpatient MELANI DIALLO [facility] [id number] [facility] 2020-09-17 15:00:00 2020-09-17 15:00:00 Outpatient MELANI DIALLO [facility] [id number] [facility] 2020-09-17 00:00:00 2020-09-17 00:00:00 Orders Only Doctor Unassigned, [place] [facility] 1.2114 350.1.13.10 4.2.7.2.686 [id number] [facility] 2020-09-08 14:00:00 2020-09-08 14:00:00 Outpatient MELANI DIALLO [facility] [id number] [facility] 2020-06-08 09:26:30 2020-06-08 09:41:30 Office Visit [facility] kevin Hobson 1..114 350.1.13.10 4.2.7.2.686 [id number] [facility] 2020-06-08 09:30:00 2020-06-08 09:30:00 Outpatient CASS PRATHER [facility] [id number] [facility] 2020-06-02 00:00:00 2020-06-02 00:00:00 Orders Only Doctor Unassigned, [place] [facility] 1..114 350.1.13.10 4.2.7.2.686 [id number] [facility] 2020-05-24 00:00:00 2020-05-24 00:00:00 Orders Only Doctor Unassigned, [place] [facility] 1.284.114 350.1.13.10 4.2.7.2.686 [id number] [id number] [facility] 2020-05-14 00:00:00 2020-05-14 00:00:00 Patient Outreach Jorgito Banks [facility] 1.840.114 350.1.13.10 4.2.7.2.686 [id number] [facility] 2020-04-16 08:45:00 2020-04-16 08:45:00 Outpatient R CASS HUGHES [facility] [id number] [facility] 2020-04-15 10:12:41 2020-04-15 23:59:00 Outpatient R YARA PAEZ [facility] [id number] [facility] 2020-04-15 10:12:41 2020-04-15 23:59:00 Hospital Encounter Yara Paez [facility] Surgical Specialti kevin Hobson 1.2.840.114 350.1.13.10 4.2.7.2.686 [id number] [facility] 2020-04-15 10:07:47 2020-04-15 10:22:47 Office Visit Cass Hughes [facility] Surgical Specialti kevin oHbson 1.2.840.114 350.1.13.10 4.2.7.2.686 [id number] [facility] 2020-02-09 19:33:00 2020-02-09 22:31:00 Emergency Mayra Hernandes Megan [facility] 1.2.840.114 350.1.13.10 4.2.7.2.686 [id number] [facility] 2020-02-05 10:30:00 2020-02-05 10:30:00 Outpatient YARA SCALES [facility] [id number] [facility] 2020-02-05 10:03:27 2020-02-05 10:23:59 Office Visit Yara Paez [facility] Surgical Specialti kevin Hobson 1.2.840.114 350.1.13.10 4.2.7.2.686 [id number] [facility] 2020-01-29 07:38:00 2020-01-29 10:40:00 Hospital Encounter Chantale Romano [facility] 1.2.840.114 350.1.13.10 4.2.7.2.686 [id number] [facility] 2020-01-28 13:08:02 2020-01-28 13:23:02 Laboratory Only Only, Adc Test Chantale Romano [facility] 1.2840.114 350.1.13.10 4.2.7.2.686 [id number] [facility] 2020-01-28 13:15:00 2020-01-28 13:15:00 Outpatient R CHANTALE ROMANO [facility] [id number] [facility] 2020-01-27 00:00:00 2020-01-27 00:00:00 Orders Only Doctor Unassigned, [place] [facility] 1.2840.114 350.1.13.10 4.2.7.2.686 [id number] [facility] 2019-10-23 10:45:00 2019-10-23 10:45:00 Outpatient R YARA PAEZ [facility] [id number] [facility] 2019-10-23 09:32:38 2019-10-23 10:04:15 Office Visit Castillo Paezig [place] [facility] 1.2840.114 350.1.13.10 4.2.7.2.686 [id number] [facility] 2019-05-30 10:31:00 2019-05-30 23:59:00 Hospital Encounter Yara Paez [facility] Surgical Specialti [facility] 1.2840.114 350.1.13.10 4.2.7.2.686 [id number] [facility] 2019-05-30 09:45:54 2019-05-30 10:49:03 Office Visit Castillo Paezivon Avila [facility] [place] 1.2840.114 350.1.13.10 4.2.7.2.686 [id number] [facility] Results Test Description Test Time Test Comments Results Result Comments Source CT ACUTE STROKE ANGIOGRAM HEAD 13:56:30 CT STROKE ANGIOGRAM NECK, CT STROKE ANGIOGRAM HEAD HISTORY: Neuro deficit, acute, stroke suspected TECHNIQUE: Axial CT angiogram of the head and neck was obtained after theadministration of contrast. Coronal and sagittal reformats wereconstructed. COMPARISON: ?12/12/2024 FINDINGS: CTA HEAD Bilateral intradural vertebral arteries are patent. The PICA origin isvisualized bilaterally. The basilar artery is normal in caliber. Thesuperior cerebellar arteries are unremarkable. Focal mild to moderatestenosis of the right mid P2 is again seen (9:49). The posterior cerebralarteries are otherwise patent. No sizable P comms. Mild atherosclerotic calcifications of bilateral carotid siphons withoutcausing severe stenosis. The distal cervical, petrous, cavernous andsupraclinoid internal carotid arteries are unremarkable. The middlecerebral arteries are unremarkable. The anterior cerebral arteries areunremarkable. An anterior communicating artery is visualized. Dural venous sinuses are patent. CTA NECK Classic three-vessel branching anatomy of the aortic arch. Moderateatherosclerotic disease is present in the aortic arch extending into theostia of neck vessels without causing significant stenosis.The ostia ofmajor vessels are otherwise patent. The innominate and subclavian arteriesare patent. Scattered atherosclerotic plaque affecting the bilateral common carotidarteries, carotid bulbs and internal carotid arteries without causinghigh-grade stenosis. The bilateral vertebral arteries originate from the subclavian arteries andare visualized throughout their entire cervical length. The ostia are freeof stenosis. No high-grade stenosis or dissection identified. Soft tissues of the neck are unremarkable. Emphysematous lungs. Cervical spine is unremarkable. [facility] CT ACUTE STROKE ANGIOGRAM NECK 13:56:30 CT STROKE ANGIOGRAM NECK, CT STROKE ANGIOGRAM HEAD HISTORY: Neuro deficit, acute, stroke suspected TECHNIQUE: Axial CT angiogram of the head and neck was obtained after theadministration of contrast. Coronal and sagittal reformats wereconstructed. COMPARISON: ?12/12/2024 FINDINGS: CTA HEAD Bilateral intradural vertebral arteries are patent. The PICA origin isvisualized bilaterally. The basilar artery is normal in caliber. Thesuperior cerebellar arteries are unremarkable. Focal mild to moderatestenosis of the right mid P2 is again seen (9:49). The posterior cerebralarteries are otherwise patent. No sizable P comms. Mild atherosclerotic calcifications of bilateral carotid siphons withoutcausing severe stenosis. The distal cervical, petrous, cavernous andsupraclinoid internal carotid arteries are unremarkable. The middlecerebral arteries are unremarkable. The anterior cerebral arteries areunremarkable. An anterior communicating artery is visualized. Dural venous sinuses are patent. CTA NECK Classic three-vessel branching anatomy of the aortic arch. Moderateatherosclerotic disease is present in the aortic arch extending into theostia of neck vessels without causing significant stenosis.The ostia ofmajor vessels are otherwise patent. The innominate and subclavian arteriesare patent. Scattered atherosclerotic plaque affecting the bilateral common carotidarteries, carotid bulbs and internal carotid arteries without causinghigh-grade stenosis. The bilateral vertebral arteries originate from the subclavian arteries andare visualized throughout their entire cervical length. The ostia are freeof stenosis. No high-grade stenosis or dissection identified. Soft tissues of the neck are unremarkable. Emphysematous lungs. Cervical spine is unremarkable. [facility] CT ACUTE STROKE HEAD WO CONTRAST 12:57:26 CT STROKE HEAD WO CONTRAST HISTORY:84 years old Female with Neuro deficit, acute, stroke suspected COMPARISON: 12/13/2027 TECHNIQUE: Noncontrast axial images of the head, with coronal and sagittalreformats. FINDINGS: The ventricles and cerebral sulci are unchanged in caliber andconfiguration. No hydrocephalus, midline shift or pathological extra-axialfluid collection is present. The basal cisterns are unremarkable. There is no acute intracranial hemorrhage or significant mass effect. Nonew acute parenchymal attenuation abnormality. The ga-white matterdifferentiation is preserved. Left maxillary retention cyst. The mastoid air cells and remainingparanasal air sinuses are clear. The calvarium and central skull base areunremarkable. [facility])(Total Cholesterol, Triglycerides, HDL)2024-12-15 19:08:05* Test Item Value Reference Range Interpretation Comme nts CHOL (test code = 9940672506) 201 mg/dL 120-200 H HDL (test code = 2687045386) 41 mg/dL >=50 L HDLC RATIO (test code = 3928794562) 4.9 <=4.5 H TRIG (test code = 2051556653) 124 mg/dL 30-170 LDL CHOL (test code = 99262-0) 135 mg/dL <=160 VLDL (test code = 8955464219) 25 mg/dL 5-60 Lab Interpretation (test cod e = 10152-1) Abnormal [facility] with Ybpj0106-46-80 11:43:13* Test Item Value Reference Range Interpretation Comme nts WBC (test code = 6690-2) 4.64 4.30-11.10 RBC (test code = 789-8) 3.93 3.93-5.25 HGB (test code = 718-7) 11.5 g/dL 11.6-15.0 L HCT (test code = 4544-3) 34.8 % 35.7-45.2 L MCV (test code = 787-2) 88.5 fL 80.6-95.5 MCH (test code = 785-6) 29.3 pg 25.9-32.8 MCHC (test code = 786-4) 33 g/dL 31.6-35.1 RDW-SD (test code = 31144-8) 44.7 fL 39.0-49.9 RDW-CV (test code = 788-0) 13.7 % 12.0-15.5 PLT (test code = 777-3) 105 166-358 L MPV (test code = 95865-2) 12.4 fL 9.5-12.9 IPF % (test code = 5669343358) 5.3 % 1.3-7.7 Platelet count measured by fluorescence method. NRBC/100 WBC (test code = 2917798480) 0 0.0-10.0 NRBC x10^3 (test code = 2437621237) See_Comment [Automated [employer]] The system which generated this result transmitted reference range: 10*3/?L. The reference range was not used to interpret this result as normal/abnormal. GRAN MAT (NEUT) % (test code = 770-8) 31.2 % IMM GRAN % (test code = 9549783217) 1.7 % LYMPH % (test code = 736-9) 50.9 % MONO % (test code = 5905-5) 9.9 % EOS % (test code = 713-8) 5.2 % BASO % (test code = 706-2) 1.1 % GRAN MAT x10^3(ANC) (test code = 0279073319) 1.45 10*3/uL 1.88-7.09 L IMM GRAN x10^3 (test code = 4630301533) 0.08 10*3/uL 0.00-0.06 H LYMPH x10^3 (test code = 731-0) 2.36 10*3/uL 1.32-3.29 MONO x10^3 (test code = 742-7) 0.46 10*3/uL 0.33-0.92 EOS x10^3 (test code = 711-2) 0.24 10*3/uL 0.03-0.39 BASO x10^3 (test code = 704-7) 0.05 10*3/uL 0.01-0.07 Lab Interpretation (test code = 08456-2) [facility]normal [facility] [id number] 08:28:29* Test Item Value Reference Range Interpretation Comme nts TROPONIN I (test code = 2445246743) 0.008 ng/mL <=0.034 MARISA (test code = MARISA) Reference (Normal) Range (defined by the 99th percentile reference limit): <= 0.034 ng/mL Note: Cardiac troponin begins to rise 3-4 hours after the onset of ischemia. Repeat in 4-6 hours if the sample was drawn within 3-4 hours of the onset of the symptom and found normal. Diagnosis of myocardial injury is made with acute changes in cTn concentrations with at least one serial sample above the 99th percentile upper reference limit (URL), taken together with the patient's clinical presentation. Biotin has been reported to cause a negative bias, interpret results relative to patient's use of biotin. Lab Interpretation (test code = 68847-3) Normal [facility] with [id number] 08:20:53* Test Item Value Reference Range Interpretation Comme nts WBC (test code = 6690-2) 5.18 4.30-11.10 RBC (test code = 789-8) 3.91 3.93-5.25 L HGB (test code = 718-7) 11.5 g/dL 11.6-15.0 L HCT (test code = 4544-3) 35 % 35.7-45.2 L MCV (test code = 787-2) 89.5 fL 80.6-95.5 MCH (test code = 785-6) 29.4 pg 25.9-32.8 MCHC (test code = 786-4) 32.9 g/dL 31.6-35.1 RDW-SD (test code = 97770-9) 44.8 fL 39.0-49.9 RDW-CV (test code = 788-0) 13.6 % 12.0-15.5 PLT (test code = 777-3) 162 166-358 L MPV (test code = 43370-4) 11.4 fL 9.5-12.9 NRBC/100 WBC (test code = 6065163160) 0 0.0-10.0 NRBC x10^3 (test code = 0515645709) See_Comment [Automated messa ge] The system which generated this result transmitted reference range: 10*3/?L. The reference range was not used to interpret this result as normal/abnormal. GRAN MAT (NEUT) % (test code = 770-8) 35.9 % IMM GRAN % (test code = 0517219266) 0.2 % LYMPH % (test code = 736-9) 46.5 % MONO % (test code = 5905-5) 11 % EOS % (test code = 713-8) 5.6 % BASO % (test code = 706-2) 0.8 % GRAN MAT x10^3(ANC) (test code = 2071547335) 1.86 10*3/uL 1.88-7.09 L IMM GRAN x10^3 (test code = 4034740674) 0.00-0.06 LYMPH x10^3 (test code = 731-0) 2.41 10*3/uL 1.32-3.29 MONO x10^3 (test code = 742-7) 0.57 10*3/uL 0.33-0.92 EOS x10^3 (test code = 711-2) 0.29 10*3/uL 0.03-0.39 BASO x10^3 (test code = 704-7) 0.04 10*3/uL 0.01-0.07 REACT LYMPHS (test code = 5357219033) Moderate GIANT PLATELETS (test code = 5908-9) Present See_Comment A [Automated messa ge] The system which generated this result transmitted reference range: (none). The reference range was not used to interpret this result as normal/abnormal. Lab Interpretation (test code = 00522-3) [facility]normal [facility]osph[facility]2025-08-10 08:15:26* Test Item Value Reference Range Interpretation Comme nts PHOSPHORUS (test code = 7639279301) 4.1 mg/dL 2.5-5.0 Lab Interpretation (test cod e = 12096-6) Normal [facility] Metabolic Panel (NA, K, CL, CO2, GLUCOSE, BUN, CREATININE, CA)2024-12-14 08:15:26* Test Item Value Reference Range Interpretation Comme nts NA (test code = 7446378070) 132 mmol/L 135-145 L K (test code = 7155183362) 3.5 mmol/L 3.5-5.0 CL (test code = 1260462125) 97 mmol/L 98-108 L CO2 TOTAL (test code = 5474827710) 28 mmol/L 23-31 AGAP (test code = 9675926074) 7 2-16 BUN (test code = 2567149027) 22 mg/dL 7-23 GLUCOSE (test code = 6053420449) 92 mg/dL 70-110 CREATININE (test code = 2160-0) 0.89 mg/dL 0.50-1.04 CALCIUM (test code = 1795440203) 8.6 mg/dL 8.6-10.6 eGFR (test code = 34156-0) 63.6 mL/min/1.73m2 CKD-EPI eGFR (2020). Assuming creatinine has been stable day-to-day for at least three months, the eGFR indicates Category G2 (60 - 89 mL/min/1.73 m2) Lab Interpretation (test code = 55817-5) [facility]normal [facility]Magnesium2025-08-10 08:15:26* Test Item Value Reference Range Interpretation Comme nts MAGNESIUM (test code = 2005155267) 1.9 mg/dL 1.7-2.4 Lab Interpretation (test cod e = 47115-6) Normal [facility]Troponin [id number] 02:48:02* Test Item Value Reference Range Interpretation Comme nts TROPONIN I (test code = 6097782144) 0.009 ng/mL <=0.034 MARISA (test code = MARISA) Reference (Normal) Range (defined by the 99th percentile reference limit): <= 0.034 ng/mL Note: Cardiac troponin begins to rise 3-4 hours after the onset of ischemia. Repeat in 4-6 hours if the sample was drawn within 3-4 hours of the onset of the symptom and found normal. Diagnosis of myocardial injury is made with acute changes in cTn concentrations with at least one serial sample above the 99th percentile upper reference limit (URL), taken together with the patient's clinical presentation. Biotin has been reported to cause a negative bias, interpret results relative to patient's use of biotin. Lab Interpretation (test code = 95710-9) Normal [facility]ansthoracic echo (TTE) [id number] 00:24:10* Test Item Value Reference Range Interpretation Comme nts Height (test code = 0066726040) 65 in Weight (test code = 1255050593) 123 lbs Systolic BP (test code = 6136444660) 138 mmHg Diastolic BP (test code = 7651166333) 71 mmHg Heart Rate (test code = 5335838206) 74 bpm BSA (test code = 5663509547) 1.61 m2 LVOT diameter (test code = 4178237718) 1.9 cm LVOT area (test code = 4846044319) 2.8 cm2 Ao root diam (test code = 8777800204) 3.1 cm Aortic root (test code = 5437217103) 3.1 cm Ao root annulus (test code = 7013609329) 3.1 cm LA size (test code = 2393737644) 4.2 cm TR Peak Amanda (test code = 7551730889) 231 cm/s Triscuspid Valve Regurgitation Peak Gradient (test code = 2045166411) 21.6 mmHg E wave decelartion time (test code = 0649585706) 0.17 s MV Peak E Amanda (test code = 8603681167) 134.2 cm/s MV Peak A Amanda (test code = 9061982215) 54.4 cm/s E/A ratio (test code = 2882807225) 2.46 ratio LAV(MOD-sp4) (test code = 3020806599) 79.6 mL Tapse (test code = 1664758942) 0.91 cm LVOT stroke volume (test code = 0259073927) 53.7 cm3 LVOT peak amanda (test code = 9518892152) 98.4 cm/s LVOT mn grad (test code = 4896417075) 2.2 mmHg AV LVOT peak gradient (test code = 7914583874) 3.9 mmHg LVOT peak VTI (test code = 6899553714) 19 cm LV V1 mean (test code = 8298156637) 70.3 cm/s LA Volume Index (BP) (test code = 8551466097) 51.4 mL/m2 LA volume (BP) (test code = 9865583420) 82.8 mL LAV(MOD-sp2) (test code = 0702110070) 82.6 mL LVIDD (test code = 1857938424) 3.6 cm Left Ventricular End Diastolic Volume by Teichholz Method (test code = 9288833) 55.1 mL IVS (test code = 9207874114) 0.89 cm Interventricular Septum Diastolic Thickness by 2D (test code = 4825735) 0.89 cm LVPWD (test code = 3805636310) 0.9 cm LV RWT (test code = 5518276703) 0.5 LV mass (test code = 3245068621) 92.07 g LV Mass Index (test code = 1148107899) 57.2 g/m2 PW (test code = 6224423663) 0.9 cm 0.6-1.1 EF(Teich) (test code = 0962444671) 65.7 % LVIDS (test code = 1149113605) 2.34 cm Left Ventricular End Systolic Volume by Teichholz Method (test code = 0712435) 18.9 mL FS (test code = 3059585273) 35 % EF - 2D (test code = 82335195) 65.7 % Radiology Study observation (narrative) (test code = 90601-1) MARISA (test code = MARISA) ?Left?Ventricle: Hyperdynamic systolic function with a visually estimated EF of greater than 65%. ?Right?Ventricle: Right ventricle size is normal. Normal systolic function. ?Left?Atrium: Left atrium is severely dilated. Left atrium volume index is 51.4 mL/m2. ?Right?Atrium: Right atrium is severely dilated. ?Tricuspid?Valve: Tricuspid valve structure is normal. Mild transvalvular regurgitation. Right ventricular systolic pressure is 25-30 mmHg. ?RA pressure is 0-5 mmHg. Left VentricleLeft ventricle size is normal. Normal wall motion. Hyperdynamic systolic function with a visually estimated EF of greater than 65%. Unable to assess diastolic function due to E-A fusion.Right VentricleRight ventricle size is normal. Normal systolic function.Left AtriumLeft atrium is severely dilated. Left atrium volume index is 51.4 mL/m2.Right AtriumRight atrium is severely dilated.IVC/SVCIVC diameter is less than or equal to 21 mm and decreases greater than 50% during inspiration; therefore the estimated right atrial pressure is normal (~0-5 mmHg).Mitral ValveModerate posterior mitral annular calcification. Trace transvalvular regurgitation. No stenosis.Tricuspid ValveTricuspid valve structure is normal. Mild transvalvular regurgitation. Right ventricular systolic pressure is 25-30 mmHg. RA pressure is 0-5 mmHg. No stenosis.Aortic ValveSeverely calcified noncoronary cusp. Mild annular calcification. No hemodynamically significant .Pulmonic ValveNot well visualized. Valve structure is normal. No transvalvular regurgitation. No stenosis.Ascending AortaNormal sized aortic root.PericardiumNo pericardial effusion.Study DetailsA complete echocardiogram was performed using 2D, color flow Doppler and spectral Doppler. 3 mL of Optison ultrasound enhancing agent used. [facility]12 Lead ROUTINE [id number] 01:51:07* Test Item Value Reference Range Interpretation Comme [facility] Lab Interpretation (test cod e = 07328-3) Abnormal [facility] GLUCOSE (AUTOMATED)2024-12-13 01:14:32* Test Item Value Reference Range Interpretation Comme [facility] POCT GLU (test code = 4659025083) 94 mg/dL 70-110 Lab Interpretation (test cod e = 00502-3) Normal [facility] Ang[facility]ogram [id number] 22:10:28EXAM: CT ANGIOGRAM HEAD, CT ANGIOGRAM NECK HISTORY: 84 years -old Female with vision disturbance, weakness, and speechdifficulty TECHNIQUE: CT angiography of the neck and head after the intravenousadministration of contrast. Axial images were reconstructed at 0.63 mmslice thickness. Coronal and sagittal reformats including MIPs wereprovided. COMPARISON: Concurrent CT head FINDINGS: CTA HEAD: The PICA origin is visualized bilaterally. The basilar artery is normal incaliber. The visualized superior cerebellar arteries are unremarkable. Theposterior cerebral arteries are patent. Moderate focal stenosis is seen inthe mid right P2 segment (7:106). No sizable posterior communicatingarteries visual ized. The distal cervical, petrous, cavernous and supraclinoid internal carotidarteries are patent with mild scattered atherosclerotic plaque resulting inno significant stenosis. The anterior and middle cerebral arteries are patent. An anteriorcommunicating artery is visualized. The dural venous sinuses are ?patent. CTA NECK: Aortic arch and arch vessel origins: Classic triple vessel arch anatomy.Origins of the great vessels are widely patent. Scattered atheroscleroticplaque of the aortic arch.Innominate and subclavian arteries: Patent on both sides. Common carotids: The common carotid arteries, carotid bulbs, and the distalcervical internal carotid arteries are patent. Mild atheroscleroticcalcification of the bilateral carotid bulbs and proximal ICAs results inno significant stenosis. Vertebral arteries: The vertebral arteries originate normally from thesubclavian arteries and are patent along their course. Cervical soft tissues: Multiple subcentimeter thyroid nodules are notedmeasuring up to 0.9 cm on the right. Lung apices: Centrilobular emphysema is noted in the visualized lungapices. A calcified granuloma is partially visualized in the right lowerlobe. Cervical spine: Mild multilevel degenerative changes with facet anduncovertebral arthrosis.[facility] CT Angiogram [id number] 22:10:28EXAM: CT ANGIOGRAM HEAD, CT ANGIOGRAM NECK HISTORY: 84 years -old Female with vision disturbance, weakness, and speechdifficulty TECHNIQUE: CT angiography of the neck and head after the intravenousadministration of contrast. Axial images were reconstructed at 0.63 mmslice thickness. Coronal and sagittal reformats including MIPs wereprovided. COMPARISON: Concurrent CT head FINDINGS: CTA HEAD: The PICA origin is visualized bilaterally. The basilar artery is normal incaliber. The visualized superior cerebellar arteries are unremarkable. Theposterior cerebral arteries are patent. Moderate focal stenosis is seen inthe mid right P2 segment (7:106). No sizable posterior communicatingarteries visualized. The distal cervical, petrous, cavernous and supraclinoid internal carotidarteries are patent with mild scattered atherosclerotic plaque resulting inno significant stenosis. The anterior and middle cerebral arteries are patent. An anteriorcommunicating artery is visualized. The dural venous sinuses are ?patent. CTA NECK: Aortic arch and arch vessel origins: Classic triple vessel arch anatomy.Origins of the great vessels are widely patent. Scattered atheroscleroticplaque of the aortic arch.Innominate and subclavian arteries: Patent on both sides. Common carotids: The common carotid arteries, carotid bulbs, and the distalcervical internal carotid arteries are patent. Mild atheroscleroticcalcification of the bilateral carotid bulbs and proximal ICAs results inno significant stenosis. Vertebral arteries: The vertebral arteries originate normally from thesubclavian arteries and are patent along their course. Cervical soft tissues: Multiple subcentimeter thyroid nodules are notedmeasuring up to 0.9 cm on the right. Lung apices: Centrilobular emphysema is noted in the visualized lungapices. A calcified granuloma is partially visualized in the right lowerlobe. Cervical spine: Mild multilevel degenerative changes with facet anduncovertebral arthrosis.[facility] HEAD WO [id number] 21:48:41EXAM: CT HEAD WO CONTRAST HISTORY: 84 years-old Female; Provided indication: Difficulty with speech. TECHNIQUE: Axial noncontrast CT of the head was performed. Coronal andsagittal reformatted images were generated. COMPARISON: 01/03/2021 HEAD: The ventricles and cerebral sulci are normal in caliber and configuration.No midline shift or pathological extra-axial fluid collection is present.The basalcisterns are unremarkable. No acute intracranial hemorrhage or significant mass effect is visualized.No parenchymal attenuation abnormality is seen. The ga-white matterdifferentiation is preserved.The calvarium and central skull base are unremarkable. The mastoid aircells and visualized paranasal air sinuses are clear.[facility]XR CHEST 1 [id number] 20:57:09ORDERING PHYSICIAN: LOUISE LOPEZ. HISTORY: malaise TECHNIQUE: AP. COMPARISON: 02/13/2022 FINDINGS: Support equipment: ?None. Lungs: ?No focal consolidation is seen. Pleura: ?No effusion or pleural disease is seen. ?No pneumothorax. Mediastinum/Jordana: ?No masses or adenopathy. Heart: ?The heart is not enlarged. Other: ?No acute osseous abnormality is seen.[facility] Transesophageal echo (RANDOLPH)2024-06-03 21:51:13* Test Item Value Reference Range Interpretation Comme nts LVOT peak amanda (test code = 3408951657) 73.7 cm/s LVOT mn grad (test code = 5966190890) 1.3 mmHg AV LVOT peak gradient (test code = 9013937566) 2.17 mmHg LVOT peak VTI (test code = 4652335202) 17.0 cm LV V1 mean (test code = 0829779692) 54.10 cm/s Aortic valve mean velocity (test code = 2941248004) 82.4 cm/s Ao peak amanda (test code = 4408630349) 140.0 cm/s Ao VTI (test code = 7988596207) 26.3 cm Ao max PG (test code = 0815140461) 7.80 mm[Hg] AV peak gradient (test code = 6736726803) 7.8 mmHg AV mean gradient (test code = 4333220547) 3.2 mmHg LVOT diameter (test code = 3311168815) 2.0 cm Radiology Study observation (narrative) (test code = 39953-4) MARISA (test code = MARISA) ?Left?Atrium: Left atrium is dilated. No PFO present. Dilated chicken wing appendage. Decreased appendage flow velocity. Normal flow patterns in the pulmonary veins. No thrombus in left atrial appendage. ?Aortic?Valve: Tricuspid. Mildly thickened cusps. Moderately calcified noncoronary cusp. Mild annular calcification. Consistent with mild aortic stenosis visually. Planimetered area is 1.4cm2. ?KEN by VTI likely understimates the degree of aortic stenosis ?Left?Ventricle: Normal systolic function. ?Right?Ventricle: Right ventricle size is normal. Normal systolic function. Left VentricleNormal systolic function.Right VentricleRight ventricle size is normal. Normal systolic function.Left AtriumLeft atrium is dilated. No PFO present. Dilated chicken wing appendage. Decreased appendage flow velocity. Normal flow patterns in the pulmonary veins. No thrombus in left atrial appendage.Right AtriumRight atrium size is normal.IVC/SVCIVC normal in size. SVC size is normal.Mitral ValveMitral valve structure is normal. Mild transvalvular regurgitation. No stenosis.Tricuspid ValveTricuspid valve structure is normal. Mild transvalvular regurgitation. No stenosis.Aortic ValveTricuspid. Mildly thickened cusps. Moderately calcified noncoronary cusp. Mild annular calcification. No transvalvular regurgitation. Consistent with mild aortic stenosis visually. Planimetered area is 1.4cm2. KEN by VTI likely understimates the degree of aortic stenosisPulmonic ValveValve structure is normal. No transvalvular regurgitation. No stenosis.Ascending AortaGrade 2 atherosclerosis of the ascending aorta and descending aorta.PericardiumNo pericardial effusion.Study DetailsA complete transesophageal echocardiogram was performed using complete 2D, color flow Doppler, spectral Doppler and complete 3D. During the study the esophageal view was captured. The probe was inserted by the steak tenderizer machine. There was no probe insertion difficulty.There were 1 attempts to insert the probe. Probe in 759. Probe out 818. Sedation and monitoring provided by anesthesia, see Epic documentation. There were no complications during the procedure. Based on abnormal findings of 2D echocardiogram, 3D was performed on an acquisition scanner for further assessment of the aortic valve and for further assessment of the mitral valve. rc [facility]oundProthrombin Time / [id number] 13:14:23* Test Item Value Reference Range Interpretation Comme [facility] PROTIME PATIENT (test code = 5964-2) 13.1 10.1-12.6 H INR (test code = 6301-6) 1.2 Normal INR <1.1; Warfarin Therapeutic range 2.0 to 3.0 or 2.5 to 3.5, depending upon the indications. Lab Interpretation (test code = 37424-5) Abnormal [facility]oundProthrombin Time / [id number] 13:14:23* Test Item Value Reference Range Interpretation Comme [facility] PROTIME PATIENT (test code = 5964-2) 13.1 10.1-12.6 H INR (test code = 6301-6) 1.2 Normal INR <1.1; Warfarin Therapeutic range 2.0 to 3.0 or 2.5 to 3.5, depending upon the indications. Lab Interpretation (test code = 58199-6) Abnormal [facility]oundType and Screen - ONCE [id number] 13:01:00* Test Item Value Reference Range Interpretation Comme nts ABO & RH (test code = 20) A POSITIVE IAT (test code = 1185) Negative [facility]Type and Screen - ONCE [id number] 13:01:00* Test Item Value Reference Range Interpretation Comme nts ABO & RH (test code = 20) A POSITIVE IAT (test code = 1185) Negative [facility] METABOLIC PANEL (NA, K, CL, CO2, GLUCOSE, BUN, CREATININE, CA)2024-05-29 18:24:46* Test Item Value Reference Range Interpretation Comme nts NA (test code = 5073458660) 136 mmol/L 135-145 K (test code = 3922123814) 3.5 mmol/L 3.5-5.0 CL (test code = 9395815225) 94 mmol/L 98-108 L CO2 TOTAL (test code = 9994864305) 34 mmol/L 23-31 H AGAP (test code = 1665494505) 8 2-16 BUN (test code = 9295611422) 15 mg/dL 7-23 GLUCOSE (test code = 8146213679) 94 mg/dL 70-110 CREATININE (test code = 2160-0) 0.85 mg/dL 0.50-1.04 CALCIUM (test code = 6864904347) 9.5 mg/dL 8.6-10.6 eGFR (test code = 09361-0) 67.2 mL/min/1.73m2 CKD-EPI eGFR (2020). Assuming creatinine has been stable day-to-day for at least three months, the eGFR indicates Category G2 (60 - 89 mL/min/1.73 m2) Lab Interpretation (test code = 91527-8) Abnormal [facility]oundMAGNESIUM2025-01-23 18:24:46* Test Item Value Reference Range Interpretation Comme nts MAGNESIUM (test code = 3163051177) 1.6 mg/dL 1.7-2.4 L Lab Interpretation (test cod e = 10413-0) Abnormal [facility]oundPROTHROMBIN TIME / [id number] 17:52:03* Test Item Value Reference Range Interpretation Comme nts PROTIME PATIENT (test code = 5964-2) 18.7 10.1-12.6 H INR (test code = 6301-6) 1.6 Normal INR <1.1; Warfarin Therapeutic range 2.0 to 3.0 or 2.5 to 3.5, depending upon the indications. Lab Interpretation (test code = 24033-9) Abnormal [facility]oundCBC WITH [id number] 17:50:22* Test Item Value Reference Range Interpretation Comme nts WBC (test code = 6690-2) 5.71 4.30-11.10 RBC (test code = 789-8) 4.19 3.93-5.25 HGB (test code = 718-7) 12.8 g/dL 11.6-15.0 HCT (test code = 4544-3) 39.7 % 35.7-45.2 MCV (test code = 787-2) 94.7 fL 80.6-95.5 MCH (test code = 785-6) 30.5 pg 25.9-32.8 MCHC (test code = 786-4) 32.2 g/dL 31.6-35.1 RDW-SD (test code = 60550-5) 46.5 fL 39.0-49.9 RDW-CV (test code = 788-0) 13.3 % 12.0-15.5 PLT (test code = 777-3) 281 166-358 MPV (test code = 78257-4) 11.7 fL 9.5-12.9 NRBC/100 WBC (test code = 8525691947) 0.0 0.0-10.0 NRBC x10^3 (test code = 5854192908) See_Comment [Automated me ssage] The system which generated this result transmitted reference range: 10*3/?L. The reference range was not used to interpret this result as normal/abnormal. GRAN MAT (NEUT) % (test code = 770-8) 58.9 % IMM GRAN % (test code = 9633323787) 0.40 % LYMPH % (test code = 736-9) 29.2 % MONO % (test code = 5905-5) 7.5 % EOS % (test code = 713-8) 2.8 % BASO % (test code = 706-2) 1.2 % GRAN MAT x10^3(ANC) (test code = 2263764991) 3.36 10*3/uL 1.88-7.09 IMM GRAN x10^3 (test code = 9144202823) 0.00-0.06 LYMPH x10^3 (test code = 731-0) 1.67 10*3/uL 1.32-3.29 MONO x10^3 (test code = 742-7) 0.43 10*3/uL 0.33-0.92 EOS x10^3 (test code = 711-2) 0.16 10*3/uL 0.03-0.39 BASO x10^3 (test code = 704-7) 0.07 10*3/uL 0.01-0.07 [facility]Type and Screen -2024-05-29 17:40:00* Test Item Value Reference Range Interpretation Comme nts ABO & RH (test code = 20) A POSITIVE IAT (test code = 1185) Negative [facility]XR Ankle 3+ vw [id number] 22:43:17 Clinical indication: ?Right ankle pain Ordering physician: MELANI NIÑO; ?MELANI NIÑO COMPARISON: No prior exams available for comparison. FINDINGS: ?AP, lateral and oblique views ofthe right ankle were obtained.The bones are demineralized. No acute fracture or dislocation. No effu sionidentified. Base of the fifth metatarsal is intact. Calcaneal height ismaintained.[facility]oundTransthoracic echo (TTE) 2024-02-28 21:14:24* Test Item Value Reference Range Interpretation Comme nts Height (test code = 5367417137) 65 in Weight (test code = 2836107220) 116 lbs Systolic BP (test code = 7993597636) 123 mmHg Diastolic BP (test code = 6995701632) 59 mmHg Heart Rate (test code = 7268752235) 69 bpm RVOT diameter (test code = 4143205203) 1.99 cm RVOT Proximal Diameter (test code = 2924926061) 2.70 cm MR max PG (test code = 5539143337) 85.50 mm[Hg] MR max amanda (test code = 8876932385) 462.00 cm/s Ao root diam (test code = 4093659643) 2.80 cm Mr max amanda (test code = 5765754541) 462.0 m/s Aortic root (test code = 2980383318) 2.8 cm Ao root annulus (test code = 1551902560) 2.8 cm BSA (test code = 0603497540) 1.57 m2 LVOT diameter (test code = 1782574599) 1.83 cm LVOT area (test code = 7354125055) 2.60 cm2 LA size (test code = 3445598156) 4.5 cm ACS (test code = 1546558961) 1.53 cm LVIDD (test code = 1959723917) 3.30 cm Left Ventricular End Diastolic Volume by Teichholz Method (test code = 5613972) 42.8 mL IVS (test code = 9871741606) 1.50 cm Interventricular Septum Diastolic Thickness by 2D (test code = 6996521) 1.50 cm LVPWD (test code = 8347214446) 1.18 cm PW (test code = 7183827746) 1.18 cm 0.6-1.1 EF(Teich) (test code = 8384527274) 59.90 % LVIDS (test code = 6870293443) 2.25 cm Left Ventricular End Systolic Volume by Teichholz Method (test code = 5859183) 17.1 mL FS (test code = 1954765133) 31 % EF - 2D (test code = 97571224) 59.90 % PV PEAK VELOCITY (test code = 4954976899) 83.8 cm/s PV peak gradient (test code = 1768383136) 2.8 mmHg TR Peak Amanda (test code = 7450683664) 255.9 cm/s Triscuspid Valve Regurgitation Peak Gradient (test code = 7086023546) 26.2 mmHg A4C EF (test code = 8394838225) 56.90 % EF(sp4-el) (test code = 7783058672) 63.00 % SV(MOD-sp4) (test code = 0635320871) 27.00 mL SV(sp4-el) (test code = 4283948526) 30.40 mL MV E-F slope (test code = 1059775970) 50.30 cm/s MV Peak E Amanda (test code = 9353522233) 108.0 cm/s MV valve area p 1/2 method (test code = 7675236479) 2.70 cm2 MV dec slope (test code = 9451401241) 376.80 cm/s2 MV P1/2t max amanda (test code = 3780466941) 106.40 cm/s MV Peak A Amanda (test code = 0071945002) 52.4 cm/s E/A ratio (test code = 2153000173) 2.06 ratio LVOT stroke volume (test code = 9043550502) 79.00 cm3 LVOT peak amanda (test code = 5050549989) 133.6 cm/s LVOT mn grad (test code = 3397783059) 2.7 mmHg AV LVOT peak gradient (test code = 0982443526) 7.1 mmHg LVOT peak VTI (test code = 7176751033) 29.9 cm LV V1 mean (test code = 0424235562) 73.90 cm/s Aortic valve mean velocity (test code = 1488187833) 108.8 cm/s Ao peak amanda (test code = 1309656363) 201.4 cm/s Ao VTI (test code = 0554859997) 46.7 cm AV area by cont VTI (test code = 4992416511) 1.7 cm2 AV area peak amanda (test code = 2268091041) 1.8 cm2 Ao max PG (test code = 5831826629) 16.20 mm[Hg] AV peak gradient (test code = 0421705396) 16.2 mmHg AV valve area (test code = 7990598915) 1.69 cm2 AV mean gradient (test code = 3719066754) 6.0 mmHg LAV(MOD-sp4) (test code = 6924102239) 55.40 mL LA Volume Index (BP) (test code = 1640026551) 37.3 mL/m2 LA volume (BP) (test code = 0407943445) 58.6 mL LAV(MOD-sp2) (test code = 3314994132) 52.50 mL RVOT area (test code = 4266939354) 3.11 cm2 Radiology Study observation (narrative) (test code = 18767-6) MARISA (test code = MARISA) ?Left?Ventricle: Left ventricle size is normal. Mild basal septal thickening. Normal wall motion. Normal systolic function with a visually estimated EF of 60 - 65%. There is pseudonormal diastolic dysfunction. ?Right?Ventricle: Right ventricle size is normal. Normal systolic function. ?Tricuspid?Valve: Mild transvalvular regurgitation. Right ventricular systolic pressure is normal. ?RA pressure is 0-5 mmHg. ?Aorta: Mildly enlarged ascending aorta. ?Left?Atrium: Left atrium is severely dilated. Left VentricleLeft ventricle size is normal. Mild basal septal thickening. Normal wall motion. Normal systolic function with a visually estimated EF of 60 - 65%. There is pseudonormal diastolic dysfunction.Right VentricleRight ventricle size is normal. Normal systolic function.Left AtriumLeft atrium is severely dilated.Right AtriumRight atrium size is normal.IVC/SVCIVC normal in size.Mitral ValveModerate mitral annular calcification. Mild transvalvular regurgitation.Tricuspi d ValveTricuspid valve structure is normal. Mild transvalvular regurgitation. Right ventricular systolic pressure is normal. RA pressure is 0-5 mmHg.Aortic ValveTricuspid. Moderately thickened cusps. Moderately calcified cusps. No hemodynamically significant . Peak velocity 1.7 m/sec. Mean gradient 6.4 mmHg. KEN 2.0 cm2 by CE. LVOT 1.9 cm.Pulmonic ValveValve structure is normal. Trace transvalvular regurgitation.Ascendin g AortaMildly enlarged ascending aorta.PericardiumThe pericardium is normal. No pericardial effusion.Study DetailsStudy quality was adequate. A complete echocardiogram was performed using 2D, color flow Doppler and spectral Doppler. [facility] [id number] 17:23:19HISTORY: VILLALBA. TECHNIQUE: PA and lateral views of the chest are obtained. Comparison madewith 02/13/2022 study. FINDINGS: Mild generalized obstructive lung disease with hyperinflatedlungs noted. Minimal fibrosis seen in the anterior left upper lobe.Calcified granuloma in the lateral right midlung zone noted. No acute pneumonia detected. No pneumothorax or pleural effusion orpulmonary congestion. Cardiothoracic ratio of approximately 13.2/26.2 cm isconsistent with upper normal cardiac size. Elongated and tortuous thoracicaorta, mild thoracic kyphosis noted. Osteopenia suspected with minimal lossof height of T9, T7 and T6 vertebral bodies. CONCLUSIONS: No signs of acute cardiopulmonary disease. [facility] SARS-COV-2 ANTIGEN (BINAX NOW)2023-12-04 20:38:00* Test Item Value Reference Range Interpretation Comme nts POCT SARS-COV-2 ANTIGEN (test code = 17598-3) Not Detected Not Detected, See Comment On board controls acceptable with C Line (test code = 3574) Yes [facility] URINALYSIS W SPECIFIC [id number] 16:32:00* Test Item Value Reference Range Interpretation Comme nts POCT U SP GRAV (test code = 3255) 1.020 mg/dl 1.005-1.025 POCT PH U (test code = 3254) 5 mg/dl 5-8 POCT U LEUK EST (test code = 3263) negative Negative - Negative POCT U NIT (test code = 3262) negative Negative - Negati ve POCT U PROT (test code = 3259) trace Negative - Negative POCT U GLU (test code = 3256) normal Negative - Negati ve POCT U KETONE (test code = 3258) negative Negative - Negative POCT U UROBILI (test code = 3260) normal 0.2-1 POCT U BILI (test code = 3261) negative Negative - Negative POCT U BLD (test code = 3257) negative Negative - Negati ve POCT U COLOR (test code = 3266) dark yellow POCT U APPEAR (test code = 3267) clear [facility] URINALYSIS W SPECIFIC [id number] 16:32:00* Test Item Value Reference Range Interpretation Comme nts POCT U SP GRAV (test code = 3255) 1.020 mg/dl 1.005-1.025 POCT PH U (test code = 3254) 5 mg/dl 5-8 POCT U LEUK EST (test code = 3263) negative Negative - Negative POCT U NIT (test code = 3262) negative Negative - Negati ve POCT U PROT (test code = 3259) trace Negative - Negative POCT U GLU (test code = 3256) normal Negative - Negati ve POCT U KETONE (test code = 3258) negative Negative - Negative POCT U UROBILI (test code = 3260) normal 0.2-1 POCT U BILI (test code = 3261) negative Negative - Negative POCT U BLD (test code = 3257) negative Negative - Negati ve POCT U COLOR (test code = 3266) dark yellow POCT U APPEAR (test code = 3267) clear [facility] Consult Notes Date/Time Note Provider Source 2024-12-23 11:30:00 Associated Order(s): CONSULT ADULT PHYSICAL THERAPY Images from the original note were not included. Patient agreeable to working with physical therapy. Patient seated edge of bed, No visitors present. Recommend nursing staff utilize Minimal assist to safely assist patient with mobility out of the bed or chair. PHYSICAL THERAPY EVALUATION Consult received, chart reviewed and evaluation complete this date. Patient is referred to PT for evaluation and treatment. Patient is a 84 year old female who presents to hospital for Cerebrovascular accident (CVA), unspecified mechanism [I63.9] . Discharge Recommendations: Therapy Needs and Potential: Patient would benefit from continued physical therapy services to address: decline in bed mobility decline in transfers decline in gait and/or balance decreased strength Patient demonstrates good potential to improve and meet therapy goals with further physical therapy services. Patient appears motivated to improve their functional mobility and return to their previous level of function. Challenges to Home Transition: increased risk of falls decreased safety awareness Equipment recommendations: Patient has or access to necessary equipment Current Functional Status and/or Treatment: AM-PAC 6 Clicks (Raw Score 0=Dependent, 24=Independent; Low function Raw Score 0= Dependent, 32=Independent): Bed Mobility: Supine to sit: Supervision Sit to supine: Supervision Rolling: Supervision Bridging: Supervision Scooting to edge of bed: Supervision Sitting balance Good Dizziness No Transfers: Sit to stand: Minimal Assistance using standard Walker Stand to sit: Minimal Assistance using standard Walker Static/dynamic standing balance: Good Verbal cueing provided for correct hand placement and correct use of AD Dizziness No Ambulation: Assisted patient with ambulation as follows: 12 feet using standard Walker and Minimal Assistance. Pt was able to walk from bedside to bathroom to bedside recliner. PT on contact guard assist for safety precaution. Dizziness No Therapeutic exercise: patient educated in Deep breathing, Energy conservation, Fall prevention, General strengthening, Relaxation/breathing techniques, and Safety awareness. After session, patient reclining in bedside chair and Heels offloaded? No: not required as patient is alert and oriented, as well as exhibits sufficient LE strength and ability to move/reposition LEs/heels throughout the day, No visitors present. Call button provided. was in the room post-PT evaluation. PLAN OF CARE: While in the hospital, PT will follow patient at least 2 times per week,once or twice a day, per patient's tolerance and needs. See below for complete details. Admit Date: 12/22/2024 Hospital Diagnosis:Cerebrovascular accident (CVA), unspecified mechanism [I63.9] PT Diagnosis: Difficulty walking, Weakness, and Abnormality of gait and balance Weight Bearing Precaution: NA General Precautions: PPE used:Gloves, General, Fall Bracing/Cast present or required:N/A PMH: Past Medical History: Diagnosis Date Arthritis Atrial fibrillation Chronic constipation Hyperlipidemia Hypertension Hypothyroid Transient global amnesia 1974 states she had an episode about 10 years ago PSH: Past Surgical History: Procedure Laterality Date COLONOSCOPY N/A 01/29/2020 Surgeon: Chantale Walker MD; Location: [facility] HYSTERECTOMY PHACOEMULSIFICATION OF CATARACT WITH INTRAOCULAR LENS IMPLANT Left 01/26/2022 Surgeon: Lucía Early MD; Location: [facility] PHACOEMULSIFICATION OF CATARACT WITH INTRAOCULAR LENS IMPLANT Right 03/16/2022 Surgeon: Lucía Early MD; Location: [facility] PRIOR LIVING SITUATION: lives alone and prison DME: Rolling Walker, Standard Walker Prior level of Mobility: ambulates with standard Walker Suspected ischemic or hemorraghic stroke: Pt stated she may had a mini-stroke. Subjective: Pt stated he may had a mini-stroke. Pt with no complaints of pain. Patient/Family Goals: To get better Patient/Family verbalizes understanding of condition: Yes PAIN: denies pain before and after session COMMUNICATION Primary Language: Congolese Able to Verbalize needs: Yes Vision:good; no issues reported Hearing:good; no issues reported ORIENTATION/COGNITION: Oriented to: person, place, and situation Awake: Yes Alert: Yes Dizzy: No Follows Commands: Yes 1-Step Yes Multi-Step Yes Inconsistent: No NEUROLOGICAL Light Touch: within functional limits bilateral LE BALANCE: Sitting: Static: Good Dynamic: Good Standing: Static: Good Dynamic: Fair+ RANGE OF MOTION: within functional limits bilateral LE STRENGTH: 4-/5 (G-), bilateral LE ENDURANCE: Good, Room air SKIN INTEGRITY: intact PROBLEM LIST: Decline in gait, Decline in transfers, Decreased strength, and Safety awareness deficits ASSESSMENT: Patient is a 84 year old female seen secondary to the above listed diagnosis. Patient would benefit from continued PT to address the above listed deficits to maximize independence and safety with functional mobility. Rehabilitation Potential: good Goals: The following goals are to maximize independence and safety with functional mobility to eventually return to prior living situation and prior functional status. Upon discharge, patient and/or family will demonstrate the followin. Supine to sit: Independent Sit to supine: Independent Rolling: Independent Bridging: Independent Scooting to edge of bed: Independent Sitting balance Excellent 2. Sit to stand: Supervision using standard Walker Stand to sit: Supervision using standard Walker 3. Supervision with ambulation, Feet: 25 using least assistive device. Treatment Plan: Gait training, Therapeutic exercise, Transfer training, Balance training, Equipment needs assessment, and Safety education, patient/caregiver education PATIENT EDUCATION: Patient provided with preferred teaching of verbal information and demonstration on role of PT, plan of care, and goals. Shows readiness to learn. Verbal instruction and Demonstration teaching provided. Individual is able to read and verbalizes understanding of teaching provided. Total Time Tx Codes in Minutes: 20 min Total Treatment Time in Minutes: 25 min Pawan Alicia PT [place] Lic No. [id number] [facility] Department of Physical Therapy Pawan Alicia PT [facility] 2024-12-23 11:00:00 Associated Order(s): CONSULT SPEECH (DYSPHAGIA) Speech-Language Pathology Clinical Swallow Evaluation Speech Evaluation 12/23/2024 Black Haynes : 1940 Age/Sex: 84 year old female Time IN/OUT: [id number] Referring Physician: Michael Bowling MD Date of Referral: 12/23/2024 Reason for Referral: stroke activation (dysphagia, speech-language/cognitive- linguistic) Date of Admission/Onset: 12/23/2024 SUBJECTIVE: Pt is alert and oriented and in agreement with this assessment. Pt states that she was having some anterior loss of liquids but it is better today and she finds it easier to use a straw. OBJECTIVE: is being seen for a clinical swallow evaluation. Black Haynes is a 84 year old female admitted for slurred speech and left side weakness with PMH significant for atrial fibrillation on Eliquis, TIA, transient global amnesia, HTN, hypothyroidism, HLD, and prior diplopia presents with recurrent speech difficulty and gait imbalance. 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 Current symptoms began ~11:30 AM with progressive left-sided weakness, slowed speech, imbalance, and fatigue, later worsening to dysphagia by evening. . Pertinent Imaging: CT ACUTE STROKE ANGIOGRAM HEAD Result Date: 12/23/2024 No large vessel occlusion. Unchanged focal stenosis of right [employer] RE[employer]TER and mid P2 segment. Preliminary Report Dictated by Resident: Stef Cevallos MD., have reviewed this study and agree with the above report. CT ACUTE STROKE ANGIOGRAM NECK Result Date: 12/23/2024 No large vessel occlusion. Unchanged focal stenosis of right [employer] REPORTER and mid P2 segment. Preliminary Report Dictated by Resident: Stef Cevallos MD., have reviewed this study and agree with the above report. CT ACUTE STROKE HEAD WO CONTRAST Result Date: 12/23/2024 No acute intracranial hemorrhage or mass effect. Preliminary Report Dictated by Resident: Stefani Valle I, Robert Sanchez MD., have reviewed this study and agree with the above report. CT Thorax w contrast Result Date: 12/16/2024 1. No focal airspace consolidation, pleural effusion, or pneumothorax. 2. Moderate emphysema. 3. Sequela of prior granulomatous disease. No convincing noncalcified pulmonary nodule or mass identified on this exam. 4. Coronary artery and aortic atherosclerosis. 5. 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 End of report. Angiogram head Result Date: 12/12/2024 No large vessel occlusion. Moderate focal stenosis of right [employer] RE[employer]TER mid P2. Mild atherosclerosis at the bilateral carotid bulbs without significant stenosis. Preliminary Report Dictated by Resident: Diana Sharma MD., have reviewed this study and agree with the above report. CT Angiogram neck Result Date: 12/12/2024 No large vessel occlusion. Moderate focal stenosis of right [employer] RE[employer]TER mid P2. Mild atherosclerosis at the bilateral carotid bulbs without significant stenosis. Preliminary Report Dictated by Resident: Diana Sharma MD., have reviewed this study and agree with the above report. CT HEAD WO CONTRAST Result Date: 12/12/2024 No acute intracranial abnormality. Preliminary Report Dictated by Resident: Bib José I, Jareth Rahman MD., have reviewed this study and agree with the above report. XR CHEST 1 VW Result Date: 12/12/2024 No acute process. End of Report Previous [facility] Services/Swallow History: None noted in chart General Behavior: Alert and Cooperative Hearing: WFL for speech Respiratory Status: room air Orientation/Cognition: - Patient oriented to: person, place, time, and situation - Response type: verbal - Follows 1-step commands: Yes Current Diet Texture/Means of Nutrition: regular (IDDSI level 7)-textured diet with thin liquids (IDDSI level 0) Oral Motor Exam Dentition and Oral Cavity: dentate and clean oral cavity Face within normal limits and symmetrical on movement but per patient feels weaker on left side Jaw within normal limits and symmetrical Lips within normal limits and symmetrical Tongue midline on protrusion; decreased rapid alternating movements Palate within normal limits and symmetrical Vocal Quality clear Speech clear/intelligible with slow paced speech, can get slurred and mumbly when trying to speak faster CLINICAL SWALLOW EVALUATION Swallows on command: Yes Handles Secretions: Yes Volitional Cough: strong Spontaneous Cough: No PO trials were administered by patient and [facility]. Patient was provided with multiple bites/sips of thin liquid (0), pudding (4)consistencies with the following observations: Oral Stage Anterior leakage of bolus not observed Pocketing of bolus not observed Subjectively prolonged oral phase not observed Oral residue not observed Mastication WNL Pharyngeal Stage Subjectively reduced laryngeal elevation not observed Coughing or throat clearing not observed Change in voice quality not observed Multiple swallows subjectively not observed Respiratory sufficiency and coordination WFL - no increased work of breathing and/or oxygen sats and respiratory rate remained stable Report of globus sensation yes 3 oz water challenge passed Patient/Family/Staff education: Provided verbally. Patient/Family goal: safe PO intake ASSESSMENT/IMPRESSIONS: Black Haynes presents with: Diagnosis: suspected grossly safe and functional oropharyngeal swallow with mild dysarthria. Etiology of suspected dysphagia/Risk factors for dysphagia: suspected stroke Observations/Complaints: no overt s/sx of aspiration and slurred speech Factors raising concern for aspiration or pharyngeal dysphagia: none evident Suspected risk for aspiration: low Factors increasing risk for aspiration-related respiratory complication such as pneumonia: reduced mobility Risk for malnutrition/dehydration or not meeting nutritional needs: low Additional comments: Patient appears grossly safe to continue an oral diet. *Note: aspiration cannot be ruled out nor confirmed without instrumental assessment/imaging. Prognosis: good for safe po intake and improved speech articulation with skilled [facility] therapy, time, family/caregiver support, and universal swallow precautions due to above findings, previous level of functioning, and relative mildness of deficits. RECOMMENDATIONS/GOALS: Diet: Recommend patient continue a regular (IDDSI level 7)-textured diet with thin liquids (IDDSI level 0) Precautions: - Swallow Precautions: single sips at a time and remain upright after PO intake Instrumental Swallow Assessment: no Additional Referrals: - None evident at this time. Continued [facility] services: Recommend [facility] therapy 2-5x/wk for 15-45 min/session while in-house to address the following goals: Motor Speech: - Patient will utilize intelligibility strategies at the conversational level with 90% accuracy with minimal visual cues - Patient will complete oral motor exercises with 100% accuracy with no cues Discharge Recommendations: - Defer to PT/OT and/or medical team. Batsheva Cuevas M.S., [facility] Speech Language Pathologist Office:[phone] [facility] 2024-12-14 13:12:24 Associated Order(s): CONSULT CUSTOMS EXAMINER-ADULT Images from the original note were not included. CARE MANAGEMENT Care Coordinators/Social Workers/CM Specialists/Utilization Review/Patient Placement & Transfer Center 12/14/2024 1:12 PM Reason for consult: Shower chair, PT HH, transportation Primary decision make: Selvin Ross Nephew [phone] Patient currently has Payor: [employer] MEDICARE / Plan: [employer] [place] PPO / Product Type: Medicare Adv PPO / Patient has several options for post acute therapies, which is dependant upon insurance and facility authorization which can take up to 72 hrs for approval and may require a peer to peer review. CC met with patient to complete consultation. Patient stated that she has lots of community support from neighbors, and that they check on her often in her senior community apartment complex, patient stated her nephew will help upon her request. Patient mention that she has life alert but it is currently broken. CC offered well-ness checks per PCP referral and patient declined. CC offered shower chair, and patient declined and stated she has a plastic chair she can use that her nephew can bring. CC offered HH and patient said that she would be open to HH, but she is concerned about her co payments. Patient stated that she use to go to a facility called [facility] in [place], in the past but she got lazy and stop going. CC educated patient about HH and patient agreed to HH. CC will provide list of HH agency for choice and await treatment teams final recommendation before sending referral. Patient stated that her nephew will be her transportation home. 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 CM will continue to follow. Gayathri Cardona Inpatient Discharge Direct Care Counselor [facility] Office: [phone] Sunday-Sunday [phone] Email: [email or web address]. weekends/holidays [phone] [facility] 2024-12-13 17:19:43 Associated Order(s): CONSULT CARDIOLOGY Cardiology Consult Note Date of Service: 12/13/2024 17:29 Time: 5:29 PM Service: Vanessa Meredith Team Chief Complaint: Speech difficulty Reason for admission: Speech difficulty, visual disturbances Reason for consult: Atrial flutter with RVR History of Present Illness: Black Haynes is a 84-year-old female with past medical history of longstanding persistent atrial fibrillation on Eliquis, hypertension, hyperlipidemia, hypothyroidism who presented to the hospital with chief complaint of speech difficulty/word finding difficulty. The patient also reported episode of acute visual disturbance and dizziness along with sudden onset of flashing light in her left eye. She decided to come to the hospital for further evaluation. CT imaging was negative for stroke. During the hospitalization, the patient has had episodes of atrial flutter with RVR with heart rate in 120s. Cardiology team has been consulted for further evaluation. Of note, the patient was scheduled in the past for RANDOLPH cardioversion which was canceled because patient was not fully anticoagulated. 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 She follows up with Dr. Girffin. Her last echo from 02/27 had showed normal LV function with severely dilated LA. Cardiology team has been consulted for further evaluation for atrial flutter with RVR. Her home medication is metoprolol succinate XL 50 mg daily. She was on amiodarone in the past which was discontinued recently. ROS: Per HPI. Past Medical History: Diagnosis Date Arthritis Atrial fibrillation Chronic constipation Hyperlipidemia Hypertension Hypothyroid Transient global amnesia 1974 states she had an episode about 10 years ago Past Surgical History: Procedure Laterality Date COLONOSCOPY N/A 01/29/2020 Surgeon: Chantale Walker MD; Location: [facility] OR [facility] HYSTERECTOMY PHACOEMULSIFICATION OF CATARACT WITH INTRAOCULAR LENS IMPLANT Left 01/26/2022 Surgeon: Lucía Early MD; Location: [facility] OR LOCATION PHACOEMULSIFICATION OF CATARACT WITH INTRAOCULAR LENS IMPLANT Right 03/16/2022 Surgeon: Lucía Early MD; Location: [facility] Family History Problem Relation Age of Onset Coronary Heart Disease Father Cancer Father Social History Socioeconomic History Marital status: Single Tobacco Use Smoking status: Former Current packs/day: 0.00 Types: Cigarettes Quit date: 09/17/2010 Years since quittin.2 Smokeless tobacco: Never Vaping Use Vaping status: Never Used Substance and Sexual Activity Alcohol use: Not Currently Drug use: Never Sexual activity: Not Currently Social History Narrative 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 [employer] Social Drivers of Health Financial Resource Strain: Low Risk (01/28/2024) Overall Financial Resource Strain (CARDIA) Difficulty of Paying Living Expenses: Not very hard Food Insecurity: No Food Insecurity (01/28/2024) Hunger Vital Sign Worried About Running Out of Food in the Last Year: Never true Ran Out of Food in the Last Year: Never true Transportation Needs: No Transportation Needs (01/28/2024) PRAPARE - Transportation Lack of Transportation (Medical): No Lack of Transportation (Non-Medical): No Physical Activity: Inactive (01/28/2024) Exercise Vital Sign Days of Exercise per Week: 0 days Minutes of Exercise per Session: 0 min Stress: No Stress Concern Present (01/28/2024) [place] [employer] [facility] - Occupational Stress Questionnaire Feeling of Stress : Only a little Social Connections: Moderately Integrated (01/28/2024) Social Connection and Isolation Panel [NHANES] Frequency of Communication with Friends and Family: Twice a week Frequency of Social Gatherings with Friends and Family: Three times a week Attends Faith Services: More than 4 times per year Active Member of Clubs or Organizations: Yes Attends Club or Organization Meetings: More than 4 times per year Marital Status: Never Housing Stability: Low Risk (01/28/2024) Housing Stability Vital Sign Unable to Pay for Housing in the Last Year: No Number of Places Lived in the Last Year: 1 Unstable Housing in the Last Year: No Allergies Allergen Reactions Penicillin Rash Prior to Admission medications Medication Sig Start Date End Date Taking? Authorizing Provider albuterol sulfate HFA 90 mcg/actuation aerosol inhaler Inhale 2 Puffs every 6 hours as needed for Wheezing or Shortness of Breath. 12/01/24 Yes Melani Niño MD vit A/vit C/vit E/zinc/copper (PRESERVISION AREDS ORAL) Take 1 tablet by mouth in the morning. Yes Doctor Unassigned, [place] lisinopriL 20 mg tablet Take 1 tablet by mouth in the morning. 11/04/24 Yes Melani Niño MD metoprolol succinate XL 50 mg 24 hr tablet Take 1 tablet by mouth in the morning. 10/29/24 Yes Jordi Griffin MD FLUTICASONE PROPIONATE 50 mcg/actuation nasal spray SHAKE LIQUID AND USE 2 SPRAYS IN EACH NOSTRIL IN THE MORNING 10/17/24 Yes Melani Niño MD FUROSEMIDE 40 mg tablet TAKE 1 TABLET BY MOUTH EVERY MORNING 10/16/24 Yes Melani Niño MD GABAPENTIN 100 mg capsule TAKE 1 CAPSULE BY MOUTH EVERY NIGHT AT BEDTIME 06/23/24 Yes Melani Niño MD gabapentin ER 300 mg tablet, extended release 24 hr Take 1 tablet by mouth at bedtime. Yes Doctor Unassigned, [place] polysorbate 80/glycerin (REFRESH DRY EYE THERAPY OPHTHALMIC) Place in each eye daily. Yes Doctor Unassigned, [place] cyanocobalamin, vitamin B-12, (VITAMIN B-12 ORAL) Take 1,000 mg by mouth in the morning. Yes Doctor Unassigned, [place] apixaban 5 mg tablet Take 0.5 tablets by mouth in the morning and 0.5 tablets in the evening. 02/14/24 Yes Shay Barrera MD LEVOTHYROXINE 50 mcg tablet TAKE 1 TABLET BY MOUTH EVERY MORNING 02/04/24 Yes Melani Niño MD acetaminophen (TYLENOL ARTHRITIS ORAL) Take 1,000 mg by mouth in the morning and 1,000 mg in the evening. Yes Doctor Unassigned, [place] KCL 10 mEq tablet TAKE 1 TABLET BY MOUTH IN THE MORNING 01/03/24 Yes Melani Niño MD Cholecalciferol, Vitamin D3, 25 mcg (1,000 unit) capsule Take 1 capsule by mouth in the morning. Yes Doctor Unassigned, [place] latanoprost 0.005 % ophthalmic drops INSTILL 1 DROP INTO BOTH EYES AT BEDTIME 05/24/17 Yes Doctor Unassigned, [place] omeprazole 20 mg capsule Take 1 capsule by mouth in the morning. Patient not taking: Reported on 12/12/2024 Doctor Unassigned, [place] traMADoL 50 mg tablet Take 1 tablet by mouth every 6 (six) hours as needed (pain). Indications: acute pain 05/19/24 Melani Niño MD Current Facility-Administered Medications: acetaminophen (TYLENOL) tablet 650 mg, 650 mg, Oral, Q6HPRN, Jagruti Germain, DO, 650 mg at 12/13/24 1234 albuterol (VENTOLIN) inhaler 2 Puff, 2 Puff, Inhalation, Q6HPRN, Melani Rutledge DO apixaban (ELIQUIS) tablet 2.5 mg, 2.5 mg, Oral, BID, Melani Rutledge DO, 2.5 mg at 12/13/24 0838 gabapentin (NEURONTIN) capsule 300 mg, 300 mg, Oral, TID, Melani Rutledge DO, 300 mg at 12/13/24 1557 levothyroxine (SYNTHROID) tablet 50 mcg, 50 mcg, Oral, QAM-0600, Melani Rutledge DO, 50 mcg at 12/13/24 0620 lisinopriL (PRINIVIL,ZESTRIL) tablet 20 mg, 20 mg, Oral, DAILY, Melani Rutledge DO, 20 mg at 12/13/24 1234 metoprolol succinate XL (TOPROL XL) tablet 50 mg, 50 mg, Oral, DAILY, Melani Rutledge DO, 50 mg at 12/13/24 0838 polyethylene glycol 3350 powder 17 g, 17 g, Oral, DAILY, Jagruti Germain, , 17 g at 12/13/24 0839 sennosides (SENOKOT) tablet 8.6 mg, 8.6 mg, Oral, DAILY, Jagruti Germain, Physical Examination: Temp: [35.9 ?C (96.6 ?F)-36.8 ?C (98.3 ?F)] Heart Rate (monitor): [71-139] Pulse: [73-121] Resp: [11-24] BP: (112-201)/(63-111) MAP (mmHg): [79-134] Intake/Output Summary (Last 24 hours) at 12/13/2024 1729 Last data filed at 12/12/2024 2100 Gross per 24 hour Intake 240 ml Output 300 ml Net -60 ml General: alert and oriented x 3, no apparent distress. HEENT: Normocephalic, moist mucous membanes, no scleral icterus. Neck: supple, no JVD. Lungs: Normal respiratory excursion. Bilateral clear to auscultation Cardio: Irregularly irregular rhythm. S1 and S2. No gallops or murmurs. Abdomen: Soft, non tender, non distended. Extremities: No cyanosis, clubbing or edema. Neuro: Moves all extremities. No gross neuro deficits. Labs/Imaging/Pathology - Reviewed EKG 12/2024: Atrial flutter with variable block. Echocardiography 02/2024: Left Ventricle: Left ventricle size is normal. Mild basal septal thickening. Normal wall motion. Normal systolic function with a visually estimated EF of 60 - 65%. There is pseudonormal diastolic dysfunction. Right Ventricle: Right ventricle size is normal. Normal systolic function. Tricuspid Valve: Mild transvalvular regurgitation. Right ventricular systolic pressure is normal. RA pressure is 0-5 mmHg. Aorta: Mildly enlarged ascending aorta. Left Atrium: Left atrium is severely dilated. Assessment/Plan: Black Haynes is a 84 year old female admitted with: # Atrial flutter with variable block with RVR # Longstanding persistent atrial fibrillation, [id number] score of 4 on Eliquis # hypertension # hyperlipidemia # hypothyroidism # Speech/visual disturbances Recommendations: -Please switch from metoprolol succinate XL 50 mg daily to metoprolol tartrate 25 mg every 6 hours to achieve better rate control. Up titrate Metoprolol as needed to maintain resting HR less than 110. -Goal heart rate of less than 110. -If heart rate remains above 110 on p.o. metoprolol, then we will consider adding digoxin. -Continue on anticoagulation with Eliquis 2.5 mg twice daily. -Long-term rate control would be more appropriate as patient is not a ideal candidate for rhythm control in setting of her severe LA dilation and prior failed ablation attempt. -Recommend neurological evaluation for patient's symptoms of speech difficulty/visual disturbances. These symptoms are not related to her arrhythmia. -Cardiology will follow. Thank you for your consult. Discussed case with Dr. Cholo Jama MD Chief Ultrasound Technologist, PGY-5 Cosigned by Hyacinth Emmanuel MD at 12/13/2024 11:52 PM CDT Associated attestation - Hyacinth Emmanuel MD - 12/13/2024 11:52 PM CDT After discussion with Dr. Jama, I examined this patient on 12/13/2024. I agree with fellow's note as written. 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 Presenting with speech difficulty and other neurologic symptoms which are concerning for TIA/CVA. Briefly had AF with RVR while inpatient. For now would recommend rate control with short acting metoprolol and adding digoxin if needed. Her severe LA dilation may reduce success of rhythm control strategies. Furthermore, if there truly is CVA, this would not be a good time for cardioversion or ablation. CARDIOVASCULAR DISEASE [facility] 2024-12-13 14:29:00 Associated Order(s): CONSULT FOOD AND NUTRITION MEDICAL NUTRITION THERAPY ASSESSMENT NOTE REASON FOR CONSULT: MD Consult for oral supplement and Nursing Screen: Has the patient had a reduced dietary intake in the last week?: No Has the patient lost weight in the last 3 months?: No Severity of disease: Absent NUTRITION ASSESSMENT: PMH/PSH: Past Medical History: Diagnosis Date Arthritis Atrial fibrillation Chronic constipation Hyperlipidemia Hypertension Hypothyroid Transient global amnesia 1973 states she had an episode about 10 years ago Past Surgical History: Procedure Laterality Date COLONOSCOPY N/A 01/29/2020 Surgeon: Chantale Walker MD; Location: [facility] OR [facility] HYSTERECTOMY PHACOEMULSIFICATION OF CATARACT WITH INTRAOCULAR LENS IMPLANT Left 01/26/2022 Surgeon: Lucía Early MD; Location: [facility] OR LOCATION PHACOEMULSIFICATION OF CATARACT WITH INTRAOCULAR LENS IMPLANT Right 03/16/2022 Surgeon: Lucía Early MD; Location: [facility] OR [facility] Current Medical Condition: Per provider note - presents with speech difficulty. Subjective: pt unavailable at time of visit. Chart reviewed. Unable to visually see patient to conduct visual NFPE. 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 Pt ordered regular diet; regular texture. No PO intake of meals documented at this time. With patient's reports speech difficulty, may consider CORN HUSK BALER consult to determine if any chewing/swallowing difficulty. RD to continue to monitor patient's nutrition status. Nursing GI Assessment: Abdomen inspection: Non-distended Reported/observed symptoms: None; Last BM: 12/11/24 Edema/Ascites: none Wounds per LDA/Avatar: Skin tear right posterior hand Nutrition Focused Physical Exam Subcutaneous Fat: Muscle Wasting: Paper Cleaner Strength Assessed: No Pertinent Medications: Eliquis, neurontin, synthroid, prinivil, toprol XL, polyethylene glycol, senokot, Lab and Medical Test Results: CBC: Recent Labs 12/12/24 1413 WBC 5.39 RBC 4.26 HGB 12.6 HCT 39.8 MCV 93.4 MCH 29.6 MCHC 31.7 BMP: Recent Labs 12/12/24 1413 12/13/24 0518 NA 140 -- K 3.5 -- CL 101 -- TCO2 28 -- AGAP 11 -- MG 1.6* -- GLU 85 -- BUN 16 -- CREAT 0.84 -- EGFR 68.2 -- CA 8.9 -- ALB 4.5 -- HGBA1C -- 5.4 POC Glucose 12/12: 94 mg/dL Anthropometrics: 84 year old female Ht Readings from Last 1 Encounters: 12/12/24 1.651 m (5' 5") Weight History: Wt Readings from Last 15 Encounters: 12/12/24 55.8 kg (123 lb) 11/19/24 54.7 kg (120 lb 8 oz) 10/20/24 53.1 kg (117 lb) 10/18/24 53.4 kg (117 lb 12.8 oz) 10/15/24 53.5 kg (118 lb) 09/03/24 52.7 kg (116 lb 1.6 oz) 07/22/24 52.5 kg (115 lb 12.8 oz) 06/11/24 51.4 kg (113 lb 6.4 oz) 06/04/24 50.8 kg (112 lb) 06/03/24 52.6 kg (116 lb) 05/21/24 52.8 kg (116 lb 6.4 oz) 05/19/24 52.6 kg (116 lb) 04/21/24 52.6 kg (116 lb) 03/26/24 52.2 kg (115 lb) 03/14/24 51.8 kg (114 lb 4.8 oz) Usual Body Weight: 53.5 kg (117 lb 15.1 oz) (EMR wt hx on 10/15/24) Percent of weight change: Percent of Weight change: 4.28% Timeframe of weight change: Timeframe of weight change: (~ 2 months) BMI: Body mass index is 20.47 kg/m?. (Normal) IBW: 56.8 kg %IBW: 98% Estimated Nutrition Needs Calories: 9524-1763 kcal/day; 25-30 kcals/kg Current Weight Protein: 67-84 g/day, 1.2-1.5 g/kg Current Weight Fluid: 1300+ ml/day (1 ml/kcal) or per MD/Medical Team Current Dietary Order(s): Regular Diet; Diet Texture: Regular. Food Allergies/Cultural or Faith Preferences: Allergies Allergen Reactions Penicillin Rash NUTRITION DIAGNOSIS: Nutrition Dx 1: Inadequate oral intake Related to: Suspected decreased ability to consume proper kcal/protein secondary to medical condition As Evidenced by: Suspect pt may have <75% PO intake. (New nutrition diagnosis) . . NUTRITION INTERVENTION: 1. Nutrition Intervention-1: Other (see comment) (Continue current diet order) 2. Nutrition Intervention-2: Add Oral Nutrition Supplement - If patient amenable, recommend ensure HP BID 3. Nutrition Intervention-3: Other (see comment) (May consider CORN HUSK BALER consult d/t speech difficulty) 4. NUTRITION MONITORING AND EVALUATION: A registered dietitian will f/u in as indicated and review patients progress towards nutrition goals, report nutrition related information and to revise the nutrition recommendations and interventions. Nutrition Risk Level: Nutritional Risk: High Goals: 1. Patient will meet >75% of EER within 4 days (New Goal Identified) Discharge Needs: Undetermined at this time Fiorella Barbosa MS, RD, LD Clinical Dietitian Office Fiorella Barbosa [facility] 2024-12-13 13:46:00 Associated Order(s): CONSULT ADULT PHYSICAL THERAPY Patient agreeable to working with physical therapy. Patient semireclining in bed and Heels offloaded? No: not required as patient is alert and oriented, as well as exhibits sufficient LE strength and ability to move/reposition LEs/heels throughout the day, No visitors present. Recommend nursing staff utilize supervision to safely assist patient with mobility out of the bed or chair. PHYSICAL THERAPY EVALUATION Consult received, chart reviewed and evaluation complete this date. Patient is referred to PT for evaluation and treatment. Patient is a 84 year old female who presents to hospital for Difficulty with speech [R47.9] Speech/visual disturbances c/f TIA Hx of transient global amnesia HTN HLD A-FIB. Discharge Recommendations: Therapy Needs and Potential: Patient would benefit from continued physical therapy services to address: decline in gait and/or balance decreased strength decreased endurance Patient demonstrates good potential to improve and meet therapy goals with further physical therapy services. Patient appears motivated to improve their functional mobility and return to their previous level of function. Pt would benefit from outpatient physical therapy to improve balance and posture Challenges to Home Transition: increased risk of falls decreased caregiver availability Equipment recommendations: Shower chair for energy conservation Current Functional Status and/or Treatment: AM-PAC 6 Clicks (Raw Score 0=Dependent, 24=Independent; Low function Raw Score 0= Dependent, 32=Independent): Raw Score - Basic Mobility : 22 T-Scale Score - Basic Mobility : 47.4 Bed Mobility: Supine to sit: Independent EOB to R - increased time Scooting to edge of bed: Independent Sitting balance Good Analyzed static and dynamic sitting balance through postural control during transitional movement Assessed pt HR to 115 with bed level mobility Dizziness No Transfers: sit-stand: Supervision with RW Static/dynamic standing balance: Fair+ Verbal cueing provided for correct hand placement and correct use of AD Analyzed BLE functional strength to be impaired, requiring UE support to stand upright Dizziness No Ambulation: Assisted patient with ambulation as follows: in room 30 feet using RW and Supervision. Patient presenting with 4 point and Step-to gait pattern. PT demos fwd flexed posture, decreased step length and height Cued for upright posture Dizziness No Therapeutic exercise: patient educated in Fall prevention, General strengthening, and Safety awareness. Educated patient with importance and benefits of progressive OOB activities as tolerated to: Increase overall mobility, strength and endurance and progress towards PLOF Decrease chances of pneumonia, deconditioning, BLE DVT's, skin breakdown and pressure sores. Patient verbalizing understanding to all discussed Functional Outcome Measures: (Values within the past 12 hours) Tinetti Gait Score- # / 12 Initiation of gait: Hesitancy or multiple attempts to start Step length: Only on foot passes the other Foot clearance: Both feet completely clear floor Step Symmetry: Step lengths equal Step continuity: Steps appear continuous Path: Mild/moderate deviation or uses AD Trunk: Marked sway or uses AD Walking: Heels almost touching Tinetti Gait Score: 7 Tinetti Gait Score Interpretation: >= 7 - Low risk for falls After session, patient sitting upright in bedside chair, MD present and Bed alarm engaged. Call button provided. RN notified of pt performance, tolerance of session, and PT recommendations for safe mobility. PLAN OF CARE: While in the hospital, PT will follow patient at least 2 times per week,once or twice a day, per patient's tolerance and needs. See below for complete details. Admit Date: 12/12/2024 Hospital Diagnosis:Difficulty with speech [R47.9] PT Diagnosis: Difficulty walking, Weakness, Malaise/fatigue, Pain, and Abnormality of gait and balance Weight Bearing Precaution: NA General Precautions: PPE used:Gloves, General, Fall, telemetry Bracing/Cast present or required:N/A PMH: Past Medical History: Diagnosis Date Arthritis Atrial fibrillation Chronic constipation Hyperlipidemia Hypertension Hypothyroid Transient global amnesia 1973 states she had an episode about 10 years ago PSH: Past Surgical History: Procedure Laterality Date COLONOSCOPY N/A 01/29/2020 Surgeon: Chantale Walker MD; Location: [facility] OR [facility] HYSTERECTOMY PHACOEMULSIFICATION OF CATARACT WITH INTRAOCULAR LENS IMPLANT Left 01/26/2022 Surgeon: Lucía Early MD; Location: [facility] OR [facility] PHACOEMULSIFICATION OF CATARACT WITH INTRAOCULAR LENS IMPLANT Right 03/16/2022 Surgeon: Lucía Early MD; Location: [facility] OR [facility] PRIOR LIVING SITUATION: lives alone, 3rd floor apartment, elevator access DME: Single Point Cane, Rolling Walker, Four wheeled walker with seat Prior level of Mobility: limited community ambulation with cane, house hold ambulation Suspected ischemic or hemorraghic stroke:Yes, see OT note for Pre-Stroke Modified Pearce Score Subjective: Pt agreeable to participate with PT, endorses some anxiety Patient/Family Goals: walk Patient/Family verbalizes understanding of condition: Yes PAIN: denies pain before and after session COMMUNICATION Primary Language: Congolese Able to Verbalize needs: Yes Vision: Patient states that her visual disturbance has been coming and going for a few weeks. Hearing:hard of hearing ORIENTATION/COGNITION: Oriented to: person, place, date/time, and situation Awake: Yes Alert: Yes Dizzy: No Follows Commands: Yes 1-Step Yes Multi-Step Yes Inconsistent: No NEUROLOGICAL Light Touch: within functional limits bilateral LE, endorses LE neuropathy Heel to west: coordination WFL Tone: WFL BALANCE: Sitting: Static: Good Dynamic: Good Standing: Static: Fair+ Dynamic: Fair+ RANGE OF MOTION: within functional limits bilateral LE STRENGTH: 4/5 (Good), bilateral LE ENDURANCE: Good, Room air SKIN INTEGRITY: intact, where visualized, defer to companion for further detail PROBLEM LIST: Decline in bed mobility, Decline in gait, Decline in transfers, Difficulty with stairs, Decreased strength, Decreased endurance, Decreased balance, Safety awareness deficits, and Pain ASSESSMENT: Patient is a 84 year old female seen secondary to the above listed diagnosis. Patient would benefit from continued PT to address the above listed deficits to maximize independence and safety with functional mobility.Pt most limited by activity intolerance, with HR in the 140s with ambulation within room and decreased ambulation distance compared to PLOF. Rehabilitation Potential: good Goals: The following goals are to maximize independence and safety with functional mobility to eventually return to prior living situation and prior functional status. Upon discharge, patient and/or family will demonstrate the followin. Supine-sit: Independent Sitting balance Excellent 2. Sit to stand: Independent using LRAD 3. Independent with ambulation, Feet: 300 using least assistive device. Treatment Plan: Gait training, Gait training on stairs, Therapeutic exercise, Transfer training, Balance training, Bed mobility training, Equipment needs assessment, Safety education, patient/caregiver education, Wheelchair mobility training, Pain management, Neuromuscular Re-Education, and Functional Motor Training PATIENT EDUCATION: Patient provided with preferred teaching of verbal information and demonstration on role of PT, plan of care, recommendations for safe mobility. Shows readiness to learn. Verbal instruction and Demonstration teaching provided. Individual is able to read and verbalizes understanding of teaching provided. Total Time Tx Codes in Minutes: 5 min Total Treatment Time in Minutes: 15 min Khurram Patel, PT, DPT [facility] Department of Rehabilitation Services Patient will be followed by physical therapy, however, this therapist may not be the primary therapist. Please contact rehab services for questions or concerns during week day coverage. Khurram Patel PT [facility] 2024-12-13 11:06:00 Associated Order(s): CONSULT ADULT OCCUPATIONAL THERAPY OT GENERAL EVALUATION Consult received via [facility] Haddox Records, EMR reviewed and evaluation completed 12/13/24. Patient referred to occupational therapy for evaluation and treatment. Patient is an 84 YOF admitted due to speech difficulty and visual disturbance. Patient agreeable to participate in occupational therapy. Patient found semireclining in bed, Bed alarm engaged. Discharge Recommendations: Therapy Needs and Potential:Not applicable as no further skilled acute care OT needs at this time. Challenges to Home Transition:- No caregiver support- She reports having a nephew near by and has friends at [place] [facility] community but no one who checks on her regularly. Equipment Recommendations:None PLAN OF CARE: Discharge from OT services Precautions: Weight bearing status: NA General: Fall Bracing: N/A Subjective: Patient states that her visual disturbance has been coming and going for a few weeks. Current Occupational Performance and/or Treatment: AM-PAC 6 Clicks (Raw Score 0=Dependent, 24=Independent; Low function Raw Score 0= Dependent, 32=Independent): Raw Score - Daily Activity: 23 T-Scale Score - Daily Activity: 51.12 Grooming: Independent, standing at the sink LB Dressing: Independent, to don socks in sitting Toilet Transfer: Independent, using the grab bar Toileting Hygiene: Independent Functional Mobility: independent for in room mobility with a RW but due to medical issues recommend supervision while in the hospital. Nursing reports her HR got as high as 150's during OT assessment. Patient/caregiver educated on:ADL training, Fall prevention, General strengthening, Role of OT, and Safety awareness BEFAST education provided and nursing to distribute a handout. Patient left semireclining in bed with call alexander in reach. OT forgot to turn on the bed alarm but nursing was entering room and agreed to set the alarm. Please, see full evaluation below for more detail. OT EVALUATION: 84 year old female Admit date: 12/12/2024 Date of onset: 12/12/2024 Admit Diagnosis: Difficulty with speech [R47.9] OT Diagnosis: Impaired BADL independence PMH: Past Medical History: Diagnosis Date Arthritis Atrial fibrillation Chronic constipation Hyperlipidemia Hypertension Hypothyroid Transient global amnesia 1973 states she had an episode about 10 years ago PSH: Past Surgical History: Procedure Laterality Date COLONOSCOPY N/A 01/29/2020 Surgeon: Chantale Walker MD; Location: [facility] OR [facility] HYSTERECTOMY PHACOEMULSIFICATION OF CATARACT WITH INTRAOCULAR LENS IMPLANT Left 01/26/2022 Surgeon: Lucía Early MD; Location: [facility] OR LOCATION PHACOEMULSIFICATION OF CATARACT WITH INTRAOCULAR LENS IMPLANT Right 03/16/2022 Surgeon: Lucía Early MD; Location: [facility] OR LOCATION PAIN: Denies pain before and after session.She does report having generalized arthritis but denies pain at this time. OCCUPATIONAL ROLES/HOME ENVIRONMENT: Home environment: Lives alone, 27/11 supervision/assistance is not available, Upstairs apartment-3rd floor of [place] [facility] community, and Elevator. Bathroom access: Yes Bathroom setup: Combo Occupation(s): Retired Function prior to admission: Community ambulation and Independent with IADLs. Patient drives and grocery shops. Suspected ischemic or hemorraghic stroke patient: Yes, Pre-Stroke Modified Pearce Score: 1 - No significant disability, despite symptoms; able to perform all usual duties and activities Equipment prior to admission: 4 wheeled walker, Rolling Walker, Straight Cane PERFORMANCE SKILLS/FACTORS: UE Muscle Tone: bilateral WNL UE ROM: bilateral AROM WFL UE Strength: KEENAN UE WFL Hand dominance: right Dexterity/Coordination: bilateral Intact Endurance - Sitting: Good Standing: Fair - Sitting Balance - Static: Good Dynamic: Good Standing: Balance - Static Fair+ Dynamic: Fair+ Dizziness: No Skin Integrity: defer full skin assessment to nursing Sensation: Patient denies numbness and tingling. Oral Motor: WFL-dentures Communication: Able to verbalize needs Yes Other: has transient word finding difficulty Vision: WFL Yes Other: reading glasses Hearing: hearing aid(s) and hard of hearing COGNITION: Orientation: person, place, date/time, and situation Follows Commands: 1-step Yes Multi-step Yes Inconsistencies No Safety Awareness/Judgment: Good PROBLEM LIST: Decreased independence with ADL REHAB POTENTIAL/PROGNOSIS: NA as no further therapy needs PATIENT/FAMILY GOALS: to go home. TREATMENT/INTERVENTION PLAN: Discharge from OT PATIENT-FAMILY TEACHING Patient provided with preferred teaching of verbal information on ADL training, Fall prevention, General strengthening, Role of OT, and Safety awareness. Shows readiness to learn. Verbal instruction teaching provided. Individual is able to read and verbalizes understanding of teaching provided. Lyubov Metzger,OTR [phone] License# [id number] Acute care rehab [place] Total Timed Treatment Codes: 10 Min Total Treatment Time: 23 Min Patient Complexity Level Moderate - An occupational therapy evaluation of moderate complexity was completed using the above tests and measures. The following information was obtained: An occupational profile and medical and therapy history, including an expanded review of medical and/or therapy records and additional review of physical, cognitive, or psychosocial history related to current functional performance, Various standardized and non-standardized assessments were used to identify at least 3-5 performance deficits related to physical, cognitive, or psychosocial skills that result in activity limitations and/or participation restrictions, and Clinical decision making of moderate analytic complexity, which includes an analysis of the occupational profile, analysis of data from detailed assessment(s), and consideration of several treatment options. Patient may present with comorbidities that affect occupational performance. Minimal to moderate modification of tasks or assistance (e.g., physical or verbal) with assessment(s) is necessary to enable patient to complete evaluation component. Renetta Metzgre OT [facility] - Health History and Physical Notes Date/Time Note Provider Source 2024-12-23 03:51:09 MEDICINE [facility] ADMIT H&P Date of Service: 12/23/2024 CHIEF COMPLAINT: speech impediment, one side weakness Subjective History of Present Illness Female with history of atrial fibrillation on Eliquis, TIA, transient global amnesia, HTN, hypothyroidism, HLD, and prior diplopia presents with recurrent speech difficulty and gait imbalance. 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 Current symptoms began ~11:30 AM with progressive left-sided weakness, slowed speech, imbalance, and fatigue, later worsening to dysphagia by evening. She denies new vision changes, facial droop, numbness, or sensory asymmetry. Additional symptoms: shortness of breath, constipation, myalgia, arthralgia, and back pain. PAST MEDICAL HISTORY Past Medical History: Diagnosis Date Arthritis Atrial fibrillation Chronic constipation Hyperlipidemia Hypertension Hypothyroid Transient global amnesia 1973 states she had an episode about 10 years ago Past Surgical History: Procedure Laterality Date COLONOSCOPY N/A 01/29/2020 Surgeon: Chantale Walker MD; Location: [facility] OR Location HYSTERECTOMY PHACOEMULSIFICATION OF CATARACT WITH INTRAOCULAR LENS IMPLANT Left 01/26/2022 Surgeon: Lucía Early MD; Location: [facility] OR LOCATION PHACOEMULSIFICATION OF CATARACT WITH INTRAOCULAR LENS IMPLANT Right 03/16/2022 Surgeon: Lucía Early MD; Location: [facility] OR LOCATION Family History Problem Relation Age of Onset Coronary Heart Disease Father Cancer Father ALLERGIES Allergies Allergen Reactions Penicillin Rash MEDICATIONS No current facility-administered medications on file prior to encounter. Current Outpatient Medications on File Prior to Encounter Medication Sig Dispense Refill aspirin 81 mg tablet Take 1 tablet by mouth in the morning. rosuvastatin (CRESTOR) 20 mg tablet Take 1 tablet by mouth at bedtime. 90 tablet 1 metoprolol tartrate 50 mg tablet Take 1 tablet by mouth in the morning and 1 tablet in the evening. 180 tablet 1 albuterol sulfate HFA 90 mcg/actuation aerosol inhaler Inhale 2 Puffs every 6 hours as needed for Wheezing or Shortness of Breath. 8.5 g 0 lisinopriL 20 mg tablet Take 1 tablet by mouth in the morning. 90 tablet 0 FLUTICASONE PROPIONATE 50 mcg/actuation nasal spray SHAKE LIQUID AND USE 2 SPRAYS IN EACH NOSTRIL IN THE MORNING 16 g 5 FUROSEMIDE 40 mg tablet TAKE 1 TABLET BY MOUTH EVERY MORNING 30 tablet 2 GABAPENTIN 100 mg capsule TAKE 1 CAPSULE BY MOUTH EVERY NIGHT AT BEDTIME 30 capsule 3 gabapentin ER 300 mg tablet, extended release 24 hr Take 1 tablet by mouth at bedtime. polysorbate 80/glycerin (REFRESH DRY EYE THERAPY OPHTHALMIC) Place in each eye daily. [Paused] traMADoL 50 mg tablet Take 1 tablet by mouth every 6 (six) hours as needed (pain). Indications: acute pain 28 tablet 1 apixaban 5 mg tablet Take 0.5 tablets by mouth in the morning and 0.5 tablets in the evening. LEVOTHYROXINE 50 mcg tablet TAKE 1 TABLET BY MOUTH EVERY MORNING 90 tablet 3 acetaminophen (TYLENOL ARTHRITIS ORAL) Take 1,000 mg by mouth in the morning and 1,000 mg in the evening. KCL 10 mEq tablet TAKE 1 TABLET BY MOUTH IN THE MORNING 90 tablet 3 Cholecalciferol, Vitamin D3, 25 mcg (1,000 unit) capsule Take 1 capsule by mouth in the morning. latanoprost 0.005 % ophthalmic drops INSTILL 1 DROP INTO BOTH EYES AT BEDTIME 2 I attest that the foregoing medication list in the medical record is true, accurate and complete to the best of my knowledge. 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 [employer] Social Drivers of Health Financial Resource Strain: Low Risk (01/28/2024) Overall Financial Resource Strain (CARDIA) Difficulty of Paying Living Expenses: Not very hard Food Insecurity: No Food Insecurity (12/14/2024) NCSS - Food Insecurity Worried About Running Out of Food in the Last Year: No Ran Out of Food in the Last Year: No Transportation Needs: No Transportation Needs (12/14/2024) NCSS - Transportation Lack of Transportation: No Physical Activity: Inactive (01/28/2024) Exercise Vital Sign Days of Exercise per Week: 0 days Minutes of Exercise per Session: 0 min Stress: No Stress Concern Present (01/28/2024) [place] [employer] [place] [employer] - Occupational Stress Questionnaire Feeling of Stress : Only a little Social Connections: Moderately Integrated (01/28/2024) Social Connection and Isolation Panel [NHANES] Frequency of Communication with Friends and Family: Twice a week Frequency of Social Gatherings with Friends and Family: Three times a week Attends Faith Services: More than 4 times per year Active Member of Clubs or Organizations: Yes Attends Club or Organization Meetings: More than 4 times per year Marital Status: Never Housing Stability: Not At Risk (12/14/2024) NCSS - Housing/Utilities Has Housing: Yes Worried About Losing Housing: No Unable to Get Utilities: No REVIEW OF SYSTEMS Review of Systems Constitutional: Positive for activity change and fatigue. Negative for appetite change, chills, diaphoresis, fever and unexpected weight change. HENT: Negative. Eyes: Negative. Respiratory: Positive for shortness of breath. Negative for apnea, cough, choking, chest tightness, wheezing and stridor. Breasts: Negative. Cardiovascular: Negative. Gastrointestinal: Positive for constipation. Negative for abdominal distention, abdominal pain, anal bleeding, blood in stool, diarrhea, nausea, rectal pain and vomiting. Dysphagia Genitourinary: Negative. Musculoskeletal: Positive for arthralgias, back pain and myalgias. Negative for gait problem and joint swelling. Skin: Negative. Neurological: Positive for speech difficulty and weakness. Negative for dizziness, tremors, seizures, syncope, facial asymmetry, light-headedness, numbness and headaches. Psychiatric/Behavioral: Negative. Endocrine: Endocrine negative Objective PHYSICAL EXAMINATION Vitals: 12/23/24 0300 12/23/24 0315 12/23/24 0330 12/23/24 0345 BP: 122/76 126/74 139/75 121/70 Pulse: 89 83 92 84 Resp: Temp: TempSrc: SpO2: 99% 98% 98% 97% Weight: Height: Physical Exam Vitals and nursing note reviewed. Constitutional: General: She is not in acute distress. Appearance: Normal appearance. She is not ill-appearing, toxic-appearing or diaphoretic. HENT: Head: Normocephalic and atraumatic. Right Ear: External ear normal. Left Ear: External ear normal. Nose: Nose normal. No congestion or rhinorrhea. Mouth/Throat: Mouth: Mucous membranes are moist. Pharynx: No oropharyngeal exudate or posterior oropharyngeal erythema. Eyes: General: No scleral icterus. Extraocular Movements: Extraocular movements intact. Conjunctiva/sclera: Conjunctivae normal. Pupils: Pupils are equal, round, and reactive to light. Cardiovascular: Rate and Rhythm: Normal rate and regular rhythm. Pulmonary: Effort: Pulmonary effort is normal. Breath sounds: Normal breath sounds. Abdominal: General: Abdomen is flat. Bowel sounds are normal. There is no distension. Palpations: Abdomen is soft. Tenderness: There is no abdominal tenderness. There is no guarding. Musculoskeletal: General: Normal range of motion. Cervical back: Normal range of motion and neck supple. Right lower leg: No edema. Skin: General: Skin is warm and dry. Neurological: General: No focal deficit present. Mental Status: She is alert and oriented to person, place, and time. Motor: No weakness. Psychiatric: Mood and Affect: Mood normal. Behavior: Behavior normal. Thought Content: Thought content normal. Judgment: Judgment normal. LABS/IMAGING - reviewed CT STROKE HEAD WO CONTRAST HISTORY:84 years old Female with Neuro deficit, acute, stroke suspected COMPARISON: 12/13/2027 TECHNIQUE: Noncontrast axial images of the head, with coronal and sagittal reformats. FINDINGS: The ventricles and cerebral sulci are unchanged in caliber and configuration. No hydrocephalus, midline shift or pathological extra-axial fluid collection is present. The basal cisterns are unremarkable. There is no acute intracranial hemorrhage or significant mass effect. No new acute parenchymal attenuation abnormality. The ga-white matter differentiation is preserved. Left maxillary retention cyst. The mastoid air cells and remaining paranasal air sinuses are clear. The calvarium and central skull base are unremarkable. IMPRESSION No acute intracranial hemorrhage or mass effect. CT STROKE ANGIOGRAM NECK, CT STROKE ANGIOGRAM HEAD HISTORY: Neuro deficit, acute, stroke suspected TECHNIQUE: Axial CT angiogram of the head and neck was obtained after the administration of contrast. Coronal and sagittal reformats were constructed. COMPARISON: 12/12/2024 FINDINGS: CTA HEAD Bilateral intradural vertebral arteries are patent. The PICA origin is visualized bilaterally. The basilar artery is normal in caliber. The superior cerebellar arteries are unremarkable. Focal mild to moderate stenosis of the right mid P2 is again seen (9:49). The posterior cerebral arteries are otherwise patent. No sizable P comms. Mild atherosclerotic calcifications of bilateral carotid siphons without causing severe stenosis. The distal cervical, petrous, cavernous and supraclinoid internal carotid arteries are unremarkable. The middle cerebral arteries are unremarkable. The anterior cerebral arteries are unremarkable. An anterior communicating artery is visualized. Dural venous sinuses are patent. CTA NECK Classic three-vessel branching anatomy of the aortic arch. Moderate atherosclerotic disease is present in the aortic arch extending into the ostia of neck vessels without causing significant stenosis.The ostia of major vessels are otherwise patent. The innominate and subclavian arteries are patent. Scattered atherosclerotic plaque affecting the bilateral common carotid arteries, carotid bulbs and internal carotid arteries without causing high-grade stenosis The bilateral vertebral arteries originate from the subclavian arteries and are visualized throughout their entire cervical length. The ostia are free of stenosis. No high-grade stenosis or dissection identified. Soft tissues of the neck are unremarkable. Emphysematous lungs. Cervical spine is unremarkable. IMPRESSION No large vessel occlusion. Unchanged focal stenosis of right [employer] REPORTER and mid P2 segment. EKG: atrial fibrillation Assessment & Plan Black Haynes is a 84 year old female with PMH as listed above, admitted to the hospital with: TIA: appears symptoms was provoked by hypertensive urgency. Now more resolved. Patient is currently refusing MRI -- PT consult and speech consult is pending 2. Hypertensive urgency: -- Will resume lisinopril and metoprolol -- IV labetalol and hydralazine as needed 3. Atrial fibrillation: -- On Eliwuis 4. Hypothyroidism: -- On levothyroxine 5. HLD: -- On Crestor Prophylaxis: DVT- Eliquis Code Status: Full Code Advance Care Planning (Z71.89): Discussed at length with patient; full understanding confirmed. Surrogate decision maker identified: Yes. Expected discharge: Home. Time spent: 19 minutes. INPT: Anticipate greater than 2 midnight stays due to intensive nursing care, frequent monitoring, and ongoing/complex intervention due to the treatment of TIA likely caused by hypertensive urgency. . [facility] [place] 2024-12-13 01:30:20 JOSE LUIS ROBLESIT H&P Date of Service: 12/13/2024 CHIEF COMPLAINT: speech difficulty Subjective History of Present Illness Black Haynes is a 84 year old female with PMH of atrial fibrillation on eliquis, transient global amnesia, HTN, hypothyroidism, HLD, hx of diplopia, OA of b/l knees/neck, 55 pack-year history who presents with speech difficulty. The patient presents with an episode of acute visual disturbances, speech difficulty, and dizziness that occurred yesterday. She reports that after breakfast, while preparing to leave her apartment for errands, she experienced a sudden onset of flashing lights in her left eye, accompanied by dizziness. She immediately returned to her apartment to go lie down. She woke up around noon and noticed her speech was "garbled." Concerned was concerned for a possible stroke so she contacted her nightbor who called 911. She was transported to [facility] for initial evaluation. Ms. Mckay notes a history of similar but less severe visual disturbances, describing "jagged lights" in her left eye, which have occurred twice previously. The most recent prior incident happened while she was at a department store, where she experienced bright, flashing lights in one eye, accompanied by weakness and a near-syncopal episode. She recalls being evaluated by an manager event for these symptoms but cannot remember the diagnosis. Importantly, these previous episodes were not associated with any speech difficulties. The speech difficulties she experienced with the current episode have since improved. She notes while at [facility], her speech was more affected, but she was only slight confused and had some word-finding difficulty upon arrival at [facility]. The patient reports full compliance with her prescribed medications and daily home blood pressure monitoring, with reading consistently below 140/90. She did note her presser hand started her on a few new medications two weeks ago, including gabapentin, topical diclofenac, and as needed tramadol for pain rated above 5/10 On presentation, she complains of a headache, dry eyes, and feeling hot and flushed. She notes her dizziness is more prominent when transition from lying to a standing position but is not present while lying in bed. She denies any loss of consciousness, memory loss, numbness, or weakness with this most recent event. ED course: - Vitals: HR 91, BP 210/128, RR 16, SpO2 99% - Labs: NT-proBNP 1.9K, Mag 1.6, troponin 0.003, AST 45, Glu 94; UA, CBC unremarkable - Meds: IV Hydralazine 10 mg, aspirin 324 mg - CTA head/neck: no LVO, moderate focal stenosis of R. MARK[employer] NEWS REPORTER mid P2 - CT head wo contrast: no acute intracranial abnormalities - EKG: atrial fibrillation with rate of 93 - CXR: no acute process PAST MEDICAL HISTORY Past Medical History: Diagnosis Date Arthritis Atrial fibrillation Chronic constipation Hyperlipidemia Hypertension Hypothyroid Transient global amnesia 1973 states she had an episode about 10 years ago Past Surgical History: Procedure Laterality Date COLONOSCOPY N/A 01/29/2020 Surgeon: Chantale Walker MD; Location: [facility] OR [facility] HYSTERECTOMY PHACOEMULSIFICATION OF CATARACT WITH INTRAOCULAR LENS IMPLANT Left 01/26/2022 Surgeon: Lucía Early MD; Location: [facility] OR LOCATION PHACOEMULSIFICATION OF CATARACT WITH INTRAOCULAR LENS IMPLANT Right 03/16/2022 Surgeon: Lucía Early MD; Location: [facility] OR [facility] Family History Problem Relation Age of Onset Coronary Heart Disease Father Cancer Father ALLERGIES Allergies Allergen Reactions Penicillin Rash MEDICATIONS No current facility-administered medications on file prior to encounter. Current Outpatient Medications on File Prior to Encounter Medication Sig Dispense Refill albuterol sulfate HFA 90 mcg/actuation aerosol inhaler Inhale 2 Puffs every 6 hours as needed for Wheezing or Shortness of Breath. 8.5 g 0 vit A/vit C/vit E/zinc/copper (PRESERVISION AREDS ORAL) Take 1 tablet by mouth in the morning. lisinopriL 20 mg tablet Take 1 tablet by mouth in the morning. 90 tablet 0 metoprolol succinate XL 50 mg 24 hr tablet Take 1 tablet by mouth in the morning. 30 tablet 3 FLUTICASONE PROPIONATE 50 mcg/actuation nasal spray SHAKE LIQUID AND USE 2 SPRAYS IN EACH NOSTRIL IN THE MORNING 16 g 5 FUROSEMIDE 40 mg tablet TAKE 1 TABLET BY MOUTH EVERY MORNING 30 tablet 2 GABAPENTIN 100 mg capsule TAKE 1 CAPSULE BY MOUTH EVERY NIGHT AT BEDTIME 30 capsule 3 gabapentin ER 300 mg tablet, extended release 24 hr Take 1 tablet by mouth at bedtime. polysorbate 80/glycerin (REFRESH DRY EYE THERAPY OPHTHALMIC) Place in each eye daily. cyanocobalamin, vitamin B-12, (VITAMIN B-12 ORAL) Take 1,000 mg by mouth in the morning. apixaban 5 mg tablet Take 0.5 tablets by mouth in the morning and 0.5 tablets in the evening. LEVOTHYROXINE 50 mcg tablet TAKE 1 TABLET BY MOUTH EVERY MORNING 90 tablet 3 acetaminophen (TYLENOL ARTHRITIS ORAL) Take 1,000 mg by mouth in the morning and 1,000 mg in the evening. KCL 10 mEq tablet TAKE 1 TABLET BY MOUTH IN THE MORNING 90 tablet 3 Cholecalciferol, Vitamin D3, 25 mcg (1,000 unit) capsule Take 1 capsule by mouth in the morning. latanoprost 0.005 % ophthalmic drops INSTILL 1 DROP INTO BOTH EYES AT BEDTIME 2 omeprazole 20 mg capsule Take 1 capsule by mouth in the morning. (Patient not taking: Reported on 12/12/2024) traMADoL 50 mg tablet Take 1 tablet by mouth every 6 (six) hours as needed (pain). 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 [employer] Social Drivers of Health Financial Resource Strain: Low Risk (01/28/2024) Overall Financial Resource Strain (CARDIA) Difficulty of Paying Living Expenses: Not very hard Food Insecurity: No Food Insecurity (01/28/2024) Hunger Vital Sign Worried About Running Out of Food in the Last Year: Never true Ran Out of Food in the Last Year: Never true Transportation Needs: No Transportation Needs (01/28/2024) PRAPARE - Transportation Lack of Transportation (Medical): No Lack of Transportation (Non-Medical): No Physical Activity: Inactive (01/28/2024) Exercise Vital Sign Days of Exercise per Week: 0 days Minutes of Exercise per Session: 0 min Stress: No Stress Concern Present (01/28/2024) [employer] [employer] - Occupational Stress Questionnaire Feeling of Stress : Only a little Social Connections: Moderately Integrated (01/28/2024) Social Connection and Isolation Panel [NHANES] Frequency of Communication with Friends and Family: Twice a week Frequency of Social Gatherings with Friends and Family: Three times a week Attends Faith Services: More than 4 times per year Active Member of Clubs or Organizations: Yes Attends Club or Organization Meetings: More than 4 times per year Marital Status: Never Housing Stability: Low Risk (01/28/2024) Housing Stability Vital Sign Unable to Pay for Housing in the Last Year: No Number of Places Lived in the Last Year: 1 Unstable Housing in the Last Year: No REVIEW OF SYSTEMS Review of Systems Constitutional: Negative for fever. Respiratory: Negative for shortness of breath. Cardiovascular: Negative for chest pain and leg swelling. Gastrointestinal: Negative for abdominal pain. Musculoskeletal: Positive for neck pain. Neurological: Positive for dizziness, speech difficulty, weakness and headaches. Negative for tremors, syncope, facial asymmetry and numbness. Objective PHYSICAL EXAMINATION Vitals: 12/12/24 2215 12/12/24 2230 12/13/24 0019 12/13/24 0045 BP: (!) 162/83 (!) 147/70 (!) 165/83 (!) 151/83 BP Location: Right arm Right arm Patient Position: Sitting Sitting Pulse: 87 84 86 76 Resp: 15 17 Temp: 35.9 ?C (96.6 ?F) TempSrc: SpO2: 97% 96% 95% Weight: Height: Physical Exam HENT: Head: Normocephalic and atraumatic. Eyes: General: No visual field deficit. Extraocular Movements: Extraocular movements intact. Pupils: Pupils are equal, round, and reactive to light. Cardiovascular: Rate and Rhythm: Normal rate. Rhythm irregular. Pulses: Normal pulses. Heart sounds: Normal heart sounds. Abdominal: General: Abdomen is flat. There is no distension. Skin: General: Skin is warm. Neurological: General: No focal deficit present. Mental Status: She is alert and oriented to person, place, and time. Cranial Nerves: No facial asymmetry. Sensory: Sensation is intact. Motor: Motor function is intact. Gait: Gait is intact. Comments: No facial asymmetry. Speech clear. Motor/sensory intact in UE/LE LABS/IMAGING - reviewed Assessment & Plan Black Haynes is a 84 year old female with PMH as listed above, admitted to the hospital with: Speech/visual disturbances c/f TIA Hx of transient global amnesia HTN HLD Patient presenting with acute visual disturbances, speech difficulty, and dizziness. CT angio head/neck and CT head w/o contrast as well as physical exam were largely unremarkable. ECG displayed AF without RVR. Given vascular risk profile, simultaneous visual, dysarthric, and vestibular symptoms, TIA/infarct is a likely differential. Other differentials include HTN urgency, migraine auras, retinal artery occlusion, focal seizure, amiodarone induced ocular toxicity, and BPPV/neuritis. Confirmation with MRI is recommended to rule out ischemia and possible ophthalmic evaluation. - Admit to [facility] - Admit labs: CBC, BMP, A1c, TSH - Consult neurology and ophthalmology - Aspirin 81 mg - Orthostatic vitals - Tele - PT/OT - Bowel regimen - Nutrition consult Persistent atrial fibrillation on eliquis Patient discovered she had atrial fibrillation in 09/2023 based on a home blood pressure device reading. She has been taking Amiodarone 200 BID and Toprol XL 50 for the past year. She was scheduled for cardioversion but unable due to logistics. EKG from 12/12 showed atrial fibrillation without RVR. Will follow with TTE for AF and stroke/TIA evaluation - F/u TTE - C/w Toprol XL 50 daily - C/w Eliquis 5 daily Chronic conditions Hypothyroidism, stable Leg edema, stable Peripheral neuropathy, stable Arthritis, stable COPD? - F/u TSH - C/w Synthroid 50 mcg daily - C/w Gabapentin 300 TID - C/w Lasix 40 daily - C/w Albuterol PRN Pain Controlled Tylenol Prophylaxis: DVT- enoxaparin Stress Ulcer: no indication for prophylaxis Code Status: Full Code Melani Rutledge DO Department of Internal Medicine, PGY-1 Cosigned by Petar Rodriguez MD at 12/13/2024 6:38 AM CDT Associated attestation - Petar Rodriguez MD - 12/13/2024 6:38 AM CDT I personally examined the patient on 12/13/[address] Rutledge's resident note as written. I actively participated in the decision-making process. Please see the resident's note for additional details. Petar Rodriguez MD Division of Internal Information Systems OperatorFish Hatchery Manager INTERNAL MEDICINE [facility] - Health Procedure Notes Date/Time Note Provider Source 2024-06-03 11:48:38 Attempted A flutter ablation. After we obtained three access points in right femoral vein under US guidance. Intracardiac echocardiography (ICE): An 8 Ukrainian ICE catheter was inserted through the femoral vein sheath and under fluoroscopic direction. ICE was left in place during the entire procedure for monitoring of possible development of pericardial effusion or tamponade which there was none. Initially, I examined the right atrium, tricuspid valve, and right ventricle inflow. Gradually, I rotated posteriorly to examine the interatrial septum, left atrium, mitral valve annulus, mitral valve leaflet, and LIA. After re-centering the ICE catheter towards the RV inflow, I gently advanced it into the right ventricle with anterior flexion and septal rotation. Further, I rotated it gradually to examine the left ventricular cavity, posterior medial papillary muscle, anterior lateral papillary muscle, AV leaflet, RVOT, pulmonary valve, and PA. We performed venogram of IVC, Azygos, RA, RV. 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 We will schedule her OP for either flutter ablation with subclavian approach or AVN with PPM. Bed rest 5 hr then discharge home. TEGY ASSOCIATE [facility] Notes Date/Time Note Provider Source 2025-01-15 14:04:10 Spoke with patient. Advised patient to take medication as precribed by [place] until HFU appt with provider on 01/21 @ 11:20am. Instructed patient on s/s of HTN and ER/UC precautions. Rubi Ojeda LVN [facility] 2025-01-15 13:47:17 ATC Rocio and patient. LVM [facility] 2025-01-15 13:39:20 Black Haynes is a 84 year old female Rocio, the nurse with [facility] states that the patient reports that her blood pressure has been high since she got out of [facility] on 01/02. She had cut the furosemide from 40 mg to 20 mg because of the excessive urination.She will increase it if the doctor advises. Today it was 157/81, she said it averages about 190/ low one hundreds. She has been tired. Please call patient at [phone]. Bianca Osuna [facility] 2024-12-29 13:54:13 Copied from [facility] #[id number]. Topic: Clinical - Medical Advice >> Dec 29, 2024 1:53 PM Patient Rural Health Consultant wrote: Black Haynes is a 84 year old female Calling in stating that she wanted to leave message with provider letting her know what has happened since she saw you last: On I had a TIA transported from [facility] to [facility] Stayed the 12 13 09 and discharged on the . December [address] Griffin . December [address] Niño Later that evening had another TIA, left side weakness Admitted to [facility] Remained and discharged on To [facility] in [place] Pt states that she welcomes any suggestions to her care Vincenzo Chambers [facility] 2024-12-24 16:17:29 Report given to Nancy at [facility] Lucía Gross RN [facility] 2024-12-24 02:17:04 Problem: Skin integrity Impaired (Risk or Actual) Goal: Prevention of new skin breakdown Outcome: Progressing as expected Problem: Falls, Risk of Goal: Absence of falls Outcome: Progressing as expected Problem: Discharge Planning Goal: Able to perform ADL Outcome: Progressing as expected Goal: Knowledge of medication management Outcome: Progressing as expected Goal: Knowledge of need for follow-up care Outcome: Progressing as expected Goal: Knowledge of personal stroke risk factors Outcome: Progressing as expected Goal: Knowledge of stroke warning signs Outcome: Progressing as expected Problem: Mobility - Impaired Goal: Able to achieve maximum mobility level Outcome: Progressing as expected Goal: Able to use ambulatory assistive device appropriately Outcome: Progressing as expected Porfirio Avery RN [facility] 2024-12-23 12:18:55 Problem: Skin integrity Impaired (Risk or Actual) Goal: Prevention of new skin breakdown Outcome: Progressing as expected Problem: Falls, Risk of Goal: Absence of falls Outcome: Progressing as expected Problem: Discharge Planning Goal: Able to perform ADL Outcome: Progressing as expected Goal: Knowledge of medication management Outcome: Progressing as expected Goal: Knowledge of need for follow-up care Outcome: Progressing as expected Goal: Knowledge of personal stroke risk factors Outcome: Progressing as expected Goal: Knowledge of stroke warning signs Outcome: Progressing as expected Problem: Mobility - Impaired Goal: Able to achieve maximum mobility level Outcome: Progressing as expected Goal: Able to use ambulatory assistive device appropriately Outcome: Progressing as expected Eulalia Martin RN [facility] 2024-12-23 05:37:49 Problem: Skin integrity Impaired (Risk or Actual) Goal: Prevention of new skin breakdown Outcome: Progressing as expected Problem: Falls, Risk of Goal: Absence of falls Outcome: Progressing as expected Problem: Discharge Planning Goal: Able to perform ADL Outcome: Progressing as expected Goal: Knowledge of medication management Outcome: Progressing as expected Goal: Knowledge of need for follow-up care Outcome: Progressing as expected Goal: Knowledge of personal stroke risk factors Outcome: Progressing as expected Goal: Knowledge of stroke warning signs Outcome: Progressing as expected Problem: Mobility - Impaired Goal: Able to achieve maximum mobility level Outcome: Progressing as expected Goal: Able to use ambulatory assistive device appropriately Outcome: Progressing as expected Radha Aguilar RN [facility] 2024-12-23 04:51:59 Patient admitted to 2109 for diagnosis of CVA Patient agrees to admission, discussed plan of care with patient and family. Patient is awake, alert, oriented, resp reg unlabored, color appropriate for race, PIV intact No adverse reaction to medications administered while in ED Belongings with patient to unit T Yu Menard RN [facility] 2024-12-23 04:50:08 Report given to BRIANA Lindo T [facility] 2024-12-23 01:30:00 Pt given aspirin with a small amount of water to swallow the pill down. Pt began to cough after taking the medications. While coughing the pt heart rate went in to the 130-150 range. Pt coughed and ended up getting some flem out. Once pt stopped coughing the heart rate went back down to 70-90 range. An extra EKG was taken during this time and given to the provider. Provider was made aware of the heart rate spike. T [facility] 2024-12-22 21:40:00 Pt wheeled back from CT to TR8 with BRIANA Benson monitoring pt. T [facility] 2024-12-22 21:23:[address] scan via wheelchair from triage. T [facility] 2024-12-22 21:22:02 creative technologist notified. [facility] 2024-12-22 21:16:06 Pt arrived ambulatory with the use of a rolling walker. Pt sister with her, okay to discuss medical care in front of her. Pt c/o difficulty with swallowing, loss of balance, and thinks her voice sounds different. [facility] 2024-12-15 17:22:24 Problem: Falls, Risk of Goal: Absence of falls 12/15/20241721 by Alverto Choi RN Outcome: Adequate for discharge 12/15/20241720 by Alverto Choi RN Outcome: Adequate for discharge 12/15/20241720 by Alverto Choi RN Outcome: Progressing as expected Problem: Skin integrity Impaired (Risk or Actual) Goal: Wound healing 12/15/20241721 by Alverto Choi RN Outcome: Adequate for discharge 12/15/20241720 by Alverto Choi RN Outcome: Adequate for discharge 12/15/20241720 by Alverto Choi RN Outcome: Progressing as expected Goal: Prevention of new skin breakdown 12/15/20241721 by Alverto Choi RN Outcome: Adequate for discharge 12/15/20241720 by Alverto Choi RN Outcome: Adequate for discharge 12/15/20241720 by Alverto Choi RN Outcome: Progressing as expected Problem: Pain Goal: Control of pain at or below patient's documented comfort goal 12/15/20241721 by Alverto Choi RN Outcome: Adequate for discharge 12/15/20241720 by Alverto Choi RN Outcome: Adequate for discharge 12/15/20241720 by Alverto Choi RN Outcome: Progressing as expected Goal: Reduction in pain sensation 12/15/20241721 by Alverto Choi RN Outcome: Adequate for discharge 12/15/20241720 by Alverto Choi RN Outcome: Adequate for discharge 12/15/20241720 by Alverto Choi RN Outcome: Progressing as expected Alverto Choi RN [facility] 2024-12-15 17:21:55 Problem: Falls, Risk of Goal: Absence of falls 12/15/20241720 by Alverto Choi RN Outcome: Adequate for discharge 12/15/20241720 by Alverto Choi RN Outcome: Progressing as expected Problem: Skin integrity Impaired (Risk or Actual) Goal: Wound healing 12/15/20241720 by Alverto Choi RN Outcome: Adequate for discharge 12/15/20241720 by Alverto Choi RN Outcome: Progressing as expected Goal: Prevention of new skin breakdown 12/15/20241720 by Alverto Choi RN Outcome: Adequate for discharge 12/15/20241720 by Alverto Choi RN Outcome: Progressing as expected Problem: Pain Goal: Control of pain at or below patient's documented comfort goal 12/15/20241720 by Alverto Choi RN Outcome: Adequate for discharge 12/15/20241720 by Alverto Choi RN Outcome: Progressing as expected Goal: Reduction in pain sensation 12/15/20241720 by Alverto Choi RN Outcome: Adequate for discharge 12/15/20241720 by Alverto Choi RN Outcome: Progressing as expected [facility] 2024-12-15 14:07:52 Images from the original note were not included. CARE MANAGEMENT Care Coordinators/Social Workers/CM Specialists/Utilization Review/Patient Placement & Transfer Center 12/15/2024 2:07 PM NO CM NEEDS FOR THIS PATIENTS ADMISSION Care Management Discharge Disposition Note (DCDN) 5-2-1 Interventions: Disease specific education, Intensive medication reconciliation/management, Teach back, Clear discharge plan, Follow-up phone calls, Follow-up appointments 5-2-1 Providers: Physician, Filteration Operator/Supervisor [facility], Nurse 5-2-1 Patient Capacity Improvements: Avoidance of adverse events/readmission Discussed with patient/patient s family involved in decision making: Patient or family caregiver understands, and agrees with discharge plan Patient's family or support contact: Selvin Ross [phone] Discharge Plan for ongoing care and services: Home/Caregiver Home Discharge Location: Discharge Disposition (for note) - 12/14/24 1301 Home/Caregiver address [address], [address] [place] [address] Is this an ACO Patient? No Other Living arrangements: [address], [address] [place] [address] Transportation (most recent) Discharge Disposition - 12/14/24 1301 Transportation Private Vehicle Discharge Medications Will the patient be able to obtain his medications? Yes Does the patient have transportation to to obtain the prescription medications? Yes Expected discharge date: 12/15/24 Time: 1407 Name of RN informed of discharge: Available - Signed In until 1845 Alverto Choi RN via DCDN Additional Information: Post-Acute Care Transition Education: Post-Acute Care Transition Education Completed: Yes Name and Relationship of Person Educated: Alva Type of Post-Acute Care Service Education Complete: Home/Caregiver/Home (Patient stated that she had done outpatient therapy in the past. She stated she would be interested in HH PT.) CM/IVA Name & Contact number: Liz Bautista RN Ph. [phone] The following information has been provided to the facility noted above: reason for the patient discharge or transfer; patient s physical and psychosocial status; summary of care, treatment, services provided to patient; and the patient progress toward goals. Liz Bautista RN Inpatient Direct Care Counselor [facility] Office location - 11D O: [phone] [email or web address]. weekends/holidays only -- [phone] Liz Bautista RN [facility] 2024-12-15 07:00:36 Problem: Falls, Risk of Goal: Absence of falls Outcome: Progressing as expected Problem: Pain Goal: Control of pain at or below patient's documented comfort goal Outcome: Progressing as expected Ilda Tomas RN [facility] 2024-12-14 17:01:41 Problem: Falls, Risk of Goal: Absence of falls Outcome: Progressing as expected Problem: Skin integrity Impaired (Risk or Actual) Goal: Wound healing Outcome: Progressing as expected Goal: Prevention of new skin breakdown Outcome: Progressing as expected Mavis Monk RN [facility] 2024-12-13 23:06:29 Problem: Falls, Risk of Goal: Absence of falls Outcome: Progressing as expected Problem: Skin integrity Impaired (Risk or Actual) Goal: Wound healing Outcome: Progressing as expected Goal: Prevention of new skin breakdown Outcome: Progressing as expected Tamara Montes RN [facility] 2024-12-13 17:31:00 Problem: Falls, Risk of Goal: Absence of falls Outcome: Progressing as expected Problem: Skin integrity Impaired (Risk or Actual) Goal: Wound healing Outcome: Progressing as expected Goal: Prevention of new skin breakdown Outcome: Progressing as expected Omer Palomo RN [facility] 2024-12-13 05:44:20 Problem: Falls, Risk of Goal: Absence of falls Outcome: Progressing as expected [facility] 2024-12-12 22:55:00 Nurse Report Report given to Lou WARREN at [facility].. Chief complaint, assessment findings, infusion verify and orders reviewed. Plan of care discussed at bedside with patient and both nurses. Patient/family members verbalized understanding. OCHOA ROBLES RN Ochoa Robles RN [facility] 2024-12-12 22:45:00 Patient is en route to [facility] for further evaluation and treatment bu Neurology. Patient alert and neuro intact upon departure, warm, dry, pink. case monitor remains in a fib with ventricular response 80's. T [facility] 2024-12-12 21:55:35 C/O feeling nauseated. Dr Lopez informed, patient medicated with Zofran 4 mg IV as ordered. T [facility] 2024-12-12 21:32:52 Patient's nephew came out of room, states patient feels confused, having trouble speaking. Patient assessed, having some expressive aphasia-fumbling for words. Unable to give year or say where she was. PERRLA, no nystagmus present. MERINO to command with equal strength bilaterally. Dr Lopez informed-at bedside to assess patient [facility] 2024-12-12 21:00:00 Patient states she is hungry-given chocolate pudding and apple juice with physician approval. Remains warm, dry, pink, alert. case monitor remains in a fib with ventricular response 80's. Nephew at bedside speaking with patient. Awaiting transport to [facility]. [facility] 2024-12-12 20:56:25 Patient's nephew Selvin Ross is POA and main salesperson household appliances [facility] 2024-12-12 20:47:00 [facility] ETA is 1 hour from now. [facility] Lucy Hernandez [facility] 2024-12-12 20:00:00 Patient continues to state that she doesn't feel well and that "something is wrong." Remains warm, dry, pink, in a fib with ventricular response 85, BP 179/83. Dr Lopez checking on patient. [facility] 2024-12-12 19:45:00 Patient put call light on-states she doesn't feel well, states she feels flushed and warm. Patient warm, dry, pink-remains in atrial fibrillation with ventricular response 80-100. Alert, coherent, MERINO purposefully. Dr Cool informed and went to bedside to assess patient. [facility] 2024-12-12 19:30:00 BP improved-154./88. Patient resting quietly, color pink. [facility] 2024-12-12 19:17:00 Medicated as ordered with Hydralazine 10 mg slow IV for hypertension 210/111. Patient alert, warm, dry, pink. Denies discomfort. [facility] 2024-12-12 18:00:08 Ultrasound-guided PIV placed in a round, compressible vein with no pulsatile flow noted. Saline flush confirmed patency with visualization in the target vein and no signs of infiltration, extravasation, or resistance. Patient reported no pain during flush and tolerated the procedure well. Site observed for swelling, discoloration, or leakage- none noted. IV secured with Tegaderm and tape, saline locked, and left in clean, dry, and intact condition. All safety measures followed; procedure performed using aseptic technique without complication. T Parul Ho RN [facility] 2024-12-12 17:44:08 Summary: Patient IV is leaking Patient IV is leaking, the patient is on blood thinners and the leaking appears to be at the insertion site, the area has been redressed twice now but with it being in the AC it will continue to leak. Assisted asked for to start a new IV in the forearm or upper arm using ultrasound guidance. [facility] Janine Marquez RN [facility] 2024-12-12 17:05:00 Summary: Patient was feeling dizzy Patient called on the call light and stated she was feeling dizzy, Dr. Lopez informed and patient has magnesium infusing at this time. [facility] 2024-12-12 16:38:56 Summary: patient to the restroom Patient taken to the restroom upon return from CT, IV leaked in CT and was redressed patient shirt taken off and patient placed in a gown. [facility] 2024-12-12 15:56:10 Summary: CT Patient to CT T [facility] 2024-12-12 15:00:00 Summary: patient to the restroom Patient was taken to the restroom via wheelchair, patient has a steady gait when ambulating from the wheel chair into the restroom T [facility] 2024-12-12 14:26:13 Summary: chest x-ray Chest x-ray at the bedside T [facility] 2024-12-12 13:49:00 Associated Order(s): EKG-12 Lead ROUTINE ONCE Pre-Procedure Diagnose(s): Difficulty with speech Post-Procedure Diagnose(s): Difficulty with speech [facility] Emergency Department Note Patient Name: Black Haynes Date of : 1940 84 year old female Treatment Room: [facility] Primary Care Physician: Melani Niño Patient Escorted by: Self [9] Mode of Arrival: EMS - [place] [49] EMS 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 She reports she woke up her normal self around 8 AM. She had breakfast and was getting ready to go run some errands when she felt some spots in her vision. She also felt slightly weak. Therefore she wanted to take a nap. When she woke up around noon she tried to call a friend and noted she had some difficulty with her speech. Therefore she called EMS at 1230 and was brought to the ER for evaluation. Upon arrival to the ER her speech has normalized. She denies any weakness to her arms or legs. No vision problems currently. She feels back to her normal self. No chest pain or pressure. No cough or congestion. No dysuria or hematuria. No nausea, vomiting or diarrhea. She does have a history of high blood pressure, high cholesterol as well as thyroid disease and atrial fibrillation. She does take Eliquis daily and admits to compliance with her medication. Here for evaluation. 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 Vaping Use Never used Alcohol Use Not Currently. Drug Use Never. Sexual Activity Not currently sexually active. Past Surgical History: Past Surgical History: Procedure Laterality Date COLONOSCOPY N/A 01/29/2020 Surgeon: Chantale Walker MD; Location: [facility] OR [facility] HYSTERECTOMY PHACOEMULSIFICATION OF CATARACT WITH INTRAOCULAR LENS IMPLANT Left 01/26/2022 Surgeon: Lucía Early MD; Location: [facility] OR LOCATION PHACOEMULSIFICATION OF CATARACT WITH INTRAOCULAR LENS IMPLANT Right 03/16/2022 Surgeon: Lucía Early MD; Location: [facility] OR [facility] Review of Systems: Review of Systems Constitutional: Negative for chills and fever. Respiratory: Negative for cough and shortness of breath. Cardiovascular: Negative for chest pain. Gastrointestinal: Negative for abdominal pain and vomiting. Genitourinary: Negative for dysuria. Musculoskeletal: Negative for arthralgias, neck pain and neck stiffness. Skin: Negative for wound. Neurological: Positive for speech difficulty. Negative for dizziness. Psychiatric/Behavioral: Negative for agitation. Endocrine: Negative for goiter. Physical Exam: Physical Exam ED Triage Vitals Weight 12/12/24 1401 55.8 kg (123 lb) Actual or estimated 12/12/24 1401 Actual Height 12/12/24 1401 1.651 m (5' 5") BP 12/12/24 1356 (!) 210/128 Pulse 12/12/24 1356 91 Resp 12/12/24 1356 16 Temp 12/12/24 1356 36.9 ?C (98.4 ?F) Temp source 12/12/24 1356 Oral SpO2 12/12/24 1356 99 % Measured on 12/12/24 1356 Room air Physical Exam Vitals and nursing note reviewed. Constitutional: Appearance: Normal appearance. She is normal weight. HENT: Head: Normocephalic and atraumatic. Mouth/Throat: Mouth: Mucous membranes are dry. Eyes: Extraocular Movements: Extraocular movements intact. Pupils: Pupils are equal, round, and reactive to light. Cardiovascular: Rate and Rhythm: Normal rate. Rhythm irregular. Pulses: Normal pulses. Pulmonary: Effort: Pulmonary effort is normal. No respiratory distress. Breath sounds: No stridor. No wheezing or rhonchi. Abdominal: General: There is no distension. Palpations: Abdomen is soft. There is no mass. Tenderness: There is no abdominal tenderness. There is no guarding or rebound. Hernia: No hernia is present. Musculoskeletal: General: Normal range of motion. Cervical back: Normal range of motion and neck supple. Skin: General: Skin is warm and dry. Neurological: General: No focal deficit present. Mental Status: She is alert and oriented to person, place, and time. Comments: Speech is clear. No facial asymmetry. Handgrip right equals left. Muscle strength is 5/5 to upper extremities and lower extremities bilaterally. Negative pronator drift bilaterally. Steady gait. NIHSS: Last known normal: 0800 1. a) LOC - 0, (0=Alert, 1=arousable w/ minor stim/appears sleepy, 2=req repeated stim/pain, 3=unresponsive, only reflex effects) b) LOC Questions - 0, (month & age - must be on 1st try & 100% correct) (0=answers correctly, verbally or in writing, 1=1 question correct/intubated/mouth trauma/language barrier/very slurred speech, 2=none correct/aphasic) c) LOC Commands - 0, (0=can open & close eyes on request & public health physician/release good hand, 1=1 task correct, 2=neither correct) (strength doesn't matter, testing 2 step command) 2. Best gaze - 0, (0=normal, 1=partial palsy/moves longterm, 2=forced deviation but slight mvmt) (if eyes deviated & don't move at all pt is having Sz) 3. Visual - 0, (0=no vision loss, 1=partial hemianopia, 2=complete hemianopia, 3=bilateral hemianopia, "3Blind" if blind, incl cortical blindness) (tested at arm's length) 4. Facial palsy - 0, (0=normal, 1=minor paralysis-flat nasolabial fold, asym smile, 2=partial paralysis ie only lower face, 3=complete paralysis of 1 or both sides) 5. Motor Arm Left - 0, Right - 0, (0=no drift, 1=drift <10 sec, 2=some effort against gravity, 3=no effort against gravity, 4=no mvmt, UN=amputation/joint fusion) 6. Motor Leg Left - 0, Right - 0 7. Limb Ataxia - 0, ([id number]-[id number], fobw-zi-drdy: 0=no ataxia, 1=in 1 limb, 2=in 2 limbs, UN=amputation/joint fusion) 8. Sensory - 0, (0=normal/obtunded & withdraws to pain, 1=mild-mod loss, 2=can't tell being touched/coma) 9. Best Language - 0, (0=no aphasia, 1=mild-mod ie loss of fluency, 2=severe ie limited range of info that can be exchanged, 3=mute or global aphasia ie no usable speech or auditory comprehension) (still count if it is old weakness but write "old") 10. Dysarthria - 0, (0=normal/intubated, 1=mild-mod ie slurs but can understand some, 2=severe ie unintelligible/mute/slurring out of proportion to dysphasia) 11. Extinction - 0, (0=none, 1=visual/tactile/auditory/spa tial/personal inattention, 2=profound aisha-inattention or extinction to >1 modality) TOTAL=0 Was tPA used? no If not, why? Back to baseline upon arrival to the ED Did Patient/family consent to tPA? N/a Was patient a candidate for endovascular procedure? no Radiology: CT Angiogram head Final Result EXAM: CT ANGIOGRAM HEAD, CT ANGIOGRAM NECK HISTORY: 84 years -old Female with vision disturbance, weakness, and speech difficulty TECHNIQUE: CT angiography of the neck and head after the intravenous administration of contrast. Axial images were reconstructed at 0.63 mm slice thickness. Coronal and sagittal reformats including MIPs were provided. COMPARISON: Concurrent CT head FINDINGS: CTA HEAD: The PICA origin is visualized bilaterally. The basilar artery is normal in caliber. The visualized superior cerebellar arteries are unremarkable. The posterior cerebral arteries are patent. Moderate focal stenosis is seen in the mid right P2 segment (7:106). No sizable posterior communicating arteries visualized. The distal cervical, petrous, cavernous and supraclinoid internal carotid arteries are patent with mild scattered atherosclerotic plaque resulting in no significant stenosis. The anterior and middle cerebral arteries are patent. An anterior communicating artery is visualized. The dural venous sinuses are patent. CTA NECK: Aortic arch and arch vessel origins: Classic triple vessel arch anatomy. Origins of the great vessels are widely patent. Scattered atherosclerotic plaque of the aortic arch. Innominate and subclavian arteries: Patent on both sides. Common carotids: The common carotid arteries, carotid bulbs, and the distal cervical internal carotid arteries are patent. Mild atherosclerotic calcification of the bilateral carotid bulbs and proximal ICAs results in no significant stenosis. Vertebral arteries: The vertebral arteries originate normally from the subclavian arteries and are patent along their course. Cervical soft tissues: Multiple subcentimeter thyroid nodules are noted measuring up to 0.9 cm on the right. Lung apices: Centrilobular emphysema is noted in the visualized lung apices. A calcified granuloma is partially visualized in the right lower lobe. Cervical spine: Mild multilevel degenerative changes with facet and uncovertebral arthrosis. IMPRESSION No large vessel occlusion. Moderate focal stenosis of right [employer] mid P2. Mild atherosclerosis at the bilateral carotid bulbs without significant stenosis. Preliminary Report Dictated by Resident: Diana Sharma MD., have reviewed this study and agree with the above report. CT Angiogram neck Final Result EXAM: CT ANGIOGRAM HEAD, CT ANGIOGRAM NECK HISTORY: 84 years -old Female with vision disturbance, weakness, and speech difficulty TECHNIQUE: CT angiography of the neck and head after the intravenous administration of contrast. Axial images were reconstructed at 0.63 mm slice thickness. Coronal and sagittal reformats including MIPs were provided. COMPARISON: Concurrent CT head FINDINGS: CTA HEAD: The PICA origin is visualized bilaterally. The basilar artery is normal in caliber. The visualized superior cerebellar arteries are unremarkable. The posterior cerebral arteries are patent. Moderate focal stenosis is seen in the mid right P2 segment (7:106). No sizable posterior communicating arteries visualized. The distal cervical, petrous, cavernous and supraclinoid internal carotid arteries are patent with mild scattered atherosclerotic plaque resulting in no significant stenosis. The anterior and middle cerebral arteries are patent. An anterior communicating artery is visualized. The dural venous sinuses are patent. CTA NECK: Aortic arch and arch vessel origins: Classic triple vessel arch anatomy. Origins of the great vessels are widely patent. Scattered atherosclerotic plaque of the aortic arch. Innominate and subclavian arteries: Patent on both sides. Common carotids: The common carotid arteries, carotid bulbs, and the distal cervical internal carotid arteries are patent. Mild atherosclerotic calcification of the bilateral carotid bulbs and proximal ICAs results in no significant stenosis. Vertebral arteries: The vertebral arteries originate normally from the subclavian arteries and are patent along their course. Cervical soft tissues: Multiple subcentimeter thyroid nodules are noted measuring up to 0.9 cm on the right. Lung apices: Centrilobular emphysema is noted in the visualized lung apices. A calcified granuloma is partially visualized in the right lower lobe. Cervical spine: Mild multilevel degenerative changes with facet and uncovertebral arthrosis. IMPRESSION No large vessel occlusion. Moderate focal stenosis of right [employer] mid P2. Mild atherosclerosis at the bilateral carotid bulbs without significant stenosis. Preliminary Report Dictated by Resident: Diana Sharma MD., have reviewed this study and agree with the above report. CT HEAD WO CONTRAST Final Result EXAM: CT HEAD WO CONTRAST HISTORY: 84 years-old Female; Provided indication: Difficulty with speech. TECHNIQUE: Axial noncontrast CT of the head was performed. Coronal and sagittal reformatted images were generated. COMPARISON: 01/03/2021 HEAD: The ventricles and cerebral sulci are normal in caliber and configuration. No midline shift or pathological extra-axial fluid collection is present. The basal cisterns are unremarkable. No acute intracranial hemorrhage or significant mass effect is visualized. No parenchymal attenuation abnormality is seen. The ga-white matter differentiation is preserved. The calvarium and central skull base are unremarkable. The mastoid air cells and visualized paranasal air sinuses are clear. IMPRESSION No acute intracranial abnormality. Preliminary Report Dictated by Resident: Bib José I, Jareth Rahman MD., have reviewed this study and agree with the above report. XR CHEST 1 VW Final Result ORDERING PHYSICIAN: LOUISE LOPEZ. HISTORY: malaise TECHNIQUE: AP. COMPARISON: 02/13/2022 FINDINGS: Support equipment: None. Lungs: No focal consolidation is seen. Pleura: No effusion or pleural disease is seen. No pneumothorax. Mediastinum/Jordana: No masses or adenopathy. Heart: The heart is not enlarged. Other: No acute osseous abnormality is seen. IMPRESSION No acute process. End of Report Lab Results: Lab Results COMP. METABOLIC PANEL (94846) - Abnormal Result Value Ref Range NA 140 135 - 145 mmol/L K 3.5 3.5 - 5.0 mmol/L CL 101 98 - 108 mmol/L CO2 TOTAL 28 23 - 31 mmol/L AGAP 11 2 - 16 BUN 16 7 - 23 mg/dL GLUCOSE 85 70 - 110 mg/dL CREATININE 0.84 0.50 - 1.04 mg/dL TOTAL BILI 0.7 0.1 - 1.1 mg/dL CALCIUM 8.9 8.6 - 10.6 mg/dL T PROTEIN 8.1 6.3 - 8.2 g/dL ALBUMIN 4.5 3.5 - 5.0 g/dL ALK PHOS 115 34 - 122 U/L ALTv 28 5 - 35 U/L AST(SGOT) 45 (*) 13 - 40 U/L eGFR 68.2 mL/min/1.73m2 MAGNESIUM - Abnormal MAGNESIUM 1.6 (*) 1.7 - 2.4 mg/dL PROTHROMBIN TIME / INR - Abnormal PROTIME PATIENT 14.7 (*) 10.1 - 12.6 Seconds INR 1.2 N-TERMINAL PRO-BNP - Abnormal NT-proBNP 1,930 (*) <=125 pg/mL URINALYSIS - Abnormal APPEARANCE Clear Clear COLOR Colorless (*) Yellow PH 7.0 4.8 - 8.0 SP GRAVITY 1.005 1.003 - 1.030 GLU U QUAL Normal Normal BLOOD Negative Negative KETONES Negative Negative PROTEIN Negative Negative UROBILIN Normal Normal BILIRUBIN Negative Negative NITRITE Negative Negative LEUK GRACIA Negative Negative RBC/HPF <1 0 - 3 HPF WBC/HPF 0 0 - 5 HPF BACTERIA Negative Negative ACTIVATED PARTIAL THRMPLAS ANGELICA - Normal APTT Patient 36 26 - 36 Seconds TROPONIN I - Normal TROPONIN I 0.003 <=0.034 ng/mL POCT GLUCOSE (AUTOMATED) - Normal POCT GLU 94 70 - 110 mg/dL CBC WITH DIFF WBC 5.39 4.30 - 11.10 10*3/?L RBC 4.26 3.93 - 5.25 10*6/?L HGB 12.6 11.6 - 15.0 g/dL HCT 39.8 35.7 - 45.2 % MCV 93.4 80.6 - 95.5 fL MCH 29.6 25.9 - 32.8 pg MCHC 31.7 31.6 - 35.1 g/dL RDW-SD 47.3 39.0 - 49.9 fL RDW-CV 13.8 12.0 - 15.5 % PLT 185 166 - 358 10*3/?L MPV 12.1 9.5 - 12.9 fL NRBC/100 WBC 0.0 0.0 - 10.0 /100 WBCs NRBC x10 3 <0.01 10*3/?L GRAN MAT (NEUT) % 36.2 % IMM GRAN % 0.20 % LYMPH % 48.4 % MONO % 10.2 % EOS % 4.1 % BASO % 0.9 % GRAN MAT x10 3 (ANC) 1.95 1.88 - 7.09 10*3/uL IMM GRAN x10 3 <0.03 0.00 - 0.06 10*3/uL LYMPH x10 3 2.61 1.32 - 3.29 10*3/uL MONO x10 3 0.55 0.33 - 0.92 10*3/uL EOS x10 3 0.22 0.03 - 0.39 10*3/uL BASO x10 3 0.05 0.01 - 0.07 10*3/uL EKG: If EKG completed, see Procedure Note. Orders and Treatments: Orders Placed This Encounter Procedures CT HEAD WO CONTRAST CT Angiogram head CT Angiogram neck XR CHEST 1 VW CBC WITH DIFF COMP. METABOLIC PANEL (98253) Magnesium PROTHROMBIN TIME / INR ACTIVATED PARTIAL THRMPLAS ANGELICA TROPONIN I N-TERMINAL PRO-BNP URINALYSIS POCT GLUCOSE (AUTOMATED) Orders Placed This Encounter Medications magnesium sulfate in water 2 gram/50 mL (4 %) infusion 2 g iopamidol (ISOVUE 370-500 mL) injection 100 mL acetaminophen (TYLENOL) tablet 650 mg aspirin chewable tablet 324 mg hydralAZINE (APRESOLINE) injection 10 mg First Provider Eval: ED Events Date/Time Event User Comments 12/12/24 134 Medical Screening Begins LOUISE LOPEZ DO -- 12/12/24 134 First Provider Evaluation LOUISE LOPEZ DO -- ED COURSE Diagnosis/Impression as of 12/12/242050 Difficulty with speech Hypomagnesemia Near syncope Results Procedures: EKG-12 Lead ROUTINE ONCE Date/Time: 12/12/2024 2:07 PM Performed by: Louise Lopez DO Authorized by: Louise Lopez DO ECG interpreted by ED Physician in the absence of a steak tenderizer machine: yes Interpretation: Interpretation: abnormal Rate: ECG rate: 93 ECG rate assessment: normal Rhythm: Rhythm: atrial fibrillation Ectopy: Ectopy: none QRS: QRS axis: Normal QRS intervals: Normal QRS conduction: normal ST segments: ST segments: Normal T waves: T waves: normal Q waves: Abnormal Q-waves: not present MDM: Assessment & Plan Medical Decision Making The patient presents from home with EMS for evaluation for some speech difficulty. She reports she woke up her normal self around 8 AM. She had breakfast and was getting ready to go run some errands when she felt some spots in her vision. She also felt slightly weak. Therefore she wanted to take a nap. When she woke up around noon she tried to call a friend and noted she had some difficulty with her speech. Therefore she called EMS at 1230 and was brought to the ER for evaluation. Upon arrival to the ER her speech has normalized. She denies any weakness to her arms or legs. No vision problems currently. She feels back to her normal self. No chest pain or pressure. No cough or congestion. No dysuria or hematuria. No nausea, vomiting or diarrhea. She does have a history of high blood pressure, high cholesterol as well as thyroid disease and atrial fibrillation. She does take Eliquis daily and admits to compliance with her medication. The patient is hypertensive upon arrival to the ER. Her speech is clear. No facial asymmetry. Handgrip right equals left. Muscle strength is 5/5 to upper extremities and lower extremities bilaterally. Negative pronator drift bilaterally. Steady gait. Her heart is regular rhythm. Her lungs are clear bilaterally. Her abdomen is soft and nontender. Her EKG shows atrial fibrillation, no STEMI. Concern the patient may have had a TIA. Her current NIH stroke scale is a 0. Will obtain a CT of her head as well as CT angiogram of her head and neck. Will also check laboratory studies and a urinalysis. Anticipate need for admission later on. 194 - the patient is doing well here in the ER. Her laboratory studies show her magnesium level is low at 1.6 and it was replaced here in the ER. Her urinalysis shows no infection. The CT of her head shows no acute intracranial abnormalities. A CT angiogram of her head and neck showed no large vessel occlusions. The patient's presentation is concerning for TIA and she does have risk factors for this. Spoke with Dr. Jalloh with the neurology service in [place] who gave the patient 2 options regarding her workup. He reports she can be admitted to the [facility] for an MRI which she may not be able to have until Sunday as this is the weekend and today is Sunday evening. He also reports she can have that completed as an outpatient. When the patient was given the 2 options above she chose to go home. She was advised to take an 81 mg aspirin tablet daily. The neurology team in [place] will be ordering the outpatient MRI. She will need to follow-up with her PCP in 1 week. She remained stable here in the ER and is okay for discharge home with PCP follow-up in 1 week. 2030 -prior to discharge patient was noted to be hypertensive again. Therefore she was given a dose of IV hydralazine. Approximately 30 minutes after receiving IV hydralazine she reported she was feeling faint and flushed. She also reports she feels like something bad is about to happen to her. She does require admission for continued management. Her EKG was rechecked and remained in atrial fibrillation. Her blood sugar was normal at 94. Spoke with Dr. Rodriguez with the internal medicine service in [place] and the patient was accepted for admission for continued management. Problems Addressed: Difficulty with speech: acute illness or injury Hypomagnesemia: acute illness or injury Near syncope: acute illness or injury Amount and/or Complexity of Data Reviewed Independent Historian: EMS Labs: ordered. Decision-making details documented in ED Course. Radiology: ordered and independent interpretation performed. Decision-making details documented in ED Course. ECG/medicine tests: ordered and independent interpretation performed. Decision-making details documented in ED Course. Risk OTC drugs. Prescription drug management. Flowsheet Documentation: Scoring Tools: No data recorded Disposition/Condition: ED Disposition [facility] Condition -- Comment -- Discharge Medications: Patient's Medications START taking these medications No medications on file CONTINUE taking these medications which have NOT CHANGED ACETAMINOPHEN (TYLENOL ARTHRITIS ORAL) Take 1,000 mg by mouth in the morning and 1,000 mg in the evening. ALBUTEROL SULFATE HFA 90 MCG/ACTUATION AEROSOL INHALER Inhale 2 Puffs every 6 hours as needed for Wheezing or Shortness of Breath. APIXABAN 5 MG TABLET Take 0.5 tablets by mouth in the morning and 0.5 tablets in the evening. Indications: atrial fibrillation CHOLECALCIFEROL, VITAMIN D3, 25 MCG (1,000 UNIT) CAPSULE Take 1 capsule by mouth in the morning. CYANOCOBALAMIN, VITAMIN B-12, (VITAMIN B-12 ORAL) Take 1,000 mg by mouth in the morning. FLUTICASONE PROPIONATE 50 MCG/ACTUATION NASAL SPRAY SHAKE LIQUID AND USE 2 SPRAYS IN EACH NOSTRIL IN THE MORNING FUROSEMIDE 40 MG TABLET TAKE 1 TABLET BY MOUTH EVERY MORNING GABAPENTIN 100 MG CAPSULE TAKE 1 CAPSULE BY MOUTH EVERY NIGHT AT BEDTIME GABAPENTIN ER 300 MG TABLET, EXTENDED RELEASE 24 HR Take 1 tablet by mouth at bedtime. KCL 10 MEQ TABLET TAKE 1 TABLET BY MOUTH IN THE MORNING LATANOPROST 0.005 % OPHTHALMIC DROPS INSTILL 1 DROP INTO BOTH EYES AT BEDTIME LEVOTHYROXINE 50 MCG TABLET TAKE 1 TABLET BY MOUTH EVERY MORNING LISINOPRIL 20 MG TABLET Take 1 tablet by mouth in the morning. METOPROLOL SUCCINATE XL 50 MG 24 HR TABLET Take 1 tablet by mouth in the morning. OMEPRAZOLE 20 MG CAPSULE Take 1 capsule by mouth in the morning. POLYSORBATE 80/GLYCERIN (REFRESH DRY EYE THERAPY OPHTHALMIC) Place in each eye daily. TRAMADOL 50 MG TABLET Take 1 tablet by mouth every 6 (six) hours as needed (pain). Indications: acute pain VIT A/VIT C/VIT E/ZINC/COPPER (PRESERVISION AREDS ORAL) Take 1 tablet by mouth in the morning. START taking Modified Medications as Prescribed No medications on file STOP taking these medications No medications on file Follow-up: Electronically signed by: Louise Lopez DO 12/12/241938 Louise Lopez DO 12/12/242050 [facility] 2024-12-01 15:06:09 Last OV 10/29/24 did not see Albuterol on current medication list. Please advise. Coleen Cha MA [facility] 2024-10-17 07:50:01 Images from the original note were not included. Notes: Last Refilled: Name from pharmacy: FLUTICASONE 50MCG NASAL SP (120) RX Will file in chart as: FLUTICASONE PROPIONATE 50 mcg/actuation nasal spray Sig: SHAKE LIQUID AND USE 2 SPRAYS IN EACH NOSTRIL IN THE MORNING Disp: 16 g Refills: 5 (Pharmacy requested: Not specified) Start: 10/17/2024 Class: eRX For: Non-seasonal allergic rhinitis due to pollen Last ordered: 5 months ago (04/28/2024) by Melani Niño MD Last refill: 07/23/2024 Rx #: [id number]|0|1 Pulmonology & Allergy: Maintenance Inhalers (ICS-inhaled corticosteroids) [id number]/17/2024 05:39 AM Protocol Details Valid encounter within last 12 months To be filled at: [id number] - [place], [place] - [address] [employer] Recent Visits Date Type Provider Dept 05/19/24 Office Visit Melani Niño MD [facility] 04/21/24 Office Visit Melani Niño MD [facility] 02/13/24 Office Visit Melani Niño MD [facility] 01/29/24 Office Visit Melani Niño MD [facility] 12/04/23 Office Visit Melani Niño MD [facility] 08/07/23 Office Visit Melani Niño MD [facility] 05/15/23 Office Visit Melani Niño MD [facility] Showing recent visits within past 540 days with a meds authorizing provider and meeting all other requirements Future Appointments No visits were found meeting these conditions. Showing future appointments within next 150 days with a meds authorizing provider and meeting all other requirements [facility] 2024-10-16 13:05:19 Reached out to hospital PSS to assist with scheduling. Elizabeth Jovel RN [facility] 2024-08-22 12:21:31 Please review dosage patient reports taking differently Patricia Uribe MA [facility] 2024-06-23 10:59:32 Recent Visits Date Type Provider Dept 05/19/24 Office Visit Melani Niño MD [facility] 04/21/24 Office Visit Melani Niño MD [facility] 02/13/24 Office Visit Melani Niño MD [facility] 01/29/24 Office Visit Melani Niño MD [facility] 12/04/23 Office Visit Melani Niño MD [facility] 08/07/23 Office Visit Melani Niño MD [facility] 05/15/23 Office Visit Melani Niño MD [facility] 04/11/23 Office Visit Melani Niño MD [facility] 03/12/23 Office Visit Melani Niño MD [facility] Showing recent visits within past 540 days with a meds authorizing provider and meeting all other requirements Future Appointments No visits were found meeting these conditions. Showing future appointments within next 150 days with a meds authorizing provider and meeting all other requirements Last refill was Disp Refills Start End NOAM gabapentin 100 mg capsule (Discontinued) 90 capsule 0 09/24/2023 01/03/2024 No [facility] 2024-06-10 09:52:26 Assessment/Plan Paroxysmal atrial fibrillation She presented yesterday to [facility] for flutter ablation. We performed venogram of IVC, Azygos, RA, RV. 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 Procedure was canceled. Continue apixaban 5 mg twice daily. Stop amiodarone Increase dose of metoprolol XL 50 mg daily Follow up next week metoprolol succinate XL 50 mg 24 hr tablet 30 tablet 3 06/04/2024 -- No Sig: Take 0.5 tablets by mouth in the morning. Sent to pharmacy as: metoprolol succinate ER 50 mg tablet,extended release 24 hr (TOPROL XL) Class: eRX Route: Oral Order: [id number] Date/Time Signed: 06/04/2024 14:26 E-Prescribing Status: Receipt confirmed by pharmacy (06/04/2024 2:27 PM STRATEGY ASSOCIATE) metoprolol succinate XL 25 mg 24 hr tablet (Discontinued) 30 tablet 3 05/21/2024 06/04/2024 Order for Metoprolol XL 50 mg daily sent to pharmacy. Encounter forwarded to Dr. Griffin. [facility] 2024-06-03 16:14:01 Discharge instructions was provided. Patient understands and her IV's was removed. Patient A&Ox4, NAD, and was escorted by wheelchair to [facility]. TEGY ASSOCIATE Bekah Padilla RN [facility] 2024-05-29 13:21:51 Spoke with mine laborer. Pt specific instructions to hold eliquis for 2 full days prior to procedure. Pt notified. ERON Jovel RN [facility] 2024-05-29 12:44:28 It should come from EP lab staff per their protocol. [facility] 2024-05-29 11:50:45 Pt wants to confirm her Eliquis instructions prior to her ablation scheduled for next week with Dr. Griffin. She thought Dr. Barrera instructed her to hold the Eliquis 2 days prior to procedure, but wants to make sure she heard correctly. Will forward to Dr. Barrera for review. [facility] 2024-05-29 10:15:00 Images from the original note were not included. Venipuncture collection performed by clean technique on the left anticubitus. Total of 1 attempts were made. Slight pressure and a bandage/dressing were applied to the site(s). The patient experienced no complications. The following specimens were processed according to instructions and sent to [facility] laboratories per lab order on 04/09/25: LT BLUE 1 SST 1 RED LAV 2 PPT DK GREEN (LiHep) DK GREEN (SodH) GA DK BLUE (K2) DK BLUE (S) ACD Blood Culture NIPT/NTD [facility] 2024-05-29 08:21:42 Pt has been r/s. [facility] Jacinta Gilbert [facility] 2024-05-28 16:01:03 Patient needing to schedule her Vascular US appointment. Please advise ERON Zee [facility] 2024-05-27 16:08:36 [facility] EP LAB PRE-CALL INSTRUCTIONS EP Instructions were sent to patient via: Telephone Your physician has determined that you need to undergo a(n) AFIB Ablation procedure. Listed below are some instructions for you to follow prior to the procedure. Do not eat or drink anything after midnight the night before the procedure, except for enough water to take your medications if so directed. Take all medications except do not take metformin (Glucophage) 2 days prior to the procedure and do not take insulin or furosemide (lasix) the day of the procedure. If you are on blood thinners special instructions will be given to you prior to the procedure. If you are allergic to iodine or shellfish, take pre-treatment medications as directed. Please call your referring physician for prescription. Bring a list of all current medications. Bring one adult family member or friend with you to drive you home, as you will be unable to drive for 48 hours after the procedure. Due to limited space and patient privacy, only one (1) visitor is permitted with the patient while they are recovering in the recovery area. No children under the age of 14 years will be allowed in recovery area. Please park in the Hospital Garage via [address] from either [address] or [address]. Bring your parking ticket with you to be validated, only one parking ticket may be validated per patient. There may be a possibility of hospital admission or late evening discharge; therefore, bring leisure reading and an overnight bag. On the day of your procedure, come directly to the Electrophysiology Lab immunohematologist desk, located on the 6th floor of [facility] ([phone].) You will be escorted to the Cardiac Cath/EP recovery room. Please call the Electrophysiology Lab at if you have any questions regarding your procedure. Date of Procedure: 06/03/24 Time of Procedure: 6:15AM Vendors Needed: TBD Vendors Verified: Anesthesia Verified: TBD Anesthesia Consent: Drug Allergies? Yes - Labs Verified? Yes will needs labs Note in Chart and any Important Info needed for the case: Hold Eliquis 2 days prior Hold Lasix AM dose. Instructions given to patient: yes Patient provided with preferred teaching of verbal information on 05/27/24. Shows readiness to learn. Verbal instruction teaching provided. Individual is able to read and verbalizes understanding of teaching provided. [facility] 2024-05-21 14:35:57 .Patient already Reviewed in My Chart Seen by patient Black Haynes on 05/19/2024 4:59 PM [facility] 2024-05-16 16:10:10 I attempted to call patient to ask how she is doing. It looks like she was seen by PCP on 04/21/24 for RLE swelling. Will route to Dr. Barrera to advise on upcoming appointment. ERON Jovel RN [facility] 2024-04-15 09:58:38 Patient was notified of the recommendations over the phone. She verbalized understanding via teach back. ERON Jovel RN [facility] 2024-04-14 16:38:30 We can increase dose of amiodarone 200 bid for 2 weeks then back to 200 mg daily until ablation Thanks CHENEY [facility] 2024-04-09 11:06:54 Labs ordered [facility] 2024-04-09 09:45:37 Called patient to schedule Afib Ablation with Dr. Griffin. Patient was Scheduled for 05/01 but provider wont be here, I called to reschedule procedure, patient agreed to have the procedure on 06/03/24 - Labs 05/27/24. TEGY ASSOCIATE Lara An [facility] 2024-03-25 16:31:27 Pt called back and has an appt with Dr. Griffin tomorrow. TEGY ASSOCIATE Amy Jovel RN [facility] 2024-03-25 09:48:51 Lvm for pt to call and schedule appt with Dr. Griffin. [facility] 2024-02-29 16:17:25 Notified pt of physician review from recent echo. Pt verbalized understanding. Amy Jovel RN [facility] 2024-02-29 13:52:39 Images from the original note were not included. Attempted to contact patient with results/recommendations. LVM for patient to return call to [phone]. Shay Barrera MD P Cardiology Nurse ECHO--normal LV and RV function. Plz make an appt with me for f/u at her convenience. Elizabeth Jovel RN [facility] 2024-02-20 15:48:42 Images from the original note were not included. Orders palced 02/14/24. My Chart message sent to patient. Elizabeth Jovel RN [facility] 2024-02-20 14:48:29 Black Haynes is a 83 year old female Pt states that she is suppose to have a order for PFT. Chrt does not show order. Please advise. Montana Delatorre [facility] 2024-02-14 11:00:00 Addended by: SHAY BARRERA MD on: 02/14/2024 03:46 PM Modules accepted: Orders [facility] 2024-02-04 16:57:47 .Notified Patient of Test Results and Recommendations [facility] 2024-02-04 16:40:18 Patient returning missed call. Please advise. Hiren Cano [facility] 2024-02-04 16:38:25 Returned call , No answer left V/M again Patient needs to repeat labs in 2 months , orders have been placed Liver functions elevated and shows she is a little anemic [facility] 2024-02-04 16:12:33 Black Haynes is a 83 year old female returning a missed call from the clinic to discuss her recent lab results, please advise. Tree Whitfield [facility] 2024-01-29 16:00:00 Images from the original note were not included. Venipuncture collection performed by clean technique on the left anticubitus. Total of 1 attempts were made. Slight pressure and a bandage/dressing were applied to the site(s). The patient experienced no complications. The following specimens were processed according to instructions and sent to [facility] laboratories per lab order on today: LT BLUE SST 1 RED LAV 1 PPT DK GREEN (LiHep) DK GREEN (SodH) GA DK BLUE (K2) DK BLUE (S) ACD Blood Culture NIPT/NTD [facility] 2023-09-07 07:40:16 Images from the original note were not included. Requested Renewals Name from pharmacy: FUROSEMIDE 20MG TABLETS Will file in chart as: FUROSEMIDE 20 mg tablet Sig: TAKE 1 TABLET BY MOUTH IN THE MORNING Disp: 30 tablet Refills: 5 (Pharmacy requested: Not specified) Start: 09/07/2023 Class: eRX For: Localized edema Last ordered: 5 months ago (03/27/2023) by Melani Niño MD Last refill: 06/26/2023 Rx #: [id number] Cardiovascular: Loop Diuretics [id number]/07/2023 05:43 AM Protocol Details K in normal range and within 180 days Cr in normal range and within 180 days Valid encounter within last 12 months To be filled at: [id number] - [place], [place] - [address] [facility] K (mmol/L) Date Value 01/10/2022 4.1 CREATININE (mg/dL) Date Value 01/10/2022 0.98 Recent Visits Date Type Provider Dept 08/07/23 Office Visit Melani Niño MD [facility] 05/15/23 Office Visit Melani Niño MD [facility] 04/11/23 Office Visit Melani Niño MD [facility] 03/12/23 Office Visit Melani Niño MD [facility] 12/12/22 Office Visit Melani Niño MD [facility] 08/22/22 Office Visit Melani Niño MD [facility] 04/10/22 Office Visit Melani Niño MD [facility] Showing recent visits within past 540 days with a meds authorizing provider and meeting all other requirements Future Appointments Date Type Provider Dept 11/13/23 Appointment Melani Niño MD [facility] Showing future appointments within next 150 days with a meds authorizing provider and meeting all other requirements Sydney Samuel LVN [facility] 2023-05-15 11:45:00 Images from the original note were not included. Venipuncture collection performed by clean technique on the right anticubitus. Total of 1 attempts were made. Slight pressure and a bandage/dressing were applied to the site(s). The patient experienced no complications. The following specimens were processed according to instructions and sent to [facility] laboratories per lab order on 05/15/2023 : LT BLUE SST 1 RED LAV PPT DK GREEN (LiHep) DK GREEN (SodH) GA DK BLUE (K2) DK BLUE (S) ACD Blood Culture NIPT/NTD [facility] 2023-01-22 12:46:18 Formatting of this n ote might be different from the original. Received Echocardiogram Report from [facility]. Placed in the providers box for review. Ekaterina Rodarte [facility] 2023-01-11 14:34:41 Formatting of this n ote might be different from the original. Requested a cardiac clearance from [facility] clinic via fax today. Emely Montalvo MA 01/11/2023 2:35 PM Emely Montalvo [facility]
[2025-01-27 19:10] LABS: Absolute Lymphocytes (CBC) 2.4 K/uL (0.7-4.9); Hematocrit 36.7 % (36.0-45.0); Hemoglobin 12.4 g/dL (12.0-15.0); MCH 30.0 pg (27.0-35.0); MCHC 33.9 g/dL (32.0-36.0); MCV 88.6 fL (80-100); MPV 9.0 fL (7.6-11.3); Nucleated RBC Absolute Count 0.0 (0-0); Nucleated Red Blood Cells % 0.1 % (0-0); RBC Red Blood Cell Count 4.15 M/uL (3.86-4.86); White Blood Count 5.00 thou/uL (4.3-10.9)
--- NOTE | 2025-01-27 19:20 | RAD REPORT ---
EXAMINATION: Neck Angio CLINICAL INDICATION: Female, 84 years old. stroke alert TECHNIQUE: Axial CT images were obtained from the aortic arch to the skull base after intravenous con trast utilizing angiographic protocol with 3D post-processing (maximum intensity projection images, volume rendered images and/or shaded surface rendered images). One or more of the following dose redu ction techniques were used: Automated exposure control, adjustment of the mA and/or kV according to patient size, and/or iterative reconstruction. Unless otherwise specified, incidental findings do not require dedicated imaging follow-up. [id number]. NASCET criteria used. Mild 0-49% stenosis Moderate 50-69% stenosis Severe 70-99% stenosis COMPARISON: 05/23/2022 FINDINGS: AORTA: Normal RIGHT: - CCA: Atherosclerotic changes but no flow limiting stenosis. - ICA: Atherosclerotic changes but no flow limiting stenosis. - ECA: No flow limiting stenosis (>= 50%). No dissection. LEFT: - CCA: Atherosclerotic changes but no flow limiting stenosis. - ICA: Atherosclerotic changes but no flow limiting stenosis. - ECA: No flow limiting stenosis (>= 50%). No dissection. VERTEBRAL: Left dominant. Both patent. SOFT TISSUE: No significant neck soft tissue abnormalities. Emphysema 3D images confirm these findings. IMPRESSION: No arterial dissection or stenosis identified within the neck.
[2025-01-27 19:21] LABS: PT Prothrombin Time 16.9 SECONDS (10-13.0); PTT, Activated Partial Thromb 33.7 SECONDS (27.2-37.4); Protime INR 1.51
--- NOTE | 2025-01-27 19:23 | RAD REPORT ---
EXAMINATION: Head angio CLINICAL INDICATION: Female, 84 years old. STROKE ALERT TECHNIQUE: Axial CT images were obtained through the head after intravenous contrast utilizing angiog raphic protocol with 3D post-processing (maximum intensity projection images, volume rendered images and/or shaded surface rendered images). One or more of the following dose reduction technique s were used: Automated exposure control, adjustment of the mA and/or kV according to patient size, and/or iterative reconstruction. Unless otherwise specified, incidental findings do not require dedic ated imaging follow-up. COMPARISON: 05/23/2022 FINDINGS: RIGHT: ICA: Atherosclerotic calcifications but no flow limiting stenosis. JOSE: No aneurysm, stenosis, or occlusion. MCA: No aneurysm, stenosis, or occlusion. MODEL MAKER FIREARMS: No aneurysm, stenosis, or occlusion. LEFT: ICA: Atherosclerotic calcifications but no flow limiting stenosis. JOSE: No aneurysm, stenosis, or occlusion. MCA: No aneurysm, stenosis, or occlusion. MODEL MAKER FIREARMS: No aneurysm, stenosis, or occlusion. Vertebrobasilar: The vertebral arteries are patent. The basilar artery is normal in appearance. Left dominant vertebral artery. 3D images confirm these findings. IMPRESSION: No occlusion, aneurysm, or hemodynamically significant stenosis identified.
[2025-01-27 19:36] LABS: ALT/SGPT 80.0 U/L (13-56); AST/SGOT 91.0 U/L (15-37); Albumin 3.5 g/dL (3.4-5.0); Albumin/Globulin Ratio 0.9 (1.1-1.8); Alkaline Phosphatase 115.0 U/L (45-117); Anion Gap 9.9 mEq/L (5.0-15.0); BUN Blood Urea Nitrogen 17.0 mg/dL (7-18); Bilirubin Indirect, Calculated 0.3 mg/dL (0.2-0.8); Globulin 3.9 g/dL (2.3-3.5); Glucose Level 85.0 mg/dL (74-106); Magnesium 1.9 mg/dL (1.6-2.4); Potassium 3.9 mEq/L (3.5-5.1); Troponin High Sensitivity 6.9 pg/mL (<58.9)
--- NOTE | 2025-01-27 19:52 | EDPHYS ---
Physician Documentation [facility] Name: Raya Haynes Age: 84 yrs Sex: Female : 1940 Arrival Date: 01/27/2025 Time: 18:52 Bed 23 Private MD: ED Physician Dudley Sorto HPI: 01/27 19:29 This 84 yrs old Female presents to ER via Wheelchair with complaints of S/S of Possible sp3 Stroke. 19:29 84-year-old female with history of multiple TIAs, atrial fibrillation, NSTEMI, history sp3 of global amnesia, currently on Eliquis now presents to the ED with chief complaint left-sided hemianopsia symptoms. Patient states she was watching television however suddenly was unable to see the left side of the screen in the close captioning. She this occurred approximately 30 minutes prior to arrival and her symptoms have now since subsided slowly to the point now where they are gone. She denies any other symptoms including slurred speech, memory loss, headache, chest pain, shortness of breath, numbness or tingling, weakness, loss of bowel or bladder control, syncope, near syncope, or any other signs or symptoms on ROS at this time.. 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 - Infectious Disease History:: Denies. - Social history:: Smoking status: Patient denies any tobacco usage or history of. ROS: 19:31 Constitutional: Negative for fever, chills, and weight loss, ENT: Negative for injury, sp3 pain, and discharge, Neck: Negative for injury, pain, and swelling, Cardiovascular: Negative for chest pain, palpitations, and edema, Respiratory: Negative for shortness of breath, cough, wheezing, and pleuritic chest pain, Abdomen/GI: Negative for abdominal pain, nausea, vomiting, diarrhea, and constipation, Back: Negative for injury and pain, MS/Extremity: Negative for injury and deformity, Skin: Negative for injury, rash, and discoloration, Neuro: Negative for headache, weakness, numbness, tingling, and seizure, Psych: Negative for depression, anxiety, suicide ideation, homicidal ideation, and hallucinations, Allergy/Immunology: Negative for hives, rash, and allergies, Endocrine: Negative for neck swelling, polydipsia, polyuria, polyphagia, and marked weight changes, Hematologic/Lymphatic: Negative for swollen nodes, abnormal bleeding, and unusual bruising, 19:31 All other systems are negative, Exam: 19:31 Radiologist reports: Negative CT head, CT head angio, CT neck angio sp3 19:31 Constitutional: This is a well developed, well nourished patient who is awake, alert, and in no acute distress. Head/Face: Normocephalic, atraumatic. Eyes: Pupils equal round and reactive to light, extra-ocular motions intact. Lids and lashes normal. Conjunctiva and sclera are non-icteric and not injected. Cornea within normal limits. Periorbital areas with no swelling, redness, or edema. ENT: Nares patent. No nasal discharge, no septal abnormalities noted. External auditory canals are clear. Oropharynx with no redness, swelling, or masses, exudates, or evidence of obstruction, uvula midline. Mucous membranes moist. Neck: Trachea midline, no thyromegaly or masses palpated, and no cervical lymphadenopathy. Supple, full range of motion without nuchal rigidity, or vertebral point tenderness. No Meningismus. Chest/axilla: Normal chest wall appearance and motion. Nontender with no deformity. No lesions are appreciated. Cardiovascular: Regular rate and rhythm with a normal S1 and S2. No gallops, murmurs, or rubs. Normal PMI, no JVD. No pulse deficits. Respiratory: Lungs have equal breath sounds bilaterally, clear to auscultation and percussion. No rales, rhonchi or wheezes noted. No increased work of breathing, no retractions or nasal flaring. Abdomen/GI: Soft, non-tender, with normal bowel sounds. No distension or tympany. No guarding or rebound. No evidence of tenderness throughout. Back: No spinal tenderness. No costovertebral tenderness. Full range of motion. Skin: Warm, dry with normal turgor. Normal color with no rashes, no lesions, and no evidence of cellulitis. MS/ Extremity: Pulses equal, no cyanosis. Neurovascular intact. Full, normal range of motion. Neuro: Awake and alert, GCS 15, oriented to person, place, time, and situation. Cranial nerves II-XII grossly intact. Motor strength 5/5 in all extremities. Sensory grossly intact. Cerebellar exam normal. Normal gait. Psych: Awake, alert, with orientation to person, place and time. Behavior, mood, and affect are within normal limits. 19:39 ECG was reviewed by the Attending Physician. EKG demonstrates atrial fibrillation at 88 sp3 bpm with normal axis, normal intervals except for absent OH and nonspecific diffuse ST/T changes without evidence of acute ischemia. Vital Signs: 19:27 BP 160 / 100; Pulse 85; Resp 16; Pulse Ox 100% on R/A; jb4 NIH Stroke Scale Scores: 19:11 NIHSS Score: 0 jb4 MDM: 18:53 Medical Screening Exam initiated sp3 19:32 Data reviewed: vital signs, nurses notes, old medical records, lab test result(s), EKG, sp3 radiologic studies. ED course: 84-year-old female with left-sided hemianopsia type symptoms. All symptoms are now resolved and NIH stroke scale is 0. Differential diagnosis includes TIA, CVA, intracranial hemorrhage, electrolyte disturbance, intraocular pathology, among others. Eye exam is normal. Neurological exam is normal. CT scans of the head are normal as well as angiograms. Lab work pending and we will observe patient in the ED to ensure she does not have return of symptoms. If all workup negative and patient stays with an NIH stroke scale of 0, we will safely discharge patient home with neurological follow-up. She is on Eliquis as well.. 19:51 ED course: Blood pressure continues to be stable and chest x-ray is also negative. sp3 Denies stroke scale remains 0. Will safely discharge patient home at this time.. 01/27 18:54 Order name: Basic Metabolic Panel; Complete Time: 19:38 sp3 01/27 18:54 Order name: CBC with Diff; Complete Time: 19:29 sp3 01/27 18:54 Order name: High Sensitivity Troponin; Complete Time: 19:38 sp3 01/27 18:54 Order name: Magnesium; Complete Time: 19:38 sp3 01/27 18:54 Order name: Protime (+inr); Complete Time: 19:29 sp3 01/27 18:54 Order name: Ptt, Activated; Complete Time: 19:29 sp3 01/27 18:54 Order name: Hepatic Function; Complete Time: 19:38 sp3 09/23 19:41 Order name: Glucose, Ancillary Testing; Complete Time: 19:42 EDMS 01/27 18:54 Order name: CT Head Angio; Complete Time: 19:29 sp3 01/27 18:54 Order name: CT Neck Angio; Complete Time: 19:29 sp3 01/27 18:54 Order name: CT Stroke Brain w/o Contrast; Complete Time: 19:29 sp3 01/27 18:54 Order name: Stroke CXR 1 View; Complete Time: 19:58 sp3 01/27 18:54 Order name: Accucheck; Complete Time: 19:40 sp3 01/27 18:54 Order name: Cardiac monitoring; Complete Time: 19:21 sp3 01/27 18:54 Order name: EKG - Nurse/Tech; Complete Time: 19:21 sp3 01/27 18:54 Order name: IV Saline Lock; Complete Time: 19:06 sp3 01/27 18:54 Order name: Labs collected and sent; Complete Time: 19:06 sp3 01/27 18:54 Order name: NPO; Complete Time: 19:06 sp3 01/27 18:54 Order name: O2 Per Protocol; Complete Time: 19:21 sp3 01/27 18:54 Order name: O2 Sat Monitoring; Complete Time: 19:21 sp3 01/27 18:54 Order name: Stroke Swallow Screen; Complete Time: 19:40 sp3 Administered Medications: No medications were administered Disposition Summary: 01/27/25 19:51 Discharge Ordered Notes: Location: Home sp3 Condition: Stable sp3 Diagnosis - Transient ischemic attack, transient left hemianopsia sp3 Followup: sp3 - With: Private Physician - When: Upon discharge from the Emergency Department - Reason: Continuance of care Discharge Instructions: - Discharge Summary Sheet sp3 - Transient Ischemic Attack sp3 Forms: - Medication Reconciliation Form sp3 - Antibiotic Education sp3 - Prescription Opioid Use sp3 - Patient Portal Instructions sp3 - Leadership Thank You Letter sp3 NIH Stroke Scale - NIH Stroke Score Date: 01/27/2025 Time: 19:11 Total Score = 0 10. Dysarthria (speech clarity - read or repeat words) - 0(Normal) 11. Extinction and Inattention (visual/tactile/auditory/spatial/personal) - 0(No abnormality) 1a. Level of Consciousness (LOC) - 0(Alert) 1b. Level of Consciousness (LOC) (Month \T\ Age) - 0(Both) 1c. LOC Commands (Open \T\ Closes Eyes/Records Tech) - 0(Both) 2. Best Gaze (Lateral Gaze Paresis) - 0(Normal) 3. Visual Field Loss - 0(No visual loss) 4. Facial Palsy - 0(Normal) 5a. Left Arm: Motor (10-second hold) - 0(No drift) 5b. Right Arm: Motor (10-second hold) - 0(No drift) 6a. Left Leg: Motor (5-second hold - always test supine) - 0(No drift) 6b. Right Leg: Motor (5-second hold - always test supine) - 0(No drift) 7. Limb Ataxia (finger/nose \T\ heel/west - test with eyes open) - 0(Absent) 8. Sensory Loss (pinprick arms/legs/face) - 0(Normal) 9. Best Language: Aphasia (description/naming/reading) - 0(No aphasia) Initials: jb4 Signatures: Dispatcher [employer] EDMS Lacey Bonilla, RN RN Shlomo Nuno RN RN jb4 Dudley Sorto MD MD sp3 Corrections: (The following items were deleted from the chart) 18:55 18:55 BASIC METABOLIC PANEL+C.LAB.BRZ ordered. EDMS EDMS 18:55 18:55 CBC+H.LAB.BRZ ordered. EDMS EDMS 18:55 18:55 Troponin High Sensitivity+C.LAB.BRZ ordered. EDMS EDMS 18:55 18:55 MAGNESIUM+C.LAB.BRZ ordered. EDMS EDMS 18:55 18:55 PROTIME (+INR)+COAG.LAB.BRZ ordered. EDMS EDMS 18:55 18:55 PTT, ACTIVATED+COAG.LAB.BRZ ordered. EDMS EDMS 18:55 18:55 HEPATIC FUNCTION+C.LAB.BRZ ordered. EDMS EDMS 18:55 18:55 Head Angio+CT.RAD.BRZ ordered. EDMS EDMS 18:55 18:55 Neck Angio+CT.RAD.BRZ ordered. EDMS EDMS 18:55 18:55 CT-STROKE BRAIN W/O CONTRAST+CT.RAD.BRZ ordered. EDMS EDMS 18:55 18:55 Chest Single View+RAD.RAD.BRZ ordered. EDMS EDMS
--- NOTE | 2025-01-27 19:52 | ER ---
Nurse's Notes [facility] Name: Raya Haynes Age: 84 yrs Sex: Female : 1940 Arrival Date: 01/27/2025 Time: 18:52 Bed 23 [facility] MD: Diagnosis: Transient ischemic attack, transient left hemianopsia Presentation: 01/27 18:54 Chief complaint: Patient states: L sided visual disturbances that have been off and on ss all day. Most recent episode occurred 30 minutes ago and is reportedly subsiding. HX of TIA. NIHSS 0. Coronavirus screen: Client denies travel out of the [place] in the last 14 days. Ebola Screen: Patient denies exposure to infectious person. Patient denies travel to an Ebola-affected area in the 21 days before illness onset. Initial Sepsis Screen: Does the patient meet any 2 criteria? No. Patient's initial sepsis screen is negative. Does the patient have a suspected source of infection? No. Patient's initial sepsis screen is negative. Risk Assessment: Do you want to hurt yourself or someone else? Patient reports no desire to harm self or others. Onset of symptoms was January 27, 2025. 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 - Infectious Disease History:: Denies. - Social history:: Smoking status: Patient denies any tobacco usage or history of. Screenin:48 [facility] ED Fall Risk Assessment (Adult) History of falling in the last 3 months, jb4 including since admission No falls in past 3 months (0 pts) Confusion or Disorientation No (0 pts) Intoxicated or Sedated No (0 pts) Impaired Gait No (0 pts) Mobility Assist Device Used No (0 pt) Altered Elimination No (0 pt) Score/Fall Risk Level 0 - 2 = Low Risk Oriented to surroundings, Maintained a safe environment. Abuse screen: Denies threats or abuse. Nutritional screening: No deficits noted. Tuberculosis screening: No symptoms or risk factors identified. Assessment: 18:51 Reassessment: CODE STROKE CALLED. ss 19:30 VAN Scoring: Arm Drift: Patients demonstrates NO arm weakness. Patient is VAN Negative. jb4 Visual Disturbance: No visual disturbance noted. [facility] Swallow Protocol Exclusion Criteria: Unable to remain alert for testing: No NPO for medical/surgical reason by provider order No Tracheostomy tube present No No thin liquids due to preexisting dysphagia/baseline modified diet thickened liquids No Exclusion Criteria Result: Proceed Brief Cognitive Screen What is your name? Normal, Where are you right now? Normal, What year is it? Normal. Oral Mechanism Examination Facial Symmetry: Normal, Motion: Normal, Lip Closure: Normal, Oral Mechanism Result: Normal. 3 oz Water Swallow Challenge: Pt able to drink all water without stopping, coughing, choking or throat clearing: Yes Result: PASS MD Notified: Dudley Sorto MD. 19:30 TNKase (Tenecteplase) Screening: Indications: Definite evidence of stroke, ischemic, jb4 embolic, or hypertensive: No. No evidence of intracranial hemorrhage or CT of head and no evidence of peripheral hemorrhage or recent CVA: Yes. Contraindications: Over 80 years old: Yes. General: Appears in no apparent distress. comfortable, Behavior is calm, cooperative, appropriate for age. Pain: Denies pain. Neuro: Level of Consciousness is awake, alert, obeys commands, Oriented to person, place, time, situation, [employer] are equal bilaterally Moves all extremities. Full function Speech is normal, Facial symmetry appears normal, Pupils are PERRLA, Intact Reports blurred vision that is improving. Cardiovascular: Patient's skin is warm and dry. Respiratory: Airway is patent Respiratory effort is even, unlabored, Respiratory pattern is regular, symmetrical. Derm: Skin is intact, Skin is pink, warm \T\ dry. Musculoskeletal: Circulation, motion, and sensation intact. Range of motion: intact in all extremities. Vital Signs: 19:27 BP 160 / 100; Pulse 85; Resp 16; Pulse Ox 100% on R/A; jb4 NIH Stroke Scale Scores: 19:11 NIHSS Score: 0 jb4 ED Course: 18:53 Patient arrived in ED. rv1 18:53 Dudley Sorto MD is Attending Physician. sp3 18:58 Triage completed. ss 19:02 CT Stroke Brain w/o Contrast In Process Unspecified. EDMS 19:08 CT Head Angio In Process Unspecified. EDMS 19:08 CT Neck Angio In Process Unspecified. EDMS 19:38 Stroke CXR 1 View In Process Unspecified. EDMS 19:41 Shlomo Zavala, RN is Primary Nurse. jb4 19:48 Patient has correct armband on for positive identification. Bed in low position. Call jb4 light in reach. Side rails up X 1. Provided Education on: plan of care. 19:48 No provider procedures requiring assistance completed. jb4 20:14 IV discontinued, intact, bleeding controlled, No redness/swelling at site. Pressure jb4 dressing applied. Administered Medications: No medications were administered Medication: 19:41 VIS not applicable for this client. jb4 Outcome: 19:51 Discharge ordered by . sp3 20:14 Discharged to home via wheelchair, with family, jb4 20:14 Condition: stable 20:14 Discharge instructions given to patient, Instructed on discharge instructions, follow up and referral plans. Demonstrated understanding of instructions, follow-up care, 20:16 Patient left the ED. jb4 NIH Stroke Scale - NIH Stroke Score Date: 01/27/2025 Time: 19:11 Total Score = 0 10. Dysarthria (speech clarity - read or repeat words) - 0(Normal) 11. Extinction and Inattention (visual/tactile/auditory/spatial/personal) - 0(No abnormality) 1a. Level of Consciousness (LOC) - 0(Alert) 1b. Level of Consciousness (LOC) (Month \T\ Age) - 0(Both) 1c. LOC Commands (Open \T\ Closes Eyes/Bevel Gear Generator Operator) - 0(Both) 2. Best Gaze (Lateral Gaze Paresis) - 0(Normal) 3. Visual Field Loss - 0(No visual loss) 4. Facial Palsy - 0(Normal) 5a. Left Arm: Motor (10-second hold) - 0(No drift) 5b. Right Arm: Motor (10-second hold) - 0(No drift) 6a. Left Leg: Motor (5-second hold - always test supine) - 0(No drift) 6b. Right Leg: Motor (5-second hold - always test supine) - 0(No drift) 7. Limb Ataxia (finger/nose \T\ heel/west - test with eyes open) - 0(Absent) 8. Sensory Loss (pinprick arms/legs/face) - 0(Normal) 9. Best Language: Aphasia (description/naming/reading) - 0(No aphasia) Initials: jb4 Signatures: Dispatcher [employer] Lacey Trejo, RN RN ss Shlomo Zavala RN RN jb4 Dudley Sorto MD MD sp3 Sharri Walters [facility]
--- NOTE | 2025-01-27 19:57 | RAD REPORT ---
EXAM: Chest Single View HISTORY: 84 years Female stroke alert COMPARISON: 10/26/2023 FINDINGS: LUNGS/PLEURA: The lungs are clear. No pleural effusions or pneumothorax. No pulmonary edema. Unchange d noncalcified right lung nodule. Emphysema. CARDIAC/MEDIASTINUM: The cardiac silhouette is within normal limits. Tortuous thoracic aorta. UPPER ABDOMEN: No significant abnormality. BONES: No acute abnormality. LINES/TUBES/OTHER: N/A IMPRESSION: No evidence of acute cardiopulmonary disease.
[2025-01-27 20:47] VITALS: BP 160/100; O2SAT 100
== END 2025-01-27 20:16 | disposition home or self-care (01) ==
LOC: ER 18:52
DX: G45.9 Transient cerebral ischemic attack, unspecified (principal)
CPT/HCPCS: 93005; 85025; 80048; 36415; 83735; 85610; 82947; 80076; 85730; 84484; 70496; 70498; 70450; 71045; 99284; Q9967